=== PATIENT | female | born 1940 | race Caucasian/White ===

== ENCOUNTER 2020-01-23 11:01 | Emergency (ER) | payer MEDICARE, SELFPAY ==
[2020-01-23 11:09] VITALS: BP 146/86; PULSE 76; RESP 16; TEMP 36.2; O2SAT 98
--- NOTE | 2020-01-23 11:11 | ED.EAR ---
HPI - Ear Problem General Chief complaint: Ear Stated complaint: Sore throat/Ear pain Time Seen by Provider: 01/23/20 11:12 Source: patient and RN notes reviewed Mode of arrival: ambulatory Limitations: no limitations History of Present Illness HPI Narrative: 79-year-old female presents with concern for left ear pain for several days. Reports history of sinus congestion, pressure for approximately 2 weeks. Reports she has been using [place] pot, Flonase with no relief. Denies drainage from the ear. Denies fever, malaise. Reports occasional slight dizziness with nausea. MD Complaint: ear pain Related Data Home Medications Medication Instructions Recorded Confirmed Calcium 500 + D (D3) 04/02/19 Daily Multivitamin 04/02/19 digestive enzymes 04/02/19 magnesium 04/02/19 biotin 5,000 mcg sublingual tablet 5,000 mcg SUBLINGUAL DAILY 05/20/19 Allergies Allergy/AdvReac Type Severity Reaction Status Date / Time No Known Allergies Allergy Verified 09/21/19 11:39 Review of Systems Review of Systems: Narrative: CONSTITUTIONAL: Denies malaise, chills, sweats, or fever. EYES: Denies visual changes, redness, or discharge. ENT: Reports rhinorrhea, congestion, sinus pain, otalgia and sore throat. CARDIOVASCULAR: Denies chest pain, palpitations, or edema. RESPIRATORY: Denies cough dyspnea. GASTROINTESTINAL: Denies abdominal pain, nausea, vomiting, diarrhea SKIN: Denies rash or itching. MUSCULOSKELETAL: Denies myalgia. NEUROLOGIC: Denies headache. All systems reviewed & are unremarkable except as noted in HPI and below PMFSH Family History Family History Sibling Hypertension Mother Diabetes mellitus Hypertension Family history of coronary artery disease Father Hypertension Other Family history of heart disease in male family member before age 55 Social History Social History Smoking status: Former smoker Smoking end date: 04/07/96 Alcohol intake: never Comments At time of signature, agree with nursing past medical, surgical, social and family history. There is no relevant family history pertinent to the presenting complaint Exam Narrative: Exam Narrative: GENERAL: Well-appearing, well-nourished, and in no acute distress. HEAD: Normocephalic EYES: PERRLA, conjunctivae clear ENT: Nares clear, turbinates edematous and erythematous, sinus tenderness. Mucous membranes moist. TM pearly miller with dull light reflex bilaterally; no tragal tenderness. Oropharynx not erythematous without lesions. Tonsils not enlarged and without exudate, no drooling, no hoarseness, no trismus, uvula midline. NECK: Supple. No lymphadenopathy CHEST: Clear to auscultation, breath sounds equal. No wheezing, rhonchi, rales, or stridor. No respiratory distress, speaks in full sentences. HEART: Regular rate and rhythm. No murmur heard. SKIN: Warm, dry, no rash. NEURO: Alert and oriented x3. PSYCH: Normal mood and affect Course Course Emergency Course: Patient is aware of diagnosis, understands and agrees to treatment plan. Anticipatory guidance given. Patient agrees to follow-up as directed and is aware of reasons to seek care at the emergency department. Portions of this record may have been created with voice recognition software Vital Signs Vital signs: Vital Signs Temperature 97.2 F L 01/23/20 11:09 Pulse Rate 76 01/23/20 11:09 Respiratory Rate 16 01/23/20 11:09 Blood Pressure 146/86 H 01/23/20 11:09 Pulse Oximetry 98 01/23/20 11:09 Temperature 97.2 F L 01/23/20 11:09 Pulse Rate 76 01/23/20 11:09 Respiratory Rate 16 01/23/20 11:09 Blood Pressure 146/86 H 01/23/20 11:09 Pulse Oximetry 98 01/23/20 11:09 Reviewed. Patient has history of hypertension Medical Decision Making MDM Narrative Medical decision making narrative: Differential diagnosis considered: Lopez virus, strep
== END 2020-01-23 11:29 | disposition home or self-care (01) ==
PROVIDERS: Emergency Provider Nurse Practitioner; PCP Family Medicine
DX: J01.90 Acute sinusitis, unspecified (principal); Z87.891 Personal history of nicotine dependence
CPT/HCPCS: 99213; G0463

== ENCOUNTER 2020-02-20 10:48 | Emergency (ER) | payer MEDICARE, SELFPAY ==
--- NOTE | 2020-02-20 10:54 | ED.GENADULT ---
HPI - General Adult General Chief complaint: Urogenital-Female Stated complaint: POS UTI Time Seen by Provider: 02/20/20 11:04 Source: patient Mode of arrival: ambulatory Limitations: no limitations History of Present Illness HPI narrative: 79-year-old female patient presents to the [facility] with complaints of urinary symptoms that started this morning when she woke up. Patient states that she has had urgency, frequency and burning with urination. Denies any fevers, body aches or chills. Denies any low back pain or abdominal pain. Patient states that she does get urinary tract infections pretty frequently. Related Data Home Medications Medication Instructions Recorded Confirmed Calcium 500 + D (D3) 04/02/19 01/27/20 Daily Multivitamin 04/02/19 01/27/20 digestive enzymes 04/02/19 01/27/20 magnesium 04/02/19 01/27/20 biotin 5,000 mcg sublingual tablet 5,000 mcg SUBLINGUAL DAILY 05/20/19 01/27/20 [id number] INHALATION 02/20/20 [Trelegy Ellipta] mirabegron [Myrbetriq] mg PO 02/20/20 Allergies Allergy/AdvReac Type Severity Reaction Status Date / Time No Known Allergies Allergy Verified 02/01/20 14:29 Review of Systems Review of Systems: Narrative: CONSTITUTIONAL: Denies fever, chills, or sweats. EYES: Denies visual changes, redness, or discharge. ENT: Denies rhinorrhea, congestion, sore throat, or otalgia. CARDIOVASCULAR: Denies chest pain, palpitations, or edema. RESPIRATORY: Denies cough or dyspnea. GASTROINTESTINAL: Denies abdominal pain, nausea, vomiting, or diarrhea. GENITOURINARY: Positive dysuria with urgency, frequency and burning pain with urination since this morning SKIN: Denies rash or itching. MUSCULOSKELETAL: Denies back pain, joint pain, or myalgia. NEUROLOGIC: Denies headache, numbness, or weakness. PSYCHIATRIC: Denies anxiety or depression. [facility] Past Medical History Medical History (Updated 02/20/20 @ 11:13 by LUIS FELIPE Gregory) Arthritis Atherosclerosis of aorta Chronic kidney disease, stage 3 (moderate) Chronic obstructive pulmonary disease, unspecified Essential (primary) hypertension Fractures Fracture right arm x2 at age 7 Gastro-esophageal reflux disease without esophagitis Hypertensive chronic kidney disease with stage 1 through stage 4 chronic kidney disease, or unspecified chronic kidney disease Osteopenia Personal history of rectal cancer Post-menopausal Pure hypercholesterolemia, unspecified Rectal cancer With chemotherapy and radiation therapy Surgical History Surgical History (Updated 02/20/20 @ 11:08 by LUIS FELIPE Gregory) H/O inguinal hernia repair History of section, classical History of implanted electronic device Cataract lens History of intestinal surgery 2014 abdominal perineal resection with colostomy History of orthopedic surgery Left bunionectomy Family History Family History Sibling Hypertension Mother Diabetes mellitus Hypertension Family history of coronary artery disease Father Hypertension Other Family history of heart disease in male family member before age 55 Social History Social History Smoking end date: 04/07/96 Alcohol intake: never Comments At the time of my signature I agree with nursing past medical history, surgical, social, and family history. There is no relevant family history pertinent to the presenting complaint. Exam Narrative: Exam Narrative: GENERAL: Well-appearing, well-nourished, and in no acute distress. HEAD: Normocephalic, atraumatic. EYES: PERRLA and EOMI. ENT: Nares clear, no rhinorrhea or epistaxis. Mucous membranes moist. NECK: Supple. No lymphadenopathy CHEST: Clear to auscultation. No respiratory distress. HEART: Regular rate and rhythm. No murmur heard. Normal peripheral pulses. ABDOMEN: Soft, nontender, nondistended, normal active bowel sounds.
[2020-02-20 10:58] VITALS: BP 155/96; PULSE 84; RESP 16; TEMP 36.1
== END 2020-02-20 11:18 | disposition home or self-care (01) ==
PROVIDERS: Emergency Provider Nurse Practitioner Family; PCP Family Medicine
DX: N30.01 Acute cystitis with hematuria (principal); M19.90 Unspecified osteoarthritis, unspecified site; K21.9 Gastro-esophageal reflux disease without esophagitis; I12.9 Hypertensive chronic kidney disease with stage 1 through stage 4 chronic kidney disease, or unspecified chronic kidney disease; N18.30 Chronic kidney disease, stage 3 unspecified; I70.0 Atherosclerosis of aorta; M85.80 Other specified disorders of bone density and structure, unspecified site; Z85.048 Personal history of other malignant neoplasm of rectum, rectosigmoid junction, and anus; Z92.21 Personal history of antineoplastic chemotherapy; Z92.3 Personal history of irradiation
CPT/HCPCS: 81003; 87086; 87088; 99213; G0463

== ENCOUNTER → 2020-06-27 12:26 | Outpatient (CLI) | payer MEDICARE, SELFPAY ==
--- NOTE | ~2020-06-27 | XR_ITS ---
XR lumbar spine 2-3V DATE: 06/27/2020 12:55 INDICATION: Back pain TECHNIQUE: AP, lateral, coned lateral lumbosacral views COMPARISON: None FINDINGS: There is diffuse osteopenia. There is degenerative spurring of the lower thoracic spine. There is moderate degenerative disc disease at L1-2, L2-3. No fracture or bone destruction is detected. Included lower thoracic and lumbar pedicles appear intac t. There is degenerative change at the apophyseal joints at L4-5 and L5-S1 in particular, with minimal a ssociated grade 1 anterolisthesis at each of these levels. The sacroiliac joints appear normal. There is extensive calcification of the abdominal aorta with 2 focal areas of dilatation consistent w ith mild abdominal aortic aneurysm. IMPRESSION: Prominent osteopenia Degenerative changes of the thoracic and lumbar spine Abdominal aortic aneurysm Reviewed, dictated and finalized at location B.
--- NOTE | ~2020-06-27 | XR_ITS ---
XR finger 1st RT min 2V DATE: 06/27/2020 12:55 INDICATION: Pain at first metacarpophalangeal joint and carpometacarpal joint TECHNIQUE: 3 views COMPARISON: None FINDINGS: There is moderately prominent osteophyte is at the first carpometacarpal joint. There is mi nimal osteoarthritis at the first metacarpophalangeal joint. There is joint space narrowing and promi nent spurring at the interphalangeal joint of the first digit. No fracture or dislocation, periosteal reaction or bone destruction is evident. 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 IMPRESSION: Osteoarthritis primarily at the first carpometacarpal joint and int erphalangeal joint of the first digit
== END ==
PROVIDERS: PCP Family Medicine; Visit Provider Family Medicine
DX: M85.88 Other specified disorders of bone density and structure, other site (principal); I71.4 Abdominal aortic aneurysm, without rupture; M19.041 Primary osteoarthritis, right hand
CPT/HCPCS: 72100; 73140

== ENCOUNTER 2020-07-03 10:14 | Outpatient (CLI) | payer MEDICARE, SELFPAY ==
--- NOTE | ~2020-07-03 | DEXA_ITS ---
Bone Density Report Name: Elvie Thakur Age: 80 Sex: Female Ethnicity: White Date of : 1940 Indication: postmenopausal; height loss; cancer; asthma or emphysema; Referring Provider: Enrique Marroquin Study: Bone densitometry was performed. Exam Date: July 03, 2020 Accession number: [id number] Bone Density: Region BMD T-score Z-score Classification AP Spine (L1-L4) 1.068 0.2 2.9 Normal Femoral Neck (Left) 0.704 -1.3 1.0 Osteopenia Total Hip (Left) 0.912 -0.2 1.9 Normal Total Hip Bilateral Avg 0.917 -0.2 2.0 Normal Femoral Neck (Right) 0.761 -0.8 1.6 Normal Total Hip (Right) 0.920 -0.2 2.0 Normal World Health Organization criteria for BMD impression classify patients as: Normal (T-score at or above -1.0), Osteopenia (T-score between -1.0 and -2.5), or Osteoporosis (T-score at or below -2.5). 10-year Fracture Risk(1): Major Osteoporotic Fracture 12% Hip Fracture 2.7% Reported Risk Factors: [place] (), Neck BMD=0.704, BMI=32.6 (1) FRAX(R) Version 3.08. Fracture probability calculated for an untreated patient. Fracture probability may be lower if the patient has received treatment. Previous Exams: Region Exam Age BMD T-score BMD Change BMD Change Date g/cm2 vs Baseline vs Previous AP Spine(L1-L4) 07/03/2020 80 1.068 0.2 0.245(29.7%)# 0.016(1.5%)# 02/06/2018 77 1.052 0.0 0.229(27.8%)# 0.058(5.9%)# 06/12/2015 75 0.994 -0.5 0.170(20.7%)# 0.073(7.9%)# 09/18/2009 69 0.921 -1.1 0.097(11.8%)* 0.097(11.8%)* 11/18/2003 63 0.823 -2.0 Total Hip(Left) 07/03/2020 80 0.912 -0.2 0.101(12.5%)# 0.007(0.7%)# 02/06/2018 77 0.906 -0.3 0.095(11.7%)# 0.003(0.3%)# 06/12/2015 75 0.903 -0.3 0.092(11.4%)# 0.049(5.8%)# 09/18/2009 69 0.853 -0.7 0.043(5.3%)* 0.043(5.3%)* 11/18/2003 63 0.811 -1.1 Total Hip(Right) 07/03/2020 80 0.920 -0.2 0.104(12.7%)# 0.020(2.3%)# 02/06/2018 77 0.900 -0.3 0.084(10.2%)# -0.030(-3.2%)# 06/12/2015 75 0.930 -0.1 0.113(13.9%)# 0.078(9.2%)# 09/18/2009 69 0.851 -0.7 0.035(4.3%)* 0.035(4.3%)* 11/18/2003 63 0.816 -1.0 *Denotes significance at 95% confidence level, LSC for AP Spine = 0.022 g/cm2, LSC for Total Hip = 0.027 g/cm2 Clinical Information Provided by Patient: Has used the following medications: Vitamin D, Calcium Has the following medical conditions: Asthma or Emphysema, Cancer Patient maximum height was 67 No regular weight bearing exercise Onset o
== END 2020-07-03 10:15 | disposition home or self-care (01) ==
LOC: ANHIMG 10:15
PROVIDERS: PCP Family Medicine; Visit Provider Physician Assistant Medical
DX: Z78.0 Asymptomatic menopausal state (principal); M85.852 Other specified disorders of bone density and structure, left thigh
CPT/HCPCS: 77080

== ENCOUNTER 2020-07-05 07:36 | Outpatient (CLI) | payer MEDICARE, SELFPAY ==
--- NOTE | ~2020-07-05 | US_ITS ---
EXAMINATION: US aorta DATE: 07/05/2020 08:46 INDICATION: Aortic atherosclerosis TECHNIQUE: Grayscale, color Doppler, and pulsed Doppler images of the aorta and common iliac arteries were obtained. COMPARISON: None. FINDINGS: The proximal aorta measures 2.5 cm. The mid aorta measures 2.4 cm. The distal aorta measures 3.1 cm t apering to 1.3 cm at the bifurcation. The right common iliac artery measures 10 mm. The left common i liac artery measures 12 mm. IMPRESSION: 1. Ectatic infrarenal abdominal aorta measuring up to 3.1 cm in maximal diameter. Reviewed, dictated and finalized at location A. IMPRESSION: 1. Ectatic infrarenal abdominal aorta measuring up to 3.1 cm in maximal diamete r.
== END 2020-07-05 07:37 | disposition home or self-care (01) ==
PROVIDERS: PCP Family Medicine; Visit Provider Physician Assistant Medical
DX: I70.0 Atherosclerosis of aorta (principal)
CPT/HCPCS: 76775

== ENCOUNTER 2020-07-17 13:26 | Emergency (ER) | payer MEDICARE, SELFPAY ==
--- NOTE | ~2020-07-17 | XR_ITS ---
XR humerus LT DATE: 07/17/2020 15:05 INDICATION: Proximal left arm pain TECHNIQUE: AP and lateral views COMPARISON: 07/17/2020 left shoulder FINDINGS: There is a comminuted fracture of the proximal left humerus internally displaced mildly imp acted transverse surgical neck fracture and minimally displaced longitudinal fracture through the gre ater tuberosity. Alignment is preserved at the shoulder and apparently elbow joints. IMPRESSION: Fracture of greater tuberosity and surgical neck of left humerus Diffuse osteopenia Reviewed, dictated and finalized at location A.
--- NOTE | ~2020-07-17 | XR_ITS ---
XR shoulder LT min 2V DATE: 07/17/2020 15:05 INDICATION: Pain of the left shoulder and proximal arm TECHNIQUE: 3 views COMPARISON: None FINDINGS: There is a recent comminuted fracture of the proximal humerus, including transverse surgica l neck fracture with mild impaction and minimal displacement or angulation; there is a longitudinal m inimally displaced fracture through the greater tuberosity. Glenohumeral joint and acromioclavicular joint alignment are preserved. Osteopenia. IMPRESSION: Minimally displaced fractures of greater tuberosity and surgical neck of proximal left hu merus Osteopenia Reviewed, dictated and finalized at location A. IMPRESSION: Minimally displaced fractures of greater tuberosity and surgical ne ck of proximal left humerus Osteopenia
[2020-07-17 14:25] VITALS: BP 176/80; PULSE 69; RESP 18; TEMP 36.5; O2SAT 95
--- NOTE | 2020-07-17 15:15 | ED.UPPEXIN ---
HPI - Extremity Injury (Upper) General Chief Complaint: Extremity Injury, Upper Stated Complaint: Fall, Left Arm Pain Time Seen by Provider: 07/17/20 15:12 Source: patient Mode of arrival: EMS Limitations: no limitations History of Present Illness HPI narrative: Patient is an 80-year-old female complaining of left shoulder and left arm pain after she tripped while carrying a 40 pound on a edgardo when she tried to turn around she lost balance and landed on her left shoulder. Patient states her pain is an 8 out of 10, dull aching nonradiating. Patient denies any head, neck, back, chest, abdomen, pelvic, hip or any other extremity pain/injury. Related Data Home Medications Medication Instructions Recorded Confirmed Calcium 500 + D (D3) 04/02/19 01/27/20 Daily Multivitamin 04/02/19 01/27/20 digestive enzymes 04/02/19 01/27/20 magnesium 04/02/19 01/27/20 biotin 5,000 mcg sublingual tablet 5,000 mcg SUBLINGUAL DAILY 05/20/19 01/27/20 simvastatin 10 mg tablet 10 mg PO DAILY 03/24/20 Allergies Allergy/AdvReac Type Severity Reaction Status Date / Time No Known Allergies Allergy Verified 07/17/20 14:28 Review of Systems Review of Systems: All systems reviewed & are unremarkable except as noted in HPI and below Constitutional: Constitutional: Denies body ache(s), Denies chills, Denies excessive sweating, Denies fatigue, Denies fever(s), Denies headache(s), Denies lethargy, Denies malaise, Denies weakness and Denies weight loss Eyes: Eyes: Denies blurry vision, Denies change in vision and Denies loss of vision ENT: Denies dizziness, Denies ear discharge, Denies headache(s), Denies lip swelling, Denies epistaxis, Denies nasal congestion, Denies neck pain, Denies throat swelling and Denies tongue swelling Cardiovascular: Cardiovascular: Denies chest pain, Denies chest pain at rest, Denies chest pain with activity, Denies diaphoresis, Denies rapid heart rate, Denies edema, Denies irregular heart rhythm, Denies lightheadedness, Denies palpitations, Denies dyspnea and Denies dyspnea on exertion Respiratory: Respiratory: Denies chest congestion, Denies cough, Denies hemoptysis, Denies dyspnea and Denies dyspnea on exertion Gastrointestinal: Gastrointestinal: Denies abdominal pain, Denies melena, Denies hematochezia, Denies diarrhea, Denies nausea, Denies vomiting and Denies hematemesis Musculoskeletal: Musculoskeletal: Denies abnormal gait, Denies neck pain and Denies numbness Neurologic: Denies Abnormal speech present, Denies abnormal gait, Denies confusion, Denies dizziness, Denies headache(s), Denies focal weakness, Denies loss of vision, Denies numbness, Denies Other visual disturbances, Denies Sensory deficit (Neuro) and Denies weakness Psychiatric: Psychiatric: Denies confusion, Denies depression, Denies auditory hallucinations, Denies homicidal ideation and Denies suicidal ideation Endocrine: Endocrine: Denies cold intolerance, Denies excessive sweating, Denies fatigue, Denies heat intolerance and Denies palpitations Hematologic/Lymphatic: Hematologic/Lymphatic: Denies easy bleeding and Denies easy bruising Allergic/Immunologic: Allergic/Immunologic: Denies lip swelling, Denies throat swelling and Denies tongue swelling PMFSH Past Medical History Medical History Arthritis Atherosclerosis of aorta Chronic kidney disease, stage 3 (moderate) Chronic obstructive pulmonary disease, unspecified Essential (primary) hypertension Fractures Fracture right arm x2 at age 7 Gastro-esophageal reflux disease without esophagitis History of chicken pox History of measles History of mumps Hypertensive chronic kidney disease with stage 1 through stage 4 chronic kidney disease, or unspecified chronic kidney disease Osteopenia Personal history of rectal cancer Post-menopausal Pure hypercholesterolemia, unspecified Rectal cancer With chemotherapy and radiation therapy Surgical Histor
[2020-07-17] MEDS: ONDANSETRON INJ 4 MG/2 ML VIAL IV PUSH (15:45)
[2020-07-17] MEDS: HYDROmorphone HCL INJ (*CRX) 1 MG/ML SYR 0.5 MG IV PUSH (15:45)
[2020-07-17] MEDS: TETANUS,DIPHTHERIA,AC PERTUSSIS ADULT (0.5 ML) BOOSTRIX IM (16:33)
[2020-07-17 16:38] VITALS: BP 152/85; PULSE 69; RESP 16; O2SAT 95
== END 2020-07-17 16:38 | disposition home or self-care (01) ==
PROVIDERS: Emergency Provider Emergency Medicine; PCP Family Medicine
DX: S42.252A Displaced fracture of greater tuberosity of left humerus, initial encounter for closed fracture (principal); S42.212A Unspecified displaced fracture of surgical neck of left humerus, initial encounter for closed fracture; Z23 Encounter for immunization; I12.9 Hypertensive chronic kidney disease with stage 1 through stage 4 chronic kidney disease, or unspecified chronic kidney disease; N18.30 Chronic kidney disease, stage 3 unspecified; I70.0 Atherosclerosis of aorta; K21.9 Gastro-esophageal reflux disease without esophagitis; M85.80 Other specified disorders of bone density and structure, unspecified site; M19.90 Unspecified osteoarthritis, unspecified site; E78.00 Pure hypercholesterolemia, unspecified; Z92.3 Personal history of irradiation; Z85.048 Personal history of other malignant neoplasm of rectum, rectosigmoid junction, and anus; Z92.21 Personal history of antineoplastic chemotherapy; W01.0XXA Fall on same level from slipping, tripping and stumbling without subsequent striking against object, initial encounter
CPT/HCPCS: 73030; 73060; 90471; 90715; 96374; 96375; 99284; J1170; J2405

== ENCOUNTER 2021-08-13 02:47 | Day surgery (SDC) | payer MEDICARE, SELFPAY ==
[2021-07-26 11:12] VITALS: BMI 31.4
[2021-08-13 07:03] VITALS: BMI 30.7
[2021-08-13 07:04] VITALS: BP 150/81; PULSE 70; RESP 16; TEMP 36.8; O2SAT 97
--- NOTE | 2021-08-13 07:15 | WPDGICN ---
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 She currently has a colostomy in place that is functioning well. Surveillance colonoscopy is recommended now and at 3 year intervals in the future. GI Consult Note Consult date/time: 08/13/21 07:15 HPI: Elvie Thakur is a 81 year old female Presents for screening colonoscopy. Patient's current weight appetite are normal. She states her colostomy bag is functioning well. Patient has a history of adenocarcinoma of the colon resected 2012. Most recent colonoscopy with since 2018. Patient presents today for surveillance colonoscopy. She denies any weight loss or bleeding. Family history is noncontributory. Review of Systems Review of Systems: All systems reviewed & are unremarkable except as noted in HPI and below PMFSH Past Medical History Medical History Arthritis Atherosclerosis of aorta Chronic kidney disease, stage 3 (moderate) Chronic obstructive pulmonary disease, unspecified Constipation Essential (primary) hypertension Fractures Fracture right arm x2 at age 7 Gastro-esophageal reflux disease without esophagitis High cholesterol History of chicken pox History of measles History of mumps Hoarseness Hypertensive chronic kidney disease with stage 1 through stage 4 chronic kidney disease, or unspecified chronic kidney disease Osteopenia Osteoporosis Personal history of rectal cancer Post-menopausal Pure hypercholesterolemia, unspecified Rectal cancer With chemotherapy and radiation therapy Wears glasses Weight gain Surgical History Surgical History H/O inguinal hernia repair History of section, classical (~1968) History of implanted electronic device Cataract lens History of intestinal surgery 2014 abdominal perineal resection with colostomy, fix colon blockage 2014, fix intestine 2016, removal scar tissue/hernia 2018 History of orthopedic surgery Left bunionectomy Family History Family History Sibling Hypertension Aneurysm Gout Heart disease Mother Diabetes mellitus Hypertension Family history of coronary artery disease bypass age 72 Father Hypertension Daughter Hypertension Son Hypertension Daughter Lymphedema Carpal tunnel syndrome Heart problem Other Family history of heart disease in male family member before age 55 Social History Social History (Updated 07/06/21 @ 11:56 by Nabila Katz PA-C) Smoking status: Former smoker Tobacco type: cigarettes Smoking end date: 04/07/96 Alcohol intake: never Living arrangements: with family Gender identity (if verbalized by the patient): Female Spiritual care concerns: No Meds Home Medications and Allergies Home Medications Medication Instructions Recorded Confirmed Type Calcium 500 + D (D3) 1 tablet PO DAILY 04/02/19 08/13/21 History Daily Multivitamin 1 tablet PO DAILY 04/02/19 08/13/21 History digestive enzymes 1 cap PO DAILY 04/02/19 08/13/21 History magnesium 1,000 mg PO DAILY 04/02/19 08/13/21 History biotin 5,000 mcg sublingual tablet 5,000 mcg SUBLINGUAL DAILY 05/20/19 08/13/21 History ascorbic acid (vitamin C) 500 mg 1,000 mg PO DAILY 07/24/20 08/13/21 History capsule cat's claw (uncaria tomentosa) 500 500 mg PO DAILY 07/24/20 08/13/21 History mg capsule mirabegron 25 mg tablet,extended 25 mg PO DAILY #90 tablet 05/17/21 08/13/21 Rx release 24 hr simvastatin 10 mg tablet 10 mg PO DAILY #90 tablet 05/17/21 08/13/21 Rx Pancreat-Bet [id number]
[2021-08-13] MEDS: LACTATED RINGERS 1,000 ML 150 ML IV CONT (07:19)
--- NOTE | 2021-08-13 07:55 | WPDANESEPPF ---
Anes - Initial Pre Proc Eval Procedure: Operation Date: 08/13/21 08:00 Proposed Procedures p Screening Colonoscopy - Saqib Montes MD Date/Time: 08/13/21 07:55 Surgeon: Saqib Montes MD Pre Op Diagnosis: hx of rectal ca Patient Data Age: 81 Gender: F Height: 1.63 m Weight: 81.2 kg Last Vital Signs Temp 98.2 F 08/13/21 07:04 Pulse 70 08/13/21 07:04 Resp 16 08/13/21 07:04 BP 150/81 H 08/13/21 07:04 Pulse Ox 97 08/13/21 07:04 Allergies Allergy/AdvReac Type Severity Reaction Status Date / Time mold Allergy unknown Verified 08/13/21 07:00 Home Medications Medication Instructions Recorded Confirmed Type Calcium 500 + D (D3) 1 tablet PO DAILY 04/02/19 08/13/21 History Daily Multivitamin 1 tablet PO DAILY 04/02/19 08/13/21 History digestive enzymes 1 cap PO DAILY 04/02/19 08/13/21 History magnesium 1,000 mg PO DAILY 04/02/19 08/13/21 History biotin 5,000 mcg sublingual tablet 5,000 mcg SUBLINGUAL DAILY 05/20/19 08/13/21 History ascorbic acid (vitamin C) 500 mg 1,000 mg PO DAILY 07/24/20 08/13/21 History capsule cat's claw (uncaria tomentosa) 500 500 mg PO DAILY 07/24/20 08/13/21 History mg capsule mirabegron 25 mg tablet,extended 25 mg PO DAILY #90 tablet 05/17/21 08/13/21 Rx release 24 hr simvastatin 10 mg tablet 10 mg PO DAILY #90 tablet 05/17/21 08/13/21 Rx Pancreat-Bet XPu-ksp-hbog-pap 2 cap PO DAILY 07/26/21 08/13/21 History [Super Enzyme] albuterol sulfate [ProAir HFA] 1 inh INHALATION Q4H PRN 07/26/21 08/13/21 History amitriptyline 10 mg PO DAILY 07/26/21 08/13/21 History qujkpqvxrhs-uvhlzwian-iwkandcn 1 inh INHALATION DAILY 07/26/21 08/13/21 History [Trelegy Ellipta] glucos sul 6OQv-eae-dtnrl-C-Mn 2 cap PO TID 07/26/21 08/13/21 History [Glucosamine Chondroitin] lactobacillus combination no.8 300,000 cell PO TID 07/26/21 08/13/21 History [Adult Probiotic] lisinopril-hydrochlorothiazide 1 tablet PO DAILY 07/26/21 08/13/21 History loratadine 10 mg PO DAILY 07/26/21 08/13/21 History chlordiazepoxide HCl 5 mg capsule 5 mg PO DAILY #90 cap 08/01/21 08/13/21 Rx Patient hx anesthesia problems: none Family hx anesthesia problems: none Results Review: All pre-operative results and documents have been reviewed as part of the pre-operative evaluation. [facility] Past Medical History Medical History Arthritis Atherosclerosis of aorta Chronic kidney disease, stage 3 (moderate) Chronic obstructive pulmonary disease, unspecified Constipation Essential (primary) hypertension Fractures Fracture right arm x2 at age 7 Gastro-esophageal reflux disease without esophagitis High cholesterol History of chicken pox History of measles History of mumps Hoarseness Hypertensive chronic kidney disease with stage 1 through stage 4 chronic kidney disease, or unspecified chronic kidney disease Osteopenia Osteoporosis Personal history of rectal cancer Post-menopausal Pure hypercholesterolemia, unspecified Rectal cancer With chemotherapy and radiation therapy Wears glasses Weight gain Surgical History Surgical History H/O inguinal hernia repair History of section, classical (~1968) History of implanted electronic device Cataract lens History of intestinal surgery 2013 abdominal perineal resection with colostomy, fix colon blockage 2014, fix intestine 2016, removal scar tissue/hernia 2018 History of orthopedic surgery Left bunionectomy Family History Family History Sibling Hypertension Aneurysm Gout Heart disease Mother Diabetes mellitus Hypertension Family history of coronary artery disease bypass age 72 Father Hypertension Daughter Hypertension Son Hypertension Daughter Lymphedema Carpal tunnel syndrome Heart problem Other Family history of heart dise
--- NOTE | 2021-08-13 08:22 | SUR.OPER ---
SINDI Green and SINDI Rothman verified with Dr. Montes that one ascending colon polyp was collected
[2021-08-13 08:25] VITALS: BP 148/63; PULSE 73; RESP 16; O2SAT 94
[2021-08-13 08:35] VITALS: BP 135/67; PULSE 72; RESP 20; O2SAT 96
[2021-08-13 08:45] VITALS: BP 142/88; PULSE 66; RESP 18; O2SAT 96
== END 2021-08-13 09:10 | disposition home or self-care (01) ==
PROVIDERS: PCP Family Medicine; Visit Provider Internal Medicine Gastroenterology
PROC: 0DJD8ZZ Inspection of Lower Intestinal Tract, Via Natural or Artificial Opening Endoscopic (ICD-10-PCS; CPT 45378; principal; 2021-08-13 08:00)
DX: Z12.11 Encounter for screening for malignant neoplasm of colon (principal); Z85.048 Personal history of other malignant neoplasm of rectum, rectosigmoid junction, and anus; K63.5 Polyp of colon; Z93.3 Colostomy status; I12.9 Hypertensive chronic kidney disease with stage 1 through stage 4 chronic kidney disease, or unspecified chronic kidney disease; N18.30 Chronic kidney disease, stage 3 unspecified; M19.90 Unspecified osteoarthritis, unspecified site; I70.0 Atherosclerosis of aorta; J44.9 Chronic obstructive pulmonary disease, unspecified; K21.9 Gastro-esophageal reflux disease without esophagitis; E78.00 Pure hypercholesterolemia, unspecified; M81.0 Age-related osteoporosis without current pathological fracture; Z87.891 Personal history of nicotine dependence; Z79.51 Long term (current) use of inhaled steroids; E66.9 Obesity, unspecified; Z68.30 Body mass index [BMI] 30.0-30.9, adult
CPT/HCPCS: 45385; 88305; J2704; J7120

== ENCOUNTER 2022-07-11 20:56 | Outpatient (NON) | payer MEDICARE, SELFPAY | END 2022-07-11 20:57 | disposition home or self-care (01) | LOC: ANHLAB 20:57 | PROVIDERS: PCP Family Medicine; Visit Provider Family Medicine | DX: R35.0 Frequency of micturition (principal); R32 Unspecified urinary incontinence; N18.30 Chronic kidney disease, stage 3 unspecified | CPT/HCPCS: 87086 ==

== ENCOUNTER 2022-08-22 18:20 | Emergency (ER) | payer MEDICARE, SELFPAY ==
--- NOTE | 2022-08-22 18:29 | ED.GENADULT ---
HPI - General Adult General Chief complaint: Urogenital-Female Stated complaint: uti complaint History of Present Illness HPI narrative: 82-year-old female presents to the Urgent Care today complaining of pain with urination. Patient stated pain started last night when she developed a burning sensation while urinating last night. Patient recently had a UTI back in July and was treated with Macrobid. Symptoms did improve and then reoccurred again. Patient stated having some suprapubic abdominal pain but states that pain has improved and denies any abdominal pain at this time. Patient denies any flank pain or back pain. Patient does report some incontinence with movement but states taking medications for an overactive bladder. Patient has a history colon surgery with a colostomy bag in place. Patient denies any fevers but does state having chills. Patient denies any nausea, vomiting, diarrhea. Related Data Home Medications Medication Instructions Recorded Confirmed Calcium 500 + D (D3) 1 tablet PO DAILY 04/02/19 08/22/22 Daily Multivitamin 1 tablet PO DAILY 04/02/19 08/22/22 digestive enzymes 1 cap PO DAILY 04/02/19 08/22/22 magnesium 1,000 mg PO DAILY 04/02/19 08/22/22 biotin 5,000 mcg sublingual tablet 5,000 mcg sublingual DAILY 05/20/19 08/22/22 ascorbic acid (vitamin C) 500 mg 1,000 mg PO DAILY 07/24/20 08/22/22 capsule cat's claw (Uncaria tomentosa) 500 500 mg PO DAILY 07/24/20 08/22/22 mg capsule Pancreat-Bet LEh-swl-odaj-pap 250 2 cap PO DAILY 07/26/21 08/22/22 mg-162 mg-65 mg-125 mg capsule (Super Enzyme) lactobacillus combination no.8 3 300,000 cell PO TID 07/26/21 08/22/22 billion cell capsule loratadine 10 mg tablet 10 mg PO DAILY 07/26/21 08/22/22 Allergies Allergy/AdvReac Type Severity Reaction Status Date / Time mold Allergy unknown Verified 08/22/22 18:27 Review of Systems Review of Systems: CONSTITUTIONAL: Denies fever or sweats. Positive for chills EYES: Denies visual changes, redness, or discharge. ENT: Denies otalgia and sore throat CARDIOVASCULAR: Denies chest pain, palpitations, or edema. RESPIRATORY: Denies cough or dyspnea. GASTROINTESTINAL: Denies abdominal pain, nausea, vomiting, or diarrhea. GENITOURINARY: Denies hematuria. Positive for dysuria SKIN: Denies rash or itching. MUSCULOSKELETAL: Denies back pain, joint pain, or myalgia. NEUROLOGIC: Denies headache, numbness, or weakness. Pertinent positives per HPI. [facility] Past Medical History Medical History Arthritis Atherosclerosis of aorta Chronic kidney disease, stage 3 (moderate) Chronic obstructive pulmonary disease, unspecified Constipation Essential (primary) hypertension Fractures Fracture right arm x2 at age 7 Gastro-esophageal reflux disease without esophagitis High cholesterol History of chicken pox History of measles History of mumps Hoarseness Hypertensive chronic kidney disease with stage 1 through stage 4 chronic kidney disease, or unspecified chronic kidney disease Osteopenia Osteoporosis Personal history of rectal cancer Post-menopausal Pure hypercholesterolemia, unspecified Rectal cancer With chemotherapy and radiation therapy Wears glasses Weight gain Surgical History Surgical History H/O inguinal hernia repair History of section, classical (~1968) History of implanted electronic device Cataract lens History of intestinal surgery 2014 abdominal perineal resection with colostomy, fix colon blockage 2014, fix intestine 2016, removal scar tissue/hernia 2018 History of orthopedic surgery Left bunionectomy Family History Family History Sibling Hypertension Aneurysm Gout Heart disease Mother Diabetes mellitus Hypertension Family history of coronary artery disease bypass age 72 Father Hypert
[2022-08-22 18:42] VITALS: BP 149/85; PULSE 110; RESP 16; TEMP 37.6; O2SAT 93
== END 2022-08-22 19:11 | disposition home or self-care (01) ==
PROVIDERS: Emergency Provider Nurse Practitioner Family; PCP Family Medicine
DX: N39.0 Urinary tract infection, site not specified (principal); Z87.891 Personal history of nicotine dependence; I70.0 Atherosclerosis of aorta; M19.90 Unspecified osteoarthritis, unspecified site; I12.9 Hypertensive chronic kidney disease with stage 1 through stage 4 chronic kidney disease, or unspecified chronic kidney disease; N18.30 Chronic kidney disease, stage 3 unspecified; J44.9 Chronic obstructive pulmonary disease, unspecified; K21.9 Gastro-esophageal reflux disease without esophagitis; M81.0 Age-related osteoporosis without current pathological fracture; M85.80 Other specified disorders of bone density and structure, unspecified site; E78.00 Pure hypercholesterolemia, unspecified; Z85.048 Personal history of other malignant neoplasm of rectum, rectosigmoid junction, and anus; Z92.21 Personal history of antineoplastic chemotherapy; Z92.3 Personal history of irradiation
CPT/HCPCS: 81003; 87077; 87086; 87186; 99213; G0463

== ENCOUNTER 2022-09-28 11:12 | Emergency (ER) | payer MEDICARE, SELFPAY ==
[2022-09-28 11:20] VITALS: BP 145/85; PULSE 85; RESP 16; TEMP 36.7; O2SAT 96
--- NOTE | 2022-09-28 11:23 | ED.FEMALEGU ---
HPI - Female Genitourinary General Chief complaint: Urogenital-Female Stated complaint: blood in urine Source: patient and RN notes reviewed Mode of arrival: ambulatory Limitations: no limitations History of Present Illness HPI Narrative: 82 y/o female with hx HTN, CKD3, and OAB presented for c/o blood in urine today. Patient endorses chronic urinary incontinence and bladder spasms; and is following with urology for recurrent UTIs for a few months. Denies abdominal pain, flank pain, n/v/f/c. History of rectal cancer, with colostomy bag. Started following with urology about 2 weeks ago, has not had imaging; and is scheduled again 10/21/22. Patient is not on anticoagulant. Related Data Home Medications Medication Instructions Recorded Confirmed Calcium 500 + D (D3) 1 tablet PO DAILY 04/02/19 09/28/22 Daily Multivitamin 1 tablet PO DAILY 04/02/19 09/28/22 digestive enzymes 1 cap PO DAILY 04/02/19 09/28/22 magnesium 1,000 mg PO DAILY 04/02/19 09/28/22 biotin 5,000 mcg sublingual tablet 5,000 mcg sublingual DAILY 05/20/19 09/28/22 ascorbic acid (vitamin C) 500 mg 1,000 mg PO DAILY 07/24/20 09/28/22 capsule cat's claw (Uncaria tomentosa) 500 500 mg PO DAILY 07/24/20 09/28/22 mg capsule Pancreat-Bet KAx-zfy-fnfq-pap 250 2 cap PO DAILY 07/26/21 09/28/22 mg-162 mg-65 mg-125 mg capsule (Super Enzyme) lactobacillus combination no.8 3 300,000 cell PO TID 07/26/21 09/28/22 billion cell capsule loratadine 10 mg tablet 10 mg PO DAILY 07/26/21 09/28/22 Allergies Allergy/AdvReac Type Severity Reaction Status Date / Time mold Allergy unknown Verified 09/28/22 11:16 Review of Systems Review of Systems: CONSTITUTIONAL: Denies body aches, fever, chills, or sweats. CARDIOVASCULAR: Denies chest pain, palpitations, or edema. RESPIRATORY: Denies cough or dyspnea. GASTROINTESTINAL: Denies abdominal pain, nausea, vomiting, or diarrhea. GENITOURINARY: Reports hematuria, bladder spasms denies dysuria, frequency, urgency, flank pain SKIN: Denies rash, itching, or wounds. MUSCULOSKELETAL: Denies back pain or myalgia. [facility] Past Medical History Medical History Arthritis Atherosclerosis of aorta Chronic kidney disease, stage 3 (moderate) Chronic obstructive pulmonary disease, unspecified Constipation Essential (primary) hypertension Fractures Fracture right arm x2 at age 7 Gastro-esophageal reflux disease without esophagitis High cholesterol History of chicken pox History of measles History of mumps Hoarseness Hypertensive chronic kidney disease with stage 1 through stage 4 chronic kidney disease, or unspecified chronic kidney disease Osteopenia Osteoporosis Personal history of rectal cancer Post-menopausal Pure hypercholesterolemia, unspecified Rectal cancer With chemotherapy and radiation therapy Wears glasses Weight gain Surgical History Surgical History H/O inguinal hernia repair History of section, classical (~1968) History of implanted electronic device Cataract lens History of intestinal surgery 2013 abdominal perineal resection with colostomy, fix colon blockage 2014, fix intestine 2016, removal scar tissue/hernia 2018 History of orthopedic surgery Left bunionectomy Family History Family History Sibling Hypertension Aneurysm Gout Heart disease Mother Diabetes mellitus Hypertension Family history of coronary artery disease bypass age 72 Father Hypertension Daughter Hypertension Son Hypertension Daughter Lymphedema Carpal tunnel syndrome Heart problem Other Family history of heart disease in male family member before age 55 Social History Social History Social History: Caffeine-none Smoking status: Former smoker Tobacco
== END 2022-09-28 11:53 | disposition home or self-care (01) ==
PROVIDERS: Emergency Provider Nurse Practitioner Family; PCP Family Medicine
DX: N39.0 Urinary tract infection, site not specified (principal); Z87.891 Personal history of nicotine dependence; I12.9 Hypertensive chronic kidney disease with stage 1 through stage 4 chronic kidney disease, or unspecified chronic kidney disease; N18.30 Chronic kidney disease, stage 3 unspecified; I70.0 Atherosclerosis of aorta; J44.9 Chronic obstructive pulmonary disease, unspecified; K21.9 Gastro-esophageal reflux disease without esophagitis; E78.00 Pure hypercholesterolemia, unspecified; M85.80 Other specified disorders of bone density and structure, unspecified site; M81.0 Age-related osteoporosis without current pathological fracture; Z85.048 Personal history of other malignant neoplasm of rectum, rectosigmoid junction, and anus
CPT/HCPCS: 81003; 87086; 87088; 99213; G0463

== ENCOUNTER 2022-10-08 11:52 | Emergency (ER) | payer MEDICARE, SELFPAY ==
--- NOTE | 2022-10-08 11:54 | ED.GENADULT ---
HPI - General Adult General Chief complaint: Fever Stated complaint: CHILLS/NAUSEA/WEAK Time Seen by Provider: 10/08/22 11:57 Source: patient, RN notes reviewed and old records reviewed Mode of arrival: ambulatory Limitations: no limitations History of Present Illness HPI narrative: 82-year-old female presents to the [facility] with son. Complains of chills, nausea, generalized weakness, confusion per son. Patient acutely confused, son states it started last night Recently diagnosed with the UTI prescribed Augmentin, 27 September, 11 days ago, son reports that she finished all of her antibiotics, was feeling a little better until last night. Related Data Home Medications Medication Instructions Recorded Confirmed Calcium 500 + D (D3) 1 tablet PO DAILY 04/02/19 10/08/22 Daily Multivitamin 1 tablet PO DAILY 04/02/19 10/08/22 digestive enzymes 1 cap PO DAILY 04/02/19 10/08/22 magnesium 1,000 mg PO DAILY 04/02/19 10/08/22 biotin 5,000 mcg sublingual tablet 5,000 mcg sublingual DAILY 05/20/19 10/08/22 ascorbic acid (vitamin C) 500 mg 1,000 mg PO DAILY 07/24/20 10/08/22 capsule cat's claw (Uncaria tomentosa) 500 500 mg PO DAILY 07/24/20 10/08/22 mg capsule Pancreat-Bet SIi-pcj-vgsw-pap 250 2 cap PO DAILY 07/26/21 10/08/22 mg-162 mg-65 mg-125 mg capsule (Super Enzyme) lactobacillus combination no.8 3 300,000 cell PO TID 07/26/21 10/08/22 billion cell capsule loratadine 10 mg tablet 10 mg PO DAILY 07/26/21 10/08/22 Allergies Allergy/AdvReac Type Severity Reaction Status Date / Time mold Allergy unknown Verified 10/08/22 12:01 Review of Systems Review of Systems: All systems reviewed & are unremarkable except as noted in HPI and below Constitutional: Constitutional: Reports as per HPI, Reports body ache(s), Reports chills, Reports fatigue, Reports fever(s), Reports poor appetite and Reports weakness Eyes: Eyes: Reports no additional eye complaints ENT: Reports system reviewed and no additional complaints, except as documented Cardiovascular: Cardiovascular: Reports no additional cardiovascular complaints, Denies chest pain and Denies dyspnea Respiratory: Respiratory: Reports no additional respiratory complaints, Denies chest congestion, Denies cough and Denies dyspnea Gastrointestinal: Gastrointestinal: Reports no additional gastrointestinal complaints, Denies abdominal pain, Denies nausea and Denies vomiting Musculoskeletal: Musculoskeletal: Reports as per HPI, Reports arthralgias (Generalized) and Reports muscle cramps Integumentary/Breasts: Skin/Breast: Reports system reviewed and no additional complaints, except as docu Neurologic: Reports system reviewed and no additional complaints, except as documented Psychiatric: Psychiatric: Reports no additional psychiatric complaints Allergic/Immunologic: Allergic/Immunologic: Reports no additional allergic/immunologic complaints [facility] Past Medical History Medical History Arthritis Atherosclerosis of aorta Chronic kidney disease, stage 3 (moderate) Chronic obstructive pulmonary disease, unspecified Constipation Essential (primary) hypertension Fractures Fracture right arm x2 at age 7 Gastro-esophageal reflux disease without esophagitis High cholesterol History of chicken pox History of measles History of mumps Hoarseness Hypertensive chronic kidney disease with stage 1 through stage 4 chronic kidney disease, or unspecified chronic kidney disease Osteopenia Osteoporosis Personal history of rectal cancer Post-menopausal Pure hypercholesterolemia, unspecified Rectal cancer With chemotherapy and radiation therapy Wears glasses Weight gain Surgical History Surgical History H/O inguinal hernia repair History of section, classical (~1968) History of implanted electronic device Cataract lens History of intestinal surgery 2014 abdominal perineal
[2022-10-08 12:05] VITALS: BP 144/67; PULSE 84; RESP 16; TEMP 38.3; O2SAT 98
[2022-10-08 12:35] VITALS: BP 141/64
--- NOTE | 2022-10-08 12:39 | ECG_ITS ---
Measurements Intervals [place] Rate: 81 P: 46 [place]: 173 QRS: 5 QRSD: 130 T: 113 QT: 403 QTc: 471 Interpretive Statements SINUS RHYTHM INTRAVENTRICULAR CONDUCTION DELAY BORDERLINE R WAVE PROGRESSION, ANTERIOR LEADS ST-T WAVE ABNORMALITY IN HIGH LATERAL LEADS- CONSIDER ISCHEMIA BASELINE ARTIFACT- I, II, III, AVR, AVL, AVF, V2, V5 ABNORMAL ECG NO PREVIOUS ECG AVAILABLE FOR COMPARISON Electronically Signed On 10-09-2022 6:36:37 CDT by Wero Carbajal D.O.
== END 2022-10-08 12:35 | disposition short-term general hospital (02) ==
PROVIDERS: Emergency Provider Nurse Practitioner; PCP Family Medicine
DX: R50.9 Fever, unspecified (principal); R94.31 Abnormal electrocardiogram [ECG] [EKG]; R41.0 Disorientation, unspecified; Z87.891 Personal history of nicotine dependence; M19.90 Unspecified osteoarthritis, unspecified site; I70.0 Atherosclerosis of aorta; J44.9 Chronic obstructive pulmonary disease, unspecified; K21.9 Gastro-esophageal reflux disease without esophagitis; E78.00 Pure hypercholesterolemia, unspecified; M85.80 Other specified disorders of bone density and structure, unspecified site; M81.0 Age-related osteoporosis without current pathological fracture; I13.10 Hypertensive heart and chronic kidney disease without heart failure, with stage 1 through stage 4 chronic kidney disease, or unspecified chronic kidney disease; N18.30 Chronic kidney disease, stage 3 unspecified
CPT/HCPCS: 93005; 99215; G0463

== ENCOUNTER 2022-10-08 12:58 | Inpatient (IN) | payer MEDICARE, SELFPAY ==
[2022-10-08] VITALS (19 sets, daily range): BP systolic 93–151; BP diastolic 49–102; PULSE 69–84; RESP 14–23; TEMP 36.6–38.2; O2SAT 84–98
--- NOTE | ~2022-10-08 | XR_ITS ---
EXAMINATION: XR chest 1V portable INDICATION: Fever and lethargy TECHNIQUE: Portable AP chest at 1339 hours COMPARISON: None available FINDINGS: There are small pleural effusions. Minimal airspace opacities are present in the lung bases . There is no pneumothorax. The cardiomediastinal silhouette is normal. There is an old healed fractu re of the proximal left humerus. IMPRESSION: 1. Small pleural effusions with minimal bibasilar airspace opacities, atelectasis versus pneumonia. Reviewed, dictated and finalized at location A. IMPRESSION: 1. Small pleural effusions with minimal bibasilar airspace opacities, atelectas is versus pneumonia.
--- NOTE | ~2022-10-08 | US_ITS ---
EXAMINATION: US abdomen limited DATE: 10/13/2022 10:05 INDICATION: Abnormal liver function tests. TECHNIQUE: Multiple grayscale and Doppler ultrasound images of the abdomen were obtained. COMPARISON: CT abdomen and pelvis 10/09/2022 FINDINGS: The visualized portions of the head, body, and tail of the pancreas are normal. The liver i s normal without focal lesion. No liver surface nodularity. There is normal flow in main portal vein. The gallbladder is contracted. No gallstones or sonographic Hutchinson sign. The common duct is normal a nd measures 4 mm. IMPRESSION: 1. Normal right upper quadrant ultrasound. Reviewed, dictated and finalized at location A.
--- NOTE | ~2022-10-08 | CT_ITS ---
Non-contrast CT scan of the Abdomen and Pelvis Clinical indication: Right CVA tenderness, UTI Technique: 2.5 mm axial scans were obtained through the abdomen and pelvis without intravenous or or al contrast. Dose reduction technique was used on this scan by utilizing automated exposure control a nd iterative reconstruction technique. The dose-length product (DLP) was 845.24 mGy-cm. COMPARISON: 12/09/2018 Findings: Images through the lung bases reveal small bilateral pleural effusions. There is no evidence of renal or ureteral calculi. The kidneys and the ureters are nondilated. The liver, spleen, pancreas, gallbladder, and adrenals appear normal. There is extensive atherosclero tic calcification of the aorta. There is mild infrarenal abdominal aneurysm measuring 3.1 cm in maxim um diameter.. There is no evidence of bowel obstruction. Right lower quadrant ostomy present, with probable parasto mal hernia containing multiple distal large bowel loops. Images through the pelvis were performed. There is no evidence of ascites or lymphadenopathy. Urinary bladder collapsed around a Roberts catheter. No adnexal mass evident. Impression: No definite abnormality of the system identified, however urinary bladder is collapsed and lack of IV contrast limits evaluation for pyelonephritis. Consider contrast enhanced exam as indicated for f urther evaluation. 3.1 cm infrarenal abdominal aortic aneurysm with extensive atherosclerotic calcification. Right lower quadrant ostomy with peristomal hernia containing multiple distal large bowel loops. Small bilateral pleural effusions. Reviewed, dictated and finalized at [facility]. Impression: No definite abnormality of the system identified, however urinary bladder is collapsed and lack of IV contrast limits evaluation for pyelonephritis. Consid er contrast enhanced exam as indicated for further evaluation. 3.1 cm infrarenal abdominal aortic aneurysm with extensive atherosclerotic calc ification. Right lower quadrant ostomy with peristomal hernia containing multiple distal l arge bowel loops. Small bilateral pleural effusions.
--- NOTE | 2022-10-08 13:03 | ED.AMS ---
HPI - Altered Mental Status General Chief Complaint: Altered Mental Status Stated Complaint: fever, confused, weak, recent UTI Time Seen by Provider: 10/08/22 13:03 Source: patient, family and EMS Mode of arrival: EMS Limitations: no limitations History of Present Illness HPI narrative: 82 years old white female came from home by ambulance complaining of lethargy, weakness poor appetite that started last night patient denies any headache, chest pain, abdominal pain or back pain. History of recurrent urinary tract infections recently, last antibiotic intake was 2 weeks ago. Related Data Home Medications Medication Instructions Recorded Confirmed Calcium 500 + D (D3) 1 tablet PO DAILY 04/02/19 10/08/22 Daily Multivitamin 1 tablet PO DAILY 04/02/19 10/08/22 digestive enzymes 1 cap PO DAILY 04/02/19 10/08/22 magnesium 1,000 mg PO DAILY 04/02/19 10/08/22 biotin 5,000 mcg sublingual tablet 5,000 mcg sublingual DAILY 05/20/19 10/08/22 ascorbic acid (vitamin C) 500 mg 1,000 mg PO DAILY 07/24/20 10/08/22 capsule cat's claw (Uncaria tomentosa) 500 500 mg PO DAILY 07/24/20 10/08/22 mg capsule Pancreat-Bet XRj-rvg-ehnm-pap 250 2 cap PO DAILY 07/26/21 10/08/22 mg-162 mg-65 mg-125 mg capsule (Super Enzyme) lactobacillus combination no.8 3 300,000 cell PO TID 07/26/21 10/08/22 billion cell capsule loratadine 10 mg tablet 10 mg PO DAILY 07/26/21 10/08/22 Allergies Allergy/AdvReac Type Severity Reaction Status Date / Time mold Allergy unknown Verified 10/08/22 12:01 Review of Systems Review of Systems: All systems reviewed & are unremarkable except as noted in HPI and below PMFSH Past Medical History Medical History Arthritis Atherosclerosis of aorta Chronic kidney disease, stage 3 (moderate) Chronic obstructive pulmonary disease, unspecified Constipation Essential (primary) hypertension Fractures Fracture right arm x2 at age 7 Gastro-esophageal reflux disease without esophagitis High cholesterol History of chicken pox History of measles History of mumps Hoarseness Hypertensive chronic kidney disease with stage 1 through stage 4 chronic kidney disease, or unspecified chronic kidney disease Osteopenia Osteoporosis Personal history of rectal cancer Post-menopausal Pure hypercholesterolemia, unspecified Rectal cancer With chemotherapy and radiation therapy Wears glasses Weight gain Surgical History Surgical History H/O inguinal hernia repair History of section, classical (~1968) History of implanted electronic device Cataract lens History of intestinal surgery 2013 abdominal perineal resection with colostomy, fix colon blockage 2014, fix intestine 2016, removal scar tissue/hernia 2018 History of orthopedic surgery Left bunionectomy Family History Family History Sibling Hypertension Aneurysm Gout Heart disease Mother Diabetes mellitus Hypertension Family history of coronary artery disease bypass age 72 Father Hypertension Daughter Hypertension Son Hypertension Daughter Lymphedema Carpal tunnel syndrome Heart problem Other Family history of heart disease in male family member before age 55 Social History Social History Social History: Caffeine-none Smoking status: Former smoker Tobacco type: cigarettes Smoking end date: 04/07/96 Alcohol intake: never Lack of Transportation: No Lack of Food: Never True Current Housing: I Have Housing Concerned About Future Housing: No Difficulty Paying Gas/Electric Bills: No Difficulty Paying for Meds: No Currently Unemployed: No Education: Associate Degree Difficulty w/ Childcare or Family Care: No Living arrangements: with family Gender identity (if verbalized by the patient):
[2022-10-08 14:34] LABS: Basophils Absolute Auto 0.1 K/mm3 (0.0-0.1); Basophils Percent Auto 0.3 % (0.2-1.2); Hematocrit 30.1 % (37.0-47.0); Hemoglobin 10.1 g/dL (12.0-15.0); Immature Granulocyte Absolute 0.06 K/mm3 (0.00-0.031); Immature Granulocyte Percent A 0.4 % (0-0.5); Lymphocytes Absolute Auto 0.33 K/mm3 (0.9-3.2); Lymphocytes Percent Auto 2.2 % (18.3-44.2); Mean Corpuscular HGB Conc 33.6 g/dl (32-36); Mean Corpuscular Hemoglobin 31.6 pg (26-34); Mean Corpuscular Volume 94.1 fl (80-100); Mean Platelet Volume 9.6 fl (7.4-10.4); Monocytes Absolute Auto 0.8 K/mm3 (0.1-0.6); Monocytes Percent Auto 5.5 % (2.6-8.5); Neutrophils Absolute Auto 13.8 K/mm3 (1.3-6.7); Neutrophils Percent Auto 91.6 % (45.5-73.1); Platelet Count Result 286 k/mm3 (150-375); Red Cell Distribution Width 13.4 % (11.5-14.5); White Blood Count 15.1 K/mm3 (4.5-10.0)
[2022-10-08 14:43] LABS: INR 1.2; Lactic Acid Reflex 1.1 mmol/L (0.7-2.0); Partial Thromboplastin Time 33.2 SECONDS (22.3-36.8); Prothrombin Time 16.1 Seconds (11.1-14.7)
[2022-10-08 14:44] LABS: Alanine Aminotransferase 19 U/L (6-35); Albumin Level 3.9 g/dL (3.5-5.1); Alkaline Phosphatase 73 U/L (38-126); Anion Gap 4 mmol/L (8-16); Aspartate Amino Transferase 29 U/L (14-36); Bilirubin,Total 0.6 mg/dL (0.2-1.3); Blood Urea Nitrogen 27 mg/dL (7-17); CRP 8.5 mg/dL (<1.0); Calcium 8.9 mg/dL (8.4-10.2); Carbon Dioxide 34 mmol/L (22-30); Chloride 95 mmol/L (98-107); Estimated Glomerular Filt Rate 29; Glucose 116 mg/dL (65-110); Potassium 3.1 mmol/L (3.4-5.0); Sodium 133 mmol/L (137-145)
[2022-10-08] MEDS: ACETAMINOPHEN 325 MG TABLET 650 MG PO ×2 (14:45→19:12)
[2022-10-08] MEDS: SODIUM CHLORIDE 0.9% IV 2,300 ML/1,000 ML BAG 999 ML IV CONT ×3 (14:45→16:31)
[2022-10-08 15:08] LABS: Appearance Urine Cloudy (Clear); Bilirubin Urine Negative (Negative); Blood Urine 1+ (Negative); Color Urine Yellow (Yellow); Glucose Urine UA Negative (Negative); Ketones Urine Negative (Negative); Leukocyte Esterase Ur 2+ LEU/UL (Negative); Nitrate Urine Negative (Negative); Protein Urine 1+ mg/dL (Negative); Specific Grav Ur 1.015 (1.001-1.035); Urobilinogen Urine 0.2 mg/dL (<2.0)
[2022-10-08 15:18] LABS: Add Urine Microscopic? YES; WBC Clumps Urine Present /hpf; WBC Urine 21-30 /hpf (0-3)
[2022-10-08 15:19] LABS: Bacteria Urine 1+ /hpf
[2022-10-08] MEDS: POTASSIUM CHLORIDE 20 MEQ ER TABLET 40 MEQ PO (15:43)
--- NOTE | 2022-10-08 17:19 | ADMGEN ---
This patient, Elvie Thakur, was admitted to [facility] Surg Room 324-02. Patient/family oriented to hospital policies and general routines including ID bracelet, bed and alarms, visiting hours, pain management, procedures, bathroom and other care routines, personal items, smoking policy, room service/diet, and visiting hours. Information on how to activate the Rapid Response Team has been discussed. Patient/Family are encouraged to report perceived risks to care and to ask questions if they do not understand what they are told or what they should do.
[2022-10-08] MEDS: SODIUM CHLORIDE 0.9% IV 1,000 ML 125 ML IV CONT (18:10)
--- NOTE | 2022-10-08 18:36 | PM.IMHP ---
H&P: HPI History of Present Illness Date/Time: 10/08/22 17:30 Chief Complaint: Fever. Narrative: This is a pleasant 82-year-old female with history of recurrent urinary tract infections, chronic kidney disease, hypertension, hyperlipidemia, chronic obstructive pulmonary disease, and history of rectal cancer who presented to the emergency department via EMS from home for evaluation of fever. The patient provides the following history. She reports ongoing issues with urinary tract infections and she has an upcoming appointment with Dr. Stafford and some imaging scheduled at [facility] in the next few days. She was most recently treated for UTI and completed antibiotics less than 2 weeks ago. Over the last 24 hours she has started to feel unwell with subjective fever, weakness, mild confusion, urinary incontinence, and right low back and suprapubic discomfort. Appetite has been a bit decreased but she denies nausea and vomiting. She denies sinus congestion, sore throat, cough, vomiting, diarrhea, and hematuria. She had a low-grade temperature on arrival to the ED with stable vital signs. Pertinent labs include a WBC count of 15.1, hemoglobin 10.1, sodium 133, potassium 3.1, chloride 95, BUN 27, creatinine 1.70, lactic acid 1.1, CRP 8.5. Urine was cloudy with 1+ blood, 1+ protein, 2+ leukocyte esterase, 21 to 30 WBC, 3 to 5 RBC, WBC clumps, 1+ bacteria. In the ED she was given an IV fluid bolus and she was started on ceftriaxone. She is being admitted in this setting for further treatment and urology consultation. On the floor she seemed to be having difficulties urinating and bladder scan showed that she was retaining urine. Roberts catheter yielded over 850 mL upon insertion. Review of Systems Review of Systems: Twelve systems were reviewed and are negative except for as per HPI. [facility] Past Medical History Medical History (Updated 10/08/22 @ 21:24 by Karrie Badillo PA-C) Arthritis Atherosclerosis of aorta Chronic kidney disease, stage 3 (moderate) Chronic obstructive pulmonary disease, unspecified Constipation Essential (primary) hypertension Fractures Fracture right arm x2 at age 7 Gastro-esophageal reflux disease without esophagitis High cholesterol History of chicken pox History of measles History of mumps Osteopenia Osteoporosis Post-menopausal Rectal cancer Status post chemo radiation. Recurrent urinary tract infection Wears glasses Surgical History Surgical History (Updated 10/08/22 @ 21:20 by Karrie Badillo PA-C) History of bunionectomy of left great toe History of cataract extraction with lens replacement History of section, classical (1967) History of inguinal hernia repair History of intestinal surgery (2013) Perineal resection with colostomy for rectal cancer. Exploratory laparotomy for bowel obstructions and adhesiolysis on separate occasions. Family History Family History Sibling Hypertension Aneurysm Gout Heart disease Mother Diabetes mellitus Hypertension Family history of coronary artery disease bypass age 72 Father Hypertension Daughter Hypertension Son Hypertension Daughter Lymphedema Carpal tunnel syndrome Heart problem Other Family history of heart disease in male family member before age 55 Social History Social History (Updated 10/08/22 @ 21:21 by Karrie Badillo PA-C) Social History: Surrogate medical decision maker: Scott Thakur, alex. Code status: Full code. Smoking packs per day: 2 Smoking cigarettes per day: 40.0 Years smoked: 35 Smoking pack-years: 70.00 Smoking status: Former smoker Alcohol intake: never Substance use: never Lack of Transportation: No Lack of Food: Never True Current Housing: I Have Housing Concerned About Future Housing: No Difficulty Paying Gas/Electric Bills: No Difficulty Paying for Meds: No Currently U
--- NOTE | 2022-10-08 19:35 | PHAR ---
PT'S HOME MED CHLORDIAZEPOXIDE 5 MG CAPSULES VERIFIED BY PHARMACY
[2022-10-08 21:51] LABS: Anion Gap 5 mmol/L (8-16); Blood Urea Nitrogen 24 mg/dL (7-17); Calcium 7.5 mg/dL (8.4-10.2); Carbon Dioxide 26 mmol/L (22-30); Chloride 102 mmol/L (98-107); Estimated CRCL calculation 26 ml/min; Estimated Glomerular Filt Rate 33; Glucose 146 mg/dL (65-110); Magnesium 1.8 mg/dL (1.6-2.3); Potassium 3.4 mmol/L (3.4-5.0); Sodium 133 mmol/L (137-145)
[2022-10-08 22:32] LABS: Iron 16 ug/dL (37-170)
[2022-10-08 22:42] LABS: Percent Iron Saturation 7 % (20-50)
[2022-10-08 22:44] LABS: Vitamin B12 > 1000.0 pg/mL (239-931)
[2022-10-08 23:04] LABS: Thyroid Stimulating Hormone Reflex 0.223 uIU/mL (0.465-4.68)
[2022-10-08 23:32] LABS: Free T4 Free Thyroxine Reflex 1.18 ng/dL (0.78-2.19)
[2022-10-08 23:39] LABS: Folic Acid > 20.0 ng/mL (2.76->20)
[2022-10-09] VITALS (8 sets, daily range): BP systolic 129–145; BP diastolic 58–68; PULSE 77–90; RESP 16–20; TEMP 36–38.3; O2SAT 85–93
[2022-10-09 00:11] LABS: Total Triiodothyronine (T3) 0.53 NG/ML (0.97-1.69)
[2022-10-09] MEDS: ACETAMINOPHEN 325 MG TABLET 650 MG PO ×2 (00:56→18:19)
[2022-10-09] MEDS: SODIUM CHLORIDE 0.9% IV 1,000 ML 75 ML IV CONT ×2 (02:21→16:38)
[2022-10-09 05:56] LABS: Hematocrit 24.9 % (37.0-47.0); Hemoglobin 8.1 g/dL (12.0-15.0); Mean Corpuscular HGB Conc 32.5 g/dl (32-36); Mean Corpuscular Hemoglobin 31.8 pg (26-34); Mean Corpuscular Volume 97.6 fl (80-100); Mean Platelet Volume 9.4 fl (7.4-10.4); Platelet Count Result 206 k/mm3 (150-375); Red Blood Count 2.55 M/mm3 (4.2-5.4); Red Cell Distribution Width 13.7 % (11.5-14.5); White Blood Count 14.5 K/mm3 (4.5-10.0)
[2022-10-09 06:29] LABS: Anion Gap 5 mmol/L (8-16); Blood Urea Nitrogen 24 mg/dL (7-17); Calcium 7.6 mg/dL (8.4-10.2); Carbon Dioxide 27 mmol/L (22-30); Chloride 105 mmol/L (98-107); Estimated CRCL calculation 30 ml/min; Estimated Glomerular Filt Rate 39; Glucose 115 mg/dL (65-110); Potassium 3.5 mmol/L (3.4-5.0); Sodium 137 mmol/L (137-145)
[2022-10-09] MEDS: ENOXAPARIN 40 MG/0.4 ML SYRINGE SUB-Q (10:11)
--- NOTE | 2022-10-09 13:53 | PM.IMPN ---
Progress Note: A&P Assessment and Plan (1) Recurrent urinary tract infection: Code(s): N39.0 - Urinary tract infection, site not specified Status: Acute Assessment and Plan: The patient presented to the emergency department for evaluation of fever. UA positive for 2+ leukocyte esterase, 3-5 RBCs, 21-30 wbc's and +1 bacteria. She recently had antibiotic therapy less than 2 weeks ago. Started on ceftriaxone, pending urine culture. Adjust antibiotic therapy to culture results Given ongoing issues, urology has been consulted and their input is appreciated. CT of the abdomen and pelvis did not reveal any abnormality of the system and due to lack of IV contrast test was limited for evaluation of pyelonephritis. IV contrast cannot be done at this time due to JONATAN. (2) Acute on chronic kidney failure: Code(s): N17.9 - Acute kidney failure, unspecified; N18.9 - Chronic kidney disease, unspecified Status: Acute Assessment and Plan: Her acute on chronic kidney injury is likely due to a combination of factors including UTI, urinary retention and mild dehydration in the setting of SIVA-inhibitor and thiazide diuretic use. Roberts catheter was inserted and yielded 850 mL of urine Urology consulted (3) Normocytic anemia: Code(s): D64.9 - Anemia, unspecified Status: Acute Assessment and Plan: Check iron studies as well as B12 and folate for evaluation of normocytic anemia. Iron 16, TIBC 229,% saturation 7 ferritin at 2:16 a.m. start iron supplement B12 and folate normal (4) Electrolyte abnormality: Code(s): E87.8 - Other disorders of electrolyte and fluid balance, not elsewhere classified Status: Acute Assessment and Plan: She has several electrolyte abnormalities in part due to dehydration and thiazide diuretic use. hydrochlorothiazide on hold Potassium will be replaced and monitored. IV fluid hydration (5) Urinary retention: Code(s): R33.9 - Retention of urine, unspecified Status: Acute Assessment and Plan: has history of urinary retention Tamsulosin started Neurology consulted Roberts catheter placed (6) Chronic obstructive pulmonary disease: Code(s): J44.9 - Chronic obstructive pulmonary disease, unspecified Status: Chronic Assessment and Plan: not in acute exacerbation. Continue home inhalers Subjective Date/time seen: 10/09/22 13:53 Interval history: patient resting comfortably in bed. She states that she is feeling much better. She is alert orient x4. She states that she did Friday she had a UTI and did not have any symptoms at the time. She does have history of incomplete bladder emptying. She does see Urology for this and was supposed to see Dr. Stafford this week. States she was told she had a spastic bladder. She currently has Roberts catheter in due to urinary retention. Tamsulosin was started. Awaiting for urine culture results to return. Review of Systems Review of Systems: All systems reviewed & are unremarkable except as noted in HPI and below Exam Narrative: GENERAL: Comfortable, no acute distress HENMT: moist mucous membranes EYES: EOM intact b/l NECK: no lymphadenopathy RESPIRATORY: clear to auscultation CARDIO: RRR GI: soft, nontender, bowel sounds present SKIN: no rashes EXTREMITIES: no edema, redness or tenderness Objective Data Vital Signs Vital Signs: Vital Signs - 24 hr 10/08/22 14:59 10/08/22 14:02 10/08/22 14:32 Temperature Pulse Rate 84 81 Respiratory Rate 23 H 19 Blood Pressure 129/68 131/61 Pulse Oximetry 95 91 Oxygen Delivery Oxygen Flow Rate 0.5 10/08/22 14:33 10/08/22 14:48 10/08/22 14:49 Temperature Pulse Rate 84 84 83 Respiratory Rate 19 22 H 21 H Blood Pressure 133/102 H Pulse Oximetry 96 Oxygen Delivery Oxygen Flow Rate 10/08/22 15:00 10/08/22 15:0
[2022-10-09] MEDS: SIMVASTATIN 10 MG TABLET PO (15:06)
[2022-10-09] MEDS: AMITRIPTYLINE HCL 10 MG TABLET PO (15:06)
[2022-10-09] MEDS: SACCHAROMYCES BOULARDII 250 MG CAPSULE PO (16:38)
--- NOTE | 2022-10-09 17:25 | WPDURCON ---
Assessment and Plan Assessment and plan (1) Urinary retention: Code(s): R33.9 - Retention of urine, unspecified Status: Acute (2) Recurrent urinary tract infection: Code(s): N39.0 - Urinary tract infection, site not specified Status: Acute Assessment and Plan: Recurrent UTI that very well may be due to incomplete bladder emptying on this admission. CT-scan: no upper tract pathology to explain infections. Home (following ID and treatment current infection) with indwelling catheter until outpt. cysto complete. I discussed with pt. and she's comfortable with that. I'll try to move-up timing of her cysto. (currently scheduled for 11/04). Urology Consult Note HPI Date Seen: 10/09/22 Requesting Physician: Honorio Granda MD Primary Care Provider: Melina Diaz DO Consult Narrative Reason for consult: Recurrent urinary tract infection and incomplete bladder emptying Narrative: Elvie Thakur is a 82 year old female is known to our practice, having been seen twice in the past couple weeks with recurrent urinary tract infections in transient gross hematuria. She was scheduled for outpatient imaging and cystoscopy later this month per presents now with a symptomatic, febrile urinary tract infection. During the course of evaluation a CT scan without contrast has shown normal upper urinary tracts but she has been found to be in retention with a bladder volume greater than 800 cc. Review of Systems Cardiovascular: Cardiovascular: Denies chest pain, Denies lightheadedness, Denies palpitations and Denies dyspnea Respiratory: Respiratory: Denies dyspnea Gastrointestinal: Gastrointestinal: Denies diarrhea, Denies nausea and Denies vomiting Genitourinary: Genitourinary: Denies hematuria and Denies dysuria Endocrine: Endocrine: Denies palpitations PMFSH Past Medical History Medical History (Updated 10/09/22 @ 14:12 by Claudia Cleaning PA-C) Arthritis Atherosclerosis of aorta Chronic kidney disease, stage 3 (moderate) Chronic obstructive pulmonary disease, unspecified Constipation Essential (primary) hypertension Fractures Fracture right arm x2 at age 7 Gastro-esophageal reflux disease without esophagitis High cholesterol History of chicken pox History of measles History of mumps Osteopenia Osteoporosis Post-menopausal Rectal cancer Status post chemo radiation. Recurrent urinary tract infection Wears glasses Surgical History Surgical History (Updated 10/08/22 @ 21:20 by Karrie G Gerling, PA-C) History of bunionectomy of left great toe History of cataract extraction with lens replacement History of section, classical (1967) History of inguinal hernia repair History of intestinal surgery (2013) Perineal resection with colostomy for rectal cancer. Exploratory laparotomy for bowel obstructions and adhesiolysis on separate occasions. Family History Family History Sibling Hypertension Aneurysm Gout Heart disease Mother Diabetes mellitus Hypertension Family history of coronary artery disease bypass age 72 Father Hypertension Daughter Hypertension Son Hypertension Daughter Lymphedema Carpal tunnel syndrome Heart problem Other Family history of heart disease in male family member before age 55 Social History Social History (Updated 10/08/22 @ 21:21 by Karrie Badillo PA-C) Social History: Surrogate medical decision maker: Scott Thakur, alex. Code status: Full code. Smoking packs per day: 2 Smoking cigarettes per day: 40.0 Years smoked: 35 Smoking pack-years: 70.00 Smoking status: Former smoker Alcohol intake: never Substance use: never Lack of Transportation: No Lack of Food: Never True Current Housing: I Have Housing Concerned About Future Housing: No Difficulty Paying Gas/Electric Bills: No Difficulty Paying for Meds: No Curre
[2022-10-09] MEDS: FLUTICASONE/UMECLIDIN/VILANTER 100-62.5-25 MCG ELLIPTA 1 PUFF INHALATION (17:47)
[2022-10-10] VITALS (9 sets, daily range): BP systolic 130–154; BP diastolic 55–93; PULSE 75–87; RESP 18–20; TEMP 35.8–38.3; O2SAT 91–100
--- NOTE | 2022-10-10 00:33 | PC.NURSE ---
RN assessed pt ostomy. There is no presence of looping bowel in the colonoscopy bag. Pt is A&Ox4 and able to clean and change bag herself.
[2022-10-10] MEDS: ALBUTEROL SULFATE (*SP) AEROSOL 1 PUFF 2 PUFF INHALATION ×2 (01:33→21:18)
[2022-10-10] MEDS: SODIUM CHLORIDE 0.9% IV 1,000 ML 75 ML IV CONT (05:38)
[2022-10-10 06:11] LABS: Hematocrit 23.6 % (37.0-47.0); Hemoglobin 7.9 g/dL (12.0-15.0); Mean Corpuscular HGB Conc 33.5 g/dl (32-36); Mean Corpuscular Hemoglobin 31.9 pg (26-34); Mean Corpuscular Volume 95.2 fl (80-100); Mean Platelet Volume 9.7 fl (7.4-10.4); Platelet Count Result 198 k/mm3 (150-375); Red Blood Count 2.48 M/mm3 (4.2-5.4); Red Cell Distribution Width 13.8 % (11.5-14.5); White Blood Count 10.1 K/mm3 (4.5-10.0)
[2022-10-10] MEDS: FLUTICASONE/UMECLIDIN/VILANTER 100-62.5-25 MCG ELLIPTA 1 PUFF INHALATION (07:41)
[2022-10-10] MEDS: FERROUS SULFATE 324 MG TABLET PO (08:05)
[2022-10-10] MEDS: SACCHAROMYCES BOULARDII 250 MG CAPSULE PO ×3 (08:05→16:52)
[2022-10-10] MEDS: SIMVASTATIN 10 MG TABLET PO (08:05)
[2022-10-10] MEDS: TAMSULOSIN HCL 0.4 MG CAPSULE PO (08:06)
[2022-10-10] MEDS: MIRABEGRON 25 MG ER TABLET 50 MG PO (08:07)
[2022-10-10] MEDS: AMITRIPTYLINE HCL 10 MG TABLET PO (08:07)
[2022-10-10] MEDS: ENOXAPARIN 40 MG/0.4 ML SYRINGE SUB-Q (08:07)
[2022-10-10] MEDS: lisinopriL 20 MG TABLET PO (08:07)
[2022-10-10] MEDS: chlordiazePOXIDE (*CRX) 5 MG CAPSULE PO (08:07)
[2022-10-10] MEDS: MAGNESIUM OXIDE 400 MG TABLET PO (08:07)
[2022-10-10] MEDS: IRON SUCROSE COMPLEX 500 MG in SODIUM CHLORIDE 0.9% IV 250 ML 78.57 MG IVPB (09:02)
[2022-10-10 11:43] LABS: Alanine Aminotransferase 33 U/L (6-35); Albumin Level 2.7 g/dL (3.5-5.1); Alkaline Phosphatase 64 U/L (38-126); Anion Gap 3 mmol/L (8-16); Aspartate Amino Transferase 52 U/L (14-36); Bilirubin,Total 0.2 mg/dL (0.2-1.3); Blood Urea Nitrogen 18 mg/dL (7-17); Calcium 7.2 mg/dL (8.4-10.2); Carbon Dioxide 29 mmol/L (22-30); Chloride 102 mmol/L (98-107); Estimated CRCL calculation 33 ml/min; Estimated Glomerular Filt Rate 43; Glucose 109 mg/dL (65-110); Potassium 2.9 mmol/L (3.4-5.0); Sodium 134 mmol/L (137-145)
[2022-10-10] MEDS: ACETAMINOPHEN 325 MG TABLET 650 MG PO ×2 (13:05→21:42)
[2022-10-10] MEDS: CEFEPIME 2 GM/NS 50 ML 2 GM/50 ML BAG IVPB (14:08)
--- NOTE | 2022-10-10 14:31 | PM.IMPN ---
Progress Note: A&P Assessment and Plan (1) Recurrent urinary tract infection: Code(s): N39.0 - Urinary tract infection, site not specified Status: Acute Assessment and Plan: The patient presented to the emergency department for evaluation of fever. UA positive for 2+ leukocyte esterase, 3-5 RBCs, 21-30 wbc's and +1 bacteria. She recently had antibiotic therapy less than [address] of the abdomen and pelvis did not reveal any abnormality of the system and due to lack of IV contrast test was limited for evaluation of pyelonephritis. IV contrast cannot be done at this time due to JONATAN. Blood culture and urine culture both positive for Pseudomonas sensitive to cefepime. Ceftriaxone discontinued in cefepime initiated. Repeat blood cultures to be drawn on 10/12/2022 Urology recommended patient continue Roberts catheter until she can undergo cystoscopy (2) Acute on chronic kidney failure: Code(s): N17.9 - Acute kidney failure, unspecified; N18.9 - Chronic kidney disease, unspecified Status: Acute Assessment and Plan: Her acute on chronic kidney injury is likely due to a combination of factors including UTI, urinary retention and mild dehydration in the setting of SIVA-inhibitor and thiazide diuretic use. Roberts catheter was inserted and yielded 850 mL of urine Urology consulted (3) Normocytic anemia: Code(s): D64.9 - Anemia, unspecified Status: Acute Assessment and Plan: Check iron studies as well as B12 and folate for evaluation of normocytic anemia. Iron 16, TIBC 229,% saturation 7 ferritin at 2:16 a.m. start iron supplement B12 and folate normal (4) Electrolyte abnormality: Code(s): E87.8 - Other disorders of electrolyte and fluid balance, not elsewhere classified Status: Acute Assessment and Plan: She has several electrolyte abnormalities in part due to dehydration and thiazide diuretic use. hydrochlorothiazide on hold Potassium will be replaced and monitored. IV fluid hydration discontinued (5) Urinary retention: Code(s): R33.9 - Retention of urine, unspecified Status: Acute Assessment and Plan: Has history of urinary retention Tamsulosin started Urology consulted Roberts catheter placed (6) Chronic obstructive pulmonary disease: Code(s): J44.9 - Chronic obstructive pulmonary disease, unspecified Status: Chronic Assessment and Plan: not in acute exacerbation. Continue home inhalers Currently on 1 L nasal cannula. Wean to maintain O2 saturation above 90. Subjective Date/time seen: 10/10/22 14:31 Interval history: Patient doing well resting in bed. She states that she worked well PT and OT. Patient did not require any further OT but PT recommending home health therapy. she did have a fever late last night she stated that when she woke up this morning she you was soaking wet from sweating. She is no longer having any symptoms. She denies any chest pain, shortness a breath, nausea, vomiting and abdominal pain. Review of Systems Review of Systems: All systems reviewed & are unremarkable except as noted in HPI and below Exam Narrative: GENERAL: Comfortable, no acute distress HENMT: moist mucous membranes EYES: EOM intact b/l NECK: no lymphadenopathy RESPIRATORY: clear to auscultation CARDIO: RRR GI: soft, nontender, bowel sounds present SKIN: no rashes EXTREMITIES: no edema, redness or tenderness Objective Data Vital Signs Vital Signs: Vital Signs - 24 hr 10/09/22 15:33 10/09/22 15:00 10/09/22 15:10 Temperature Pulse Rate Respiratory Rate Blood Pressure Pulse Oximetry 85 L 93 Oxygen Delivery Nasal Cannula Room Air Nasal Cannula Oxygen Flow Rate 1 1 10/09/22 18:19 10/09/22 20:00 10/10/22 01:33 Temperature 101 F H 99.8 F H Pulse Rate 81 80 Respiratory Rate 16 Blood Pressure 129/58 L Pulse
[2022-10-10] MEDS: POTASSIUM CHLORIDE INJ 40 MEQ in SODIUM CHLORIDE 0.9% IV 500 ML 70 MEQ IVPB (15:10)
[2022-10-11] VITALS (9 sets, daily range): BP systolic 143–167; BP diastolic 70–93; PULSE 80–98; RESP 18–20; TEMP 35.9–36.9; O2SAT 93–97
[2022-10-11 06:31] LABS: Hematocrit 24.3 % (37.0-47.0); Hemoglobin 7.9 g/dL (12.0-15.0); Mean Corpuscular HGB Conc 32.5 g/dl (32-36); Mean Corpuscular Hemoglobin 31.1 pg (26-34); Mean Corpuscular Volume 95.7 fl (80-100); Mean Platelet Volume 10.1 fl (7.4-10.4); Platelet Count Result 230 k/mm3 (150-375); Red Blood Count 2.54 M/mm3 (4.2-5.4); Red Cell Distribution Width 13.9 % (11.5-14.5); White Blood Count 7.1 K/mm3 (4.5-10.0)
[2022-10-11 06:41] LABS: Alanine Aminotransferase 50 U/L (6-35); Albumin Level 2.8 g/dL (3.5-5.1); Alkaline Phosphatase 80 U/L (38-126); Anion Gap 4 mmol/L (8-16); Aspartate Amino Transferase 74 U/L (14-36); Bilirubin,Total 0.3 mg/dL (0.2-1.3); Blood Urea Nitrogen 14 mg/dL (7-17); Calcium 7.2 mg/dL (8.4-10.2); Carbon Dioxide 30 mmol/L (22-30); Chloride 104 mmol/L (98-107); Estimated CRCL calculation 37 ml/min; Estimated Glomerular Filt Rate 47; Glucose 126 mg/dL (65-110); Potassium 3.1 mmol/L (3.4-5.0); Sodium 138 mmol/L (137-145)
[2022-10-11] MEDS: POTASSIUM CHLORIDE INJ 40 MEQ in SODIUM CHLORIDE 0.9% IV 500 ML 130 MEQ IVPB (08:24)
[2022-10-11] MEDS: FERROUS SULFATE 324 MG TABLET PO (08:25)
[2022-10-11] MEDS: AMITRIPTYLINE HCL 10 MG TABLET PO (08:25)
[2022-10-11] MEDS: ENOXAPARIN 40 MG/0.4 ML SYRINGE SUB-Q (08:25)
[2022-10-11] MEDS: lisinopriL 20 MG TABLET PO (08:26)
[2022-10-11] MEDS: chlordiazePOXIDE (*CRX) 5 MG CAPSULE PO (08:26)
[2022-10-11] MEDS: MAGNESIUM OXIDE 400 MG TABLET PO (08:26)
[2022-10-11] MEDS: MIRABEGRON 25 MG ER TABLET 50 MG PO (08:26)
[2022-10-11] MEDS: SIMVASTATIN 10 MG TABLET PO (08:27)
[2022-10-11] MEDS: TAMSULOSIN HCL 0.4 MG CAPSULE PO (08:27)
[2022-10-11] MEDS: SACCHAROMYCES BOULARDII 250 MG CAPSULE PO ×3 (08:27→16:21)
[2022-10-11] MEDS: FLUTICASONE/UMECLIDIN/VILANTER 100-62.5-25 MCG ELLIPTA 1 PUFF INHALATION (08:44)
[2022-10-11] MEDS: CEFEPIME 2 GM/NS 50 ML 2 GM/50 ML BAG IVPB ×3 (13:49→23:53)
[2022-10-11] MEDS: ACETAMINOPHEN 325 MG TABLET 650 MG PO (13:56)
--- NOTE | 2022-10-11 14:48 | PM.IMPN ---
Progress Note: A&P Assessment and Plan (1) Recurrent urinary tract infection: Code(s): N39.0 - Urinary tract infection, site not specified Status: Acute Assessment and Plan: The patient presented to the emergency department for evaluation of fever. UA positive for 2+ leukocyte esterase, 3-5 RBCs, 21-30 wbc's and +1 bacteria. She recently had antibiotic therapy less than [address] of the abdomen and pelvis did not reveal any abnormality of the system and due to lack of IV contrast test was limited for evaluation of pyelonephritis. IV contrast cannot be done at this time due to JONATAN. Blood culture and urine culture both positive for Pseudomonas sensitive to cefepime. Ceftriaxone discontinued in cefepime initiated. Repeat blood cultures to be drawn on 10/12/2022 Urology recommended patient continue Roberts catheter until she can undergo cystoscopy (2) Acute on chronic kidney failure: Code(s): N17.9 - Acute kidney failure, unspecified; N18.9 - Chronic kidney disease, unspecified Status: Acute Assessment and Plan: Her acute on chronic kidney injury is likely due to a combination of factors including UTI, urinary retention and mild dehydration in the setting of SIVA-inhibitor and thiazide diuretic use. Roberts catheter was inserted and yielded 850 mL of urine Urology consulted (3) Normocytic anemia: Code(s): D64.9 - Anemia, unspecified Status: Acute Assessment and Plan: Check iron studies as well as B12 and folate for evaluation of normocytic anemia. Iron 16, TIBC 229,% saturation 7 ferritin at 2:16 a.m. start iron supplement B12 and folate normal (4) Electrolyte abnormality: Code(s): E87.8 - Other disorders of electrolyte and fluid balance, not elsewhere classified Status: Acute Assessment and Plan: She has several electrolyte abnormalities in part due to dehydration and thiazide diuretic use. hydrochlorothiazide on hold Potassium will be replaced and monitored. IV fluid hydration discontinued (5) Urinary retention: Code(s): R33.9 - Retention of urine, unspecified Status: Acute Assessment and Plan: Has history of urinary retention Tamsulosin started Urology consulted Roberts catheter placed (6) Chronic obstructive pulmonary disease: Code(s): J44.9 - Chronic obstructive pulmonary disease, unspecified Status: Chronic Assessment and Plan: not in acute exacerbation. Continue home inhalers Currently on 1 L nasal cannula. Wean to maintain O2 saturation above 90. Subjective Date/time seen: 10/11/22 14:48 Interval history: Patient doing well resting in bed. She has no new complaints at this time. Explain her that she will likely be here for several more days due to positive blood culture and waiting for repeats to return. She will have to stay on IV antibiotics due to Pseudomonas in the blood. She verbalizes understanding and I answered all of her questions. She denies any active nausea, vomiting, body aches, chills, abdominal pain, chest pain shortness a breath. Review of Systems Review of Systems: All systems reviewed & are unremarkable except as noted in HPI and below Exam Narrative: GENERAL: Comfortable, no acute distress HENMT: moist mucous membranes EYES: EOM intact b/l NECK: no lymphadenopathy RESPIRATORY: clear to auscultation CARDIO: RRR GI: soft, nontender, bowel sounds present SKIN: no rashes EXTREMITIES: no edema, redness or tenderness Objective Data Vital Signs Vital Signs: Vital Signs - 24 hr 10/10/22 16:00 10/10/22 20:00 10/11/22 00:00 Temperature 98.4 F 100.0 F H 98.2 F Pulse Rate 83 87 89 Respiratory Rate 18 18 18 Blood Pressure 149/93 H 153/76 H 143/70 H Pulse Oximetry 94 91 93 Oxygen Delivery Oxygen Flow Rate 10/11/22 04:00 10/11/22 08:36 10/11/22 08:25 Temperature 98.4 F Pulse Rate 80
[2022-10-11] MEDS: ALBUTEROL SULFATE (*SP) AEROSOL 1 PUFF 2 PUFF INHALATION (23:10)
[2022-10-12] VITALS (11 sets, daily range): BP systolic 125–168; BP diastolic 67–94; PULSE 85–88; RESP 18–20; TEMP 36.1–37.7; O2SAT 92–97
[2022-10-12 07:11] LABS: Basophils Percent Auto 0.3 % (0.2-1.2); Eosinophils Absolute Auto 0.1 K/mm3 (0-0.3); Eosinophils Percent Auto 0.9 % (0-4.4); Hematocrit 25.8 % (37.0-47.0); Hemoglobin 8.4 g/dL (12.0-15.0); Immature Granulocyte Absolute 0.09 K/mm3 (0.00-0.031); Immature Granulocyte Percent A 1.2 % (0-0.5); Lymphocytes Absolute Auto 0.74 K/mm3 (0.9-3.2); Mean Corpuscular HGB Conc 32.6 g/dl (32-36); Mean Corpuscular Hemoglobin 30.8 pg (26-34); Mean Corpuscular Volume 94.5 fl (80-100); Mean Platelet Volume 9.7 fl (7.4-10.4); Monocytes Percent Auto 13.1 % (2.6-8.5); Neutrophils Absolute Auto 5.5 K/mm3 (1.3-6.7); Neutrophils Percent Auto 74.5 % (45.5-73.1); Platelet Count Result 251 k/mm3 (150-375); Red Blood Count 2.73 M/mm3 (4.2-5.4); Red Cell Distribution Width 13.9 % (11.5-14.5); White Blood Count 7.4 K/mm3 (4.5-10.0)
[2022-10-12] MEDS: FLUTICASONE/UMECLIDIN/VILANTER 100-62.5-25 MCG ELLIPTA 1 PUFF INHALATION (07:18)
[2022-10-12] MEDS: ALBUTEROL SULFATE (*SP) AEROSOL 1 PUFF 2 PUFF INHALATION ×2 (07:18→22:32)
[2022-10-12 07:43] LABS: Alanine Aminotransferase 76 U/L (6-35); Alkaline Phosphatase 90 U/L (38-126); Anion Gap 1 mmol/L (8-16); Aspartate Amino Transferase 103 U/L (14-36); Bilirubin,Total 0.4 mg/dL (0.2-1.3); Blood Urea Nitrogen 14 mg/dL (7-17); Calcium 7.8 mg/dL (8.4-10.2); Carbon Dioxide 30 mmol/L (22-30); Chloride 104 mmol/L (98-107); Estimated CRCL calculation 44 ml/min; Estimated Glomerular Filt Rate 60; Glucose 97 mg/dL (65-110); Potassium 3.1 mmol/L (3.4-5.0); Sodium 135 mmol/L (137-145)
[2022-10-12] MEDS: POTASSIUM CHLORIDE INJ 40 MEQ in SODIUM CHLORIDE 0.9% IV 500 ML 130 MEQ IVPB (09:01)
[2022-10-12] MEDS: MIRABEGRON 25 MG ER TABLET 50 MG PO (09:02)
[2022-10-12] MEDS: MAGNESIUM OXIDE 400 MG TABLET PO (09:02)
[2022-10-12] MEDS: FERROUS SULFATE 324 MG TABLET PO (09:02)
[2022-10-12] MEDS: lisinopriL 20 MG TABLET PO (09:02)
[2022-10-12] MEDS: SACCHAROMYCES BOULARDII 250 MG CAPSULE PO ×3 (09:02→16:59)
[2022-10-12] MEDS: ENOXAPARIN 40 MG/0.4 ML SYRINGE SUB-Q (09:02)
[2022-10-12] MEDS: TAMSULOSIN HCL 0.4 MG CAPSULE PO (09:02)
[2022-10-12] MEDS: CEFEPIME 2 GM/NS 50 ML 2 GM/50 ML BAG IVPB ×2 (12:25→23:23)
[2022-10-12 13:07] LABS: Potassium 3.3 mmol/L (3.4-5.0)
--- NOTE | 2022-10-12 13:21 | PM.IMPN ---
Progress Note: A&P Assessment and Plan (1) Recurrent urinary tract infection: Code(s): N39.0 - Urinary tract infection, site not specified Status: Acute Assessment and Plan: The patient presented to the emergency department for evaluation of fever. UA positive for 2+ leukocyte esterase, 3-5 RBCs, 21-30 wbc's and +1 bacteria. She recently had antibiotic therapy less than [address] of the abdomen and pelvis did not reveal any abnormality of the system and due to lack of IV contrast test was limited for evaluation of pyelonephritis. IV contrast cannot be done at this time due to JONATAN. Blood culture and urine culture both positive for Pseudomonas sensitive to cefepime. Ceftriaxone discontinued in cefepime initiated. Repeat blood cultures to be drawn on 10/12/2022 Urology recommended patient continue Roberts catheter until she can undergo cystoscopy (2) Acute on chronic kidney failure: Code(s): N17.9 - Acute kidney failure, unspecified; N18.9 - Chronic kidney disease, unspecified Status: Acute Assessment and Plan: Her acute on chronic kidney injury is likely due to a combination of factors including UTI, urinary retention and mild dehydration in the setting of SIVA-inhibitor and thiazide diuretic use. Roberts catheter was inserted and yielded 850 mL of urine Urology consulted (3) Normocytic anemia: Code(s): D64.9 - Anemia, unspecified Status: Acute Assessment and Plan: Check iron studies as well as B12 and folate for evaluation of normocytic anemia. Iron 16, TIBC 229,% saturation 7 ferritin at 2:16 a.m. start iron supplement B12 and folate normal (4) Electrolyte abnormality: Code(s): E87.8 - Other disorders of electrolyte and fluid balance, not elsewhere classified Status: Acute Assessment and Plan: She has several electrolyte abnormalities in part due to dehydration and thiazide diuretic use. hydrochlorothiazide on hold Potassium will be replaced and monitored. IV fluid hydration discontinued (5) Urinary retention: Code(s): R33.9 - Retention of urine, unspecified Status: Acute Assessment and Plan: Has history of urinary retention Tamsulosin started Urology consulted Roberts catheter placed (6) Chronic obstructive pulmonary disease: Code(s): J44.9 - Chronic obstructive pulmonary disease, unspecified Status: Chronic Assessment and Plan: not in acute exacerbation. Continue home inhalers Currently on 1 L nasal cannula. Wean to maintain O2 saturation above 90. Subjective Date/time seen: 10/12/22 13:21 Interval history: Patient doing much better today and denies any body aches, chills and fever in the last 24 hours. She slept very well last night unlike previous night she was here. She denies chest pain, shortness a breath, nausea, vomiting and abdominal pain. She is ambulating well. Discuss hospital course with her today. Unsure she will be able to leave the hospital to receive IV antibiotics at home or not. She has limited help at home at this time and due to Pseudomonas in the blood she will need IV antibiotics for 1 week. She verbalized her understanding. I spoke with care coordination regarding the possibility of her going home and it did seem likely that she would be able to be discharged home with IV antibiotics due to the frequency and lack of support at home. Review of Systems Review of Systems: All systems reviewed & are unremarkable except as noted in HPI and below Exam Narrative: GENERAL: Comfortable, no acute distress HENMT: moist mucous membranes EYES: EOM intact b/l NECK: no lymphadenopathy RESPIRATORY: clear to auscultation CARDIO: RRR GI: soft, nontender, bowel sounds present SKIN: no rashes EXTREMITIES: no edema, redness or tenderness Objective Data Vital Signs Vital Signs: Vital Signs - 24 hr 10/11/22 1
[2022-10-12] MEDS: SALINE LOCK FLUSH 10 ML IV PUSH ×2 (14:00→21:00)
[2022-10-12] MEDS: chlordiazePOXIDE (*CRX) 5 MG CAPSULE PO (20:12)
[2022-10-12] MEDS: AMITRIPTYLINE HCL 10 MG TABLET PO (20:12)
[2022-10-12] MEDS: ACETAMINOPHEN 325 MG TABLET 650 MG PO (23:02)
[2022-10-12] MEDS: SALINE 0.65% NAS SOLN 44 ML BTL 1 SPRAY NASAL (23:02)
[2022-10-13] VITALS (7 sets, daily range): BP systolic 132–172; BP diastolic 68–81; PULSE 69–82; RESP 14–18; TEMP 37–37.3; O2SAT 93–97
[2022-10-13] MEDS: SALINE LOCK FLUSH 10 ML IV PUSH ×3 (06:01→17:15)
[2022-10-13] MEDS: ALBUTEROL SULFATE (*SP) AEROSOL 1 PUFF 2 PUFF INHALATION ×2 (06:06→19:59)
[2022-10-13 06:21] LABS: Hematocrit 26.8 % (37.0-47.0); Hemoglobin 8.5 g/dL (12.0-15.0); Mean Corpuscular HGB Conc 31.7 g/dl (32-36); Mean Corpuscular Hemoglobin 30.5 pg (26-34); Mean Corpuscular Volume 96.1 fl (80-100); Mean Platelet Volume 9.9 fl (7.4-10.4); Platelet Count Result 281 k/mm3 (150-375); Red Blood Count 2.79 M/mm3 (4.2-5.4); Red Cell Distribution Width 14.1 % (11.5-14.5); White Blood Count 9.7 K/mm3 (4.5-10.0)
[2022-10-13 06:53] LABS: Alanine Aminotransferase 80 U/L (6-35); Alkaline Phosphatase 84 U/L (38-126); Anion Gap 0 mmol/L (8-16); Aspartate Amino Transferase 100 U/L (14-36); Bilirubin,Total 0.4 mg/dL (0.2-1.3); Blood Urea Nitrogen 15 mg/dL (7-17); Calcium 8.4 mg/dL (8.4-10.2); Carbon Dioxide 33 mmol/L (22-30); Chloride 103 mmol/L (98-107); Estimated CRCL calculation 40 ml/min; Estimated Glomerular Filt Rate 53; Glucose 98 mg/dL (65-110); Potassium 3.4 mmol/L (3.4-5.0); Sodium 136 mmol/L (137-145)
[2022-10-13] MEDS: ENOXAPARIN 40 MG/0.4 ML SYRINGE SUB-Q (08:46)
[2022-10-13] MEDS: FERROUS SULFATE 324 MG TABLET PO (08:46)
[2022-10-13] MEDS: MIRABEGRON 25 MG ER TABLET 50 MG PO (08:46)
[2022-10-13] MEDS: lisinopriL 20 MG TABLET PO (08:46)
[2022-10-13] MEDS: TAMSULOSIN HCL 0.4 MG CAPSULE PO (08:46)
[2022-10-13] MEDS: MAGNESIUM OXIDE 400 MG TABLET PO (08:46)
[2022-10-13] MEDS: SACCHAROMYCES BOULARDII 250 MG CAPSULE PO ×3 (08:46→17:15)
[2022-10-13] MEDS: FLUTICASONE/UMECLIDIN/VILANTER 100-62.5-25 MCG ELLIPTA 1 PUFF INHALATION (08:57)
--- NOTE | 2022-10-13 12:00 | PM.IMPN ---
Progress Note: A&P Assessment and Plan (1) Recurrent urinary tract infection: Code(s): N39.0 - Urinary tract infection, site not specified Status: Acute Assessment and Plan: The patient presented to the emergency department for evaluation of fever. UA positive for 2+ leukocyte esterase, 3-5 RBCs, 21-30 wbc's and +1 bacteria. She recently had antibiotic therapy less than [address] of the abdomen and pelvis did not reveal any abnormality of the system and due to lack of IV contrast test was limited for evaluation of pyelonephritis. IV contrast cannot be done at this time due to JONATAN. Blood culture and urine culture both positive for Pseudomonas sensitive to cefepime. Ceftriaxone discontinued in cefepime initiated on 10/10/2022 Repeat blood cultures to be drawn on 10/12/2022 with preliminary no growth to date Urology recommended patient continue Roberts catheter until she can undergo cystoscopy (2) Acute on chronic kidney failure: Code(s): N17.9 - Acute kidney failure, unspecified; N18.9 - Chronic kidney disease, unspecified Status: Acute Assessment and Plan: Her acute on chronic kidney injury is likely due to a combination of factors including UTI, urinary retention and mild dehydration in the setting of SIVA-inhibitor and thiazide diuretic use. Roebrts catheter was inserted and yielded 850 mL of urine Urology consulted (3) Normocytic anemia: Code(s): D64.9 - Anemia, unspecified Status: Acute Assessment and Plan: Check iron studies as well as B12 and folate for evaluation of normocytic anemia. Iron 16, TIBC 229,% saturation 7 ferritin at 2:16 a.m. start iron supplement B12 and folate normal (4) Electrolyte abnormality: Code(s): E87.8 - Other disorders of electrolyte and fluid balance, not elsewhere classified Status: Acute Assessment and Plan: She has several electrolyte abnormalities in part due to dehydration and thiazide diuretic use. hydrochlorothiazide on hold Potassium will be replaced and monitored. IV fluid hydration discontinued (5) Urinary retention: Code(s): R33.9 - Retention of urine, unspecified Status: Acute Assessment and Plan: Has history of urinary retention Tamsulosin started Urology consulted Roberts catheter placed (6) Chronic obstructive pulmonary disease: Code(s): J44.9 - Chronic obstructive pulmonary disease, unspecified Status: Chronic Assessment and Plan: not in acute exacerbation. Continue home inhalers Currently on 1 L nasal cannula. Wean to maintain O2 saturation above 90. Subjective Date/time seen: 10/13/22 12:00 Interval history: Patient doing well today with no new complaints. Continue IV antibiotic treatment. Review of Systems Review of Systems: All systems reviewed & are unremarkable except as noted in HPI and below Exam Narrative: GENERAL: Comfortable, no acute distress HENMT: moist mucous membranes EYES: EOM intact b/l NECK: no lymphadenopathy RESPIRATORY: clear to auscultation CARDIO: RRR GI: soft, nontender, bowel sounds present SKIN: no rashes EXTREMITIES: no edema, redness or tenderness Objective Data Vital Signs Vital Signs: Vital Signs - 24 hr 10/12/22 15:51 10/12/22 20:00 10/12/22 21:29 Temperature 99.7 F H 100 F H Pulse Rate 88 88 Respiratory Rate 20 18 Blood Pressure 158/73 H 154/67 H Pulse Oximetry 97 97 93 Oxygen Delivery Nasal Cannula Oxygen Flow Rate 1 10/12/22 22:33 10/12/22 23:02 10/13/22 00:03 Temperature 100 F H 98.7 F Pulse Rate Respiratory Rate Blood Pressure Pulse Oximetry 96 Oxygen Delivery Nasal Cannula Oxygen Flow Rate 1 10/13/22 06:00 10/13/22 07:55 10/13/22 09:00 Temperature 98.6 F Pulse Rate 69 Respiratory Rate 18 Blood Pressure 132/68 Pulse Oximetry 96 97 95 Oxygen Delivery Nasal Cannula Henri
[2022-10-13] MEDS: CEFEPIME 2 GM/NS 50 ML 2 GM/50 ML BAG IVPB (12:55)
[2022-10-13] MEDS: chlordiazePOXIDE (*CRX) 5 MG CAPSULE PO (20:08)
[2022-10-13] MEDS: AMITRIPTYLINE HCL 10 MG TABLET PO (20:08)
[2022-10-14] MEDS: CEFEPIME 2 GM/NS 50 ML 2 GM/50 ML BAG IVPB ×3 (00:59→20:11)
[2022-10-14] MEDS: SALINE LOCK FLUSH 10 ML IV PUSH ×4 (01:00→20:18)
[2022-10-14 05:43] VITALS: BP 152/70; PULSE 77; RESP 13; TEMP 37.2; O2SAT 96
[2022-10-14 06:21] LABS: Hematocrit 24.8 % (37.0-47.0); Hemoglobin 8.2 g/dL (12.0-15.0); Mean Corpuscular HGB Conc 33.1 g/dl (32-36); Mean Corpuscular Hemoglobin 31.4 pg (26-34); Mean Platelet Volume 9.3 fl (7.4-10.4); Platelet Count Result 292 k/mm3 (150-375); Red Blood Count 2.61 M/mm3 (4.2-5.4); Red Cell Distribution Width 14.1 % (11.5-14.5); White Blood Count 9.6 K/mm3 (4.5-10.0)
[2022-10-14 06:34] LABS: Alanine Aminotransferase 77 U/L (6-35); Albumin Level 2.9 g/dL (3.5-5.1); Alkaline Phosphatase 77 U/L (38-126); Anion Gap 0 mmol/L (8-16); Aspartate Amino Transferase 74 U/L (14-36); Bilirubin,Total 0.4 mg/dL (0.2-1.3); Blood Urea Nitrogen 18 mg/dL (7-17); Calcium 8.6 mg/dL (8.4-10.2); Carbon Dioxide 34 mmol/L (22-30); Chloride 102 mmol/L (98-107); Estimated CRCL calculation 34 ml/min; Estimated Glomerular Filt Rate 43; Glucose 99 mg/dL (65-110); Potassium 2.9 mmol/L (3.4-5.0); Sodium 136 mmol/L (137-145)
[2022-10-14] MEDS: LACTATED RINGERS 1,000 ML 70 ML IV CONT (07:47)
[2022-10-14] MEDS: POTASSIUM CHLORIDE INJ 40 MEQ in SODIUM CHLORIDE 0.9% IV 500 ML 130 MEQ IVPB (07:48)
[2022-10-14] MEDS: TAMSULOSIN HCL 0.4 MG CAPSULE PO (08:06)
[2022-10-14] MEDS: MIRABEGRON 25 MG ER TABLET 50 MG PO (08:07)
[2022-10-14] MEDS: SACCHAROMYCES BOULARDII 250 MG CAPSULE PO ×3 (08:08→16:41)
[2022-10-14] MEDS: lisinopriL 20 MG TABLET PO (08:08)
[2022-10-14] MEDS: MAGNESIUM OXIDE 400 MG TABLET PO (08:08)
[2022-10-14] MEDS: FERROUS SULFATE 324 MG TABLET PO (08:09)
[2022-10-14] MEDS: ENOXAPARIN 40 MG/0.4 ML SYRINGE SUB-Q (08:10)
[2022-10-14 08:15] VITALS: O2SAT 91
[2022-10-14] MEDS: FLUTICASONE/UMECLIDIN/VILANTER 100-62.5-25 MCG ELLIPTA 1 PUFF INHALATION (08:27)
[2022-10-14 08:28] VITALS: O2SAT 93
[2022-10-14 14:00] VITALS: BP 143/70; PULSE 84; RESP 18; TEMP 36.7; O2SAT 92
[2022-10-14] MEDS: ALBUTEROL SULFATE (*SP) AEROSOL 1 PUFF 2 PUFF INHALATION (14:03)
--- NOTE | 2022-10-14 15:29 | PM.IMPN ---
Progress Note: A&P Assessment and Plan (1) Recurrent urinary tract infection: Code(s): N39.0 - Urinary tract infection, site not specified Status: Acute Assessment and Plan: The patient presented to the emergency department for evaluation of fever. UA positive for 2+ leukocyte esterase, 3-5 RBCs, 21-30 wbc's and +1 bacteria. She recently had antibiotic therapy less than [address] of the abdomen and pelvis did not reveal any abnormality of the system and due to lack of IV contrast test was limited for evaluation of pyelonephritis. IV contrast cannot be done at this time due to JONATAN. Blood culture and urine culture both positive for Pseudomonas sensitive to cefepime. Ceftriaxone discontinued in cefepime initiated on 10/10/2022 and will be completed on 10/17/2022. Repeat blood cultures to be drawn on 10/12/2022 with preliminary no growth to date Urology recommended patient continue Roberts catheter until she can undergo cystoscopy (2) Acute on chronic kidney failure: Code(s): N17.9 - Acute kidney failure, unspecified; N18.9 - Chronic kidney disease, unspecified Status: Acute Assessment and Plan: Her acute on chronic kidney injury is likely due to a combination of factors including UTI, urinary retention and mild dehydration in the setting of SIVA-inhibitor and thiazide diuretic use. Roberts catheter was inserted and yielded 850 mL of urine Urology consulted (3) Normocytic anemia: Code(s): D64.9 - Anemia, unspecified Status: Acute Assessment and Plan: Check iron studies as well as B12 and folate for evaluation of normocytic anemia. Iron 16, TIBC 229,% saturation 7 ferritin at 2:16 a.m. start iron supplement B12 and folate normal (4) Electrolyte abnormality: Code(s): E87.8 - Other disorders of electrolyte and fluid balance, not elsewhere classified Status: Acute Assessment and Plan: She has several electrolyte abnormalities in part due to dehydration and thiazide diuretic use. hydrochlorothiazide on hold Potassium will be replaced and monitored. IV fluid hydration discontinued (5) Urinary retention: Code(s): R33.9 - Retention of urine, unspecified Status: Acute Assessment and Plan: Has history of urinary retention Tamsulosin started Urology consulted Roberts catheter placed (6) Chronic obstructive pulmonary disease: Code(s): J44.9 - Chronic obstructive pulmonary disease, unspecified Status: Chronic Assessment and Plan: not in acute exacerbation. Continue home inhalers Currently on 1 L nasal cannula. Wean to maintain O2 saturation above 90. Subjective Date/time seen: 10/14/22 15:29 Interval history: Patient doing well and feeling back to herself. No new complaints at this time. Will complete antibiotic therapy while in the hospital and then can be discharged back home. Review of Systems Review of Systems: All systems reviewed & are unremarkable except as noted in HPI and below Exam Narrative: GENERAL: Comfortable, no acute distress HENMT: moist mucous membranes EYES: EOM intact b/l NECK: no lymphadenopathy RESPIRATORY: clear to auscultation CARDIO: RRR GI: soft, nontender, bowel sounds present SKIN: no rashes EXTREMITIES: no edema, redness or tenderness Objective Data Vital Signs Vital Signs: Vital Signs - 24 hr 10/13/22 19:59 10/13/22 21:36 10/14/22 05:43 Temperature 98.8 F 98.9 F Pulse Rate 75 80 77 Respiratory Rate 14 13 Blood Pressure 172/71 H 152/70 H Pulse Oximetry 93 97 96 Oxygen Delivery Nasal Cannula Oxygen Flow Rate 1 10/14/22 08:28 10/14/22 08:15 Temperature Pulse Rate Respiratory Rate Blood Pressure Pulse Oximetry 93 91 Oxygen Delivery Room Air Room Air Oxygen Flow Rate Intake/Output Intake/Output: Intake & Output 10/11/22 10/12/22 10/13/22 10/14/22 23:59 23:
[2022-10-14] MEDS: AMITRIPTYLINE HCL 10 MG TABLET PO (20:10)
[2022-10-14] MEDS: ACETAMINOPHEN 325 MG TABLET 650 MG PO (20:10)
[2022-10-14] MEDS: chlordiazePOXIDE (*CRX) 5 MG CAPSULE PO (20:10)
[2022-10-14 21:31] VITALS: BP 168/70; PULSE 78; RESP 13; TEMP 37.3; O2SAT 92
[2022-10-15] MEDS: ACETAMINOPHEN 325 MG TABLET 650 MG PO ×3 (02:21→13:15)
[2022-10-15] MEDS: LACTATED RINGERS 1,000 ML 70 ML IV CONT (02:21)
[2022-10-15] MEDS: SALINE 0.65% NAS SOLN 44 ML BTL 1 SPRAY NASAL (03:35)
[2022-10-15 05:30] VITALS: BP 154/64; PULSE 74; RESP 12; TEMP 36.7; O2SAT 92
[2022-10-15 06:40] LABS: Hematocrit 24.8 % (37.0-47.0); Mean Corpuscular HGB Conc 32.3 g/dl (32-36); Mean Corpuscular Hemoglobin 30.9 pg (26-34); Mean Corpuscular Volume 95.8 fl (80-100); Mean Platelet Volume 9.5 fl (7.4-10.4); Platelet Count Result 303 k/mm3 (150-375); Red Blood Count 2.59 M/mm3 (4.2-5.4); Red Cell Distribution Width 14.3 % (11.5-14.5); White Blood Count 8.5 K/mm3 (4.5-10.0)
[2022-10-15 07:08] LABS: Alanine Aminotransferase 62 U/L (6-35); Alkaline Phosphatase 76 U/L (38-126); Anion Gap 1 mmol/L (8-16); Aspartate Amino Transferase 58 U/L (14-36); Bilirubin,Total 0.4 mg/dL (0.2-1.3); Blood Urea Nitrogen 17 mg/dL (7-17); Calcium 8.7 mg/dL (8.4-10.2); Carbon Dioxide 35 mmol/L (22-30); Chloride 101 mmol/L (98-107); Estimated CRCL calculation 36 ml/min; Estimated Glomerular Filt Rate 47; Glucose 91 mg/dL (65-110); Sodium 137 mmol/L (137-145)
[2022-10-15 08:00] VITALS: O2SAT 91
[2022-10-15] MEDS: FLUTICASONE/UMECLIDIN/VILANTER 100-62.5-25 MCG ELLIPTA 1 PUFF INHALATION (08:33)
[2022-10-15 08:36] VITALS: PULSE 80; RESP 14; O2SAT 92
[2022-10-15] MEDS: ENOXAPARIN 40 MG/0.4 ML SYRINGE SUB-Q (09:24)
[2022-10-15] MEDS: TAMSULOSIN HCL 0.4 MG CAPSULE PO (09:30)
[2022-10-15] MEDS: FERROUS SULFATE 324 MG TABLET PO (09:30)
[2022-10-15] MEDS: lisinopriL 20 MG TABLET PO (09:31)
[2022-10-15] MEDS: SACCHAROMYCES BOULARDII 250 MG CAPSULE PO ×3 (09:31→16:28)
[2022-10-15] MEDS: MIRABEGRON 25 MG ER TABLET 50 MG PO (09:32)
[2022-10-15] MEDS: MAGNESIUM OXIDE 400 MG TABLET PO (09:32)
[2022-10-15] MEDS: CEFEPIME 2 GM/NS 50 ML 2 GM/50 ML BAG IVPB ×2 (10:12→20:16)
[2022-10-15] MEDS: POTASSIUM CHLORIDE INJ 40 MEQ in SODIUM CHLORIDE 0.9% IV 500 ML 130 MEQ IVPB (10:50)
[2022-10-15] MEDS: SALINE LOCK FLUSH 10 ML IV PUSH ×2 (13:14→20:16)
[2022-10-15 14:00] VITALS: BP 149/87; PULSE 81; RESP 22; TEMP 36.1; O2SAT 92
--- NOTE | 2022-10-15 15:23 | PM.IMPN ---
Progress Note: A&P Assessment and Plan (1) Recurrent urinary tract infection: Code(s): N39.0 - Urinary tract infection, site not specified Status: Acute Assessment and Plan: The patient presented to the emergency department for evaluation of fever. UA positive for 2+ leukocyte esterase, 3-5 RBCs, 21-30 wbc's and +1 bacteria. She recently had antibiotic therapy less than [address] of the abdomen and pelvis did not reveal any abnormality of the system and due to lack of IV contrast test was limited for evaluation of pyelonephritis. IV contrast cannot be done at this time due to JONATAN. Blood culture and urine culture both positive for Pseudomonas sensitive to cefepime. Ceftriaxone discontinued in cefepime initiated on 10/10/2022 and will be completed on 10/17/2022. Repeat blood cultures to be drawn on 10/12/2022 with preliminary no growth to date Urology recommended patient continue Roberts catheter until she can undergo cystoscopy (2) Acute on chronic kidney failure: Code(s): N17.9 - Acute kidney failure, unspecified; N18.9 - Chronic kidney disease, unspecified Status: Acute Assessment and Plan: Her acute on chronic kidney injury is likely due to a combination of factors including UTI, urinary retention and mild dehydration in the setting of SIVA-inhibitor and thiazide diuretic use. Roberts catheter was inserted and yielded 850 mL of urine Urology consulted (3) Normocytic anemia: Code(s): D64.9 - Anemia, unspecified Status: Acute Assessment and Plan: Check iron studies as well as B12 and folate for evaluation of normocytic anemia. Iron 16, TIBC 229,% saturation 7 ferritin at 2:16 a.m. start iron supplement B12 and folate normal (4) Electrolyte abnormality: Code(s): E87.8 - Other disorders of electrolyte and fluid balance, not elsewhere classified Status: Acute Assessment and Plan: She has several electrolyte abnormalities in part due to dehydration and thiazide diuretic use. hydrochlorothiazide on hold Potassium will be replaced and monitored. IV fluid hydration discontinued (5) Urinary retention: Code(s): R33.9 - Retention of urine, unspecified Status: Acute Assessment and Plan: Has history of urinary retention Tamsulosin started Urology consulted Roberts catheter placed (6) Chronic obstructive pulmonary disease: Code(s): J44.9 - Chronic obstructive pulmonary disease, unspecified Status: Chronic Assessment and Plan: not in acute exacerbation. Continue home inhalers Currently on 1 L nasal cannula. Wean to maintain O2 saturation above 90. Subjective Date/time seen: 10/15/22 15:23 Interval history: Patient doing well today with no new complaints. She is coming up on the end of the course of her antibiotic therapy. She should be able to discharge morning. Review of Systems Review of Systems: All systems reviewed & are unremarkable except as noted in HPI and below Exam Narrative: GENERAL: Comfortable, no acute distress HENMT: moist mucous membranes EYES: EOM intact b/l NECK: no lymphadenopathy RESPIRATORY: clear to auscultation CARDIO: RRR GI: soft, nontender, bowel sounds present SKIN: no rashes EXTREMITIES: no edema, redness or tenderness Objective Data Vital Signs Vital Signs: Vital Signs - 24 hr 10/14/22 21:31 10/15/22 05:30 10/15/22 08:36 Temperature 99.2 F 98.1 F Pulse Rate 78 74 80 Respiratory Rate 13 12 14 Blood Pressure 168/70 H 154/64 H Pulse Oximetry 92 92 92 Oxygen Delivery Room Air 10/15/22 08:00 10/15/22 14:00 Temperature 96.9 F L Pulse Rate 81 Respiratory Rate 22 H Blood Pressure 149/87 H Pulse Oximetry 91 92 Oxygen Delivery Room Air Intake/Output Intake/Output: Intake & Output 10/12/22 10/13/22 10/14/22 10/15/22 23:59 23:59 23:59 23:59 Intake Total 3
[2022-10-15] MEDS: ALBUTEROL SULFATE (*SP) AEROSOL 1 PUFF 2 PUFF INHALATION (19:47)
[2022-10-15 19:51] VITALS: PULSE 81; RESP 22; O2SAT 92
[2022-10-15] MEDS: AMITRIPTYLINE HCL 10 MG TABLET PO (20:16)
[2022-10-15] MEDS: chlordiazePOXIDE (*CRX) 5 MG CAPSULE PO (20:16)
[2022-10-15 20:55] VITALS: BP 148/64; PULSE 89; RESP 16; TEMP 36.4; O2SAT 90
[2022-10-16 04:58] VITALS: BP 165/86; PULSE 84; RESP 16; TEMP 36.5; O2SAT 96
[2022-10-16] MEDS: SALINE LOCK FLUSH 10 ML IV PUSH ×3 (06:07→20:36)
[2022-10-16 06:42] LABS: Anion Gap 2 mmol/L (8-16); Blood Urea Nitrogen 15 mg/dL (7-17); Calcium 8.9 mg/dL (8.4-10.2); Carbon Dioxide 36 mmol/L (22-30); Chloride 101 mmol/L (98-107); Estimated CRCL calculation 39 ml/min; Estimated Glomerular Filt Rate 53; Glucose 99 mg/dL (65-110); Mean Corpuscular Hemoglobin 30.5 pg (26-34); Mean Corpuscular Volume 95.4 fl (80-100); Mean Platelet Volume 9.5 fl (7.4-10.4); Platelet Count Result 345 k/mm3 (150-375); Potassium 3.1 mmol/L (3.4-5.0); Red Blood Count 2.62 M/mm3 (4.2-5.4); Red Cell Distribution Width 14.1 % (11.5-14.5); Sodium 139 mmol/L (137-145); White Blood Count 7.5 K/mm3 (4.5-10.0)
[2022-10-16] MEDS: ENOXAPARIN 40 MG/0.4 ML SYRINGE SUB-Q (07:59)
[2022-10-16] MEDS: MAGNESIUM OXIDE 400 MG TABLET PO (07:59)
[2022-10-16] MEDS: MIRABEGRON 25 MG ER TABLET 50 MG PO (07:59)
[2022-10-16 08:00] VITALS: O2SAT 91
[2022-10-16] MEDS: SACCHAROMYCES BOULARDII 250 MG CAPSULE PO ×3 (08:00→16:29)
[2022-10-16] MEDS: FERROUS SULFATE 324 MG TABLET PO (08:00)
[2022-10-16] MEDS: TAMSULOSIN HCL 0.4 MG CAPSULE PO (08:00)
[2022-10-16] MEDS: lisinopriL 20 MG TABLET PO (08:00)
[2022-10-16] MEDS: CEFEPIME 2 GM/NS 50 ML 2 GM/50 ML BAG IVPB ×2 (08:00→20:37)
[2022-10-16] MEDS: POTASSIUM CHLORIDE 20 MEQ PACKET (FOR LIQUID) 40 MEQ PO (08:25)
[2022-10-16] MEDS: ALBUTEROL SULFATE (*SP) AEROSOL 1 PUFF 2 PUFF INHALATION (08:37)
[2022-10-16] MEDS: FLUTICASONE/UMECLIDIN/VILANTER 100-62.5-25 MCG ELLIPTA 1 PUFF INHALATION (08:37)
[2022-10-16 08:40] VITALS: O2SAT 91
--- NOTE | 2022-10-16 11:05 | PM.IMPN ---
Progress Note: A&P Assessment and Plan (1) Recurrent urinary tract infection: Code(s): N39.0 - Urinary tract infection, site not specified Status: Acute Assessment and Plan: The patient presented to the emergency department for evaluation of fever. UA positive for 2+ leukocyte esterase, 3-5 RBCs, 21-30 wbc's and +1 bacteria. She recently had antibiotic therapy less than [address] of the abdomen and pelvis did not reveal any abnormality of the system and due to lack of IV contrast test was limited for evaluation of pyelonephritis. IV contrast cannot be done at this time due to JONATAN. Blood culture and urine culture both positive for Pseudomonas sensitive to cefepime. Ceftriaxone discontinued in cefepime initiated on 10/10/2022 and will be completed on 10/17/2022. Repeat blood cultures to be drawn on 10/12/2022 with preliminary no growth to date Urology recommended patient continue Roberts catheter until she can undergo cystoscopy (2) Acute on chronic kidney failure: Code(s): N17.9 - Acute kidney failure, unspecified; N18.9 - Chronic kidney disease, unspecified Status: Acute Assessment and Plan: Her acute on chronic kidney injury is likely due to a combination of factors including UTI, urinary retention and mild dehydration in the setting of SIVA-inhibitor and thiazide diuretic use. Roberts catheter was inserted and yielded 850 mL of urine Urology consulted (3) Normocytic anemia: Code(s): D64.9 - Anemia, unspecified Status: Acute Assessment and Plan: Check iron studies as well as B12 and folate for evaluation of normocytic anemia. Iron 16, TIBC 229,% saturation 7 ferritin at 2:16 a.m. start iron supplement B12 and folate normal (4) Electrolyte abnormality: Code(s): E87.8 - Other disorders of electrolyte and fluid balance, not elsewhere classified Status: Acute Assessment and Plan: She has several electrolyte abnormalities in part due to dehydration and thiazide diuretic use. hydrochlorothiazide on hold Potassium will be replaced and monitored. IV fluid hydration discontinued (5) Urinary retention: Code(s): R33.9 - Retention of urine, unspecified Status: Acute Assessment and Plan: Has history of urinary retention Tamsulosin started Urology consulted Roberts catheter placed (6) Chronic obstructive pulmonary disease: Code(s): J44.9 - Chronic obstructive pulmonary disease, unspecified Status: Chronic Assessment and Plan: not in acute exacerbation. Continue home inhalers Currently on 1 L nasal cannula. Wean to maintain O2 saturation above 90. Subjective Date/time seen: 10/16/22 11:05 Interval history: No complaints Exam Narrative: GENERAL: Comfortable, no acute distress HENMT: moist mucous membranes EYES: EOM intact b/l NECK: no lymphadenopathy RESPIRATORY: clear to auscultation CARDIO: RRR GI: soft, nontender, bowel sounds present SKIN: no rashes EXTREMITIES: no edema, redness or tenderness Objective Data Vital Signs Vital Signs: Vital Signs - 24 hr 10/15/22 14:00 10/15/22 19:51 10/15/22 20:55 Temperature 96.9 F L 97.5 F L Pulse Rate 81 81 89 Respiratory Rate 22 H 22 H 16 Blood Pressure 149/87 H 148/64 H Pulse Oximetry 92 92 90 Oxygen Delivery Room Air 10/16/22 04:58 10/16/22 08:40 10/16/22 08:00 Temperature 97.7 F Pulse Rate 84 Respiratory Rate 16 Blood Pressure 165/86 H Pulse Oximetry 96 91 91 Oxygen Delivery Room Air Room Air Intake/Output Intake/Output: Intake & Output 10/13/22 10/14/22 10/15/22 10/16/22 23:59 23:59 23:59 23:59 Intake Total 1760 2960 3916 290 Output Total 3400 3400 3800 1700 [facility] -[id number] -[facility] [phone] Meds/Results Medications: Active Medications Generic Name Dose Route Start Last Admin Trade Name Freq PRN Reason Stop Dose Admin Acetamino
--- NOTE | 2022-10-16 12:43 | PCPTNOTE ---
On 10/16/22, the student, CHARLY Beck, provided care and completed [facility] documentation on this patient. I have reviewed the student's documentation and agree with the findings.
[2022-10-16 14:00] VITALS: BP 138/65; PULSE 80; RESP 16; TEMP 36.7; O2SAT 94
[2022-10-16 20:00] VITALS: PULSE 86; RESP 18; O2SAT 93
[2022-10-16] MEDS: chlordiazePOXIDE (*CRX) 5 MG CAPSULE PO (20:36)
[2022-10-16] MEDS: AMITRIPTYLINE HCL 10 MG TABLET PO (20:36)
[2022-10-16 20:53] VITALS: BP 168/85; PULSE 86; RESP 18; TEMP 36.6; O2SAT 93
[2022-10-17 04:31] VITALS: BP 165/80; PULSE 81; RESP 16; TEMP 36.4; O2SAT 93
[2022-10-17 07:48] VITALS: PULSE 85; RESP 18; O2SAT 92
[2022-10-17 08:59] LABS: Anion Gap -1 mmol/L (8-16); Blood Urea Nitrogen 16 mg/dL (7-17); Calcium 9.7 mg/dL (8.4-10.2); Carbon Dioxide 38 mmol/L (22-30); Chloride 99 mmol/L (98-107); Estimated CRCL calculation 39 ml/min; Estimated Glomerular Filt Rate 53; Glucose 129 mg/dL (65-110); Potassium 3.5 mmol/L (3.4-5.0); Sodium 136 mmol/L (137-145)
[2022-10-17] MEDS: FERROUS SULFATE 324 MG TABLET PO (09:46)
[2022-10-17] MEDS: TAMSULOSIN HCL 0.4 MG CAPSULE PO (09:46)
[2022-10-17] MEDS: SACCHAROMYCES BOULARDII 250 MG CAPSULE PO ×2 (09:46→12:02)
[2022-10-17] MEDS: MAGNESIUM OXIDE 400 MG TABLET PO (09:46)
[2022-10-17] MEDS: MIRABEGRON 25 MG ER TABLET 50 MG PO (09:47)
[2022-10-17] MEDS: ENOXAPARIN 40 MG/0.4 ML SYRINGE SUB-Q (09:47)
[2022-10-17] MEDS: lisinopriL 20 MG TABLET PO (09:47)
--- NOTE | 2022-10-17 11:08 | PCNWS ---
Weekly nutritional screen. Patient is tolerating current diet with adequate intake at 50-100%. Ensure compact BID in place. No weight loss reported. No new nutritional needs at this time.
--- NOTE | 2022-10-17 11:45 | PM.DS ---
DS: Admitting Diagnosis Discharge Date October 17, 2022 Admitting Diagnosis UTI, dehydration DS: Discharge Diagnosis Discharge Diagnosis (1) Recurrent urinary tract infection: Code(s): N39.0 - Urinary tract infection, site not specified Status: Acute Assessment and Plan: The patient presented to the emergency department for evaluation of fever. UA positive for 2+ leukocyte esterase, 3-5 RBCs, 21-30 wbc's and +1 bacteria. She recently had antibiotic therapy less than [address] of the abdomen and pelvis did not reveal any abnormality of the system and due to lack of IV contrast test was limited for evaluation of pyelonephritis. IV contrast cannot be done at this time due to OJNATAN. Blood culture and urine culture both positive for Pseudomonas sensitive to cefepime. Ceftriaxone discontinued in cefepime initiated on 10/10/2022 and will be completed on 10/17/2022. Repeat blood cultures to be drawn on 10/12/2022 with preliminary no growth to date Urology recommended patient continue Roberts catheter until she can undergo cystoscopy (2) Acute on chronic kidney failure: Code(s): N17.9 - Acute kidney failure, unspecified; N18.9 - Chronic kidney disease, unspecified Status: Acute Assessment and Plan: Her acute on chronic kidney injury is likely due to a combination of factors including UTI, urinary retention and mild dehydration in the setting of SIVA-inhibitor and thiazide diuretic use. Roberts catheter was inserted and yielded 850 mL of urine Urology consulted (3) Normocytic anemia: Code(s): D64.9 - Anemia, unspecified Status: Acute Assessment and Plan: Check iron studies as well as B12 and folate for evaluation of normocytic anemia. Iron 16, TIBC 229,% saturation 7 ferritin at 2:16 a.m. start iron supplement B12 and folate normal (4) Electrolyte abnormality: Code(s): E87.8 - Other disorders of electrolyte and fluid balance, not elsewhere classified Status: Acute Assessment and Plan: She has several electrolyte abnormalities in part due to dehydration and thiazide diuretic use. hydrochlorothiazide on hold Potassium will be replaced and monitored. IV fluid hydration discontinued (5) Urinary retention: Code(s): R33.9 - Retention of urine, unspecified Status: Acute Assessment and Plan: Has history of urinary retention Tamsulosin started Urology consulted Roberts catheter placed (6) Chronic obstructive pulmonary disease: Code(s): J44.9 - Chronic obstructive pulmonary disease, unspecified Status: Chronic Assessment and Plan: not in acute exacerbation. Continue home inhalers Currently on 1 L nasal cannula. Wean to maintain O2 saturation above 90. DS: Summary Hospital Course Hospital Course: Patient is 82-year-old female came with UTI dehydration and electrolyte abnormalities. These were corrected and she did well. She had to remain on IV antibiotics in the hospital due to her cultures. She has completed IV therapy and her IV antibiotics can be stopped on discharge. She does have some urinary retention and Urology recommended Roberts catheter on discharge she can follow up with Urology as an outpatient. Time Spent with Patient Time attestation: Total time spent providing and/or coordinating discharge services: Exam Narrative: GENERAL: Comfortable, no acute distress HENMT: moist mucous membranes EYES: EOM intact b/l NECK: no lymphadenopathy RESPIRATORY: clear to auscultation CARDIO: RRR GI: soft, nontender, bowel sounds present SKIN: no rashes EXTREMITIES: no edema, redness or tenderness DS: Data Data Completed and Pending Labs on day of discharge: Labs from last 24 hours 10/17/22 08:38 Sodium 136 L Potassium 3.5 Chloride 99 Carbon Dioxide 38 H Anion Gap -1 L BUN 16 Creatinine 1.00 Estim Creat Clear Calc 39
--- NOTE | 2022-10-17 13:40 | PC.NURSE ---
RN went over gross catheter care / leg bag instructions prior to discharge. Pt educated on proper cleaning and when to call urology office. RN sent pt home with educational packets regarding catheter care and the leg bag.
== END 2022-10-17 13:50 | disposition home health service (06) | DRG 690 ==
LOC: ANHED 13:14 → ANH3MEDSUR 16:45
PROVIDERS: Internal Medicine Critical Care Medicine; Physician Assistant; Admitting Provider Chiropractor; Emergency Provider Emergency Medicine; PCP Family Medicine; Visit Provider Chiropractor
DX: N39.0 Urinary tract infection, site not specified (principal); N17.9 Acute kidney failure, unspecified; I12.9 Hypertensive chronic kidney disease with stage 1 through stage 4 chronic kidney disease, or unspecified chronic kidney disease; N18.30 Chronic kidney disease, stage 3 unspecified; I70.0 Atherosclerosis of aorta; J44.9 Chronic obstructive pulmonary disease, unspecified; D64.9 Anemia, unspecified; E86.0 Dehydration; E87.8 Other disorders of electrolyte and fluid balance, not elsewhere classified; E78.00 Pure hypercholesterolemia, unspecified; R33.9 Retention of urine, unspecified; K21.9 Gastro-esophageal reflux disease without esophagitis; M19.90 Unspecified osteoarthritis, unspecified site; M85.80 Other specified disorders of bone density and structure, unspecified site; M81.0 Age-related osteoporosis without current pathological fracture; Z85.048 Personal history of other malignant neoplasm of rectum, rectosigmoid junction, and anus; Z87.891 Personal history of nicotine dependence; Z93.3 Colostomy status
CPT/HCPCS: 36415; 36569; 71045; 74176; 76705; 80048; 80053; 81001; 82607; 82728; 82746; 83540; 83550; 83605; 83735; 84132; 84439; 84443; 84480; 85025; 85027; 85610; 85730; 86140; 87040; 87077; 87086; 87088; 87186; 93005; 94640; 96361; 96365; 97110; 97116; 97161; 97165; 97530; 99215; 99285; A9270; C1751; G0463; J0692; J0696; J1650; J1756; J3480; J7030; J7040; J7050; J7120

== ENCOUNTER 2022-10-30 13:27 | Outpatient (CLI) | payer MEDICARE, SELFPAY ==
[2022-10-30 18:53] LABS: Hematocrit 36.1 % (37.0-47.0); Hemoglobin 11.2 g/dL (12.0-15.0); Mean Corpuscular Hemoglobin 32.1 pg (26-34); Mean Corpuscular Volume 103.4 fl (80-100); Mean Platelet Volume 11.6 fl (7.4-10.4); Platelet Count Result 310 k/mm3 (150-375); Red Blood Count 3.49 M/mm3 (4.2-5.4); White Blood Count 8.9 K/mm3 (4.5-10.0)
[2022-10-30 19:13] LABS: Alanine Aminotransferase 20 U/L (6-35); Alkaline Phosphatase 73 U/L (38-126); Anion Gap 10 mmol/L (8-16); Aspartate Amino Transferase 28 U/L (14-36); Bilirubin,Total 0.5 mg/dL (0.2-1.3); Blood Urea Nitrogen 19 mg/dL (7-17); Calcium 9.4 mg/dL (8.4-10.2); Carbon Dioxide 33 mmol/L (22-30); Chloride 97 mmol/L (98-107); Estimated Glomerular Filt Rate 47; Glucose 133 mg/dL (65-110); Potassium 4.3 mmol/L (3.4-5.0); Sodium 140 mmol/L (137-145)
== END 2022-10-30 13:28 | disposition home or self-care (01) ==
LOC: ANHGOSHLAB 13:30
PROVIDERS: PCP Family Medicine; Visit Provider Nurse Practitioner
DX: D64.9 Anemia, unspecified (principal); N18.30 Chronic kidney disease, stage 3 unspecified
CPT/HCPCS: 36415; 80053; 85027

== ENCOUNTER 2022-12-18 22:49 | Emergency (ER) | payer MEDICARE, SELFPAY ==
--- NOTE | ~2022-12-18 | XR_ITS ---
Portable chest x-ray Comparison: 10/08/2022 Clinical History: Chest pain Findings: There is minimal bibasilar haziness. Cardiomediastinal silhouette is stable. Bones and so ft tissues are unremarkable. Impression: Minimal bibasilar haziness. Correlate for minimal pulmonary edema/atelectasis, or possibly infection. Reviewed, dictated and finalized at [facility]. Impression: Minimal bibasilar haziness. Correlate for minimal pulmonary edema/atelectasis, or possibly infection.
--- NOTE | ~2022-12-18 | CT_ITS ---
CT head without contrast Indication: Status post fall Technique: Serial scans were obtained through the brain without the administration of contrast. Dose reduction technique was used on this scan by utilizing automated exposure control and iterative recon struction technique. The dose-length product (DLP) was 756.67 mGy-cm. Findings: There is no evidence of intracranial hemorrhage, mass lesion, or acute infarct. The ventri cles and subarachnoid spaces are unremarkable. Mild lateral attenuation regions are seen within the p eriventricular white matter bilaterally, likely representing changes from chronic microvascular ische trent disease. There is no evidence of edema, mass effect or midline shift. The visualized paranasal sinuses and mastoid air cells are clear. Impression: No intracranial hemorrhage, mass, or acute infarct. Mild chronic white matter changes, as above. Reviewed, dictated and finalized at location M. Impression: No intracranial hemorrhage, mass, or acute infarct. Mild chronic white matter changes, as above.
--- NOTE | ~2022-12-18 | CT_ITS ---
Clinical Indication: Trauma CT Scan of the Chest, Abdomen, and Pelvis without Contrast: Technique: Contiguous sections were acquired throughout the chest, abdomen, and pelvis without IV con trast administration. Dose reduction technique was used on this scan by utilizing automated exposure control and iterative reconstruction technique. The dose-length product (DLP) was 1144.74 mGy-cm. COMPARISON: 10/09/2022 Findings: There is no evidence of any significant mediastinal, hilar or axillary lymphadenopathy. There are ath erosclerotic calcifications of the aorta and coronary arteries. No aortic aneurysm. There is no evidence of pleural or pericardial effusion. There is moderate emphysema with biapical scarring. Stable 5 mm left lower lobe pulmonary nodule (axi al image 62). The liver, spleen, pancreas, gallbladder, and adrenal glands are within normal limits. There are exte nsive atherosclerotic changes of the aorta. Infrarenal abdominal aorta is mildly ectatic measuring up to 3 cm in maximum diameter. There is mild to moderate bilateral hydroureteronephrosis. No lymphaden opathy. 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 No bowel obstruction evident. Urinary bladder is prominently distended. Questionable mass posterior to the urinary bladder versus b owel loop (axial image 231). There is focal cortical step-off at the posterior aspect of the proximal sternal body, which could re flect nondisplaced fracture (axial image 54).. Impression: Possible subtle, nondisplaced fracture of the proximal sternal body, with focal cortical step-off in this region. Please see details above. Mild to moderate hydroureteronephrosis and distended urinary bladder. Correlate for urinary retention or bladder outlet obstruction. Questionable mass lesion posterior to the urinary bladder versus bowel loop. Consider follow-up exam or MR for further evaluation. Stable 5 mm left lower lobe pulmonary nodule. Moderate emphysema. Reviewed, dictated and finalized at location M. Impression: Possible subtle, nondisplaced fracture of the proximal sternal body, with focal cortical step-off in this region. Please see details above. Mild to moderate hydroureteronephrosis and distended urinary bladder. Correlate for urinary retention or bladder outlet obstruction. Questionable mass lesion posterior to the urinary bladder versus bowel loop. Co nsider follow-up exam or MR for further evaluation. Stable 5 mm left lower lobe pulmonary nodule. Moderate emphysema.
--- NOTE | ~2022-12-18 | CT_ITS ---
Noncontrast CT scan of the cervical spine Technique: Multiple contiguous axial [address] images of the cervical spine were obtained and rec onstructed in 2D sagittal and coronal planes on the acquisition scanner. Dose reduction technique was used on this scan by utilizing automated exposure control, adjustment of the mA and/or kV according to patient size. The dose-length product (DLP) was 277.26 mGy-cm. Clinical History: Pain Findings: No fractures or dislocations. There are moderate degenerative disc changes and uncovertebr al degenerative changes throughout the cervical spine. There is degenerative change at the articulati on of the odontoid process with the anterior arch of C1. There is multilevel mild to moderate facet a rthropathy. There is bilateral neural foraminal narrowing, right worse than left, at C4-C5. There is bilateral neural foraminal narrowing at C5-C6. There is left neural foraminal narrowing at C6-C7. No prevertebral soft tissue swelling. Impression: No fracture or subluxation of the cervical spine. Degenerative spondylosis, as above. Reviewed, dictated and finalized at [facility]. Impression: No fracture or subluxation of the cervical spine. Degenerative spondylosis, as above.
[2022-12-18 22:50] VITALS: BP 170/72; PULSE 72; RESP 20; TEMP 37; O2SAT 98
[2022-12-19] MEDS: MORPHINE SULFATE (*CRX) 2 MG/ML INJ IV PUSH (03:20)
[2022-12-19 03:21] VITALS: BP 148/76; PULSE 75; RESP 20; O2SAT 99
--- NOTE | 2022-12-19 04:22 | ED.GENADULT ---
HPI - General Adult General Chief complaint: Fall Stated complaint: GLF Time Seen by Provider: 12/19/22 02:32 History of Present Illness HPI narrative: Patient is a 32-year-old female who presents the emergency department with chief complaint of chest wall pain patient reports that she was walking to the kitchen and tripped and fell and landed on her chest wall. Patient reports no loss of consciousness does not think that she hit her head but reports that she has anterior chest wall pain worse with inspiration and worse with movement. Related Data Home Medications Medication Instructions Recorded Confirmed Calcium 500 + D (D3) 1 tablet PO DAILY 04/02/19 11/11/22 Daily Multivitamin 1 tablet PO DAILY 04/02/19 11/11/22 digestive enzymes 1 cap PO TID 04/02/19 11/11/22 magnesium 500 mg PO DAILY 04/02/19 11/11/22 biotin 5,000 mcg sublingual tablet 7,500 mcg sublingual DAILY 05/20/19 11/11/22 cat's claw (Uncaria tomentosa) 500 500 mg PO DAILY 07/24/20 11/11/22 mg capsule tamsulosin 0.4 mg capsule 0.4 mg PO DAILY 10/29/22 11/11/22 Allergies Allergy/AdvReac Type Severity Reaction Status Date / Time mold Allergy unknown Verified 11/11/22 10:34 Review of Systems Review of Systems: A 10 system review of systems was completed on the patient and is negative except for what is stated in the HPI. Nursing and ancillary documentation was reviewed. [facility] Past Medical History Medical History Arthritis Atherosclerosis of aorta Chronic kidney disease, stage 3 (moderate) Chronic obstructive pulmonary disease, unspecified Constipation Essential (primary) hypertension Fractures Fracture right arm x2 at age 7 Gastro-esophageal reflux disease without esophagitis High cholesterol History of chicken pox History of measles History of mumps Osteopenia Osteoporosis Post-menopausal Rectal cancer Status post chemo radiation. Recurrent urinary tract infection Wears glasses Surgical History Surgical History History of bunionectomy of left great toe History of cataract extraction with lens replacement History of section, classical (1967) History of inguinal hernia repair History of intestinal surgery (2013) Perineal resection with colostomy for rectal cancer. Exploratory laparotomy for bowel obstructions and adhesiolysis on separate occasions. Family History Family History Sibling Hypertension Aneurysm Gout Heart disease Mother Diabetes mellitus Hypertension Family history of coronary artery disease bypass age 72 Father Hypertension Daughter Hypertension Son Hypertension Daughter Lymphedema Carpal tunnel syndrome Heart problem Other Family history of heart disease in male family member before age 55 Social History Social History Social History: Surrogate medical decision maker: Scott Thakur, alex. Code status: Full code. Caffeine:none Smoking packs per day: 2 Smoking cigarettes per day: 40.0 Years smoked: 35 Smoking pack-years: 70.00 Smoking status: Former smoker Smoking end date: 04/07/99 Alcohol intake: never Substance use: never Substance use type: does not use Lack of Transportation: No Lack of Food: Never True Current Housing: I Have Housing Concerned About Future Housing: No Difficulty Paying Gas/Electric Bills: No Difficulty Paying for Meds: No Currently Unemployed: No Education: Associate Degree Difficulty w/ Childcare or Family Care: No Living arrangements: with family Additional living arrangements comments: The patient lives in [place], son and [id number] live with her. Additional occupation/education comments: Retired. Spiritual care concerns: No
[2022-12-19 07:31] VITALS: BP 137/72; PULSE 69; RESP 26; O2SAT 96
[2022-12-19 07:47] VITALS: BP 148/66; PULSE 75; RESP 21; O2SAT 96
[2022-12-19 08:01] VITALS: BP 133/62; PULSE 69; RESP 24; O2SAT 96
[2022-12-19 08:52] VITALS: BP 122/69; PULSE 76; RESP 21; O2SAT 95
[2022-12-19 09:35] VITALS: BP 141/73; PULSE 80; RESP 16; O2SAT 96
== END 2022-12-19 09:45 | disposition home or self-care (01) ==
PROVIDERS: Emergency Provider Emergency Medicine; PCP Family Medicine
DX: S22.22XA Fracture of body of sternum, initial encounter for closed fracture (principal); I12.9 Hypertensive chronic kidney disease with stage 1 through stage 4 chronic kidney disease, or unspecified chronic kidney disease; N18.30 Chronic kidney disease, stage 3 unspecified; J43.9 Emphysema, unspecified; E78.00 Pure hypercholesterolemia, unspecified; I70.0 Atherosclerosis of aorta; K21.9 Gastro-esophageal reflux disease without esophagitis; M85.80 Other specified disorders of bone density and structure, unspecified site; M81.0 Age-related osteoporosis without current pathological fracture; M19.90 Unspecified osteoarthritis, unspecified site; Z85.528 Personal history of other malignant neoplasm of kidney; Z87.440 Personal history of urinary (tract) infections; Z98.49 Cataract extraction status, unspecified eye; Z96.1 Presence of intraocular lens; Z90.49 Acquired absence of other specified parts of digestive tract; Z87.891 Personal history of nicotine dependence; R91.1 Solitary pulmonary nodule; M47.812 Spondylosis without myelopathy or radiculopathy, cervical region; R93.41 Abnormal radiologic findings on diagnostic imaging of renal pelvis, ureter, or bladder; N13.30 Unspecified hydronephrosis; W01.0XXA Fall on same level from slipping, tripping and stumbling without subsequent striking against object, initial encounter
CPT/HCPCS: 70450; 71045; 71250; 72125; 74176; 96374; 99284; J2270

== ENCOUNTER 2023-01-24 15:49 | Emergency (ER) | payer MEDICARE, SELFPAY ==
--- NOTE | 2023-01-24 15:58 | ED.FEMALEGU ---
HPI - Female Genitourinary General Chief complaint: Urogenital-Female Stated complaint: Uti symptoms Source: patient and RN notes reviewed Mode of arrival: ambulatory Limitations: no limitations History of Present Illness HPI Narrative: 82 y/o female with hx HTN, CKD3, and OAB presented with son for c/o?fatigue over the past few days. Reports some dizziness and feeling like she has to sit and rest when walking from room to room in her home. Son states these are similar symptoms to her previous UTIs. Currently denies abdominal pain, flank pain, hematuria, n/v/f/c. Pt is scheduled to f/u with urology 01/29. Related Data Home Medications Medication Instructions Recorded Confirmed Calcium 500 + D (D3) 1 tablet PO DAILY 04/02/19 01/24/23 Daily Multivitamin 1 tablet PO DAILY 04/02/19 01/24/23 digestive enzymes 1 cap PO TID 04/02/19 01/24/23 magnesium 500 mg PO DAILY 04/02/19 01/24/23 biotin 5,000 mcg sublingual tablet 7,500 mcg sublingual DAILY 05/20/19 01/24/23 cat's claw (Uncaria tomentosa) 500 500 mg PO DAILY 07/24/20 01/24/23 mg capsule tamsulosin 0.4 mg capsule 0.4 mg PO DAILY 10/29/22 01/24/23 Allergies Allergy/AdvReac Type Severity Reaction Status Date / Time mold Allergy unknown Verified 12/23/22 11:09 Review of Systems Review of Systems: CONSTITUTIONAL: Denies body aches, fever, chills, or sweats. CARDIOVASCULAR: Denies chest pain, palpitations, or edema. RESPIRATORY: Denies cough or dyspnea. GASTROINTESTINAL: Denies abdominal pain, nausea, vomiting, or diarrhea. GENITOURINARY: Reports dysuria, denies hematuria, flank pain SKIN: Denies rash, itching, or wounds. MUSCULOSKELETAL: Denies back pain or myalgia. [facility] Past Medical History Medical History Arthritis Atherosclerosis of aorta Chronic kidney disease, stage 3 (moderate) Chronic obstructive pulmonary disease, unspecified Constipation Essential (primary) hypertension Fractures Fracture right arm x2 at age 7 Gastro-esophageal reflux disease without esophagitis High cholesterol History of chicken pox History of measles History of mumps Osteopenia Osteoporosis Post-menopausal Rectal cancer Status post chemo radiation. Recurrent urinary tract infection Wears glasses Surgical History Surgical History History of bunionectomy of left great toe History of cataract extraction with lens replacement History of section, classical (1967) History of inguinal hernia repair History of intestinal surgery (2013) Perineal resection with colostomy for rectal cancer. Exploratory laparotomy for bowel obstructions and adhesiolysis on separate occasions. Family History Family History Sibling Hypertension Aneurysm Gout Heart disease Mother Diabetes mellitus Hypertension Family history of coronary artery disease bypass age 72 Father Hypertension Daughter Hypertension Son Hypertension Daughter Lymphedema Carpal tunnel syndrome Heart problem Other Family history of heart disease in male family member before age 55 Social History Social History Social History: Surrogate medical decision maker: Scott Thakur, son. Code status: Full code. Caffeine:none Smoking packs per day: 2 Smoking cigarettes per day: 40.0 Years smoked: 35 Smoking pack-years: 70.00 Smoking status: Former smoker Smoking end date: 04/07/99 Alcohol intake: never Substance use: never Substance use type: does not use Lack of Transportation: No Lack of Food: Never True Current Housing: I Have Housing Concerned About Future Housing: No Difficulty Paying Gas/Electric Bills: No Difficulty Paying for Meds: No Currently Unemployed: No Education: Associate Degree Difficulty w/ Childcare
[2023-01-24 16:25] VITALS: BP 148/65; PULSE 95; RESP 16; TEMP 37.9; O2SAT 92
== END 2023-01-24 16:50 | disposition short-term general hospital (02) ==
PROVIDERS: Emergency Provider Nurse Practitioner Family; PCP Family Medicine
DX: R53.83 Other fatigue (principal); I12.9 Hypertensive chronic kidney disease with stage 1 through stage 4 chronic kidney disease, or unspecified chronic kidney disease; N18.30 Chronic kidney disease, stage 3 unspecified; J44.9 Chronic obstructive pulmonary disease, unspecified; K21.9 Gastro-esophageal reflux disease without esophagitis; E78.00 Pure hypercholesterolemia, unspecified; Z85.048 Personal history of other malignant neoplasm of rectum, rectosigmoid junction, and anus; Z87.891 Personal history of nicotine dependence
CPT/HCPCS: 81003; 87077; 87086; 87186; 99212; G0463

== ENCOUNTER 2023-01-24 17:07 | Inpatient (IN) | payer MEDICARE, SELFPAY ==
--- NOTE | ~2023-01-24 | NM_ITS ---
EXAMINATION: NM lung vent and perfusion DATE: 01/27/2023 13:33 INDICATION: Shortness of breath TECHNIQUE: 25.7 mCi xenon-133 by inhalation and 5.5 mCi Tc-99m MAA by intravenous route. Scintigraph ic images of the chest were obtained. COMPARISON: Chest radiograph dated 01/27/[address] dated 12/19/2022 FINDINGS: There is homogeneous radiotracer activity throughout the lungs on the single breath ventilation seque nce. Moderate-sized perfusion defect involving the medial segment of the right middle lobe. Moderate- sized perfusion defect involving the posterior segment of the right upper lobe and small perfusion de fects involving the anterior segments of both the right upper and left upper lobes. Small perfusion d efect at the posterior sulcus of the left lower lobe. IMPRESSION: 1. Nondiagnostic (low or intermediate) probability for pulmonary embolism. Reviewed, dictated and finalized at location A.
--- NOTE | ~2023-01-24 | XR_ITS ---
EXAMINATION: XR chest 1V portable DATE: 01/27/2023 11:10 INDICATION: Shortness of breath TECHNIQUE: frontal view of the chest was obtained. COMPARISON: Chest radiograph and CT dated 12/19/[address] abdomen dated 01/25/2023 FINDINGS: No significant interval change in chronic streaky atelectasis/scarring at the bilateral lung bases, l eft greater than right. No new airspace opacities, pulmonary edema, pleural effusion or pneumothorax. The cardiomediastinal silhouette is normal. Moderate thoracic spondylosis. IMPRESSION: 1. Unchanged streaky bibasilar atelectasis/scarring. Reviewed, dictated and finalized at location A.
--- NOTE | ~2023-01-24 | XR_ITS ---
XR chest 1V portable 01/28/2023 09:01 Indication: Elevated white blood cell count. Procedure: AP portable chest Comparison: Comparison to multiple prior studies sequentially, with oldest reviewed study dated 02/06. Findings: Bibasilar infiltrates are unchanged. Small left pleural effusion. The lungs are hyperinflat ed which is consistent with, but not diagnostic of chronic obstructive pulmonary disease. Healed left humeral neck fracture. Impression: 1: Chronic bibasilar infiltrates may represent atelectasis/scarring or atypical pneumonia. 2: Small left pleural effusion. Reviewed, dictated and finalized at location L. Impression: 1: Chronic bibasilar infiltrates may represent atelectasis/scarring or atypical pneumonia. 2: Small left pleural effusion.
--- NOTE | ~2023-01-24 | US_ITS ---
EXAMINATION: US venous doppler [facility] DATE: 01/28/2023 15:27 INDICATION: Lower limb pain. TECHNIQUE: Grayscale ultrasound images without and with compression and Doppler ultrasound images of the bilateral lower extremity veins were obtained. COMPARISON: None. FINDINGS: The visualized portions of right common femoral vein, profunda (deep) femoral vein, femoral vein, pop liteal vein, peroneal veins, posterior tibial veins, and greater saphenous vein outflow are patent. The visualized portions of left common femoral vein, profunda femoral vein, femoral vein, popliteal v ein, peroneal veins, posterior tibial veins, and greater saphenous vein outflow are patent. IMPRESSION: 1. No deep venous thrombosis. Reviewed, dictated and finalized at location E.
--- NOTE | ~2023-01-24 | CT_ITS ---
EXAMINATION: CT abdomen pelvis wo con DATE: 01/25/2023 00:19 INDICATION: UTI. Acute renal injury. TECHNIQUE: Computed tomography (CT) of the abdomen and pelvis was performed without intravenous contr ast. The dose-length product was 636.94 mGy-cm. Automated exposure control and iterative reconstructi on technique were employed. COMPARISON: CT dated 12/19/2022. FINDINGS: There is dependent atelectasis of the lung bases. Heart size is normal. No significant pleu ral or pericardial effusion. The liver, spleen, pancreas, adrenal glands are unremarkable. Normal conrad endix. There is a left lower abdominal stoma containing a parastomal hernia with nonobstructed bowel. Stable 4 mm left lower lobe nodule, likely benign. There is bilateral hydroureteronephrosis. No obstructing stone or mass. There is bladder distention. There is an umbilical hernia containing nonobstructed bowel. There is an infrarenal abdominal aortic aneurysm measuring 3.2 cm. Severe lower thoracic and lumbar spondylosis. IMPRESSION: 1. Moderate bilateral hydroureteronephrosis without evidence for obstructing stone or mass. Moderate bladder distention. Bladder wall is mildly thickened. Cannot exclude cystitis. Clinically correlate. 2: Infrarenal abdominal aortic aneurysm measuring 3.2 cm. 3: Left lower lobe nodule measures 4 mm, decreased in size compared with prior examination, likely be nign. Consider follow-up low dose CT in 12 months. Reviewed, dictated and finalized at location A. IMPRESSION: 1. Moderate bilateral hydroureteronephrosis without evidence for obstructing st one or mass. Moderate bladder distention. Bladder wall is mildly thickened. Can not exclude cystitis. Clinically correlate. 2: Infrarenal abdominal aortic aneurysm measuring 3.2 cm. 3: Left lower lobe nodule measures 4 mm, decreased in size compared with prior examination, likely benign. Consider follow-up low dose CT in 12 months.
[2023-01-24 17:18] VITALS: BP 128/62; PULSE 90; RESP 20; TEMP 37.4; O2SAT 95
[2023-01-24 17:43] LABS: Hematocrit 32.9 % (37.0-47.0); Mean Corpuscular HGB Conc 33.4 g/dl (32-36); Mean Corpuscular Hemoglobin 31.3 pg (26-34); Mean Corpuscular Volume 93.5 fl (80-100); Mean Platelet Volume 9.4 fl (7.4-10.4); Platelet Count Result 282 k/mm3 (150-375); Red Blood Count 3.52 M/mm3 (4.2-5.4); Red Cell Distribution Width 13.6 % (11.5-14.5); White Blood Count 16.3 K/mm3 (4.5-10.0)
[2023-01-24 18:00] LABS: Alanine Aminotransferase 20 U/L (6-35); Albumin Level 3.9 g/dL (3.5-5.1); Alkaline Phosphatase 89 U/L (38-126); Anion Gap 9 mmol/L (8-16); Aspartate Amino Transferase 29 U/L (14-36); Bilirubin,Total 0.7 mg/dL (0.2-1.3); Blood Urea Nitrogen 36 mg/dL (7-17); Calcium 9.1 mg/dL (8.4-10.2); Carbon Dioxide 25 mmol/L (22-30); Chloride 99 mmol/L (98-107); Estimated Glomerular Filt Rate 21; Glucose 130 mg/dL (65-110); Potassium 3.4 mmol/L (3.4-5.0); Sodium 133 mmol/L (137-145)
[2023-01-24 18:11] LABS: Band Neutrophils Percent 2 % (0-6); Lymphocytes Absolute Manual 0.16 K/mm3 (1.1-4.5); Monocytes Absolute Manual 0.48 K/mm3 (0.1-0.90); Monocytes Percent Manual 3 % (3-9); Neutrophils Absolute Manual 15.64 K/mm3 (1.7-7.2); Neutrophils Percent Manual 94 % (46-73); Platelet Estimate Adequate (Adequate); Total Cells Counted 100
[2023-01-24 18:12] LABS: Schistocytes None Seen (NORMAL)
[2023-01-24 19:21] LABS: Appearance Urine Turbid (Clear); Bacteria Urine 4+ /hpf; Bilirubin Urine Negative (Negative); Blood Urine 3+ (Negative); Color Urine Yellow (Yellow); Glucose Urine UA Negative (Negative); Ketones Urine Negative (Negative); Leukocyte Esterase Ur 3+ LEU/UL (Negative); Need Manual Microscopic Reviewed; Nitrate Urine Positive (Negative); Protein Urine 2+ mg/dL (Negative); Specific Grav Ur 1.011 (1.001-1.035); Squamous Epithelial Cell Urine Few /hpf (Few); Urobilinogen Urine 0.2 mg/dL (<2.0); WBC Urine >100 /hpf
[2023-01-24 19:23] LABS: Add Urine Microscopic? YES
[2023-01-24 23:47] VITALS: BP 144/65; PULSE 87; RESP 16; O2SAT 93
[2023-01-25] MEDS: SODIUM CHLORIDE 0.9% IV 1,000 ML 999 ML IV CONT (01:18)
--- NOTE | 2023-01-25 01:22 | ED.GENADULT ---
HPI - General Adult General Chief complaint: Urogenital-Female Stated complaint: fatigue Time Seen by Provider: 01/24/23 23:45 History of Present Illness HPI narrative: Patient is a 82-year-old female presents emerged part with chief complaint of cloudy urine and feeling weak and rundown. Patient states she feels as though she is cloudy reports that she is feels unwell. Patient denies fever. Related Data Home Medications Medication Instructions Recorded Confirmed Calcium 500 + D (D3) 1 tablet PO DAILY 04/02/19 01/24/23 Daily Multivitamin 1 tablet PO DAILY 04/02/19 01/24/23 digestive enzymes 1 cap PO TID 04/02/19 01/24/23 magnesium 500 mg PO DAILY 04/02/19 01/24/23 biotin 5,000 mcg sublingual tablet 7,500 mcg sublingual DAILY 05/20/19 01/24/23 cat's claw (Albertoaria tomentosa) 500 500 mg PO DAILY 07/24/20 01/24/23 mg capsule tamsulosin 0.4 mg capsule 0.4 mg PO DAILY 10/29/22 01/24/23 Allergies Allergy/AdvReac Type Severity Reaction Status Date / Time mold Allergy unknown Verified 01/24/23 23:50 Review of Systems Review of Systems: A 10 system review of systems was completed on the patient and is negative except for what is stated in the HPI. Nursing and ancillary documentation was reviewed. [facility] Past Medical History Medical History Arthritis Atherosclerosis of aorta Chronic kidney disease, stage 3 (moderate) Chronic obstructive pulmonary disease, unspecified Constipation Essential (primary) hypertension Fractures Fracture right arm x2 at age 7 Gastro-esophageal reflux disease without esophagitis High cholesterol History of chicken pox History of measles History of mumps Osteopenia Osteoporosis Post-menopausal Rectal cancer Status post chemo radiation. Recurrent urinary tract infection Wears glasses Surgical History Surgical History History of bunionectomy of left great toe History of cataract extraction with lens replacement History of section, classical (1967) History of inguinal hernia repair History of intestinal surgery (2013) Perineal resection with colostomy for rectal cancer. Exploratory laparotomy for bowel obstructions and adhesiolysis on separate occasions. Family History Family History Sibling Hypertension Aneurysm Gout Heart disease Mother Diabetes mellitus Hypertension Family history of coronary artery disease bypass age 72 Father Hypertension Daughter Hypertension Son Hypertension Daughter Lymphedema Carpal tunnel syndrome Heart problem Other Family history of heart disease in male family member before age 55 Social History Social History Social History: Surrogate medical decision maker: Scott Thakur, alex. Code status: Full code. Caffeine:none Smoking packs per day: 2 Smoking cigarettes per day: 40.0 Years smoked: 35 Smoking pack-years: 70.00 Smoking status: Former smoker Smoking end date: 04/07/99 Alcohol intake: never Substance use: never Substance use type: does not use Lack of Transportation: No Lack of Food: Never True Current Housing: I Have Housing Concerned About Future Housing: No Difficulty Paying Gas/Electric Bills: No Difficulty Paying for Meds: No Currently Unemployed: No Education: Associate Degree Difficulty w/ Childcare or Family Care: No Living arrangements: with family Additional living arrangements comments: The patient lives in [place], son and [id number] live with her. Additional occupation/education comments: Retired. Spiritual care concerns: No Exam Narrative: GENERAL: Well-appearing, well-nourished, and in no acute distress. HEAD: Normocephalic, atraumatic. EYES: PERRLA and EOMI.
[2023-01-25 02:06] VITALS: BP 152/68; PULSE 81; RESP 16; O2SAT 95
--- NOTE | 2023-01-25 02:33 | ADMGEN ---
This patient, Elvie Thakur, was admitted to Medical Room 258-01. Patient/family oriented to hospital policies and general routines including ID bracelet, bed and alarms, visiting hours, pain management, procedures, bathroom and other care routines, personal items, smoking policy, room service/diet, and visiting hours. Information on how to activate the Rapid Response Team has been discussed. Patient/Family are encouraged to report perceived risks to care and to ask questions if they do not understand what they are told or what they should do.
[2023-01-25] MEDS: SODIUM CHLORIDE 0.9% IV 1,000 ML 125 ML IV CONT ×3 (02:37→20:32)
[2023-01-25 03:13] VITALS: BP 131/57; PULSE 79; RESP 16; TEMP 36.6; O2SAT 91; BMI 29.0
--- NOTE | 2023-01-25 08:08 | PM.IMHP ---
H&P: HPI History of Present Illness Date/Time: 01/25/23 08:08 Chief Complaint: Weakness Narrative: This is an 82-year-old female with past medical history of CKD stage 3, COPD, hypertension, high cholesterol, osteoporosis, rectal cancer status post chemo and radiation, multiple abdominal surgeries related to ileus, and recurrent urinary tract infections. She presented to the ED in 1020 with complaints of weakness and cloudy urine. In the ER her labs were significant for leukocytosis of 16.3, hemoglobin 11, hematocrit 32.9, 94% neutrophils sodium 133, creatinine 2.20. Her UA was positive for UTI. Her CT abdomen and pelvis shows moderate bilateral hydroureteronephrosis without evidence of obstructing stone or mass as well as moderate bladder distention. It also shows a new infrarenal abdominal aortic aneurysm measuring 3.2 cm that was not previously mentioned on her CT in December of this year. CT also shows her previously known left lower lobe and lung nodule now measuring 4 mm as opposed to 5 mm on previous exam. She is being admitted for IV antibiotics, IV fluids, and medical management. 01/25-seen this morning at the bedside and she is alert oriented x4. She has some word-finding troubles but otherwise her mentation is baseline. She says that she feels better today than she did when she 1st came in. She denies headache dizziness, shortness of breath, chest pain, nausea, vomiting, abdominal pain. She says that she was having overall weakness in cloudy urine which is why she presented to the hospital. She reports having a UTI about 3 months ago and she actually developed sepsis. She follows with Urology here at [place]. Review of Systems Review of Systems: All systems reviewed & are unremarkable except as noted in HPI and below PMFSH Past Medical History Medical History Arthritis Atherosclerosis of aorta Chronic kidney disease, stage 3 (moderate) Chronic obstructive pulmonary disease, unspecified Constipation Essential (primary) hypertension Fractures Fracture right arm x2 at age 7 Gastro-esophageal reflux disease without esophagitis High cholesterol History of chicken pox History of measles History of mumps Osteopenia Osteoporosis Post-menopausal Rectal cancer Status post chemo radiation. Recurrent urinary tract infection Wears glasses Surgical History Surgical History History of bunionectomy of left great toe History of cataract extraction with lens replacement History of section, classical (1967) History of inguinal hernia repair History of intestinal surgery (2013) Perineal resection with colostomy for rectal cancer. Exploratory laparotomy for bowel obstructions and adhesiolysis on separate occasions. Family History Family History Sibling Hypertension Aneurysm Gout Heart disease Mother Diabetes mellitus Hypertension Family history of coronary artery disease bypass age 72 Father Hypertension Daughter Hypertension Son Hypertension Daughter Lymphedema Carpal tunnel syndrome Heart problem Other Family history of heart disease in male family member before age 55 Social History Social History Social History: Surrogate medical decision maker: Scott Thakur, alex. Code status: Full code. Caffeine:none Smoking packs per day: 1 Smoking cigarettes per day: 20.0 Years smoked: 35 Smoking pack-years: 35.00 Smoking status: Former smoker Smoking end date: 04/07/99 Alcohol intake: never Substance use: never Substance use type: does not use Lack of Transportation: No Lack of Food: Never True Current Housing: I Have Housing Concerned About Future Housing: No Difficulty Paying Gas/Electric Bills: No Difficulty Payin
[2023-01-25 08:36] LABS: Basophils Percent Auto 0.3 % (0.2-1.2); Eosinophils Percent Auto 0.1 % (0-4.4); Hemoglobin 9.7 g/dL (12.0-15.0); Immature Granulocyte Absolute 0.06 K/mm3 (0.00-0.031); Immature Granulocyte Percent A 0.5 % (0-0.5); Lymphocytes Percent Auto 4.7 % (18.3-44.2); Mean Corpuscular HGB Conc 31.3 g/dl (32-36); Mean Corpuscular Hemoglobin 30.8 pg (26-34); Mean Corpuscular Volume 98.4 fl (80-100); Mean Platelet Volume 9.9 fl (7.4-10.4); Monocytes Absolute Auto 1.1 K/mm3 (0.1-0.6); Monocytes Percent Auto 8.3 % (2.6-8.5); Neutrophils Absolute Auto 11.1 K/mm3 (1.3-6.7); Neutrophils Percent Auto 86.1 % (45.5-73.1); Platelet Count Result 259 k/mm3 (150-375); Red Blood Count 3.15 M/mm3 (4.2-5.4); Red Cell Distribution Width 13.7 % (11.5-14.5); White Blood Count 12.9 K/mm3 (4.5-10.0)
[2023-01-25 08:47] LABS: Alanine Aminotransferase 18 U/L (6-35); Albumin Level 3.3 g/dL (3.5-5.1); Alkaline Phosphatase 74 U/L (38-126); Anion Gap 9 mmol/L (8-16); Aspartate Amino Transferase 26 U/L (14-36); Bilirubin,Total 0.6 mg/dL (0.2-1.3); Blood Urea Nitrogen 33 mg/dL (7-17); Calcium 8.2 mg/dL (8.4-10.2); Carbon Dioxide 24 mmol/L (22-30); Chloride 102 mmol/L (98-107); Estimated CRCL calculation 22 ml/min; Estimated Glomerular Filt Rate 27; Glucose 98 mg/dL (65-110); Potassium 3.3 mmol/L (3.4-5.0); Sodium 135 mmol/L (137-145)
[2023-01-25] MEDS: MIRABEGRON 25 MG ER TABLET 50 MG PO (10:00)
[2023-01-25] MEDS: MAGNESIUM 27 MG TABLET (500 MG MAG GLUCONATE) PO (10:00)
[2023-01-25] MEDS: MULTIVITAMINS THERAPEUTIC TAB (*BKC) 1 TABLET PO (10:01)
[2023-01-25] MEDS: TAMSULOSIN HCL 0.4 MG CAPSULE PO (10:01)
[2023-01-25] MEDS: SIMVASTATIN 10 MG TABLET PO (10:01)
[2023-01-25] MEDS: FLUTICASONE/UMECLIDIN/VILANTER 100-62.5-25 MCG ELLIPTA 1 PUFF INHALATION (11:39)
[2023-01-25 11:40] VITALS: PULSE 82; RESP 18; O2SAT 93
[2023-01-25 14:00] VITALS: BP 140/74; PULSE 68; RESP 18; TEMP 37.2; O2SAT 95
[2023-01-25 20:00] VITALS: PULSE 76; RESP 16; O2SAT 96
[2023-01-25 20:29] VITALS: BP 142/84; PULSE 81; RESP 18; TEMP 37.6; O2SAT 94
[2023-01-25] MEDS: chlordiazePOXIDE (*CRX) 5 MG CAPSULE PO (20:34)
[2023-01-26 05:31] LABS: Basophils Percent Auto 0.4 % (0.2-1.2); Eosinophils Percent Auto 0.5 % (0-4.4); Hematocrit 28.5 % (37.0-47.0); Hemoglobin 9.2 g/dL (12.0-15.0); Immature Granulocyte Absolute 0.02 K/mm3 (0.00-0.031); Immature Granulocyte Percent A 0.3 % (0-0.5); Lymphocytes Absolute Auto 0.83 K/mm3 (0.9-3.2); Lymphocytes Percent Auto 10.6 % (18.3-44.2); Mean Corpuscular HGB Conc 32.3 g/dl (32-36); Mean Corpuscular Hemoglobin 30.7 pg (26-34); Mean Platelet Volume 10.2 fl (7.4-10.4); Monocytes Percent Auto 12.7 % (2.6-8.5); Neutrophils Absolute Auto 5.9 K/mm3 (1.3-6.7); Neutrophils Percent Auto 75.5 % (45.5-73.1); Platelet Count Result 263 k/mm3 (150-375); Red Cell Distribution Width 13.6 % (11.5-14.5); White Blood Count 7.9 K/mm3 (4.5-10.0)
[2023-01-26 05:36] VITALS: BP 148/85; PULSE 73; RESP 20; TEMP 36.9; O2SAT 96
[2023-01-26] MEDS: SODIUM CHLORIDE 0.9% IV 1,000 ML 125 ML IV CONT (05:40)
[2023-01-26 05:55] LABS: Alanine Aminotransferase 27 U/L (6-35); Albumin Level 2.9 g/dL (3.5-5.1); Alkaline Phosphatase 72 U/L (38-126); Anion Gap 5 mmol/L (8-16); Aspartate Amino Transferase 44 U/L (14-36); Bilirubin,Total 0.4 mg/dL (0.2-1.3); Blood Urea Nitrogen 23 mg/dL (7-17); Calcium 8.1 mg/dL (8.4-10.2); Carbon Dioxide 26 mmol/L (22-30); Chloride 105 mmol/L (98-107); Estimated CRCL calculation 29 ml/min; Estimated Glomerular Filt Rate 39; Glucose 95 mg/dL (65-110); Magnesium 1.9 mg/dL (1.6-2.3); Potassium 3.2 mmol/L (3.4-5.0); Sodium 136 mmol/L (137-145)
--- NOTE | 2023-01-26 06:58 | PM.IMPN ---
Progress Note: A&P Assessment and Plan (1) Acute UTI: Code(s): N39.0 - Urinary tract infection, site not specified Status: Acute Assessment and Plan: Complains of cloudy urine and feeling of weakness UA positive for UTI Urine culture growing e-coli. awaiting sensitivities. Started on Rocephin stopping IV fluids as Cr is back to baseline and BP elevated. CT showed bilateral hydronephrosis therefore Gross catheter is placed Remove gross catheter today and begin void trial with post-void bladder scans (2) Acute on chronic kidney failure: Code(s): N17.9 - Acute kidney failure, unspecified; N18.9 - Chronic kidney disease, unspecified Status: Acute Assessment and Plan: CKD stage 3. Creatinine seems to range anywhere from 0.9-1.3 Creatinine on admission is 2.20 IV fluids for hydration---stopping as Cr normalized to baseline, HTN. Monitor daily labs Avoid nephrotoxic agents (3) Abnormal CT of the abdomen: Code(s): R93.5 - Abnormal findings on diagnostic imaging of other abdominal regions, including retroperitoneum Status: Acute Assessment and Plan: CT of the abdomen is followed 01/24 IMPRESSION: 1. Moderate bilateral hydroureteronephrosis without evidence for obstructing stone or mass. Moderate bladder distention. Bladder wall is mildly thickened. Cannot exclude cystitis. Clinically correlate. 2:? Infrarenal abdominal aortic aneurysm measuring 3.2 cm. 3: Left lower lobe nodule measures 4 mm, decreased in size compared with prior examination, likely benign. Consider follow-up low dose CT in [address] abdomen on 12/19 Impression: Possible subtle, nondisplaced fracture of the proximal sternal body, with focal cortical step-off in this region. Please see details above. Mild to moderate hydroureteronephrosis and distended urinary bladder. Correlate for urinary retention or bladder outlet obstruction. Questionable mass lesion posterior to the urinary bladder versus bowel loop. Consider follow-up exam or MR for further evaluation. 5 mm left lower lobe pulmonary nodule. Moderate emphysema. (4) Chronic obstructive pulmonary disease: Code(s): J44.9 - Chronic obstructive pulmonary disease, unspecified Status: Chronic Assessment and Plan: Stable on Trelegy and p.r.n. albuterol (5) Essential (primary) hypertension: Code(s): I10 - Essential (primary) hypertension Status: Chronic Assessment and Plan: Blood pressures are stable despite infection SBP 130-140's 01/26 Resuming BP medications on 01/26 Plan Feeding: Regular diet Analgesia: Tylenol and ibuprofen Thromboembolic prophylaxis: SCD's Ulcer prophylaxis: NA Glycemic control: NA Bowel regimen: P.r.n. MiraLAX Lines: PIV Antibiotics: Rocephin Disposition: Home Subjective Date/time seen: 01/26/23 06:58 Interval history: This is an 82-year-old female with past medical history of CKD stage 3, COPD, hypertension, high cholesterol, osteoporosis, rectal cancer status post chemo and radiation, multiple abdominal surgeries related to ileus, and recurrent urinary tract infections.? She presented to the ED in 1020 with complaints of weakness and cloudy urine.? In the ER her labs were significant for leukocytosis of 16.3, hemoglobin 11, hematocrit 32.9, 94% neutrophils sodium 133, creatinine 2.20.? Her UA was positive for UTI.? Her CT abdomen and pelvis shows moderate bilateral hydroureteronephrosis without evidence of obstructing stone or mass as well as moderate bladder distention.? It also shows a new infrarenal abdominal aortic aneurysm measuring 3.2 cm that was not previously mentioned on her CT in December of this year.? CT also shows her previously known left lower lobe and lung nodule now measuring 4 mm as opposed to 5 mm on previous exam.? She is being admitted for IV antibiotics, IV fluids, and medical management. Interval history: 01/25-seen this morning at the [facility]
[2023-01-26 07:31] VITALS: PULSE 68; RESP 18; O2SAT 96
[2023-01-26] MEDS: FLUTICASONE/UMECLIDIN/VILANTER 100-62.5-25 MCG ELLIPTA 1 PUFF INHALATION (07:31)
[2023-01-26] MEDS: POTASSIUM CHLORIDE 20 MEQ ER TABLET 40 MEQ PO (08:19)
[2023-01-26] MEDS: lisinopriL 20 MG TABLET PO (08:22)
[2023-01-26] MEDS: hydroCHLOROthiazide 12.5 MG CAPSULE PO (08:22)
[2023-01-26] MEDS: MAGNESIUM 27 MG TABLET (500 MG MAG GLUCONATE) PO (08:22)
[2023-01-26] MEDS: TAMSULOSIN HCL 0.4 MG CAPSULE PO (08:23)
[2023-01-26] MEDS: MIRABEGRON 25 MG ER TABLET 50 MG PO (08:23)
[2023-01-26] MEDS: SIMVASTATIN 10 MG TABLET PO (08:24)
[2023-01-26] MEDS: MULTIVITAMINS THERAPEUTIC TAB (*BKC) 1 TABLET PO (08:24)
[2023-01-26 14:20] VITALS: BP 145/63; PULSE 73; RESP 12; TEMP 37.3; O2SAT 93
[2023-01-26 19:41] VITALS: PULSE 69; RESP 16; O2SAT 95
[2023-01-26 20:23] VITALS: BP 157/66; PULSE 86; RESP 17; TEMP 36.6; O2SAT 97
[2023-01-26] MEDS: chlordiazePOXIDE (*CRX) 5 MG CAPSULE PO (20:52)
[2023-01-27] VITALS (9 sets, daily range): BP systolic 119–145; BP diastolic 55–74; PULSE 76–86; RESP 16–18; TEMP 36.4–36.6; O2SAT 91–100; BMI 29.0
[2023-01-27 05:27] LABS: Basophils Percent Auto 0.5 % (0.2-1.2); Eosinophils Absolute Auto 0.2 K/mm3 (0-0.3); Eosinophils Percent Auto 2.8 % (0-4.4); Hematocrit 28.7 % (37.0-47.0); Hemoglobin 9.5 g/dL (12.0-15.0); Immature Granulocyte Absolute 0.03 K/mm3 (0.00-0.031); Immature Granulocyte Percent A 0.5 % (0-0.5); Lymphocytes Absolute Auto 1.02 K/mm3 (0.9-3.2); Lymphocytes Percent Auto 16.6 % (18.3-44.2); Mean Corpuscular HGB Conc 33.1 g/dl (32-36); Mean Corpuscular Hemoglobin 31.1 pg (26-34); Mean Corpuscular Volume 94.1 fl (80-100); Mean Platelet Volume 10.1 fl (7.4-10.4); Monocytes Absolute Auto 0.9 K/mm3 (0.1-0.6); Neutrophils Percent Auto 65.6 % (45.5-73.1); Platelet Count Result 292 k/mm3 (150-375); Red Blood Count 3.05 M/mm3 (4.2-5.4); Red Cell Distribution Width 13.5 % (11.5-14.5); White Blood Count 6.1 K/mm3 (4.5-10.0)
[2023-01-27 05:38] LABS: Alanine Aminotransferase 55 U/L (6-35); Albumin Level 2.9 g/dL (3.5-5.1); Alkaline Phosphatase 74 U/L (38-126); Anion Gap 6 mmol/L (8-16); Aspartate Amino Transferase 73 U/L (14-36); Bilirubin,Total 0.4 mg/dL (0.2-1.3); Blood Urea Nitrogen 17 mg/dL (7-17); Calcium 8.4 mg/dL (8.4-10.2); Carbon Dioxide 26 mmol/L (22-30); Chloride 105 mmol/L (98-107); Estimated CRCL calculation 29 ml/min; Estimated Glomerular Filt Rate 39; Glucose 90 mg/dL (65-110); Magnesium 1.9 mg/dL (1.6-2.3); Potassium 3.1 mmol/L (3.4-5.0); Sodium 137 mmol/L (137-145)
--- NOTE | 2023-01-27 07:31 | PM.DS ---
DS: Admitting Diagnosis Discharge Date 01/27 Admitting Diagnosis weakness DS: Discharge Diagnosis Discharge Diagnosis (1) Acute UTI: Code(s): N39.0 - Urinary tract infection, site not specified Status: Acute Assessment and Plan: Complains of cloudy urine and feeling of weakness UA positive for UTI Urine culture growing e-coli. awaiting sensitivities. Started on Rocephin stopping IV fluids as Cr is back to baseline and BP elevated. CT showed bilateral hydronephrosis therefore Gross catheter is placed Remove gross catheter today and begin void trial with post-void bladder scans (2) Acute on chronic kidney failure: Code(s): N17.9 - Acute kidney failure, unspecified; N18.9 - Chronic kidney disease, unspecified Status: Acute Assessment and Plan: CKD stage 3. Creatinine seems to range anywhere from 0.9-1.3 Creatinine on admission is 2.20 IV fluids for hydration---stopping as Cr normalized to baseline, HTN. Monitor daily labs Avoid nephrotoxic agents (3) Abnormal CT of the abdomen: Code(s): R93.5 - Abnormal findings on diagnostic imaging of other abdominal regions, including retroperitoneum Status: Acute Assessment and Plan: CT of the abdomen is followed 01/24 IMPRESSION: 1. Moderate bilateral hydroureteronephrosis without evidence for obstructing stone or mass. Moderate bladder distention. Bladder wall is mildly thickened. Cannot exclude cystitis. Clinically correlate. 2:? Infrarenal abdominal aortic aneurysm measuring 3.2 cm. 3: Left lower lobe nodule measures 4 mm, decreased in size compared with prior examination, likely benign. Consider follow-up low dose CT in [address] abdomen on 12/19 Impression: Possible subtle, nondisplaced fracture of the proximal sternal body, with focal cortical step-off in this region. Please see details above. Mild to moderate hydroureteronephrosis and distended urinary bladder. Correlate for urinary retention or bladder outlet obstruction. Questionable mass lesion posterior to the urinary bladder versus bowel loop. Consider follow-up exam or MR for further evaluation. 5 mm left lower lobe pulmonary nodule. Moderate emphysema. (4) Chronic obstructive pulmonary disease: Code(s): J44.9 - Chronic obstructive pulmonary disease, unspecified Status: Chronic Assessment and Plan: Stable on Trelegy and p.r.n. albuterol (5) Essential (primary) hypertension: Code(s): I10 - Essential (primary) hypertension Status: Chronic Assessment and Plan: Blood pressures are stable despite infection SBP 130-140's 01/26 Resuming BP medications on 01/26 Plan Feeding: Regular diet Analgesia: Tylenol and ibuprofen Thromboembolic prophylaxis: SCD's Ulcer prophylaxis: NA Glycemic control: NA Bowel regimen: P.r.n. MiraLAX Lines: PIV Antibiotics: Rocephin Disposition: Home DS: Summary Hospital Course Hospital Course: Interval history: This is an 82-year-old female with past medical history of CKD stage 3, COPD, hypertension, high cholesterol, osteoporosis, rectal cancer status post chemo and radiation, multiple abdominal surgeries related to ileus, and recurrent urinary tract infections.? She presented to the ED in 1020 with complaints of weakness and cloudy urine.? In the ER her labs were significant for leukocytosis of 16.3, hemoglobin 11, hematocrit 32.9, 94% neutrophils sodium 133, creatinine 2.20.? Her UA was positive for UTI.? Her CT abdomen and pelvis shows moderate bilateral hydroureteronephrosis without evidence of obstructing stone or mass as well as moderate bladder distention.? It also shows a new infrarenal abdominal aortic aneurysm measuring 3.2 cm that was not previously mentioned on her CT in December of this year.? CT also shows her previously known left lower lobe and lung nodule now measuring 4 mm as opposed to 5 mm on previous exam.? She is being admitted for IV antibiotics, IV fluids
[2023-01-27] MEDS: FLUTICASONE/UMECLIDIN/VILANTER 100-62.5-25 MCG ELLIPTA 1 PUFF INHALATION (07:58)
[2023-01-27] MEDS: MIRABEGRON 25 MG ER TABLET 50 MG PO (08:40)
[2023-01-27] MEDS: POTASSIUM CHLORIDE 20 MEQ ER TABLET 60 MEQ PO (08:40)
[2023-01-27] MEDS: AMOXICILLIN/CLAVULANATE K 875-125 MG TAB 1 TABLET PO ×2 (08:40→20:40)
[2023-01-27] MEDS: MAGNESIUM 27 MG TABLET (500 MG MAG GLUCONATE) PO (08:40)
[2023-01-27] MEDS: MULTIVITAMINS THERAPEUTIC TAB (*BKC) 1 TABLET PO (08:40)
[2023-01-27] MEDS: SIMVASTATIN 10 MG TABLET PO (08:40)
[2023-01-27] MEDS: TAMSULOSIN HCL 0.4 MG CAPSULE PO (08:40)
[2023-01-27] MEDS: lisinopriL 20 MG TABLET PO (08:40)
[2023-01-27] MEDS: hydroCHLOROthiazide 12.5 MG CAPSULE PO (08:40)
[2023-01-27 10:33] LABS: Glucose Point of Care 145 mg/dl (65-105)
--- NOTE | 2023-01-27 10:33 | ECG_ITS ---
Measurements Intervals Cobb Rate: 83 P: 87 ND: 158 QRS: -60 QRSD: 152 T: 105 QT: 441 QTc: 519 Interpretive Statements SINUS RHYTHM MARKED LEFT AXIS DEVIATION [QRS AXIS < -30] INCOMPLETE LEFT BUNDLE BRANCH BLOCK ABNORMAL ECG COMPARED TO ECG 10/08/2022 12:23:42 NO DIFFERENCE Electronically Signed On 01-27-2023 14:54:46 CDT by Honorio Burns M.D.
--- NOTE | 2023-01-27 10:44 | PM.IMPN ---
Progress Note: A&P Assessment and Plan (1) Acute UTI: Code(s): N39.0 - Urinary tract infection, site not specified Status: Acute Assessment and Plan: Complains of cloudy urine and feeling of weakness UA positive for UTI Urine culture growing e-coli. awaiting sensitivities. Started on Rocephin stopping IV fluids as Cr is back to baseline and BP elevated. CT showed bilateral hydronephrosis therefore Gross catheter is placed Remove gross catheter today and begin void trial with post-void bladder scans (2) Acute on chronic kidney failure: Code(s): N17.9 - Acute kidney failure, unspecified; N18.9 - Chronic kidney disease, unspecified Status: Acute Assessment and Plan: CKD stage 3. Creatinine seems to range anywhere from 0.9-1.3 Creatinine on admission is 2.20 IV fluids for hydration---stopping as Cr normalized to baseline, HTN. Monitor daily labs Avoid nephrotoxic agents (3) Abnormal CT of the abdomen: Code(s): R93.5 - Abnormal findings on diagnostic imaging of other abdominal regions, including retroperitoneum Status: Acute Assessment and Plan: CT of the abdomen is followed 01/24 IMPRESSION: 1. Moderate bilateral hydroureteronephrosis without evidence for obstructing stone or mass. Moderate bladder distention. Bladder wall is mildly thickened. Cannot exclude cystitis. Clinically correlate. 2:? Infrarenal abdominal aortic aneurysm measuring 3.2 cm. 3: Left lower lobe nodule measures 4 mm, decreased in size compared with prior examination, likely benign. Consider follow-up low dose CT in [address] abdomen on 12/19 Impression: Possible subtle, nondisplaced fracture of the proximal sternal body, with focal cortical step-off in this region. Please see details above. Mild to moderate hydroureteronephrosis and distended urinary bladder. Correlate for urinary retention or bladder outlet obstruction. Questionable mass lesion posterior to the urinary bladder versus bowel loop. Consider follow-up exam or MR for further evaluation. 5 mm left lower lobe pulmonary nodule. Moderate emphysema. (4) Chronic obstructive pulmonary disease: Code(s): J44.9 - Chronic obstructive pulmonary disease, unspecified Status: Chronic Assessment and Plan: Stable on Trelegy and p.r.n. albuterol (5) Essential (primary) hypertension: Code(s): I10 - Essential (primary) hypertension Status: Chronic Assessment and Plan: Blood pressures are stable despite infection SBP 130-140's 01/26 Resuming BP medications on 01/26 Plan Feeding: Regular diet Analgesia: Tylenol and ibuprofen Thromboembolic prophylaxis: SCD's Ulcer prophylaxis: NA Glycemic control: NA Bowel regimen: P.r.n. MiraLAX Lines: PIV Antibiotics: Augmentin Disposition: Home Acute desaturation with anxiety and tachypnea with an episode of N/V. Requiring oxygen 3 L NC Stat EKG, CXR, and labs Subjective Date/time seen: 01/27/23 10:44 Interval history: This is an 82-year-old female with past medical history of CKD stage 3, COPD, hypertension, high cholesterol, osteoporosis, rectal cancer status post chemo and radiation, multiple abdominal surgeries related to ileus, and recurrent urinary tract infections.? She presented to the ED in 1020 with complaints of weakness and cloudy urine.? In the ER her labs were significant for leukocytosis of 16.3, hemoglobin 11, hematocrit 32.9, 94% neutrophils sodium 133, creatinine 2.20.? Her UA was positive for UTI.? Her CT abdomen and pelvis shows moderate bilateral hydroureteronephrosis without evidence of obstructing stone or mass as well as moderate bladder distention.? It also shows a new infrarenal abdominal aortic aneurysm measuring 3.2 cm that was not previously mentioned on her CT in December of this year.? CT also shows her previously known left lower lobe and lung nodule now measuring 4 mm as opposed to 5 mm on previous exam.? She is be
[2023-01-27 11:51] LABS: Alveolar/Arterial O2 Gradient 119.2 mmHg; Base Excess ABG -0.2 mEq/l (+/-2.0); Device NASAL CANNULA; Fractional Inspired Oxygen 32 %; HCO3 ABG 23.4 mEq/l (22.0-26.0); Oxygen Saturation ABG 94.7 % (95.0-100.0); Oxyhemoglobin 91.9 % THb (90.0-100.0); PCO2 ABG 34.3 mmHg (35.0-45.0); PO2 ABG 68.8 mmHg (80.0-100.0); PO2 FiO2 Ratio Arterial Blood 2.15 %; Site Drawn RIGHT BRACHIAL; Total Hemoglobin 11.6 g/dL (12.0-18.0); pH ABG 7.451 (7.350-7.450)
[2023-01-27] MEDS: ENOXAPARIN 80 MG/0.8 ML SYRINGE 75 MG SUB-Q (12:34)
[2023-01-27 12:53] LABS: Troponin I < 0.012 ng/mL (0.000-0.034)
[2023-01-27] MEDS: ONDANSETRON INJ 4 MG/2 ML VIAL IV PUSH (13:02)
[2023-01-27] MEDS: chlordiazePOXIDE (*CRX) 5 MG CAPSULE PO (20:40)
[2023-01-28] MEDS: diphenhydrAMINE HCl INJ 50 MG/ML VIAL IV PUSH (03:05)
[2023-01-28 05:25] VITALS: BP 119/46; PULSE 76; RESP 17; TEMP 36.9; O2SAT 100
[2023-01-28 05:40] LABS: Basophils Percent Auto 0.1 % (0.2-1.2); Eosinophils Absolute Auto 0.2 K/mm3 (0-0.3); Hematocrit 32.3 % (37.0-47.0); Hemoglobin 10.4 g/dL (12.0-15.0); Immature Granulocyte Absolute 0.05 K/mm3 (0.00-0.031); Immature Granulocyte Percent A 0.5 % (0-0.5); Lymphocytes Absolute Auto 0.92 K/mm3 (0.9-3.2); Lymphocytes Percent Auto 8.4 % (18.3-44.2); Mean Corpuscular HGB Conc 32.2 g/dl (32-36); Mean Corpuscular Hemoglobin 30.6 pg (26-34); Mean Platelet Volume 9.6 fl (7.4-10.4); Monocytes Absolute Auto 0.6 K/mm3 (0.1-0.6); Monocytes Percent Auto 5.4 % (2.6-8.5); Neutrophils Absolute Auto 9.2 K/mm3 (1.3-6.7); Neutrophils Percent Auto 83.6 % (45.5-73.1); Platelet Count Result 334 k/mm3 (150-375); Red Cell Distribution Width 13.4 % (11.5-14.5)
[2023-01-28 06:21] LABS: Alanine Aminotransferase 55 U/L (6-35); Albumin Level 3.1 g/dL (3.5-5.1); Alkaline Phosphatase 72 U/L (38-126); Anion Gap 6 mmol/L (8-16); Aspartate Amino Transferase 65 U/L (14-36); Bilirubin,Total 0.5 mg/dL (0.2-1.3); Blood Urea Nitrogen 21 mg/dL (7-17); Carbon Dioxide 26 mmol/L (22-30); Chloride 101 mmol/L (98-107); Estimated CRCL calculation 24 ml/min; Estimated Glomerular Filt Rate 31; Glucose 91 mg/dL (65-110); Magnesium 1.8 mg/dL (1.6-2.3); Potassium 3.6 mmol/L (3.4-5.0); Sodium 133 mmol/L (137-145)
[2023-01-28] MEDS: FLUTICASONE/UMECLIDIN/VILANTER 100-62.5-25 MCG ELLIPTA 1 PUFF INHALATION (08:13)
[2023-01-28 08:16] VITALS: O2SAT 94
[2023-01-28] MEDS: hydroCHLOROthiazide 12.5 MG CAPSULE PO (08:22)
[2023-01-28] MEDS: AMOXICILLIN/CLAVULANATE K 875-125 MG TAB 1 TABLET PO (08:22)
[2023-01-28] MEDS: MULTIVITAMINS THERAPEUTIC TAB (*BKC) 1 TABLET PO (08:22)
[2023-01-28] MEDS: MIRABEGRON 25 MG ER TABLET 50 MG PO (08:22)
[2023-01-28] MEDS: MAGNESIUM 27 MG TABLET (500 MG MAG GLUCONATE) PO (08:23)
[2023-01-28] MEDS: TAMSULOSIN HCL 0.4 MG CAPSULE PO (08:23)
[2023-01-28] MEDS: SIMVASTATIN 10 MG TABLET PO (08:23)
[2023-01-28] MEDS: lisinopriL 20 MG TABLET PO (08:23)
--- NOTE | 2023-01-28 08:44 | PM.IMPN ---
Progress Note: A&P Assessment and Plan (1) Acute UTI: Code(s): N39.0 - Urinary tract infection, site not specified Status: Acute Assessment and Plan: Complains of cloudy urine and feeling of weakness UA positive for UTI Urine culture growing e-coli. awaiting sensitivities. Started on Rocephin stopping IV fluids as Cr is back to baseline and BP elevated. CT showed bilateral hydronephrosis therefore Gross catheter is placed Remove gross catheter today and begin void trial with post-void bladder scans Seems to be having a reaction to her Augmentin, rash. Her white cell count bumped, blood pressure went soft, and creatinine elevated today. Leukocytosis could be inflammatory secondary to her rash and suspected reaction to her oral antibiotic. Given all these reasons as well as the rash I decided to switch her back to IV Rocephin today and tomorrow. Last day of antibiotics will be the dose of IV Rocephin tomorrow. (2) Acute on chronic kidney failure: Code(s): N17.9 - Acute kidney failure, unspecified; N18.9 - Chronic kidney disease, unspecified Status: Acute Assessment and Plan: CKD stage 3. Creatinine seems to range anywhere from 0.9-1.3 Creatinine on admission is 2.20---was back to baseline and then acutely increased to 1.6 today. IV fluids for hydration restarted. Monitor daily labs Avoid nephrotoxic agents (3) Abnormal CT of the abdomen: Code(s): R93.5 - Abnormal findings on diagnostic imaging of other abdominal regions, including retroperitoneum Status: Acute Assessment and Plan: CT of the abdomen is followed 01/24 IMPRESSION: 1. Moderate bilateral hydroureteronephrosis without evidence for obstructing stone or mass. Moderate bladder distention. Bladder wall is mildly thickened. Cannot exclude cystitis. Clinically correlate. 2:? Infrarenal abdominal aortic aneurysm measuring 3.2 cm. 3: Left lower lobe nodule measures 4 mm, decreased in size compared with prior examination, likely benign. Consider follow-up low dose CT in [address] abdomen on 12/19 Impression: Possible subtle, nondisplaced fracture of the proximal sternal body, with focal cortical step-off in this region. Please see details above. Mild to moderate hydroureteronephrosis and distended urinary bladder. Correlate for urinary retention or bladder outlet obstruction. Questionable mass lesion posterior to the urinary bladder versus bowel loop. Consider follow-up exam or MR for further evaluation. 5 mm left lower lobe pulmonary nodule. Moderate emphysema. (4) Chronic obstructive pulmonary disease: Code(s): J44.9 - Chronic obstructive pulmonary disease, unspecified Status: Chronic Assessment and Plan: Stable on Trelegy and p.r.n. albuterol (5) Essential (primary) hypertension: Code(s): I10 - Essential (primary) hypertension Status: Chronic Assessment and Plan: Blood pressures are stable despite infection SBP 130-140's 01/26 Resuming BP medications on 01/26 01/28 holding antihypertensive agents given lower BP. Plan Feeding: Regular diet Analgesia: Tylenol and ibuprofen Thromboembolic prophylaxis: SCD's Ulcer prophylaxis: NA Glycemic control: NA Bowel regimen: P.r.n. MiraLAX Lines: PIV Antibiotics: Augmentin Disposition: Home IV fluids today Back on IV Rocephin for today and last dose tomorrow Hopefully to discharge tomorrow Subjective Date/time seen: 01/28/23 08:44 Interval history: This is an 82-year-old female with past medical history of CKD stage 3, COPD, hypertension, high cholesterol, osteoporosis, rectal cancer status post chemo and radiation, multiple abdominal surgeries related to ileus, and recurrent urinary tract infections.? She presented to the ED in 1020 with complaints of weakness and cloudy urine.? In the ER her labs were significant for leukocytosis of 16.3, hemoglobin 11, hematocrit 32.9, 94% neutrophils sodium 13
[2023-01-28] MEDS: SODIUM CHLORIDE 0.9% IV 250 ML 100 ML IV CONT (09:44)
[2023-01-28] MEDS: hydrOXYzine HCL 10 MG TABLET PO ×2 (11:15→20:45)
--- NOTE | 2023-01-28 11:46 | PC.NURSE ---
On 01/28/23, the student, [Yasmin Ellington], provided care and completed [facility] documentation on this patient. I have reviewed the student's documentation and agree with the findings.
[2023-01-28] MEDS: FAMOTIDINE 20 MG/2 ML VIAL IV PUSH (13:36)
[2023-01-28] MEDS: diphenhydrAMINE HCl CAP 25 MG CAPSULE 50 MG PO (13:36)
[2023-01-28 14:00] VITALS: BP 126/59; PULSE 80; RESP 18; TEMP 36.7; O2SAT 96
--- NOTE | 2023-01-28 14:06 | PHAR ---
PT'S HOME MED ULTRA-ZYME MAXIMUM STRENGTH HAS NO IDENTIFIABLE MARKINGS ON THE TABLET. UNABLE TO IDENTIFY.
--- NOTE | 2023-01-28 16:01 | PHAR ---
HOME MED PATADAY 0.2% OPTH SOLN VERIFIED BY PHARMACY
[2023-01-28] MEDS: polyethylene glycoL 3350 17 GM POWD.PACK PO (16:16)
[2023-01-28] MEDS: chlordiazePOXIDE (*CRX) 5 MG CAPSULE PO (20:45)
[2023-01-28 22:00] VITALS: BP 140/63; PULSE 81; RESP 14; TEMP 36.7; O2SAT 92
[2023-01-29 05:13] LABS: Basophils Percent Auto 0.3 % (0.2-1.2); Eosinophils Absolute Auto 0.2 K/mm3 (0-0.3); Eosinophils Percent Auto 2.9 % (0-4.4); Hematocrit 27.9 % (37.0-47.0); Hemoglobin 8.9 g/dL (12.0-15.0); Immature Granulocyte Absolute 0.06 K/mm3 (0.00-0.031); Immature Granulocyte Percent A 0.8 % (0-0.5); Lymphocytes Absolute Auto 1.11 K/mm3 (0.9-3.2); Lymphocytes Percent Auto 15.2 % (18.3-44.2); Mean Corpuscular HGB Conc 31.9 g/dl (32-36); Mean Corpuscular Hemoglobin 30.6 pg (26-34); Mean Corpuscular Volume 95.9 fl (80-100); Monocytes Absolute Auto 0.4 K/mm3 (0.1-0.6); Monocytes Percent Auto 4.8 % (2.6-8.5); Neutrophils Absolute Auto 5.6 K/mm3 (1.3-6.7); Platelet Count Result 304 k/mm3 (150-375); Red Blood Count 2.91 M/mm3 (4.2-5.4); Red Cell Distribution Width 13.7 % (11.5-14.5); White Blood Count 7.3 K/mm3 (4.5-10.0)
[2023-01-29 05:17] LABS: Potassium 3.7 mmol/L (3.4-5.0)
[2023-01-29 05:23] LABS: Alanine Aminotransferase 42 U/L (6-35); Albumin Level 2.9 g/dL (3.5-5.1); Alkaline Phosphatase 65 U/L (38-126); Anion Gap 4 mmol/L (8-16); Aspartate Amino Transferase 37 U/L (14-36); Bilirubin,Total 0.4 mg/dL (0.2-1.3); Blood Urea Nitrogen 21 mg/dL (7-17); Calcium 8.9 mg/dL (8.4-10.2); Carbon Dioxide 29 mmol/L (22-30); Chloride 104 mmol/L (98-107); Estimated CRCL calculation 23 ml/min; Estimated Glomerular Filt Rate 29; Glucose 88 mg/dL (65-110); Magnesium 1.9 mg/dL (1.6-2.3); Sodium 137 mmol/L (137-145)
[2023-01-29 05:51] VITALS: BP 146/62; PULSE 75; RESP 16; TEMP 36.6; O2SAT 95
[2023-01-29] MEDS: MULTIVITAMINS THERAPEUTIC TAB (*BKC) 1 TABLET PO (08:24)
[2023-01-29] MEDS: MAGNESIUM 27 MG TABLET (500 MG MAG GLUCONATE) PO (08:24)
[2023-01-29] MEDS: MIRABEGRON 25 MG ER TABLET 50 MG PO (08:24)
[2023-01-29] MEDS: TAMSULOSIN HCL 0.4 MG CAPSULE PO (08:25)
[2023-01-29] MEDS: SIMVASTATIN 10 MG TABLET PO (08:25)
[2023-01-29] MEDS: FLUTICASONE/UMECLIDIN/VILANTER 100-62.5-25 MCG ELLIPTA 1 PUFF INHALATION (09:01)
--- NOTE | 2023-01-29 12:03 | PM.DS ---
DS: Admitting Diagnosis Discharge Date 01/29/23 Admitting Diagnosis UTI DS: Discharge Diagnosis Discharge Diagnosis (1) Acute UTI: Code(s): N39.0 - Urinary tract infection, site not specified Status: Acute (2) Acute on chronic kidney failure: Code(s): N17.9 - Acute kidney failure, unspecified; N18.9 - Chronic kidney disease, unspecified Status: Acute (3) Abnormal CT of the abdomen: Code(s): R93.5 - Abnormal findings on diagnostic imaging of other abdominal regions, including retroperitoneum Status: Acute (4) Chronic obstructive pulmonary disease: Code(s): J44.9 - Chronic obstructive pulmonary disease, unspecified Status: Chronic Assessment and Plan: Stable on Trelegy and p.r.n. albuterol (5) Essential (primary) hypertension: Code(s): I10 - Essential (primary) hypertension Status: Chronic DS: Summary Hospital Course Hospital Course: This is an 82-year-old female with past medical history of stage 3 kidney disease, COPD, hypertension, high cholesterol, osteoporosis, rectal cancer status post chemo radiation, multiple abdominal surgeries and recurrent UTI infectious of present to the ED on 01/25/2023 due to weakness and cloudy urine. Found to have elevated white blood cell count of 16.3 and UA positive for UTI. CT abdomen pelvis showing bilateral hydroureteronephrosis without evidence of obstructing stone or mass. Patient was started on IV antibiotics and IV fluids. Urine culture came back positive for E coli sensitive to her that he. Patient was in transition to Augmentin patient had a reaction to the medication. Augmentin was discontinued and patient was given Benadryl. Patient's rash and itchiness improved with discontinuation of Augmentin and Benadryl given. she was put back on IV Rocephin and therapy was completed while in the hospital. Time Spent with Patient Time attestation: Total time spent providing and/or coordinating discharge services: Exam Narrative: GENERAL: Comfortable, no acute distress HENMT: moist mucous membranes EYES: EOM intact b/l NECK: no lymphadenopathy RESPIRATORY: clear to auscultation CARDIO: RRR GI: soft, nontender, bowel sounds present SKIN: no rashes EXTREMITIES: no edema, redness or tenderness DS: Data Data Completed and Pending Labs on day of discharge: Labs from last 24 hours 01/29/23 04:24 WBC 7.3 RBC 2.91 L Hgb 8.9 L Hct 27.9 L MCV 95.9 MCH 30.6 MCHC 31.9 L RDW 13.7 Plt Count 304 MPV 10.0 Immature Gran % (Auto) 0.8 H Neut % (Auto) 76.0 H Lymph % (Auto) 15.2 L [place] % (Auto) 4.8 Eos % (Auto) 2.9 Baso % (Auto) 0.3 Lymph # (Auto) 1.11 [place] # (Auto) 0.4 Eos # (Auto) 0.2 Baso # (Auto) 0.0 Abs Immat Gran (auto) 0.06 H Absolute Neuts (auto) 5.6 Absolute Nucleated RBC 0.0 Nucleated RBC % 0.0 Sodium 137 Potassium 3.7 Chloride 104 Carbon Dioxide 29 Anion Gap 4 L BUN 21 H Creatinine 1.70 H Estim Creat Clear Calc 23 Estimated GFR 29 L Glucose 88 Calcium 8.9 Magnesium 1.9 Total Bilirubin 0.4 AST 37 H ALT 42 H Alkaline Phosphatase 65 Total Protein 6.0 L Albumin 2.9 L Preliminary micro results at discharge 01/25/23 01:17 Blood Culture - Preliminary Blood 01/25/23 01:17 Blood Culture - Preliminary Blood Discharge Plan Discharge Attending physician on discharge: Blane Quiroz Discharging Clinician: Claudia Cleaning Anticipated Discharge Date/Time: 01/27/23 13:00 Patient Disposition: Home, Self-Care Activity: august shower Diet: regular Discharge Instructions: You were admitted with weakness and cloudy urine. You were found to have a urinary tract infection. Your urine was growing e-coli. We gave you IV fluids and IV antibiotics for this and your symptoms have improved. You also had a catheter placed for retention but you are now voiding without difficulty. You can be safely d/c'd home. UTI treated with IV antibi
== END 2023-01-29 12:50 | disposition home or self-care (01) | DRG 690 ==
LOC: ANHED 01-25 01:25 → ANH2MED 01-25 01:51
PROVIDERS: Emergency Medicine; Nurse Practitioner Acute Care; Student in an Organized Health Care Education/Training Program; Admitting Provider Internal Medicine; Emergency Provider Emergency Medicine; PCP Family Medicine; Visit Provider Internal Medicine Critical Care Medicine
DX: N39.0 Urinary tract infection, site not specified (principal); N17.9 Acute kidney failure, unspecified; N13.6 Pyonephrosis; B96.20 Unspecified Escherichia coli [E. coli] as the cause of diseases classified elsewhere; R11.2 Nausea with vomiting, unspecified; R06.02 Shortness of breath; L27.0 Generalized skin eruption due to drugs and medicaments taken internally; T36.0X5A Adverse effect of penicillins, initial encounter; T36.1X5A Adverse effect of cephalosporins and other beta-lactam antibiotics, initial encounter; E78.00 Pure hypercholesterolemia, unspecified; I71.40 Abdominal aortic aneurysm, without rupture, unspecified; I12.9 Hypertensive chronic kidney disease with stage 1 through stage 4 chronic kidney disease, or unspecified chronic kidney disease; J43.9 Emphysema, unspecified; K21.9 Gastro-esophageal reflux disease without esophagitis; M19.90 Unspecified osteoarthritis, unspecified site; M81.0 Age-related osteoporosis without current pathological fracture; M79.662 Pain in left lower leg; N18.30 Chronic kidney disease, stage 3 unspecified; R91.1 Solitary pulmonary nodule; Z85.048 Personal history of other malignant neoplasm of rectum, rectosigmoid junction, and anus; Z98.49 Cataract extraction status, unspecified eye; Z96.1 Presence of intraocular lens; Z87.891 Personal history of nicotine dependence; Z92.3 Personal history of irradiation; Z92.21 Personal history of antineoplastic chemotherapy; Z87.440 Personal history of urinary (tract) infections
CPT/HCPCS: 36415; 36600; 71045; 74176; 78582; 80053; 81001; 81003; 82805; 82948; 83605; 83735; 84484; 85025; 85380; 87040; 87077; 87086; 87186; 93005; 93970; 94640; 96361; 96365; 99212; 99285; A9270; A9540; A9558; G0378; G0463; J0696; J1200; J1650; J2405; J7030; J7050

== ENCOUNTER 2023-02-11 10:31 | Outpatient (CLI) | payer MEDICARE, SELFPAY ==
[2023-02-11 19:47] LABS: Appearance Urine Turbid (Clear); Bacteria Urine None Seen /hpf; Bilirubin Urine Negative (Negative); Blood Urine 1+ (Negative); Color Urine Yellow (Yellow); Glucose Urine UA Negative (Negative); Ketones Urine Negative (Negative); Leukocyte Esterase Ur 3+ LEU/UL (Negative); Need Manual Microscopic Reviewed; Nitrate Urine Negative (Negative); Non Pathogenic Casts 0-2; Protein Urine Negative (Negative); RBC Urine 0-2 /hpf (0-2); Specific Grav Ur 1.006 (1.001-1.035); Squamous Epithelial Cell Urine None seen /hpf (Few); Urobilinogen Urine 0.2 mg/dL (<2.0); WBC Urine >100 /hpf; pH Urine 6.5 (5.0-9.0)
[2023-02-11 19:48] LABS: Add Urine Microscopic? YES
== END 2023-02-11 10:32 | disposition home or self-care (01) ==
LOC: ANHGOSHLAB 10:32
PROVIDERS: PCP Family Medicine; Visit Provider Nurse Practitioner
DX: N39.0 Urinary tract infection, site not specified (principal)
CPT/HCPCS: 81001; 87086; 87147; 87181; 87186

== ENCOUNTER → 2023-03-13 11:10 | Outpatient (CLI) | payer MEDICARE, SELFPAY ==
--- NOTE | ~2023-03-13 | XR_ITS ---
XR chest 2V 03/13/2023 12:09 Indication: Shortness of breath. History of rectal cancer. Hypertension. Procedure: 2 view chest Comparison: Comparison to multiple prior studies sequentially, with oldest reviewed study dated 07/2022. Findings: Heart size normal. There is atherosclerosis and ectasia of the aorta. No focal air space di sease, pulmonary edema, pleural effusion or suspected pneumothorax. Impression: 1: No acute cardiopulmonary disease. Reviewed, dictated and finalized at location L. [employer] Impression: 1: No acute cardiopulmonary disease.
== END ==
PROVIDERS: PCP Family Medicine; Visit Provider Nurse Practitioner
DX: R06.02 Shortness of breath (principal); I10 Essential (primary) hypertension; J44.9 Chronic obstructive pulmonary disease, unspecified
CPT/HCPCS: 71046

== ENCOUNTER 2023-03-25 10:48 | Outpatient (CLI) | payer MEDICARE, SELFPAY ==
--- NOTE | ~2023-03-25 | NM_ITS ---
EXAMINATION: JASE lennon renal scan DATE: 03/25/2023 12:53 INDICATION: Bilateral hydronephrosis TECHNIQUE: 8.2 mCi Tc-99m MAG3 was administered IV. 40 mg furosemide was administered IV immediately afterward. The patient was scanned in the supine position. A posterior abdominal radionuclide angiog milagros was obtained. A subsequent time course of static images of the kidneys, ureters, and bladder was obtained. COMPARISON: None FINDINGS: The posterior abdominal radionuclide angiogram and sequential static images show normal size, positio n, and morphology of the kidneys. Peak renal parenchymal uptake was 13 min in left kidney and 13 min in right kidney (normal peak 3-5 minutes). The relative early renal uptake was 38% on the left and 6 2% on the right (<40% is abnormal). No abnormalities of the ureters or bladder are seen. T1/2 for clearance of activity from the left kidney and proximal collecting system was indeterminate with essentially plateaued renal activity curve. T1/2 for clearance of activity from the right kidney and proximal collecting system was estimated at >70 minutes. Notes on interpretation: T1/2 <10 minutes is normal, 10-15 minutes is low grade obstruction of questi onable clinical significance, 15-20 minutes is partial obstruction that is likely clinically signific ant, >20 minutes is high grade obstruction. Note that false positives may be seen with supine positio darcy, dehydration, severely dilated nonobstructed kidney, atonic collecting system, poor renal functi on, and chronic furosemide use. IMPRESSION: 1. Asymmetrically decreased left renal function with left kidney contributing 38% of total renal fun ction. 2. Marked delayed activity clearance from both kidneys which could be consistent with a high-grade o bstruction however there is no evident hydronephrosis on the scintigraphic images and differential wo uld also include atonic collecting system, poor renal function, dehydration or supine positioning or some combination of the above. Reviewed, dictated and finalized at location A. [employer] IMPRESSION: 1. Asymmetrically decreased left renal function with left kidney contributing 38% of total renal function. 2. Marked delayed activity clearance from both kidneys which could be consiste nt with a high-grade obstruction however there is no evident hydronephrosis on the scintigraphic images and differential would also include atonic collecting system, poor renal function, dehydration or supine positioning or some combinat ion of the above.
== END 2023-03-25 10:49 | disposition home or self-care (01) ==
PROVIDERS: PCP Family Medicine
DX: N13.30 Unspecified hydronephrosis (principal)
CPT/HCPCS: 78708; A9562; J1940

== ENCOUNTER 2023-04-12 12:32 | Outpatient (CLI) | payer MEDICARE, SELFPAY ==
--- NOTE | ~2023-04-12 | MR_ITS ---
EXAMINATION: MR pelvis wo/w con DATE: 04/12/2023 14:20 INDICATION: Mass posterior to the bladder. TECHNIQUE: Magnetic resonance imaging (MRI) of the pelvis was performed without and with 13 mL MultiH ance intravenous contrast. COMPARISON: CT abdomen and pelvis 12/19/2022, 01/25/2023 FINDINGS: There is a left-sided colostomy with parastomal hernia containing nonobstructed colon. The bladder is markedly distended. The mass posterior to the bladder described on the CT from 12/19/2022 is the uter us in abnormally low position due to pelvic floor dysfunction. There is trace pelvic ascites. There a re no pathologically enlarged lymph nodes. There is no abnormal mass. IMPRESSION: 1. Pelvic floor dysfunction with uterus in abnormally low position correlating with the CT finding de scribed on 12/19/2022. 2. Markedly distended bladder again seen. 3. Left-sided colostomy with parastomal hernia containing nonobstructed colon. Reviewed, dictated and finalized at location A. COORDINATOR IMPRESSION: 1. Pelvic floor dysfunction with uterus in abnormally low position correlating with the CT finding described on 12/19/2022. 2. Markedly distended bladder again seen. 3. Left-sided colostomy with parastomal hernia containing nonobstructed colon.
== END 2023-04-12 12:33 | disposition home or self-care (01) ==
PROVIDERS: PCP Family Medicine; Visit Provider Nurse Practitioner
DX: N32.89 Other specified disorders of bladder (principal)
CPT/HCPCS: 72197; A9577

== ENCOUNTER 2023-07-01 12:28 | Outpatient (CLI) | payer MEDICARE, SELFPAY ==
[2023-07-01 14:03] LABS: Hematocrit 35.1 % (37.0-47.0); Hemoglobin 10.7 g/dL (12.0-15.0); Mean Corpuscular HGB Conc 30.5 g/dl (32-36); Mean Corpuscular Hemoglobin 28.8 pg (26-34); Mean Corpuscular Volume 94.6 fl (80-100); Mean Platelet Volume 9.8 fl (7.4-10.4); Platelet Count Result 361 k/mm3 (150-375); Red Blood Count 3.71 M/mm3 (4.2-5.4); Red Cell Distribution Width 13.9 % (11.5-14.5); White Blood Count 11.3 K/mm3 (4.5-10.0)
[2023-07-01 14:24] LABS: Cholesterol 130 mg/dL (0-200); HDL Direct 36 mg/dL; Triglycerides 112 mg/dL (<150)
[2023-07-01 14:43] LABS: LDL Cholesterol Direct 61 mg/dL
[2023-07-01 14:53] LABS: Vitamin D 25 Hydroxy 71.9 ng/mL
[2023-07-01 16:40] LABS: Alanine Aminotransferase 22 U/L (6-35); Albumin Level 3.8 g/dL (3.5-5.1); Alkaline Phosphatase 89 U/L (38-126); Anion Gap 4 mmol/L (4-12); Aspartate Amino Transferase 39 U/L (14-36); Bilirubin,Total 0.4 mg/dL (0.2-1.3); Blood Urea Nitrogen 38 mg/dL (7-17); Calcium 9.9 mg/dL (8.4-10.2); Carbon Dioxide 33 mmol/L (22-30); Chloride 100 mmol/L (98-107); Estimated Glomerular Filt Rate 22; Glucose 86 mg/dL (65-110); Potassium 4.8 mmol/L (3.4-5.0); Sodium 137 mmol/L (137-145)
[2023-07-01 17:22] LABS: Thyroid Stimulating Hormone < 0.015 uIU/mL (0.465-4.680)
[2023-07-01 17:43] LABS: Vitamin B12 > 1000.0 pg/mL (239-931)
[2023-07-01 18:27] LABS: Hemoglobin A1C 5.9 % (<5.7)
[2023-07-06 12:02] LABS: Vitamin B6 14.2 ng/mL (2.1-21.7)
== END 2023-07-01 12:29 | disposition home or self-care (01) ==
PROVIDERS: PCP Family Medicine; Visit Provider Nurse Practitioner
DX: R53.83 Other fatigue (principal); E55.9 Vitamin D deficiency, unspecified; E78.00 Pure hypercholesterolemia, unspecified; R73.09 Other abnormal glucose
CPT/HCPCS: 36415; 80053; 80061; 82306; 82607; 83036; 84207; 84443; 85027

== ENCOUNTER 2023-07-02 08:57 | Emergency (ER) | payer MEDICARE, SELFPAY ==
[2023-07-02 09:07] VITALS: BP 139/77; PULSE 93; RESP 19; O2SAT 99
--- NOTE | 2023-07-02 09:32 | ED.RECABL ---
HPI - Recheck/Abnormal Lab/Rx General Chief Complaint: Recheck/Abnormal Lab/Rx Stated Complaint: Abnormal Labs Time Seen by Provider: 07/02/23 09:07 Source: patient Mode of arrival: ambulatory Limitations: no limitations History of Present Illness HPI narrative: This is an 83-year-old female that presents to the emergency department for abnormal outpatient blood work. Reports she was called by her PCPs office today and told that she should go to the ER for IV fluids due to her kidney function. She had outpatient blood work yesterday because she has been feeling fatigued for a while. Denies current chest pain, shortness of breath, abdominal pain, vomiting, or lower extremity edema. Related Data Home Medications Medication Instructions Recorded Confirmed Calcium 500 + D (D3) 1 tablet PO DAILY 04/02/19 07/01/23 Daily Multivitamin 1 tablet PO DAILY 04/02/19 07/01/23 digestive enzymes 1 cap PO TID 04/02/19 07/01/23 magnesium 500 mg PO DAILY 04/02/19 07/01/23 biotin 5,000 mcg sublingual tablet 7,500 mcg sublingual DAILY 05/20/19 07/01/23 cat's claw (Uncaria tomentosa) 500 500 mg PO DAILY 07/24/20 07/01/23 mg capsule tamsulosin 0.4 mg capsule 0.4 mg PO DAILY 10/29/22 07/01/23 amitriptyline 10 mg tablet 10 mg PO QHS 05/20/23 07/01/23 Allergies Allergy/AdvReac Type Severity Reaction Status Date / Time amoxicillin [From Augmentin] Allergy Mild Itching, Verified 07/02/23 12:05 rash mold Allergy Mild Itching Verified 07/01/23 11:39 Review of Systems Review of Systems: CONSTITUTIONAL: Denies fever CARDIOVASCULAR: Denies chest pain, or edema. RESPIRATORY: Denies dyspnea. GASTROINTESTINAL: Denies abdominal pain, nausea, vomiting GENITOURINARY: Denies dysuria All systems reviewed & are unremarkable except as noted in HPI and below PMFSH Past Medical History Medical History Arthritis Atherosclerosis of aorta Chronic kidney disease, stage 3 (moderate) Chronic obstructive pulmonary disease, unspecified Constipation Essential (primary) hypertension Fractures Fracture right arm x2 at age 7 Gastro-esophageal reflux disease without esophagitis High cholesterol History of chicken pox History of measles History of mumps Osteopenia Osteoporosis Post-menopausal Rectal cancer Status post chemo radiation. Recurrent urinary tract infection Wears glasses Surgical History Surgical History History of bunionectomy of left great toe History of cataract extraction with lens replacement History of section, classical (1967) History of inguinal hernia repair History of intestinal surgery (2013) Perineal resection with colostomy for rectal cancer. Exploratory laparotomy for bowel obstructions and adhesiolysis on separate occasions. Family History Family History Sibling Hypertension Aneurysm Gout Heart disease Mother Diabetes mellitus Hypertension Family history of coronary artery disease bypass age 72 Father Hypertension Daughter Hypertension Son Hypertension Daughter Lymphedema Carpal tunnel syndrome Heart problem Other Family history of heart disease in male family member before age 55 Social History Social History Social History: Surrogate medical decision maker: Scott Thakur, alex. Code status: Full code. Caffeine:none Smoking packs per day: 1 Smoking cigarettes per day: 20.0 Years smoked: 35 Smoking pack-years: 35.00 Smoking status: Former smoker Smoking end date: 04/07/99 Alcohol intake: never Substance use: never Substance use type: does not use Lack of Transportation: No Lack of Food: Never True Current Housing: I Have Housing Concerned About Future Housing: No Difficulty Paying Gas/Electric Bills: No Diffi
[2023-07-02 10:27] LABS: Basophils Percent Auto 0.3 % (0.2-1.2); Eosinophils Absolute Auto 0.1 K/mm3 (0-0.3); Eosinophils Percent Auto 0.8 % (0-4.4); Hematocrit 29.3 % (37.0-47.0); Hemoglobin 9.4 g/dL (12.0-15.0); Immature Granulocyte Absolute 0.04 K/mm3 (0.00-0.031); Immature Granulocyte Percent A 0.4 % (0-0.5); Mean Corpuscular HGB Conc 32.1 g/dl (32-36); Mean Corpuscular Hemoglobin 29.7 pg (26-34); Mean Corpuscular Volume 92.7 fl (80-100); Mean Platelet Volume 9.5 fl (7.4-10.4); Monocytes Percent Auto 9.5 % (2.6-8.5); Platelet Count Result 323 k/mm3 (150-375); Red Blood Count 3.16 M/mm3 (4.2-5.4); Red Cell Distribution Width 13.8 % (11.5-14.5)
[2023-07-02 10:39] LABS: Alanine Aminotransferase 17 U/L (6-35); Albumin Level 3.4 g/dL (3.5-5.1); Alkaline Phosphatase 81 U/L (38-126); Anion Gap 4 mmol/L (4-12); Aspartate Amino Transferase 22 U/L (14-36); Bilirubin,Total 0.3 mg/dL (0.2-1.3); Blood Urea Nitrogen 39 mg/dL (7-17); Calcium 9.6 mg/dL (8.4-10.2); Carbon Dioxide 32 mmol/L (22-30); Chloride 99 mmol/L (98-107); Estimated CRCL calculation 18 ml/min; Estimated Glomerular Filt Rate 22; Glucose 96 mg/dL (65-110); Sodium 135 mmol/L (137-145)
[2023-07-02 10:42] LABS: Appearance Urine Cloudy (Clear); Color Urine Light Yellow (Yellow)
[2023-07-02 10:43] LABS: Bilirubin Urine Negative (Negative); Blood Urine Negative (Negative); Glucose Urine UA Negative (Negative); Nitrate Urine Negative (Negative); Protein Urine 1+ (Negative); Specific Grav Ur 1.015 (1.010-1.020); Urobilinogen Urine 0.2 mg/dL (0.2-1.0)
[2023-07-02 10:44] LABS: Ketones Urine Negative (Negative); Leukocyte Esterase Ur 3+ LEU/UL (Negative)
[2023-07-02 10:45] LABS: Bacteria Urine 4+ /hpf; Non Pathogenic Casts 0-2; Squamous Epithelial Cell Urine None Seen /hpf (Few); WBC Urine >100 /hpf (0-3)
[2023-07-02 10:52] LABS: Add Urine Microscopic? YES
[2023-07-02 10:57] VITALS: BP 119/76; PULSE 80; RESP 20; O2SAT 97
[2023-07-02] MEDS: SODIUM CHLORIDE 0.9% IV 500 ML 999 ML IV CONT (11:00)
[2023-07-02 11:01] VITALS: BP 119/76; PULSE 81; RESP 20; TEMP 36.8; O2SAT 100
[2023-07-02 11:12] LABS: Free T4 Free Thyroxine 1.08 ng/mL (0.78-2.19)
[2023-07-02 12:18] VITALS: BP 112/66; PULSE 74; RESP 16; O2SAT 96
[2023-07-02 13:00] VITALS: BP 131/82; PULSE 77; RESP 19; O2SAT 96
== END 2023-07-02 13:34 | disposition home or self-care (01) ==
PROVIDERS: Emergency Provider Physician Assistant; PCP Family Medicine
DX: N39.0 Urinary tract infection, site not specified (principal); I12.9 Hypertensive chronic kidney disease with stage 1 through stage 4 chronic kidney disease, or unspecified chronic kidney disease; N18.30 Chronic kidney disease, stage 3 unspecified; J44.9 Chronic obstructive pulmonary disease, unspecified; I70.0 Atherosclerosis of aorta; E78.00 Pure hypercholesterolemia, unspecified; K21.9 Gastro-esophageal reflux disease without esophagitis; M85.80 Other specified disorders of bone density and structure, unspecified site; M81.0 Age-related osteoporosis without current pathological fracture; M19.90 Unspecified osteoarthritis, unspecified site; Z85.528 Personal history of other malignant neoplasm of kidney; Z92.21 Personal history of antineoplastic chemotherapy; Z92.3 Personal history of irradiation; Z87.891 Personal history of nicotine dependence; Z96.1 Presence of intraocular lens; Z98.49 Cataract extraction status, unspecified eye; Z90.49 Acquired absence of other specified parts of digestive tract
CPT/HCPCS: 36415; 80053; 81001; 84439; 85025; 87077; 87086; 87088; 87186; 96361; 96365; 99284; J0696; J7040

== ENCOUNTER 2023-07-15 11:22 | Outpatient (CLI) | payer MEDICARE, SELFPAY ==
[2023-07-15 18:47] LABS: Hematocrit 34.1 % (37.0-47.0); Hemoglobin 10.4 g/dL (12.0-15.0); Mean Corpuscular HGB Conc 30.5 g/dl (32-36); Mean Corpuscular Hemoglobin 29.2 pg (26-34); Mean Corpuscular Volume 95.8 fl (80-100); Mean Platelet Volume 10.7 fl (7.4-10.4); Platelet Count Result 316 k/mm3 (150-375); Red Blood Count 3.56 M/mm3 (4.2-5.4); Red Cell Distribution Width 14.6 % (11.5-14.5); White Blood Count 8.2 K/mm3 (4.5-10.0)
[2023-07-15 20:34] LABS: Free T4 Free Thyroxine 1.13 ng/mL (0.78-2.19)
[2023-07-15 21:22] LABS: Alanine Aminotransferase 17 U/L (6-35); Albumin Level 4.1 g/dL (3.5-5.1); Alkaline Phosphatase 81 U/L (38-126); Anion Gap 8 mmol/L (4-12); Aspartate Amino Transferase 37 U/L (14-36); Bilirubin,Total 0.4 mg/dL (0.2-1.3); Blood Urea Nitrogen 34 mg/dL (7-17); Calcium 10.5 mg/dL (8.4-10.2); Carbon Dioxide 29 mmol/L (22-30); Chloride 103 mmol/L (98-107); Estimated Glomerular Filt Rate 22; Glucose 95 mg/dL (65-110); Potassium 4.9 mmol/L (3.4-5.0); Sodium 140 mmol/L (137-145)
[2023-07-15 23:37] LABS: Thyroid Stimulating Hormone < 0.015 uIU/mL (0.465-4.680)
== END 2023-07-15 11:23 | disposition home or self-care (01) ==
LOC: ANHGOSHLAB 11:24
PROVIDERS: PCP Family Medicine; Visit Provider Nurse Practitioner
DX: F41.9 Anxiety disorder, unspecified (principal); R79.89 Other specified abnormal findings of blood chemistry; D64.9 Anemia, unspecified; N18.30 Chronic kidney disease, stage 3 unspecified
CPT/HCPCS: 36415; 80053; 84439; 84443; 85027

== ENCOUNTER 2023-07-18 12:31 | Outpatient (CLI) | payer MEDICARE, SELFPAY ==
[2023-07-18 17:47] LABS: Appearance Urine Turbid (Clear); Bacteria Urine 4+ /hpf; Bilirubin Urine Negative (Negative); Blood Urine 2+ (Negative); Color Urine Yellow (Yellow); Glucose Urine UA Negative (Negative); Ketones Urine Negative (Negative); Leukocyte Esterase Ur 3+ LEU/UL (Negative); Need Manual Microscopic Reviewed; Nitrate Urine Negative (Negative); Protein Urine 1+ mg/dL (Negative); Specific Grav Ur 1.008 (1.001-1.035); Squamous Epithelial Cell Urine Moderate /hpf (Few); Urobilinogen Urine 0.2 mg/dL (<2.0); WBC Urine >100 /hpf (0-3); pH Urine 6.5 (5.0-9.0)
[2023-07-18 17:48] LABS: Add Urine Microscopic? YES
[2023-07-18 17:49] LABS: Anion Gap 7 mmol/L (4-12); Blood Urea Nitrogen 37 mg/dL (7-17); Calcium 9.5 mg/dL (8.4-10.2); Carbon Dioxide 30 mmol/L (22-30); Chloride 99 mmol/L (98-107); Estimated Glomerular Filt Rate 21; Glucose 107 mg/dL (65-110); Potassium 3.8 mmol/L (3.4-5.0); Sodium 136 mmol/L (137-145)
== END 2023-07-18 12:32 | disposition home or self-care (01) ==
PROVIDERS: Nurse Practitioner; PCP Family Medicine; Visit Provider Family Medicine
DX: N18.30 Chronic kidney disease, stage 3 unspecified (principal); R35.0 Frequency of micturition
CPT/HCPCS: 36415; 80048; 81001; 87077; 87086; 87088; 87186

== ENCOUNTER 2023-08-08 13:02 | Outpatient (CLI) | payer MEDICARE, SELFPAY ==
--- NOTE | ~2023-08-08 | US_ITS ---
Renal-Bladder ultrasound Clinical History: Chronic kidney disease Technique: Real-time sonographic imaging of the kidneys and urinary bladder was performed. Findings: The right kidney measures 10.5 cm in length and the left kidney measures 10.4 cm. There is moderate bilateral hydronephrosis, left worse than right. Renal cortical echogenicity is increased. N o renal mass lesion is identified. The urinary bladder is moderately distended at the time of this exam. No intraluminal echoes are iden tified. No abnormal wall thickening is seen. Impression: Moderate bilateral hydronephrosis, left worse than right. Moderately distended urinary bladder. Correlate for bladder outlet obstruction. Reviewed, dictated and finalized at location . Impression: Moderate bilateral hydronephrosis, left worse than right. Moderately distended urinary bladder. Correlate for bladder outlet obstruction.
== END 2023-08-08 13:03 ==
LOC: GOSHIMG 13:03
PROVIDERS: PCP Family Medicine; Visit Provider Internal Medicine Nephrology
DX: N18.4 Chronic kidney disease, stage 4 (severe) (principal)
CPT/HCPCS: 76775

== ENCOUNTER 2023-08-08 13:21 | Outpatient (CLI) | payer MEDICARE, SELFPAY ==
[2023-08-08 20:28] LABS: Albumin Level 4.2 g/dL (3.5-5.1); Anion Gap 9 mmol/L (4-12); Blood Urea Nitrogen 31 mg/dL (7-17); Calcium 9.2 mg/dL (8.4-10.2); Carbon Dioxide 26 mmol/L (22-30); Chloride 98 mmol/L (98-107); Estimated Glomerular Filt Rate 19; Glucose 90 mg/dL (65-110); Phosphorus 3.3 mg/dL (2.5-4.5); Sodium 133 mmol/L (137-145)
[2023-08-08 20:29] LABS: Complement C3 129 mg/dL (88-165)
[2023-08-08 20:56] LABS: Creatinine Urine 43.4 mg/dL; Total Protein Urine Random 83 mg/dL; Ur Ttl Prot Creatinine Ratio 1.91 mg/mg (0-0.20)
[2023-08-10 06:25] LABS: Protein, Total 7.7 g/dL (6.1-8.1)
[2023-08-10 14:19] LABS: Creatinine, Random Urine 46 mg/dL (20-275); Total Protein/Creatinine Ratio 2739 mg/g creat (24-184)
[2023-08-11 16:08] LABS: Albumin 3.3 g/dL (3.8-4.8); Alpha 1 Globulin 0.5 g/dL (0.2-0.3); Beta 1 Globulin 0.5 g/dL (0.4-0.6); Gamma Globulin 1.8 g/dL (0.8-1.7)
[2023-08-12 12:19] LABS: ANCA Screen NEGATIVE (NEGATIVE)
[2023-08-14 14:48] LABS: Anti Glomerular Basement Memb <1.0 AI
== END 2023-08-08 13:22 | disposition home or self-care (01) ==
LOC: ANHGOSHLAB 13:22
PROVIDERS: PCP Family Medicine; Visit Provider Internal Medicine Nephrology
DX: N18.4 Chronic kidney disease, stage 4 (severe) (principal)
CPT/HCPCS: 36415; 80069; 82570; 83520; 84155; 84156; 84165; 84166; 86036; 86038; 86160; 86225

== ENCOUNTER 2023-08-08 15:49 | Emergency (ER) | payer MEDICARE, SELFPAY ==
[2023-08-08 16:01] VITALS: BP 146/82; PULSE 95; RESP 18; TEMP 36.7; O2SAT 96
--- NOTE | 2023-08-08 17:23 | ED.FEMALEGU ---
HPI - Female Genitourinary General Chief complaint: Urogenital-Female <Mendoza Deleon APRN - Last Filed: 08/09/23 09:06> Stated complaint: need gross placed per Omar <Mendoza Deleon APRN - Last Filed: 08/09/23 09:06> Time Seen by Provider: 08/08/23 17:14 <Mendoza Deleon APRN - Last Filed: 08/09/23 09:06> Source: patient <Mendoza Deleon APRN - Last Filed: 08/09/23 09:06> Mode of arrival: ambulatory <Mendoza Deleon APRN - Last Filed: 08/09/23 09:06> Limitations: no limitations <Mendoza Deleon APRN - Last Filed: 08/09/23 09:06> History of Present Illness HPI Narrative: Elvie is an 83-year-old female patient presenting to the ER today with complaints of bladder pain. She reports that this has been going on for a couple weeks. Had a renal ultrasound done today and showed that she had moderate bilateral hydronephrosis, left worse than right and moderately distended urinary bladder. Correlate for bladder outlet obstruction. send patient to the ED for urinary catheter. Told the nurse that he reviewed her labs and they are at her baseline. She denies any fever or chills. She denies any back pain or abdominal pain. Does have discomfort over her bladder. History of chronic kidney disease and recurrent UTIs. <Mendoza Deleon APRN - Last Filed: 08/09/23 09:06> Related Data Home medications: Home Medications Medication Instructions Recorded Confirmed Calcium 500 + D (D3) 1 tablet PO DAILY 04/02/19 07/31/23 Daily Multivitamin 1 tablet PO DAILY 04/02/19 07/31/23 digestive enzymes 1 cap PO TID 04/02/19 07/31/23 biotin 5,000 mcg sublingual tablet 7,500 mcg sublingual DAILY 05/20/19 07/31/23 cat's claw (Uncaria tomentosa) 500 500 mg PO DAILY 07/24/20 07/31/23 mg capsule tamsulosin 0.4 mg capsule 0.4 mg PO DAILY 10/29/22 07/31/23 esomeprazole magnesium 40 mg 40 mg PO DAILY 07/15/23 07/31/23 capsule,delayed release (Nexium) <Mendoza Deleon APRN - Last Filed: 08/09/23 09:06> Allergies/Adverse reactions: Allergies Allergy/AdvReac Type Severity Reaction Status Date / Time amoxicillin [From Augmentin] Allergy Mild Itching, Verified 07/31/23 11:41 rash mold Allergy Mild Itching Verified 07/31/23 11:41 <Mendoza Deleon APRN - Last Filed: 08/09/23 09:06> Review of Systems Review of Systems: Pertinent positives per HPI. Patient denies any fever, chills, rash, headache, visual changes, dizziness, cough, runny nose, sore throat, shortness of breath, chest pain, palpitations, nausea, vomiting, diarrhea, constipation, abdominal pain. <Mendoza Deleon APRN - Last Filed: 08/09/23 09:06> [facility] Past Medical History Medical History: Medical History Arthritis Atherosclerosis of aorta Chronic kidney disease, stage 3 (moderate) Chronic obstructive pulmonary disease, unspecified Constipation Essential (primary) hypertension Fractures Fracture right arm x2 at age 7 Gastro-esophageal reflux disease without esophagitis High cholesterol History of chicken pox History of measles History of mumps Osteopenia Osteoporosis Post-menopausal Rectal cancer Status post chemo radiation. Recurrent urinary tract infection Wears glasses <Mendoza Deleon APRN - Last Filed: 08/09/23 09:06> Surgical History Surgical History: Surgical History History of bunionectomy of left great toe History of cataract extraction with lens replacement History of section, classical (1967) History of inguinal hernia repair History of intestinal surgery (2013) Perineal resection with colostomy for rectal cancer. Exploratory laparotomy for bowel obstructions and adhesiolysis on separate occasions. <Mendoza Deleon APRN - Last Filed: 08/09/23 09:06> Family History Family History: Family History (Revi
[2023-08-08 18:27] LABS: Appearance Urine Turbid (Clear); Bacteria Urine 2+ /hpf; Bilirubin Urine Negative (Negative); Blood Urine 2+ (Negative); Color Urine Yellow (Yellow); Glucose Urine UA Negative (Negative); Ketones Urine Negative (Negative); Leukocyte Esterase Ur 3+ LEU/UL (Negative); Nitrate Urine Negative (Negative); Non Pathogenic Casts 0-2; Protein Urine 1+ mg/dL (Negative); Specific Grav Ur 1.008 (1.001-1.035); Squamous Epithelial Cell Urine None Seen /hpf (Few); Urobilinogen Urine 0.2 mg/dL (<2.0); WBC Urine >100 /hpf (0-3); pH Urine 6.5 (5.0-9.0)
[2023-08-08 18:31] LABS: Add Urine Microscopic? NO
--- NOTE | 2023-08-08 19:15 | PC.NURSE ---
Assumed care of pt after receiving nurse report from SINDI Rodríguez.
[2023-08-08 19:17] LABS: Basophils Absolute Auto 0.1 K/mm3 (0.0-0.1); Basophils Percent Auto 0.4 % (0.2-1.2); Eosinophils Percent Auto 0.1 % (0-4.4); Hematocrit 32.7 % (37.0-47.0); Hemoglobin 10.7 g/dL (12.0-15.0); Immature Granulocyte Absolute 0.04 K/mm3 (0.00-0.031); Immature Granulocyte Percent A 0.3 % (0-0.5); Lymphocytes Absolute Auto 1.05 K/mm3 (0.9-3.2); Lymphocytes Percent Auto 7.7 % (18.3-44.2); Mean Corpuscular HGB Conc 32.7 g/dl (32-36); Mean Corpuscular Hemoglobin 29.3 pg (26-34); Mean Corpuscular Volume 89.6 fl (80-100); Mean Platelet Volume 10.2 fl (7.4-10.4); Monocytes Absolute Auto 0.9 K/mm3 (0.1-0.6); Monocytes Percent Auto 6.6 % (2.6-8.5); Neutrophils Absolute Auto 11.5 K/mm3 (1.3-6.7); Neutrophils Percent Auto 84.9 % (45.5-73.1); Platelet Count Result 323 k/mm3 (150-375); Red Blood Count 3.65 M/mm3 (4.2-5.4); Red Cell Distribution Width 15.9 % (11.5-14.5); White Blood Count 13.6 K/mm3 (4.5-10.0)
[2023-08-08 19:28] LABS: Lactic Acid Reflex 1.2 mmol/L (0.7-2.0)
[2023-08-08 19:29] LABS: Alanine Aminotransferase 19 U/L (6-35); Albumin Level 4.6 g/dL (3.5-5.1); Alkaline Phosphatase 81 U/L (38-126); Anion Gap 10 mmol/L (4-12); Aspartate Amino Transferase 30 U/L (14-36); Blood Urea Nitrogen 31 mg/dL (7-17); Calcium 9.8 mg/dL (8.4-10.2); Carbon Dioxide 28 mmol/L (22-30); Chloride 97 mmol/L (98-107); Estimated CRCL calculation 14 ml/min; Estimated Glomerular Filt Rate 19; Glucose 94 mg/dL (65-110); Potassium 3.6 mmol/L (3.4-5.0); Sodium 135 mmol/L (137-145)
[2023-08-08 19:40] VITALS: BP 130/63; PULSE 89; RESP 17; O2SAT 94
[2023-08-08 20:00] VITALS: BP 120/60; PULSE 86; RESP 16; O2SAT 94
== END 2023-08-08 20:00 | disposition home or self-care (01) ==
PROVIDERS: Emergency Provider Nurse Practitioner Family; PCP Family Medicine
DX: N39.0 Urinary tract infection, site not specified (principal); N13.30 Unspecified hydronephrosis; I12.9 Hypertensive chronic kidney disease with stage 1 through stage 4 chronic kidney disease, or unspecified chronic kidney disease; N18.30 Chronic kidney disease, stage 3 unspecified; J44.9 Chronic obstructive pulmonary disease, unspecified; I70.0 Atherosclerosis of aorta; E78.00 Pure hypercholesterolemia, unspecified; K21.9 Gastro-esophageal reflux disease without esophagitis; M85.80 Other specified disorders of bone density and structure, unspecified site; M19.90 Unspecified osteoarthritis, unspecified site; M81.0 Age-related osteoporosis without current pathological fracture; Z85.528 Personal history of other malignant neoplasm of kidney; Z92.21 Personal history of antineoplastic chemotherapy; Z92.3 Personal history of irradiation; Z87.440 Personal history of urinary (tract) infections; Z87.891 Personal history of nicotine dependence; Z96.1 Presence of intraocular lens; Z98.49 Cataract extraction status, unspecified eye; Z90.49 Acquired absence of other specified parts of digestive tract
CPT/HCPCS: 36415; 51702; 80053; 80069; 81003; 82570; 83520; 83605; 84155; 84156; 84165; 84166; 85025; 86036; 86038; 86160; 86225; 87077; 87086; 87088; 87186; 96365; 99284; J0696

== ENCOUNTER 2023-10-17 10:53 | Outpatient (CLI) | payer MEDICARE, SELFPAY ==
[2023-10-17 11:36] LABS: Hemoglobin 12.7 g/dL (12.0-15.0); Mean Corpuscular HGB Conc 31.8 g/dl (32-36); Mean Corpuscular Volume 94.6 fl (80-100); Mean Platelet Volume 9.7 fl (7.4-10.4); Platelet Count Result 201 k/mm3 (150-375); Red Blood Count 4.23 M/mm3 (4.2-5.4); Red Cell Distribution Width 16.3 % (11.5-14.5); White Blood Count 6.5 K/mm3 (4.5-10.0)
[2023-10-17 11:50] LABS: Hemoglobin A1C 5.8 % (<5.7)
[2023-10-17 11:55] LABS: Alanine Aminotransferase 26 U/L (6-35); Albumin Level 4.4 g/dL (3.5-5.1); Alkaline Phosphatase 68 U/L (38-126); Anion Gap 13 mmol/L (4-12); Aspartate Amino Transferase 40 U/L (14-36); Bilirubin,Total 0.6 mg/dL (0.2-1.3); Blood Urea Nitrogen 30 mg/dL (7-17); Calcium 9.4 mg/dL (8.4-10.2); Carbon Dioxide 28 mmol/L (22-30); Chloride 99 mmol/L (98-107); Cholesterol 152 mg/dL (0-200); Estimated Glomerular Filt Rate 29; Glucose 86 mg/dL (65-110); HDL Direct 57 mg/dL; Phosphorus 3.4 mg/dL (2.5-4.5); Potassium 4.1 mmol/L (3.4-5.0); Sodium 140 mmol/L (137-145); Triglycerides 110 mg/dL (<150)
[2023-10-17 12:03] LABS: LDL Cholesterol Direct 78 mg/dL
[2023-10-17 12:09] LABS: Vitamin D 25 Hydroxy 62.6 ng/mL
[2023-10-17 12:22] LABS: Thyroid Stimulating Hormone < 0.015 uIU/mL (0.465-4.680)
== END 2023-10-17 10:54 | disposition home or self-care (01) ==
PROVIDERS: PCP Family Medicine; Referring Provider Internal Medicine Nephrology; Visit Provider Nurse Practitioner
DX: E55.9 Vitamin D deficiency, unspecified (principal); Z00.00 Encounter for general adult medical examination without abnormal findings; I70.0 Atherosclerosis of aorta; F41.9 Anxiety disorder, unspecified; R73.03 Prediabetes; N18.4 Chronic kidney disease, stage 4 (severe)
CPT/HCPCS: 36415; 80053; 80061; 82306; 83036; 84100; 84443; 85027

== ENCOUNTER 2023-12-18 09:40 | Outpatient (CLI) | payer MEDICARE, SELFPAY ==
--- NOTE | ~2023-12-18 | XR_ITS ---
EXAMINATION: XR ribs BI 3V w CXR 2V DATE: 12/18/2023 09:54 INDICATION: Left chest pain. Fall. TECHNIQUE: Frontal and lateral views of the chest and 2 views on 3 radiographs of the right ribs, and 2 views on 3 radiographs of the left ribs were obtained. COMPARISON: Chest 2 views 03/13/23, chest CT 12/19/2022 FINDINGS: CHEST TWO VIEWS: There is mild atelectasis at left lung base. No pleural effusion or pneumothorax. Th e heart size is normal. BILATERAL RIBS: There are fracture deformities of left third, fourth, seventh, and eighth ribs. IMPRESSION: 1. Age-indeterminate fractures of left third, fourth, seventh, and eighth ribs. Reviewed, dictated and finalized at location A.
== END 2023-12-18 09:41 | disposition home or self-care (01) ==
PROVIDERS: PCP Family Medicine; Visit Provider Nurse Practitioner
DX: R07.81 Pleurodynia (principal); S22.42XD Multiple fractures of ribs, left side, subsequent encounter for fracture with routine healing; X58.XXXD Exposure to other specified factors, subsequent encounter
CPT/HCPCS: 71046; 71110

== ENCOUNTER 2024-01-03 11:50 | Emergency (ER) | payer MEDICARE, SELFPAY ==
--- NOTE | 2024-01-03 12:30 | ED.SKABFB ---
HPI - Skin/Abscess/Foreign Bdy General Chief complaint: Skin/Abscess/Foreign Body Stated complaint: Rash Time Seen by Provider: 01/03/24 12:30 Source: patient Mode of arrival: ambulatory Limitations: no limitations History of Present Illness HPI narrative: 83 yo F presents with c/o red bumps and itching to L forearm. Fell and hit L arm 3 wks ago and had skin tear. has been applying neosporin for 3 wks. Red bumps and itching around wound for 1 wk. All systems reviewed and negative except as noted above. Related Data Home Medications Medication Instructions Recorded Confirmed Calcium 500 + D (D3) 1 tablet PO DAILY 04/02/19 12/18/23 Daily Multivitamin 1 tablet PO DAILY 04/02/19 12/18/23 digestive enzymes 1 cap PO TID 04/02/19 12/18/23 biotin 5,000 mcg sublingual tablet 7,500 mcg sublingual DAILY 05/20/19 12/18/23 cat's claw (Uncaria tomentosa) 500 500 mg PO DAILY 07/24/20 12/18/23 mg capsule tamsulosin 0.4 mg capsule 0.4 mg PO DAILY 10/29/22 12/18/23 polyethylene glycol 3350 17 17 g PO DAILY 12/18/23 12/18/23 gram/dose oral powder (Miralax) Allergies Allergy/AdvReac Type Severity Reaction Status Date / Time amlodipine Allergy Mild Other Verified 12/18/23 09:03 amoxicillin [From Augmentin] Allergy Mild Itching, Verified 12/18/23 09:03 rash mold Allergy Mild Itching Verified 12/18/23 09:03 Review of Systems Review of Systems: CONSTITUTIONAL: Denies fever, chills, or sweats. EYES: Denies visual changes, redness, or discharge. ENT: Denies rhinorrhea, congestion, sore throat, or otalgia. CARDIOVASCULAR: Denies chest pain, palpitations, or edema. RESPIRATORY: Denies cough or dyspnea. GASTROINTESTINAL: Denies abdominal pain, nausea, vomiting, or diarrhea. GENITOURINARY: Denies dysuria or hematuria. SKIN: reports red bumps and itching MUSCULOSKELETAL: Denies back pain, joint pain, or myalgia. NEUROLOGIC: Denies headache, numbness, or weakness. PSYCHIATRIC: Denies anxiety or depression. All other systems reviewed are negative, except as documented in HPI. [facility] Past Medical History Medical History Arthritis Atherosclerosis of aorta Chronic kidney disease, stage 3 (moderate) Chronic obstructive pulmonary disease, unspecified Constipation Essential (primary) hypertension Fractures Fracture right arm x2 at age 7 Gastro-esophageal reflux disease without esophagitis High cholesterol History of chicken pox History of measles History of mumps Osteopenia Osteoporosis Post-menopausal Rectal cancer Status post chemo radiation. Recurrent urinary tract infection Wears glasses Surgical History Surgical History History of bunionectomy of left great toe History of cataract extraction with lens replacement History of section, classical (1967) History of inguinal hernia repair History of intestinal surgery (2013) Perineal resection with colostomy for rectal cancer. Exploratory laparotomy for bowel obstructions and adhesiolysis on separate occasions. Family History Family History Sibling Hypertension Aneurysm Gout Heart disease Mother Diabetes mellitus Hypertension Family history of coronary artery disease bypass age 72 Father Hypertension Daughter Hypertension Son Hypertension Daughter Lymphedema Carpal tunnel syndrome Heart problem Other Family history of heart disease in male family member before age 55 Social History Social History Social History: Surrogate medical decision maker: Scott Thakur, alex. Code status: Full code. Caffeine:none Smoking packs per day: 1 Smoking cigarettes per day: 20.0 Years smoked: 35 Smoking pack-years: 35.00 Smoking status: Former smoker Smoking end date: 04/07/99 Alcohol intake: eros
[2024-01-03 12:33] VITALS: BP 164/85; PULSE 77; RESP 16; TEMP 36.7; O2SAT 97
== END 2024-01-03 12:56 | disposition home or self-care (01) ==
PROVIDERS: Emergency Provider Nurse Practitioner Family; PCP Family Medicine
DX: L23.89 Allergic contact dermatitis due to other agents (principal); Z87.891 Personal history of nicotine dependence; M19.90 Unspecified osteoarthritis, unspecified site; I70.0 Atherosclerosis of aorta; J44.9 Chronic obstructive pulmonary disease, unspecified; I12.9 Hypertensive chronic kidney disease with stage 1 through stage 4 chronic kidney disease, or unspecified chronic kidney disease; N18.30 Chronic kidney disease, stage 3 unspecified; K21.9 Gastro-esophageal reflux disease without esophagitis; E78.00 Pure hypercholesterolemia, unspecified; M85.80 Other specified disorders of bone density and structure, unspecified site; M81.0 Age-related osteoporosis without current pathological fracture; Z85.048 Personal history of other malignant neoplasm of rectum, rectosigmoid junction, and anus; Z92.21 Personal history of antineoplastic chemotherapy; Z92.3 Personal history of irradiation; Z96.1 Presence of intraocular lens; Z98.42 Cataract extraction status, left eye; Z98.41 Cataract extraction status, right eye
CPT/HCPCS: 99213; G0463

== ENCOUNTER 2024-01-05 13:28 | Outpatient (CLI) | payer MEDICARE, SELFPAY ==
--- NOTE | ~2024-01-05 | XR_ITS ---
AP and oblique views of the bilateral ribs Clinical History: Pain Findings: No rib fracture is seen. Osseous alignment is anatomic. Lungs are clear, without focal cons olidation or pleural effusion. Cardiomediastinal contour is within normal limits. Soft tissues are un remarkable. Impression: No rib fracture is seen. Reviewed, dictated and finalized at [facility]. Impression: No rib fracture is seen.
== END 2024-01-05 13:29 | disposition home or self-care (01) ==
PROVIDERS: PCP Family Medicine; Visit Provider Family Medicine
DX: R07.81 Pleurodynia (principal)
CPT/HCPCS: 71111

== ENCOUNTER 2024-01-26 08:35 | Outpatient (CLI) | payer MEDICARE, SELFPAY ==
--- NOTE | ~2024-01-26 | CT_ITS ---
Clinical Indication: Lung nodule CT Scan of the Chest and Abdomen without Contrast: Technique: Contiguous sections were acquired throughout the chest and abdomen, without IV contrast ad ministration. Dose reduction technique was used on this scan by utilizing automated exposure control and iterative reconstruction technique. The dose-length product (DLP) was 298.06 mGy-cm. Comparison: 01/25/2023 Findings: There is no evidence of any significant mediastinal, hilar or axillary lymphadenopathy. There are ext ensive atherosclerotic calcifications of the thoracic aorta and coronary arteries. No thoracic aortic aneurysm. There is no evidence of pleural or pericardial effusion. There is moderate emphysema with mild biapical scarring. Stable 4 mm left lower lobe pulmonary nodule (axial image 58).. The liver, spleen, pancreas, adrenals and kidneys are within normal limits. Gallbladder not clearly v isualized. There is extensive atherosclerotic calcification of the abdominal aorta and iliac vessels. Infrarenal abdominal aorta measures up to 3.3 cm in maximum diameter.. No lymphadenopathy. Visualized bowel loops are unremarkable.. No ascites. Impression: Stable 4 mm left lower lobe pulmonary nodule. Moderate emphysema. Extensive atherosclerotic calcifications with 3.3 cm infrarenal abdominal aortic aneurysm. Reviewed, dictated and finalized at [facility]. Impression: Stable 4 mm left lower lobe pulmonary nodule. Moderate emphysema. Extensive atherosclerotic calcifications with 3.3 cm infrarenal abdominal aorti c aneurysm.
[2024-01-26 09:53] LABS: Parathyroid Intact 64.7 pg/mL (14.5-75.2)
[2024-01-26 10:18] LABS: Albumin Level 4.2 g/dL (3.5-5.1); Anion Gap 7 mmol/L (4-12); Blood Urea Nitrogen 23 mg/dL (7-17); Calcium 9.6 mg/dL (8.4-10.2); Carbon Dioxide 35 mmol/L (22-30); Chloride 98 mmol/L (98-107); Estimated Glomerular Filt Rate 31; Glucose 71 mg/dL (65-110); Phosphorus 3.6 mg/dL (2.5-4.5); Potassium 3.7 mmol/L (3.4-5.0); Sodium 140 mmol/L (137-145)
[2024-01-26 10:24] LABS: Vitamin D 25 Hydroxy 53.4 ng/mL
[2024-01-26 12:00] LABS: Creatinine Urine 33.9 mg/dL; Total Protein Urine Random 24 mg/dL; Ur Ttl Prot Creatinine Ratio 0.71 mg/mg (0-0.20)
== END 2024-01-26 08:36 | disposition home or self-care (01) ==
LOC: ANHIMG 08:39
PROVIDERS: PCP Family Medicine; Referring Provider Internal Medicine Nephrology; Visit Provider Nurse Practitioner
DX: N18.4 Chronic kidney disease, stage 4 (severe) (principal); I71.40 Abdominal aortic aneurysm, without rupture, unspecified; R91.1 Solitary pulmonary nodule; J43.9 Emphysema, unspecified
CPT/HCPCS: 36415; 71250; 74150; 80069; 82306; 82570; 83970; 84156

== ENCOUNTER 2024-05-14 10:28 | Outpatient (CLI) | payer MEDICARE, SELFPAY ==
--- OUTSIDE RECORDS SUMMARY | 2024-05-14 11:15 | XMS_ITS | Encounter Summary ---
Author Organization [facility] Address [address] [place] [address] Care Team Providers Care Senior Medical Transcriptionist Name Role Phone Tal Arechiga MD Primary Care Provider [phone] Encounter Details Date Type Department Care Team (Late st Contact Info) Description 12/02/2018 Lab Requisition [facility] [address] [place] [address] Rose Mary Araujo MD [address] [place], [place] [id number] Illness Social History Tobacco Use Types Packs/Day Years Used Date Smoking Tobacco: Never Assessed Sex and Gender Information Value Date Recorded Sex Assigned at Not on file Gender Identity Not on file Sexual Orientation Not on file documented as of this encounter Plan of Treatment Not on file documented as of this encounter Procedures Procedure Name Priority Date/Time Associated Diagnosis Comments PATHOLOGY TISSUE Routine 12/01/2018 3:45 PM CDT Illness documented in this encounter Results * PATHOLOGY TISSUE (12/01/2018 3:45 PM CDT) Case Report Surgical Pathology Report Case: [id number] Authorizing Provider: Rose Mary Araujo MD Collected: 12/01/2018 03:45 PM [facility]ing Location: [facility] Received: 12/02/2018 03:45 PM Pathologist: Rashad Billingsley MD Specimen: Slide Consultation, [id number] 12/03/2018 10:27 AM CDT [facility] Final Diagnosis Urine, voided, thin prep, cytology: -Negative for high-grade urothelial neoplasia -Acute and chronic inflammation 12/03/2018 10:27 AM CDT [facility] Microscopic Description and Comment Performed. 12/03/2018 10:27 AM [facility] Clinical History Hematuria, cystoscopy negative. 12/03/2018 10:27 AM [facility] Gross Description Prepared slides received from [facility] labeled [id number]. All material will be returned. 12/03/2018 10:27 AM [facility] Disclaimer The performance characteristics of all immunohistochemical and indirect immunofluorescence stains (if any) cited in this report were determined by the Histopathology Laboratory of [facility]. Some of these tests were developed by our own laboratory and have not been cleared or approved by the US Food and Drug Administration. The FDA does not require this test to go through premarket FDA review. These tests are used for clinical purposes. They should not be regarded as investigational or for research. This laboratory is certified under the Clinical Laboratory Improvement Amendments (CLIA) as qualified to perform high complexity clinical laboratory testing. This case has been personally reviewed and interpreted by the attending (teaching) pathologist. 12/03/2018 10:27 AM [facility] Embedded Images 12/03/2018 10:27 AM [facility] Pathology/Cytolo gy SURGICAL PATHOLOGY CONSULTATION AND REPORT ON REFERRED SLIDES PREPARED ELSEWHERE / Unknown 12/01/2018 3:45 PM CDT 12/02/2018 3:45 PM CDT Rose Mary Araujo MD LAB - PATHOLOGY/CYTO LOGY ORDERABLES Performing Organization Address City/State/[facility] Co dc Phone Number [facility] [address] [phone] documented in this encounter Visit Diagnoses Diagnosis Illness Other unknown and unspecified cause of morbidity or mortality documented in this encounter Care Teams Senior Medical Transcriptionist Relationship Specialty Start Date End Date Tal Arechiga MD [address] [place] [id number] PCP - General 12/02/18 documented as of this encounter
--- OUTSIDE RECORDS SUMMARY | 2024-05-14 11:15 | XMS_ITS | Patient Health Summary ---
Author Organization [facility] Address [address] [place] [address] Care Team Providers Care Pre Assembly Wirer Name Role Phone Tal Arechiga MD Primary Care Provider [phone] Note from [facility],non-owned Affiliates and Associated Physician Practices is amultiple site organization consisting of ambulatory clinics and hospital sitesin [place], [place], [place] and [place]. This disclosure is being madepursuant to the Care Everywhere program and may not contain all information available regarding this patient. Last updated 17.[facility] Social History Tobacco Use Types Packs/Day Years Used Date Smoking Tobacco: Never Assessed Sex and Gender Information Value Date Recorded Sex Assigned at Not on file Gender Identity Not on file Sexual Orientation Not on file Procedures * PATHOLOGY TISSUE(Performed 12/01/2018) Performed for Illness Results * PATHOLOGY TISSUE (12/01/2018 3:45 PM CDT) Case Report Surgical Pathology Report Case: [id number] Authorizing Provider: Rose Mary Araujo MD Collected: 12/01/2018 03:45 PM Ordering Location: [facility] Received: 12/02/2018 03:45 PM Pathologist: Rashad Billingsley MD Specimen: Slide Consultation, [id number] 12/03/2018 10:27 AM CDT [facility] Final Diagnosis Urine, voided, thin prep, cytology: -Negative for high-grade urothelial neoplasia -Acute and chronic inflammation 12/03/2018 10:27 AM CDT [facility] Microscopic Description and Comment Performed. 12/03/2018 10:27 AM CDT [facility] Clinical History Hematuria, cystoscopy negative. 12/03/2018 10:27 AM CDT [facility] Gross Description Prepared slides received from [place] [facility] labeled [id number]. All material will be returned. 12/03/2018 10:27 AM [facility] Disclaimer The performance characteristics of all immunohistochemical and indirect immunofluorescence stains (if any) cited in this report were determined by the Histopathology Laboratory of [facility]. Some of these tests were developed by [...] the attending (teaching) pathologist. 12/03/2018 10:27 AM [facility] Embedded Images 12/03/2018 10:27 AM [facility] Pathology/Cytolo gy SURGICAL PATHOLOGY CONSULTATION AND REPORT ON REFERRED SLIDES PREPARED ELSEWHERE / Unknown 12/01/2018 3:45 PM CDT 12/02/2018 3:45 PM CDT Rose Mary Araujo MD LAB - PATHOLOGY/CYTO LOGY ORDERABLES Performing Organization Address City/State/[facility] Co de Phone Number [facility] [address] [phone] Care Teams Pre Assembly Wirer Relationship Specialty Start Date End Date Tal Arechiga MD [address] [place] [phone] PCP - General 12/02/18
--- OUTSIDE RECORDS SUMMARY | 2024-05-14 11:15 | XMS_ITS | Clinical Summary ---
Author Organization [facility] al Address [address] [place] [address] Care Team Providers Care Entry Level Staff Accountant Name Role Phone Reece Weeks MD Unavailable [phone] Melina Diaz DO Primary Care Provider [phone] Daniel Rosa MD Unavailable [phone] Allergies Active Allergy Reactions Criticality Noted Date Comments Amoxicillin Hives Medium 12/11/2023 Ciprofloxacin Other (See comments) Low 12/11/2023 Pt states I get heartburn when I take this Medications lisinopril-hydr oCHLOROthiazide (PRINZIDE,ZESTO RETIC) 20-12.5 mg per tablet Take 1 tablet by mouth every morning Active multivitamin tablet tablet Take 1 tablet by mouth every morning Active magnesium oxide (MAG-OX) 500 mg (301.6 mg elemental) tablet 1 tablet (500 mg total) every morning Active ascorbic acid (ascorbic acid) 500 mg tablet,chewable Take 1 tablet/chew tab (500 mg total) by mouth 2 (two) times a day Active calcium carbonate-vitam in D3 500 mg(1,250mg) -400 unit tablet Take 1 tablet by mouth 2 (two) times a day. Active STIOLTO RESPIMAT 2.5-2.5 mcg/actuation mist Inhale 2 puffs every morning. 5 08/15/2017 Active mirabegron (MYRBETRIQ ORAL) Take 25 mg by mouth daily with dinner. Active loratadine (CLARITIN) 10 mg tablet Take 1 tablet (10 mg total) by mouth every morning Active biotin 1 mg capsule Take by mouth every morning. Active TRELEGY ELLIPTA 100-62.5-25 mcg blister with device INL 1 PUFF PO AT THE SAME TIME QD 3 04/10/2018 Active amitriptyline-c hlordiazePOXIDE (LIMBITROL) 12.5-5 mg per tablet Take 1 tablet by mouth nightly Active simvastatin (ZOCOR) 10 mg tablet Take 10 mg by mouth daily 11/13/2020 Active albuterol HFA (PROVENTIL HFA,VENTOLIN HFA,PROAIR HFA) 90 mcg/actuation inhaler Inhale 2 puffs every 6 (six) hours as needed for wheezing Active Active Problems Problem Noted Date Diagnosed Date Abdominal aortic aneurysm (AAA) without rupture 02/23/2024 Assessment & Plan (02/23/2024 3:08 PM ELEMENTARY SCHOOL PROFESSIONAL): 3.3 cm infrarenal abdominal aortic aneurysms. Discussed management of AAA with the patient with recommendation for ongoing surveillance and repair if evidence of rapid growth or approaching 5 cm. We will repeat the aortoiliac duplex in 1 year. Mixed hyperlipidemia 02/23/2024 Assessment & Plan (02/23/2024 3:08 PM ELEMENTARY SCHOOL PROFESSIONAL): Stable continue simvastatin Abdominal pain 06/20/2022 SBO (small bowel obstruction) (CMS/[facility]ER[facility]) 08/21/19 22 Colostomy care 02/12/2018 Vaginal bleeding 01/21/2018 Overview (01/21/2018): Added automatically from request for surgery [id number] Partial small bowel obstruction (CMS/HCC) 2017 Overview (10/15/2017): Added automatically from request for surgery [id number] Parastomal hernia with obstruction and without g angrene 10/15/2017 Overview (10/15/2017): Added automatically from request for surgery [id number] Intestinal obstruction ([facility]) 09/05/2017 Essential hypertension 09/04/2017 Assessment & Plan (02/23/2024 3:08 PM ELEMENTARY SCHOOL PROFESSIONAL): Stable continue lisinopril hydrochlorothiazide Coronary artery disease invo lving [place] coronary artery of [place] heart 10/29/2016 Malignant neoplasm of rectum (CMS/HCC) 3 Acute postoperative pain Generalized abdominal pain S/P exploratory laparotomy Resolved Problems Problem Noted Date Diagnosed Date Resolved Date Pruritus ani 12/09/2017 12/09/2017 Abdominal pain 09/05/2017 09/08/2017 Partial small bowel obstruction (CMS/HCC) 09/04/2017 09/08/2017 Encounters Date Type Department Care Team Description 02/18/2024 10:30 AM ELEMENTARY SCHOOL PROFESSIONAL Office Visit [facility] at [address] [place] [address] Dov Gabriel MD Abdominal aortic aneurysm (AAA) without rupture, unspecified part (HCC) (Primary Dx); Essential hypertension; Mixed hyperlipidemia 02/18/2024 Orders Only [facility] at [address] [place] [address] Dov Gabriel MD Infrarenal abdominal aortic aneurysm (AAA) without rupture (HCC) (Primary Dx) from Last 3 Months Immunizations Name Administration Dates Next Due Influenza, Unspecified 01/05/2020,12/06/2016,04/2015 Surgical History Surgery Date Site/Laterality Comments SECTION Caesarean Section IR G TUBE PLACEMENT PERCUTANEOUS 06/21/2013 N/A EXPLORATORY LAPAROTOMY 06/08/2014 Adhesiolysis OTHER SURGICAL HISTORY 09/20/2015 Mesh closure of perineal hernia OTHER SURGICAL HISTORY 05/20/2013 APR with partial posterior vaginectomy with Omental pedicle flap creation COLON SURGERY RESECTION NASAL SINUS SURGERY 04/07/1985 - 04/06/1986 ABDOMINAL ADHESION SURGERY 11/19/2017 Open lysis of adhesions and Sugarbaker parastomal hernia repair with mesh. Excisional biopsy of small pericolic mass. BUNIONECTOMY CATARACT EXTRACTION RHINOPLASTY COLONOSCOPY 05/20/2013 Medical History Medical History Date Comments Hypertension Hypertension Hx Other Medical ovariectomy Arthritis Rectal cancer (CMS/HCC) (HCC) Anemia Emphysema lung (HCC) PONV (postoperative nausea a nd vomiting) Hyperlipidemia Cancer (CMS/HCC) (HCC) Last Chem otherapy and radiation 2012 OAB (overactive bladder) Small bowel obstruction (CMS/HCC) (HCC) recurrent; last episode 10/2017 Intestinal obstruction (CMS/HCC) (HCC) 09/05/2017 Family History Medical History Relation Name Comments Heart attack Brother 1 1 Myocardial Infa rction; /Myocardial Infarction; Cause of : Myocardial Infarction Hypertension Brother 3 2 Hypertension; Hypertension Brother 4 Family history of hypertension - 05/17/13 (Added by TW Conv) Heart attack Father Myocardial Infa rction; Cause of : Myocardial Infarction Hypertension Father Family history of hypertension - 05/17/13 (Added by TW Conv) Coronary artery disease Mother Tonya nary Artery Bypass Graft; Diabetes Mother Family history of diabetes mellitus - (Added by TW Conv) Hypertension Mother Family history of hypertension - 05/17/13 (Added by TW Conv) Cancer Other AUNT Relation Name Status Comments Brother 1 1 Alive Brother 2 1 Brother 3 2 Alive Brother 4 Father Mother Alive Other AUNT Alive Social History Tobacco Use Types Packs/Day Years Used Date Smoking Tobacco: Former Cigarettes 1 42.5 1 956 - 10/21/1997 Smokeless Tobacco: Never Alcohol Use Standard Drinks/Week Comments No 0 (1 standard drink = 0.6 oz pur e alcohol) Social Connection and Isolat ion Panel [NHANES] Answer Date Recorded In a typical week, how many times do you talk on the phone with family, friends, or neighbors? More than three times a week 01/11/2020 How often do you get togethe r with friends or relatives? More than three times a week 01/11/2020 Attends Sikh Services Not on file 01/10 Active Member of Clubs or Organizations Not on f ile 01/11/2020 Attends Club or Organization Meetings Not on candi e 01/11/2020 Marital Status Not on file 01/11/2020 Overall Financial Resource Strain (CARDIA) Answe r Date Recorded How hard is it for you to pa y for the very basics like food, housing, medical care, and heating? Not hard at all 01/11/2020 PRAPARE - Transportation Answer Date Re corded In the past 12 months, has l ack of transportation kept you from medical appointments or from getting medications? No 09/2019 In the past 12 months, has l ack of transportation kept you from meetings, work, or from getting things needed for daily living? No 01/11/2020 Personal Safety Answer Date Recorded Have you ever been in or are you currently in a harmful physical or emotional relationship or is someone making you feel afraid or unsafe? Denies 12/11/2023 Comments No Sex and Gender Information Value Date Recorded Sex Assigned at Not on file Legal Sex Female 3:02 AM ELEMENTARY SCHOOL PROFESSIONAL Gender Identity Not on file Sexual Orientation Not on file Obstetrics History Last Filed Vital Signs Vital Sign Reading Time Taken Comments Blood Pressure 158/92 02/18/2024 10:42 AM ELEMENTARY SCHOOL PROFESSIONAL Pulse 78 02/18/2024 10:42 AM ELEMENTARY SCHOOL PROFESSIONAL Temperature 36.7 C (98 F) 12/11/2023 8:03 AM CDT Respiratory Rate 18 12/11/2023 8:03 AM CDT Oxygen Saturation 93% 02/18/2024 10:42 AM ELEMENTARY SCHOOL PROFESSIONAL Inhaled Oxygen Concentration - - Weight 67.6 kg (149 lb) 02/18/2024 10:42 AM ELEMENTARY SCHOOL PROFESSIONAL Height 162.6 cm (5' 4 ) 02/18/2024 10:42 AM ELEMENTARY SCHOOL PROFESSIONAL Body Mass Index 25.58 02/18/2024 10:42 AM ELEMENTARY SCHOOL PROFESSIONAL Plan of Treatment Health Maintenance Due Date Last Done Comments Depression Screening 1940 Osteoporosis Screening-Bone Density Scan 1939 DTaP/Tdap/Td Vaccine (1 - Tdap) 1950 Hepatitis B Screening 1957 Pneumococcal vaccine 65+ (1 of 1 - PCV) 2004 Well Visit 65+ 2004 Zoster Vaccine (2 of 3) 09/14/2018 07/20/2018, 05/11 Fall Risk Assessment 06/25/2023 06/24/2022 Influenza Vaccine (#1) 2023 0, 12/28/2018, 12/18/2017, Additional history exists Medical Devices Implanted Type Area Pet Nutrition Specialist Device Identifier Shelf Expiration Date Model / Serial / Lot [employer]/C R Bard [id number] Ventralight St Sepra 9x7in Uncoated Monofilament Lightweight - Sn/A - [id number] Implanted:Qty: 1 on 11/19/2017 by Daniel Rosa MD at [facility] Mesh N/A: Abdomen [employer] [id number] 03/04/2018 [id number] / N/A / [id number] Insurance MEDICARE SOLUTIONS [facility] MEDICARE AETNA MEDICARE Advance Directives For more information, please contact: [phone] * Full Code (Latest Code Status on File) Date Activated Date Inactivated Comments 06/20/2022 6:11 PM 06/24/2022 6:48 PM * Full Code Date Activated Date Inactivated Comments 08/20/2021 12:01 PM 08/22/2021 7:19 PM * Full Code Date Activated Date Inactivated Comments 01/11/2020 5:18 PM 01/13/2020 4:58 PM * Full Code Date Activated Date Inactivated Comments 11/19/2017 2:46 PM 11/22/2017 8:31 PM * Full Code Date Activated Date Inactivated Comments 10/22/2017 1:26 AM 10/24/2017 2:14 PM Care Teams Entry Level Staff Accountant Relationship Specialty Start Date End Date Melina Diaz DO PCP - General Family Medicine 05/13/19 Reece Weeks MD Medical Oncologist/Hi Ranger Operator Hematology and Oncology 05/01/18 Daniel Rosa MD [phone] [place] [address] Surgeon Colon and Rectal Surgery 01/25/21
--- OUTSIDE RECORDS SUMMARY | 2024-05-14 11:15 | XMS_ITS | Referral Summary ---
Author Organization [facility] Address [address] [place] [address] Care Team Providers Care Napper Grinder Name Role Phone Tal Arechiga MD Primary Care Provider [phone] Source Comments [facility],non-owned Affiliates and Associated Physician Practices is amultiple site organization consisting of ambulatory clinics and hospital sitesin [place], [place], [place] and [place]. This disclosure is being madepursuant to the Care Everywhere program and may not contain all information available regarding this patient. Last updated 17.[facility] [employer] Social History Tobacco Use Types Packs/Day Years Used Date Smoking Tobacco: Never Assessed Sex and Gender Information Value Date Recorded Sex Assigned at Not on file Gender Identity Not on file Sexual Orientation Not on file Plan of Treatment Not on file Care Teams Napper Grinder Relationship Specialty Start Date End Date Tal Arechiga MD [address] [place] [address] PCP - General 12/02/18
--- OUTSIDE RECORDS SUMMARY | 2024-05-14 11:15 | XMS_ITS | Clinical Summary ---
Author Organization [facility] Address [address] [place] [address] Care Team Providers Care Pneudraulic Systems Mechanic Name Role Phone Tal Arechiga MD Primary Care Provider [phone] Source Comments [facility],non-owned Affiliates and Associated Physician Practices is amultiple site organization consisting of ambulatory clinics and hospital sitesin [place], [place], [place] and [place]. This disclosure is being madepursuant to the Care Everywhere program and may not contain all information available regarding this patient. Last updated 17.[facility] Social History Tobacco Use Types Packs/Day Years Used Date Smoking Tobacco: Never Assessed Sex and Gender Information Value Date Recorded Sex Assigned at Not on file Gender Identity Not on file Sexual Orientation Not on file Plan of Treatment Health Maintenance Due Date Last Done Comments BONE DENSITY TESTING 1939 DTAP/TDAP/TD VACCINES (1 - Tdap) 1958 PNEUMOCOCCAL VACCINE 50+ (1 of 1 - PCV) 1989 ZOSTER VACCINE (1 of 2) 1989 Respiratory Syncytial Virus (RSV) Vaccine Pt: or over 60 yrs (1 - 1-dose 75+ series) 2014 COVID-19 VACCINE ( - 2023-2 5 season) 2023 INFLUENZA VACCINE (#1) 2023 DEPRESSION SCREENING 04/07/2024 MEDICARE AWV CALENDAR YEAR 2024 HEPATITIS B VACCINE Aged Out No longe r eligible based on patient's age to complete this topic HIB VACCINE Aged Out No longer eligi ble based on patient's age to complete this topic HPV VACCINE Aged Out No longer eligi ble based on patient's age to complete this topic MENINGOCOCCAL (Group B) VACCINE Aged Out No longer eligible based on patient's age to complete this topic MENINGOCOCCAL VACCINE Aged Out No archana janett eligible based on patient's age to complete this topic Care Teams Pneudraulic Systems Mechanic Relationship Specialty Start Date End Date Tal Arechiga MD [address] [place] [id number] PCP - General 12/02/18
--- OUTSIDE RECORDS SUMMARY | 2024-05-14 11:15 | XMS_ITS | Referral Summary ---
Author Organization [facility] Address [address] [place] [address] Care Team Providers Care Mechanical Cad Designer Name Role Phone Reece Weeks MD Unavailable [phone] Melina Diaz DO Primary Care Provider [phone] Daniel Rosa MD Unavailable [phone] Encounters Date Type Department Care Team Description 02/18/2024 Orders Only [facility] V[facility] at [address] [place] [phone] Dov Gabriel MD Infrarenal abdominal aortic aneurysm (AAA) without rupture (HCC) (Primary Dx) 02/18/2024 10:30 AM APPRENTICE MACHINIST OUTSIDE Office Visit [facility] at [address] [place] [address] Dov Gabriel MD Abdominal aortic aneurysm (AAA) without rupture, unspecified part (HCC) (Primary Dx); Essential hypertension; Mixed hyperlipidemia from Last 3 Months Allergies Active Allergy Reactions Criticality Noted Date [...] 02/23/2024 Assessment & Plan (02/23/2024 3:08 PM APPRENTICE MACHINIST OUTSIDE): 3.3 cm infrarenal abdominal aortic aneurysms. Discussed management of AAA with the patient with recommendation for ongoing surveillance and repair if evidence of rapid growth or approaching 5 cm. We will repeat the aortoiliac duplex in 1 year. Mixed hyperlipidemia 02/23/2024 Assessment & Plan (02/23/2024 3:08 PM APPRENTICE MACHINIST OUTSIDE): Stable continue simvastatin Abdominal pain 06/20/2022 SBO (small bowel obstruction) (CMS/HCC) 08/21/19 22 Colostomy care 02/12/2018 Vaginal bleeding 01/21/2018 Overview (01/21/2018): Added automatically from request for surgery [id number] Partial small bowel obstruction (CMS/HCC) 2017 Overview (10/15/2017): Added automatically from request for surgery [id number] Parastomal hernia with obstruction and without g angrene 10/15/2017 Overview (10/15/2017): Added automatically from request for surgery [id number] Intestinal obstruction (CMS/HCC) 09/05/2017 Essential hypertension 09/04/2017 Assessment & Plan (02/23/2024 3:08 PM APPRENTICE MACHINIST OUTSIDE): Stable continue lisinopril hydrochlorothiazide Coronary artery disease invo lving [place] coronary artery of [place] heart 10/29/2016 Malignant neoplasm of rectum (CMS/HCC) 3 Acute postoperative pain Generalized abdominal pain S/P exploratory laparotomy Resolved Problems Problem Noted Date Diagnosed Date Resolved Date Pruritus ani 12/09/2017 12/09/2017 Abdominal pain 09/05/2017 09/08/2017 Partial small bowel obstruction (CMS/HCC) 09/04/2017 09/08/2017 Immunizations Name Administration Dates Next Due Influenza, Unspecified 01/05/2020,12/06/2016,04/2015 Social History Tobacco Use Types Packs/Day Years [...] than three times a week 01/11/2020 Attends Rastafarian Services Not on file 01/10 Active Member [...] on file Legal Sex Female 3:02 AM APPRENTICE MACHINIST OUTSIDE Gender Identity Not on file Sexual Orientation Not on file Last Filed Vital Signs Vital Sign Reading Time Taken Comments Blood Pressure 158/92 02/18/2024 10:42 AM APPRENTICE MACHINIST OUTSIDE Pulse 78 02/18/2024 10:42 AM APPRENTICE MACHINIST OUTSIDE Temperature 36.7 C (98 F) 12/11/2023 8:03 AM CDT Respiratory Rate 18 12/11/2023 8:03 AM CDT Oxygen Saturation 93% 02/18/2024 10:42 AM APPRENTICE MACHINIST OUTSIDE Inhaled Oxygen Concentration - - Weight 67.6 kg (149 lb) 02/18/2024 10:42 AM APPRENTICE MACHINIST OUTSIDE Height 162.6 cm (5' 4 ) 02/18/2024 10:42 AM APPRENTICE MACHINIST OUTSIDE Body Mass Index 25.58 02/18/2024 10:42 AM APPRENTICE MACHINIST OUTSIDE Plan of Treatment Not on file Medical Devices Implanted Type Area Asset Manager Device Identifier Shelf Expiration Date Model / Serial / Lot [employer]/C R Bard [id number] Ventralight St Sepra 9x7in Uncoated Monofilament Lightweight - Sn/A - [id number] Implanted:Qty: 1 on 11/19/2017 by Daniel Rosa MD at [facility] Mesh N/A: Abdomen [employer] [id number] 03/04/2018 [id number] / N/A / [id number] Insurance MEDICARE SOLUTIONS Member Subscriber Plan / Payer (Ef fective 2016-Present) Name:Elvie Thakur Relation to Subscriber:Self Name:Blaze Elvie Madrigal Payer ID:[id number] (NAIC) Type:UHC MEDICARE Address: [place] [id number] [address] HMO REF [place] [address] AETNA MEDICARE [facility] MEDICARE Advance Directives For more information, please contact: [phone] * Full Code (Latest Code Status on [...] 1:26 AM 10/24/2017 2:14 PM Care Teams Mechanical Cad Designer Relationship Specialty Start Date End Date Melina Diaz DO PCP - General Family Medicine 05/13/19 Reece Weeks MD Medical Oncologist/Industrial Relations Representative Hematology and Oncology 05/01/18 Daniel Rosa MD [phone] [place] [address] Surgeon Colon and Rectal Surgery 01/25/21
--- OUTSIDE RECORDS SUMMARY | 2024-05-14 11:15 | XMS_ITS ---
Author Organization [facility] Address [address] [place] [address] Care Team Providers Care Fret Saw Operator Name Role Phone Reece Weeks MD Unavailable [phone] Melina Diaz DO Primary Care Provider [phone] Daniel Rosa MD Unavailable [phone] Active Problems Problem Noted Date Diagnosed Date Abdominal aortic aneurysm (AAA) without rupture 02/23/2024 Assessment & Plan (02/23/2024 3:08 PM POLYMER ENGINEER): 3.3 cm infrarenal abdominal aortic aneurysms. Discussed management of AAA with the patient with recommendation for ongoing surveillance and repair if evidence of rapid growth or approaching 5 cm. We will repeat the aortoiliac duplex in 1 year. Mixed hyperlipidemia 02/23/2024 Assessment & Plan (02/23/2024 3:08 PM POLYMER ENGINEER): Stable continue simvastatin Abdominal pain 06/20/2022 SBO (small bowel obstruction) (CMS/HCC) 08/21/19 22 Colostomy care 02/12/2018 Vaginal bleeding 01/21/2018 Overview (01/21/2018): Added automatically from request for surgery [id number] Partial small bowel obstruction (CMS/HCC) 2017 Overview (10/15/2017): Added automatically from request for surgery [id number] Parastomal hernia with obstruction and without g angrene 10/15/2017 Overview (10/15/2017): Added automatically from request for surgery [id number] Intestinal obstruction (CMS/HCC) 09/05/2017 Essential hypertension 09/04/2017 Assessment & Plan (02/23/2024 3:08 PM POLYMER ENGINEER): Stable continue lisinopril hydrochlorothiazide Coronary artery disease invo lving [place] coronary artery of [place] heart 10/29/2016 Malignant neoplasm of rectum (CMS/HCC) 3 Acute postoperative pain Generalized abdominal pain S/P exploratory laparotomy Current Oncology Plans No current plan information found. Past Plans No past plan information found. Radiation Treatments * No radiation treatments are documented for this patient in [facility]. Treatments may have been administered in another system. Lifetime Dose Tracking * Chemical Lifetime Dose Automatic Entry Manual Entr y DLP 4,631 mGycm 4,631 mGycm 0 mGycm Resolved Problems Problem Noted Date Diagnosed Date Resolved Date Pruritus ani 12/09/2017 12/09/2017 Abdominal pain 09/05/2017 09/08/2017 Partial small bowel obstruction (CMS/HCC) 09/04/2017 09/08/2017
[2024-05-14 14:30] LABS: Alanine Aminotransferase 32 U/L (6-35); Albumin Level 4.2 g/dL (3.5-5.1); Alkaline Phosphatase 123 U/L (38-126); Anion Gap 10 mmol/L (4-12); Aspartate Amino Transferase 39 U/L (14-36); Bilirubin,Total 0.6 mg/dL (0.2-1.3); Blood Urea Nitrogen 27 mg/dL (7-17); Calcium 9.3 mg/dL (8.4-10.2); Carbon Dioxide 29 mmol/L (22-30); Chloride 96 mmol/L (98-107); Cholesterol 149 mg/dL (0-200); Estimated Glomerular Filt Rate 42; Glucose 88 mg/dL (65-110); HDL Direct 67 mg/dL; Potassium 4.7 mmol/L (3.4-5.0); Sodium 135 mmol/L (137-145); Triglycerides 83 mg/dL (<150)
[2024-05-14 14:38] LABS: Creatinine Urine 13.2 mg/dL
[2024-05-14 14:41] LABS: Hemoglobin A1C 5.9 % (<5.7); LDL Cholesterol Direct 60 mg/dL
[2024-05-14 14:44] LABS: MALB Creatinine Ratio 577.3 mg/g (0-30); Microalbumin Urine Random 76.2 mg/L (0-16.7)
[2024-05-14 15:31] LABS: Creatinine Urine 13.5 mg/dL; Total Protein Urine Random 25 mg/dL; Ur Ttl Prot Creatinine Ratio 1.85 mg/mg (0-0.20)
[2024-05-14 17:31] LABS: Vitamin D 25 Hydroxy 52.4 ng/mL
== END 2024-05-14 10:29 | disposition home or self-care (01) ==
LOC: ANHGOSHLAB 10:31
PROVIDERS: Internal Medicine Nephrology; PCP Family Medicine; Visit Provider Nurse Practitioner
DX: I12.9 Hypertensive chronic kidney disease with stage 1 through stage 4 chronic kidney disease, or unspecified chronic kidney disease (principal); N18.4 Chronic kidney disease, stage 4 (severe); E78.00 Pure hypercholesterolemia, unspecified; R73.09 Other abnormal glucose; E55.9 Vitamin D deficiency, unspecified
CPT/HCPCS: 36415; 80053; 80061; 82043; 82306; 82570; 83036; 84156

== ENCOUNTER 2024-06-14 10:57 | Outpatient (CLI) | payer MEDICARE, SELFPAY ==
--- NOTE | ~2024-06-14 | CT_ITS ---
CT Scan of the Chest without Contrast: Clinical Indication: Pulmonary nodule Technique: Contiguous sections were acquired throughout the chest without intravenous contrast. Dose reduction technique was used on this scan by utilizing automated exposure control and iterative recon struction technique. The dose-length product (DLP) was 63.30 mGy-cm. COMPARISON: 01/26/2024 Findings: There is no evidence of any significant mediastinal, hilar or axillary lymphadenopathy. There are ext ensive atherosclerotic calcifications aorta and coronary arteries. There is no evidence of pleural or pericardial effusion. There is mild to moderate emphysema. There is mild biapical scarring. Stable 3 mm right upper lobe pu lmonary nodule (axial image 59). Stable 4 mm left lower lobe pulmonary nodule (axial image 70). Images through the upper abdomen reveal no abnormalities. Impression: Stable subcentimeter pulmonary nodules, as above. Mild to moderate emphysema. Reviewed, dictated and finalized at [facility]. Impression: Stable subcentimeter pulmonary nodules, as above. Mild to moderate emphysema.
--- OUTSIDE RECORDS SUMMARY | 2024-06-14 13:07 | XMS_ITS | Referral Summary ---
Author Organization [facility] Address [address] [place] [address] Care Team Providers Care Vocational Psychologist Name Role Phone Reece Weeks MD Unavailable [phone] Melina Diaz DO Primary Care Provider [phone] Daniel Rosa MD Unavailable [phone] Encounters Date Type Department Care Team Description 05/28/2024 8:02 AM [facility] - 05/31/2024 2:59 PM [facility] Hospital Encounter [address] [address] Rody Hooks MD Hunt, Steven R., MD Musleh, Amjad, MD SBO (small bowel obstruction) ([facility]) (Primary Dx) Discharge Disposition: Discharge to home or self care 05/28/2024 Telephone [facility] Surgeon [address] [place] [address] Prerna Ackerman MD from Last 3 Months Allergies Active Allergy [...] (six) hours as needed for wheezing Active polyethylene glycol (MIRALAX) 17 gram/dose bulk powderIndicatio ns:constipation Take 17 g by mouth daily 05/31/2024 Active Active Problems Problem Noted Date Diagnosed Date Abdominal aortic aneurysm (AAA) without rupture 02/23/2024 Assessment & Plan (02/23/2024 3:08 PM [facility]): 3.3 cm infrarenal abdominal aortic aneurysms. Discussed management of AAA with the patient with recommendation for ongoing surveillance and repair if evidence of rapid growth or approaching 5 cm. We will repeat the aortoiliac duplex in 1 year. 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/2018 Vaginal bleeding 01/21/2018 Overview (01/21/2018): Added automatically from request for surgery [id number] Partial small bowel obstruction 10/15/2017 Overview (10/15/2017): Added automatically from request for surgery [id number] Parastomal hernia with obstruction and without g angrene 10/15/2017 Overview (10/15/2017): Added automatically from request for surgery [id number] Intestinal obstruction 09/05/2017 Essential hypertension 09/04/2017 Assessment & Plan (02/23/2024 3:08 PM [facility]): Stable continue lisinopril hydrochlorothiazide Coronary artery disease invo lving [place] coronary artery of [place] heart 10/29/2016 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 Denies 05/28/2024 Comments No Sex and Gender Information Value Date Recorded Sex Assigned at Not on file Legal Sex Female 3:02 AM [facility] Gender Identity Not on file Sexual Orientation Not on file Last Filed Vital Signs Vital Sign Reading Time Taken Comments Blood Pressure 146/71 05/31/2024 8:40 AM [facility] Pulse 71 05/31/2024 8:40 AM [facility] Temperature 36.6 C (97.9 F) 05/31/2024 8:40 AM [facility] Respiratory Rate 18 05/31/2024 8:40 AM [facility] Oxygen Saturation 97% 05/31/2024 8:40 AM [facility] Inhaled Oxygen Concentration - - Weight 69.9 kg (154 lb) 05/28/2024 5:45 PM [facility] Height 160 cm (5' 3 ) 05/28/2024 5:45 PM [facility] Body Mass Index 27.28 05/28/2024 5:45 PM [facility] Plan of Treatment Not on file Medical Devices Implanted Type Area Drywall Taper Helper Device Identifier Shelf Expiration Date Model / Serial / Lot [employer]/C R Bard [id number] Ventralight St Sepra 9x7in Uncoated Monofilament Lightweight - Sn/A - [id number] Implanted:Qty: 1 on 11/19/2017 by Daniel Rosa MD at [facility] Mesh N/A: Abdomen [employer] [id number] 03/04/2018 [id number] / N/A / [id number] Procedures Procedure Name Priority Date/Time Associated Diagnosis Comments EGFR Routine 05/30/2024 9:30 PM [facility] BASIC METABOLIC PANEL Routine 05/30/2024 9:30 PM [facility] CBC WITHOUT DIFFERENTIAL Routine 05/30/2024 9:30 PM [facility] MAGNESIUM Routine 05/30/2024 9:30 PM [facility] PHOSPHORUS Routine 05/30/2024 9:30 PM [facility] EGFR Routine 05/29/2024 9:33 PM [facility] BASIC METABOLIC PANEL Routine 05/29/2024 9:33 PM [facility] CBC WITHOUT DIFFERENTIAL Routine 05/29/2024 9:33 PM [facility] MAGNESIUM Routine 05/29/2024 9:33 PM [facility] PHOSPHORUS Routine 05/29/2024 9:33 PM [facility] EGFR Routine 05/28/2024 10:48 PM [facility] BASIC METABOLIC PANEL Routine 05/28/2024 10:48 PM [facility] CBC WITHOUT DIFFERENTIAL Routine 05/28/2024 10:48 PM [facility] MAGNESIUM Routine 05/28/2024 10:48 PM [facility] PHOSPHORUS Routine 05/28/2024 10:48 PM [facility] DIFFERENTIAL AUTO STAT 05/28/2024 1:5 9 PM [facility] CBC WITH AUTO DIFFERENTIAL STAT 05/28/2024 1:59 PM [facility] XR ABDOMEN AP 1 VIEW ED Urgent/IP Urgent 05/28/2024 12:55 PM [facility] XR CHEST 1 VIEW ED 05/28/2024 12:51 PM [facility] URINALYSIS, MICROSCOPIC ONLY STAT 05/28/2024 11:53 AM [facility] URINALYSIS AND REFLEX TO MICROSCOPIC STAT 05/28/2024 11:53 AM [facility] CT ABDOMEN PELVIS W CONTRAST ED 05/28/2024 10:01 AM [facility] ECG 12-LEAD Routine 05/28/2024 9:35 AM [facility] CBC WITH AUTO DIFFERENTIAL STAT 05/28/2024 9:02 AM [facility] SEPSIS LACTATE WITH REFLEX STAT 05/28/2024 8:30 AM [facility] TYPE AND SCREEN STAT 05/28/2024 8:30 AM [facility] EGFR STAT 05/28/2024 7:51 AM [facility] COMPREHENSIVE METABOLIC PANEL STAT 05/28/2024 7:51 AM [facility] from Last 3 Months Results * (ABNORMAL) eGFR (05/30/2024 9:30 PM [facility]) eGFR 41(L) >=60 mL/min/1. 73 m2 Comment: Interpretive Data Reference Interval Normal >/= 90 mL/min/1.73m2 Mildly decreased* 60 - 89 mL/min/1.73m2 Mildly to moderately decreased 45 - 59 mL/min/1.73m2 Moderately to severely decreased 30 - 44 mL/min/1.73m2 Severely decreased 15 - 29 mL/min/1.73m2 Kidney Failure < 15 mL/min/1.73m2 *Relative to young adult level Estimated glomerular filtration rate is determined by the 2020 CKD-EPI equation recommended by the National Kidney Foundation (A Unifying Approach to GFR Estimation: Recommendations of the NKF-ASK Task Force on Reassessing the Inclusion of Race in Diagnosing Kidney Disease, JASN 2020). The CKD-EPI equation should not be used for patients with unstable renal function and has not been validated in children and those over 70. Current interpretive data was last reviewed 2021. Blood 05/30/2024 9:30 PM [facility] 05/30/2024 10:09 PM [facility] Daniel Rosa MD LAB BLOOD ORDERABLES Final Res ult [facility] [place] [address] * (ABNORMAL) CBC without differential (05/30/2024 9:30 PM [facility]) Pathologist [facility] [place] WBC 7.0 3.8 - 9.9 K/cumm Hgb 11.9 11.9 - 15.5 g/dL [facility] Hct 35.2(L) 35.6 - 45.5 % [facility] Plt 187 150 - 400 K/cumm [facility] MPV 10.5 9.1 - 12.3 fL [facility] RBC 3.74(L) 3.90 - 5.20 M/cumm [facility] MCV 94.1 81.3 - 96.4 fL [facility] MCH 31.8 27.1 - 33.3 pg [facility] MCHC 33.8 32.3 - 35.7 g/dL [facility] RDW CV 13.0 11.1 - 14.9 % [facility] RDW SD 44.6 35.7 - 48.1 fL [facility] NRBC abs 0.00 0.00 - 0.01 K/cumm [facility] Blood 05/30/2024 9:30 PM [facility] 05/30/2024 10:10 PM [facility] us Daniel Rosa MD LAB BLOOD ORDERABLES Final Res ult [facility] [place] [address] * (ABNORMAL) Phosphorus (05/30/2024 9:30 PM [facility]) Phosphorus, pl 1.8(L) 2.3 - 4.5 mg/dL Blood 05/30/2024 9:30 PM [facility] 05/30/2024 10:09 PM [facility] Daniel Rosa MD LAB BLOOD ORDERABLES Final Res ult Performing Organization Address City/[facility] Co de Phone Number [facility] [place] [address] * Magnesium (05/30/2024 9:30 PM [facility]) Pathologist [facility] [place] Magnesium 1.8 1.4 - 2.5 mg/dL Blood 05/30/2024 9:30 PM [facility] 05/30/2024 10:09 PM [facility] Daniel Rosa MD LAB BLOOD ORDERABLES Final Res ult Performing Organization Address [facility] de Phone Number [facility] [place] [address] * (ABNORMAL) Basic metabolic panel (05/30/2024 9:30 PM [facility]) [facility] Sodium 142 135 - 145 mmol/L Potassium, pl 3.7 3.3 - 4.9 mmol/L [facility] Chloride 105 97 - 110 mmol/L [facility] CO2 30 22 - 32 mmol/L [facility] Anion gap 7 2 - 15 mmol/L [facility] BUN 19 6 - 25 mg/dL [facility] Creatinine 1.28(H) 0.60 - 1.10 mg/dL [facility] Glucose 101 70 - 199 mg/dL [facility] Comment: Interpretive Data Fasting glucose >/= 126 mg/dl is diagnostic for diabetes. Fasting is defined as no caloric intake for at least 8 hours. Fasting glucose between 100 mg/dl to 125 mg/dl is diagnostic of prediabetes. In a patient with classic symptoms of hyperglycemia or hyperglycemic crisis, a random glucose >/= 200 mg/dl is diagnostic for diabetes. In the absence of unequivocal hyperglycemia, results should be confirmed by repeat testing. The classification and Diagnosis of Diabetes Diabetes Care 2021; 46: S19-S40. Current interpretive data was last revised 2022. Calcium 8.8 8.5 - 10.3 mg/dL [facility] Blood 05/30/2024 9:30 PM [facility] 05/30/2024 10:09 PM [facility] Daniel Rosa MD LAB BLOOD ORDERABLES Final Res ult Performing Organization Address City/[facility]/ZIP Co de Phone Number [facility] [place] [address] * (ABNORMAL) eGFR (05/29/2024 9:33 PM [facility]) Pathologist [facility] [place] eGFR 39(L) >=60 mL/min/1. 73 m2 Comment: Interpretive Data Reference Interval Normal >/= 90 mL/min/1.73m2 Mildly decreased* 60 - 89 mL/min/1.73m2 Mildly to moderately decreased 45 - 59 mL/min/1.73m2 Moderately to severely decreased 30 - 44 mL/min/1.73m2 Severely decreased 15 - 29 mL/min/1.73m2 Kidney Failure < 15 mL/min/1.73m2 *Relative to young adult level Estimated glomerular filtration rate is determined by the 2020 CKD-EPI equation recommended by the National Kidney Foundation (A Unifying Approach to GFR Estimation: Recommendations of the NKF-ASK Task Force on Reassessing the Inclusion of Race in Diagnosing Kidney Disease, JASN 2020). The CKD-EPI equation should not be used for patients with unstable renal function and has not been validated in children and those over 70. Current interpretive data was last reviewed 2021. Blood 05/29/2024 9:33 PM [facility] 05/29/2024 10:21 PM [facility] us Daniel Rosa MD LAB BLOOD ORDERABLES Final Res ult Performing Organization Address City/[facility]/ZIP Co de Phone Number [facility] [place] [address] * (ABNORMAL) CBC without differential (05/29/2024 9:33 PM [facility]) Pathologist [facility] [place] WBC 7.3 3.8 - 9.9 K/cumm Hgb 12.3 11.9 - 15.5 g/dL [facility] Hct 37.2 35.6 - 45.5 % [facility] Plt 185 150 - 400 K/cumm [facility] MPV 10.1 9.1 - 12.3 fL [facility] RBC 3.89(L) 3.90 - 5.20 M/cumm [facility] MCV 95.6 81.3 - 96.4 fL [facility] MCH 31.6 27.1 - 33.3 pg [facility] MCHC 33.1 32.3 - 35.7 g/dL [facility] RDW CV 13.2 11.1 - 14.9 % [facility] RDW SD 46.6 35.7 - 48.1 fL [facility] NRBC abs 0.00 0.00 - 0.01 K/cumm [facility] Blood 05/29/2024 9:33 PM [facility] 05/29/2024 10:20 PM [facility] Daniel Rosa MD LAB BLOOD ORDERABLES Final Res ult Performing Organization Address City/[facility]/ZIP Co de Phone Number [facility] [place] [address] * (ABNORMAL) Phosphorus (05/29/2024 9:33 PM [facility]) [facility] Phosphorus, pl 2.0(L) 2.3 - 4.5 mg/dL Blood 05/29/2024 9:33 PM [facility] 05/29/2024 10:21 PM [facility] Daniel Rosa MD LAB BLOOD ORDERABLES Final Res ult [facility] [place] [address] * Magnesium (05/29/2024 9:33 PM [facility]) Magnesium 1.9 1.4 - 2.5 mg/dL Blood 05/29/2024 9:33 PM [facility] 05/29/2024 10:21 PM [facility] Daniel Rosa MD LAB BLOOD ORDERABLES Final Res ult Performing Organization Address [facility] Co de Phone Number [facility] [place] [address] * (ABNORMAL) Basic metabolic panel (05/29/2024 9:33 PM [facility]) Pathologist [facility] [place] Sodium 141 135 - 145 mmol/L Potassium, pl 3.7 3.3 - 4.9 mmol/L [facility] Chloride 105 97 - 110 mmol/L [facility] CO2 31 22 - 32 mmol/L [facility] Anion gap 5 2 - 15 mmol/L [facility] BUN 15 6 - 25 mg/dL [facility] Creatinine 1.35(H) 0.60 - 1.10 mg/dL [facility] Glucose 91 70 - 199 mg/dL [facility] Comment: Interpretive Data Fasting glucose >/= 126 mg/dl is diagnostic for diabetes. Fasting is defined as no caloric intake for at least 8 hours. Fasting glucose between 100 mg/dl to 125 mg/dl is diagnostic of prediabetes. In a patient with classic symptoms of hyperglycemia or hyperglycemic crisis, a random glucose >/= 200 mg/dl is diagnostic for diabetes. In the absence of unequivocal hyperglycemia, results should be confirmed by repeat testing. The classification and Diagnosis of Diabetes Diabetes Care 202; 46: S19-S40. Current interpretive data was last revised 2022. Calcium 9.1 8.5 - 10.3 mg/dL [facility] Blood 05/29/2024 9:33 PM [facility] 05/29/2024 10:21 PM [facility] Daniel Rosa MD LAB BLOOD ORDERABLES Final Res ult Performing Organization Address [facility] Co de Phone Number [facility] [place] [address] * (ABNORMAL) eGFR (05/28/2024 10:48 PM [facility]) [facility] eGFR 39(L) >=60 mL/min/1. 73 m2 Comment: Interpretive Data Reference Interval Normal >/= 90 mL/min/1.73m2 Mildly decreased* 60 - 89 mL/min/1.73m2 Mildly to moderately decreased 45 - 59 mL/min/1.73m2 Moderately to severely decreased 30 - 44 mL/min/1.73m2 Severely decreased 15 - 29 mL/min/1.73m2 Kidney Failure < 15 mL/min/1.73m2 *Relative to young adult level Estimated glomerular filtration rate is determined by the 2020 CKD-EPI equation recommended by the National Kidney Foundation (A Unifying Approach to GFR Estimation: Recommendations of the NKF-ASK Task Force on Reassessing the Inclusion of Race in Diagnosing Kidney Disease, JASN 2020). The CKD-EPI equation should not be used for patients with unstable renal function and has not been validated in children and those over 70. Current interpretive data was last reviewed 2021. Blood 05/28/2024 10:4 8 PM [facility] 05/28/2024 11:07 PM [facility] us Daniel Rosa MD LAB BLOOD ORDERABLES Final Res ult [facility] [place] [address] * (ABNORMAL) CBC without differential (05/28/2024 10:48 PM [facility]) [facility] WBC 10.8(H) 3.8 - 9.9 K/cumm Hgb 12.2 11.9 - 15.5 g/dL [facility] Hct 35.8 35.6 - 45.5 % [facility] Plt 195 150 - 400 K/cumm [facility] MPV 10.2 9.1 - 12.3 fL [facility] RBC 3.77(L) 3.90 - 5.20 M/cumm [facility] MCV 95.0 81.3 - 96.4 fL [facility] MCH 32.4 27.1 - 33.3 pg [facility] MCHC 34.1 32.3 - 35.7 g/dL [facility] RDW CV 13.5 11.1 - 14.9 % [facility] RDW SD 46.9 35.7 - 48.1 fL [facility] NRBC abs 0.00 0.00 - 0.01 K/cumm [facility] Blood 05/28/2024 10:4 8 PM [facility] 05/28/2024 11:07 PM [facility] Daniel Rosa MD LAB BLOOD ORDERABLES Final Res ult Performing Organization Address City/[facility] Co de Phone Number [facility] [place] [address] * Phosphorus (05/28/2024 10:48 PM [facility]) Phosphorus, pl 3.3 2.3 - 4.5 mg/dL Blood 05/28/2024 10:4 8 PM [facility] 05/28/2024 11:07 PM [facility] Daniel Rosa MD LAB BLOOD ORDERABLES Final Res ult Performing Organization Address [facility] Co de Phone Number [facility] [place] [address] * Magnesium (05/28/2024 10:48 PM [facility] C[facility]) Magnesium 1.8 1.4 - 2.5 mg/dL Blood 05/28/2024 10:4 8 PM [facility] 05/28/2024 11:07 PM [facility] Daniel Rosa MD LAB BLOOD ORDERABLES Final Res ult Performing Organization Address City/[facility] Co de Phone Number [facility] [place] [address] * (ABNORMAL) Basic metabolic panel (05/28/2024 10:48 PM BR[facility] CUTTER) Pathologist [facility] [place] Sodium 141 135 - 145 mmol/L Potassium, pl 4.0 3.3 - 4.9 mmol/L [facility] Comment:Repeated and Verifie d Chloride 104 97 - 110 mmol/L [facility] CO2 31 22 - 32 mmol/L [facility] Anion gap 6 2 - 15 mmol/L [facility] BUN 19 6 - 25 mg/dL [facility] Creatinine 1.33(H) 0.60 - 1.10 mg/dL [facility] Glucose 105 70 - 199 mg/dL [facility] Comment: Interpretive Data Fasting glucose >/= 126 mg/dl is diagnostic for diabetes. Fasting is defined as no caloric intake for at least 8 hours. Fasting glucose between 100 mg/dl to 125 mg/dl is diagnostic of prediabetes. In a patient with classic symptoms of hyperglycemia or hyperglycemic crisis, a random glucose >/= 200 mg/dl is diagnostic for diabetes. In the absence of unequivocal hyperglycemia, results should be confirmed by repeat testing. The classification and Diagnosis of Diabetes Diabetes Care 202; 46: S19-S40. Current interpretive data was last revised 2022. Calcium 9.4 8.5 - 10.3 mg/dL [facility] Blood 05/28/2024 10:4 8 PM [facility] 05/28/2024 11:07 PM [facility] us Daniel Rosa MD LAB BLOOD ORDERABLES Final Res ult [facility] Department [place] [address] * (ABNORMAL) Differential, auto (05/28/2024 1:59 PM [facility]) [facility] Neutrophil abs 10.7(H) 1.5 - 6.5 K/cumm Imm gran abs 0.0 0.0 - 0.1 K/cumm [facility] Lymphocyte abs 0.8 0.8 - 3.3 K/cumm [facility] Monocyte abs 1.0(H) 0.2 - 0.8 K/cumm [facility] Eosinophil abs 0.0 0.0 - 0.5 K/cumm [facility] Basophil abs 0.0 0.0 - 0.1 K/cumm [facility] Neutrophil pct 85.0 % [facility] Comment: Interpretive Data Percent cell count reference ranges are not reported, since discordance with absolute values may lead to misinterpretation of CBC data. Current Interpretive Data was last revised on 2017. Imm gran pct 0.3 % [facility] Comment: Interpretive Data Percent cell count reference ranges are not reported, since discordance with absolute values may lead to misinterpretation of CBC data. Current Interpretive Data was last revised on 2017. Lymphocyte pct 6.2 % [facility] Comment: Interpretive Data Percent cell count reference ranges are not reported, since discordance with absolute values may lead to misinterpretation of CBC data. Current Interpretive Data was last revised on 2017. Monocyte pct 8.0 % [facility] Comment: Interpretive Data Percent cell count reference ranges are not reported, since discordance with absolute values may lead to misinterpretation of CBC data. Current Interpretive Data was last revised on 2017. Eosinophil pct 0.2 % [facility] Comment: Interpretive Data Percent cell count reference ranges are not reported, since discordance with absolute values may lead to misinterpretation of CBC data. Current Interpretive Data was last revised on 2017. Basophil pct 0.3 % [facility] Comment: Interpretive Data Percent cell count reference ranges are not reported, since discordance with absolute values may lead to misinterpretation of CBC data. Current Interpretive Data was last revised on 2017. Blood 05/28/2024 1:59 PM [facility] 05/28/2024 2:12 PM [facility] us Daniel Rosa MD LAB BLOOD ORDERABLES Final Res ult [facility] [place] [address] * (ABNORMAL) CBC with auto differential (05/28/2024 1:59 PM [facility] CUTTER) WBC 12.6(H) 3.8 - 9.9 K/cumm Hgb 13.0 11.9 - 15.5 g/dL [facility] Hct 38.5 35.6 - 45.5 % [facility] Plt 212 150 - 400 K/cumm [facility] MPV 10.6 9.1 - 12.3 fL [facility] RBC 4.07 3.90 - 5.20 M/cumm [facility] MCV 94.6 81.3 - 96.4 fL [facility] MCH 31.9 27.1 - 33.3 pg [facility] MCHC 33.8 32.3 - 35.7 g/dL [facility] RDW CV 13.4 11.1 - 14.9 % [facility] RDW SD 46.6 35.7 - 48.1 fL [facility] NRBC abs 0.00 0.00 - 0.01 K/cumm [facility] Blood 05/28/2024 1:59 PM [facility] 05/28/2024 2:12 PM [facility] us Daniel Rosa MD LAB BLOOD ORDERABLES Final Res ult [facility] [place] [address] * XR Abdomen Ap 1 Vw (05/28/2024 12:55 PM BR[facility] CUTTER) Anatomical Region Laterality Modality Body, Abdomen N/A Computed Radiogr aphy 05/28/2024 1:03 PM [facility] Impressions 05/28/2024 1:03 PM [facility] Side port of the gastric tube projects over the stomach. Electronically signed by: Nigel Nichols M.D. Narrative 05/28/2024 1:03 PM [facility] EXAMINATION: Abdomen, one view. HISTORY: Gastric tube COMPARISON: Same-day CT Procedure Note Nigel Nichols MD - 05/28/2024 EXAMINATION: Abdomen, one view. HISTORY: Gastric tube COMPARISON: Same-day CT IMPRESSION: Side port of the gastric tube projects over the stomach. Electronically signed by: Nigel Nichols M.D. Daphney Lao MD [facility] XR PROCEDURES Final Result * XR Chest 1 Vw Portable (05/28/2024 12:51 PM BR[facility] OR BR[facility]OM CUTTER) Anatomical Region Laterality Modality Body, Chest N/A Computed Radiogr aphy 05/28/2024 12:5 5 PM [facility] Impressions 05/28/2024 12:55 PM [facility] Comparison to 10/21/2017. Tortuous descending thoracic aorta is again seen. Heart size is within normal limits. There are some mild linear opacities in the left lung base, likely partial atelectasis. No pneumothorax or pleural effusion. Electronically signed by: Nigel Nichols M.D. Narrative 05/28/2024 12:55 PM [facility] EXAMINATION: 1 view chest radiograph Procedure Note Nigel Nichols MD - 05/28/2024 EXAMINATION: 1 view chest radiograph IMPRESSION: Comparison to 10/21/2017. Tortuous descending thoracic aorta is again seen. Heart size is within normal limits. There are some mild linear opacities in the left lung base, likely partial atelectasis. No pneumothorax or pleural effusion. Electronically signed by: Nigel Nichols M.D. Daphney Lao MD [facility] XR PROCEDURES Final Result * (ABNORMAL) Urinalysis reflex to microscopic (05/28/2024 11:53 AM BRUSH OR BROOM CUTTER) Color, ur Straw Yellow Clarity, ur Clear Clear [facility] Specific gravity, ur 1.029 1.003 - 1.030 [facility] pH, urine 7.5 [facility] Comment: Interpretive Data U rine pH is affected by diet, medications, systemic acid-base disturbances, and renal tubular function. pH may affect urinary stone formation. For example, urine pH below 6.0 may help reduce the tendency for calcium phosphate stones and pH greater than 6.0 may reduce the tendency for uric acid stone formation. Source: MyStream Current Interpretive Data was last revised on 2017 Protein, ur ql Trace Negative [facility] Glucose, ur ql Negative Negative [facility] Ketones, ur Negative Negative [facility] Bilirubin, ur Negative Negative [facility] Blood, ur Negative Negative [facility] Urobilinogen, ur <2.0 <2.0 mg/dL [facility] Nitrite, ur Negative Negative [facility] Leukocyte esterase, ur 3+(A) Negative [facility] UA reflex comment Reflex to microscopic UA will be performed. [facility] Urine 05/28/2024 11:5 3 AM BRUSH OR BROOM CUTTER 05/28/2024 1:39 PM BRUSH OR BROOM CUTTER Rody Hooks MD LAB URINE ORDERABLES Final Result Performing Organization Address [facility] Co de Phone Number [facility] Department [place] [address] * (ABNORMAL) Urinalysis, microscopic only (05/28/2024 11:53 AM BRUSH OR BROOM CUTTER) WBC, ur 21-50(A) 0 - 5 /HPF RBC, ur 6-10(A) 0 - 2 /HPF [facility] Epithelial cells, squamous, ur 1-5 0 - 5 /HPF [facility] Bacteria, ur Trace(A) [facility] Mucous, ur Present(A) [facility] Urine 05/28/2024 11:5 3 AM BRUSH OR BROOM CUTTER 05/28/2024 1:39 PM BRUSH OR BROOM CUTTER us Rody Hooks MD LAB URINE ORDERABLES Final Result Performing Organization Address [facility] Co de Phone Number [facility] [place] [address] * CT Abdomen Pelvis W Contrast (05/28/2024 10:01 AM BRUSH OR BROOM CUTTER) Anatomical Region Laterality Modality Body N/A Computed Tomogra phy 05/28/2024 11:0 0 AM BRUSH OR BROOM CUTTER Impressions 05/28/2024 11:07 AM BRUSH OR BROOM CUTTER Multiple mildly dilated fluid-filled small bowel with gradual transition to nondilated small bowel in the right hemipelvis with enhancement and thickening of the ileum in this region compatible with enteritis and partial small bowel obstruction. Dictated by: Jerrell Gracia M.D. The radiology attending physician has personally reviewed this study, and had reviewed and/or edited this written report and agrees with it. Electronically signed by: Nigel Nichols M.D. Narrative 05/28/2024 11:07 AM BRUSH OR BROOM CUTTER EXAMINATION: Computed tomography of the abdomen and pelvis with intravenous contrast HISTORY: 84-year-old with history of rectal cancer status post resection with complication with small bowel obstructions presenting with abdominal pain, nausea, and vomiting. TECHNIQUE: Transaxial computed tomographic images of the abdomen and pelvis were obtained with intravenous contrast according to the standard protocol after the uneventful administration of 69 mL Opti-Ray 350 intravenous contrast. COMPARISON: CT abdomen pelvis dated 12/11/2023 FINDINGS: Imaged lung bases are clear. Mucous impacted bronchus of the left lower lobe. Heart size is normal. No pericardial effusion. No pleural effusion. No liver lesion. No intrahepatic or extra hepatic biliary duct dilatation. Gallbladder is normal. Adrenal glands are normal. Spleen is normal. Pancreas is normal. Kidneys are mildly atrophic. Kidneys enhance symmetrically. There is mild right hydronephrosis. No obstructing kidney stone. Bladder is decompressed with Roberts. Uterus is present. No suspicious adnexal mass. Post surgical changes from a sigmoidectomy and colostomy formation. There are dilated and nondilated loops of small bowel in the pelvis. Multiple mildly dilated fluid-filled small bowel with gradual transition to nondilated small bowel in the right hemipelvis consistent with partial small bowel obstruction. There is inflammation, bowel wall thickening, enhancement of the terminal ileum compatible with enteritis. No pneumoperitoneum. Small amount of ascites. Abdominal aorta is normal in course and caliber with severe atherosclerosis. No abdominal or pelvic lymphadenopathy. Old rib fractures. No suspicious osseous lesion. Procedure Note Nigel Nichols MD - 05/28/2024 EXAMINATION: Computed tomography of the abdomen and pelvis with intravenous contrast HISTORY: 84-year-old with history of rectal cancer status post resection with complication with small bowel obstructions presenting with abdominal pain, nausea, and vomiting. TECHNIQUE: Transaxial computed tomographic images of the abdomen and pelvis were obtained with intravenous contrast according to the standard protocol after the uneventful administration of 69 mL Opti-Ray 350 intravenous contrast. COMPARISON: CT abdomen pelvis dated 12/11/2023 FINDINGS: Imaged lung bases are clear. Mucous impacted bronchus of the left lower lobe. Heart size is normal. No pericardial effusion. No pleural effusion. No liver lesion. No intrahepatic or extra hepatic biliary duct dilatation. Gallbladder is normal. Adrenal glands are normal. Spleen is normal. Pancreas is normal. Kidneys are mildly atrophic. Kidneys enhance symmetrically. There is mild right hydronephrosis. No obstructing kidney stone. Bladder is decompressed with Roberts. Uterus is present. No suspicious adnexal mass. Post surgical changes from a sigmoidectomy and colostomy formation. There are dilated and nondilated loops of small bowel in the pelvis. Multiple mildly dilated fluid-filled small bowel with gradual transition to nondilated small bowel in the right hemipelvis consistent with partial small bowel obstruction. There is inflammation, bowel wall thickening, enhancement of the terminal ileum compatible with enteritis. No pneumoperitoneum. Small amount of ascites. Abdominal aorta is normal in course and caliber with severe atherosclerosis. No abdominal or pelvic lymphadenopathy. Old rib fractures. No suspicious osseous lesion. IMPRESSION: Multiple mildly dilated fluid-filled small bowel with gradual transition to nondilated small bowel in the right hemipelvis with enhancement and thickening of the ileum in this region compatible with enteritis and partial small bowel obstruction. Dictated by: Jerrell Gracia M.D. The radiology attending physician has personally reviewed this study, and had reviewed and/or edited this written report and agrees with it. Electronically signed by: Nigel Nichols M.D. Daphney Lao MD [facility] CT PROCEDURES Final Result * ECG 12-LEAD (05/28/2024 9:35 AM BRUSH OR BROOM CUTTER) Narrative [facility] - 05/28/2024 9:35 AM BRUSH OR BROOM CUTTER Rody Hooks MD 05/28/2024 9:37 AM ECG 12 lead Date/Time: 05/28/2024 9:35 AM Performed by: Rody Hooks MD Authorized by: Daphney Lao MD Rate: ECG rate: 68 ECG rate assessment: normal Rhythm: Rhythm: sinus rhythm Ectopy: Ectopy: none QRS: QRS axis: Normal QRS intervals: Normal Conduction: Conduction: normal ST segments: ST segments: Normal T waves: T waves: normal Other findings: Other findings: LVH Previous ECG: Previous ECG: Compared to current Date of previous EC08/20/2021 Similarity: No change Interpretation: Interpretation: No significant change Recommended Follow-up: Recommended follow up: further workup in the ED Procedure Note Rody Hooks MD - 05/28/2024 9:35 AM CST Procedure ECG 12 lead Date/Time: 05/28/2024 9:35 AM Performed by: Rody Hooks MD Authorized by: Daphney Lao MD Rate: ECG rate: 68 ECG rate assessment: normal Rhythm: Rhythm: sinus rhythm Ectopy: Ectopy: none QRS: QRS axis: Normal QRS intervals: Normal Conduction: Conduction: normal ST segments: ST segments: Normal T waves: T waves: normal Other findings: Other findings: LVH Previous ECG: Previous ECG: Compared to current Date of previous EC08/20/2021 Similarity: No change Interpretation: Interpretation: No significant change Recommended Follow-up: Recommended follow up: further workup in the ED Rdoy Hooks MD 05/28/24 0937 Daphney Lao MD ECG ORDERABLES Final Result [facility] * CBC with auto differential (05/28/2024 9:02 AM BRUSH OR BROOM CUTTER) WBC See Comment 3.8 - 9.9 Comment: Credited, specimen clotted. Telephone report made to: Nabila Stokes RN on 05/28/2024 10:10:30 BRUSH OR BROOM CUTTER by MT. UMAIR Hgb See Comment 11.9 - 15.5 [facility] Comment: Credited, specimen clotted. Telephone report made to: Nabila Stokes RN on 05/28/2024 10:10:30 BRUSH OR BROOM CUTTER by MT. UMAIR Hct See Comment 35.6 - 45.5 [facility] Comment: Credited, specimen clotted. Telephone report made to: Nabila Stokes RN on 05/28/2024 10:10:30 BRUSH OR BROOM CUTTER by MT. UMAIR Plt See Comment 150 - 400 [facility] Comment: Credited, specimen clotted. Telephone report made to: Nabila Stokes RN on 05/28/2024 10:10:30 BRUSH OR BROOM CUTTER by MT. UMAIR RBC See Comment 3.90 - 5.20 [facility] Comment: Credited, specimen clotted. Telephone report made to: Nabila Stokes RN on 05/28/2024 10:10:30 BRUSH OR BROOM CUTTER by MT. UMAIR MCV See Comment 81.3 - 96.4 [facility] Comment: Credited, specimen clotted. Telephone report made to: Nabila Stokes RN on 05/28/2024 10:10:30 BRUSH OR BROOM CUTTER by MT. UMAIR MCH See Comment 27.1 - 33.3 [facility] Comment: Credited, specimen clotted. Telephone report made to: Nabila Stokes RN on 05/28/2024 10:10:30 BRUSH OR BROOM CUTTER by MT. UMAIR MCHC See Comment 32.3 - 35.7 [facility] Comment: Credited, specimen clotted. Telephone report made to: Nabila Stokes RN on 05/28/2024 10:10:30 BRUSH OR BROOM CUTTER by MT. MARA BLOCK CV See Comment 11.1 - 14.9 [facility] Comment: Credited, specimen clotted. Telephone report made to: Nabila Stokes RN on 05/28/2024 10:10:30 BRUSH OR BROOM CUTTER by MT. MARA BLOCK SD See Comment 35.7 - 48.1 [facility] Comment: Credited, specimen clotted. Telephone report made to: Nabila Stokes RN on 05/28/2024 10:10:30 BRUSH OR BROOM CUTTER by MT. UMAIR Blood 05/28/2024 9:02 AM BRUSH OR BROOM CUTTER 05/28/2024 9:10 AM BRUSH OR BROOM CUTTER us Rody Hooks MD LAB BLOOD ORDERABLES Edite d Result - Final [facility] Department [place] [address] * Sepsis Lactate w/ Reflex (05/28/2024 8:30 AM BRUSH OR BROOM CUTTER) [facility] Sepsis Lactate 1.6 0.7 - 2.0 mmol/L Blood 05/28/2024 8:30 AM BRUSH OR BROOM CUTTER 05/28/2024 9:07 AM BRUSH OR BROOM CUTTER Daphney Lao MD LAB BLOOD ORDERABLES Final Res ult [facility] [place] [address] * Type and screen (05/28/2024 8:30 AM BRUSH OR BROOM CUTTER) Pathologist [facility] Lucía, indirect Negative ABO Rh O Positive [facility] Blood 05/28/2024 8:30 AM BRUSH OR BROOM CUTTER 05/28/2024 9:10 AM BRUSH OR BROOM CUTTER Narrative [facility] - 05/28/2024 9:58 AM BRUSH OR BROOM CUTTER Has the patient had Daratumumab or Isatuximab in the past 6 months?->Unknown Daphney Lao MD LAB BLOOD BANK TEST ORDERABLES Final Result [facility] [place] [address] * (ABNORMAL) eGFR (05/28/2024 7:51 AM BRUSH OR BROOM CUTTER) [facility] eGFR 34(L) >=60 mL/min/1. 73 m2 Comment: Interpretive Data Reference Interval Normal >/= 90 mL/min/1.73m2 Mildly decreased* 60 - 89 mL/min/1.73m2 Mildly to moderately decreased 45 - 59 mL/min/1.73m2 Moderately to severely decreased 30 - 44 mL/min/1.73m2 Severely decreased 15 - 29 mL/min/1.73m2 Kidney Failure < 15 mL/min/1.73m2 *Relative to young adult level Estimated glomerular filtration rate is determined by the 2020 CKD-EPI equation recommended by the National Kidney Foundation (A Unifying Approach to GFR Estimation: Recommendations of the NKF-ASK Task Force on Reassessing the Inclusion of Race in Diagnosing Kidney Disease, JASN 2020). The CKD-EPI equation should not be used for patients with unstable renal function and has not been validated in children and those over 70. Current interpretive data was last reviewed 2021. Blood 05/28/2024 7:51 AM BRUSH OR BROOM CUTTER 05/28/2024 7:59 AM BRUSH OR BROOM CUTTER us Tomasz Harrison MD PhD LAB BLOOD ORDERABLE S Final Result [facility] Department [place] [address] * (ABNORMAL) Comprehensive metabolic panel (05/28/2024 7:51 AM BRUSH OR BROOM CUTTER) Sodium 136 135 - 145 mmol/L Potassium, pl See Comment 3.3 - 4.9 mmol/L [facility] Comment:Credited; Hemolyzed Specimen Chloride 98 97 - 110 mmol/L [facility] CO2 28 22 - 32 mmol/L [facility] Comment:Hemolyzed; result ma y be falsely decreased Anion gap 10 2 - 15 mmol/L [facility] BUN 22 6 - 25 mg/dL [facility] Creatinine 1.49(H) 0.60 - 1.10 mg/dL [facility] Glucose 116 70 - 199 mg/dL [facility] Comment: Interpretive Data Fasting glucose >/= 126 mg/dl is diagnostic for diabetes. Fasting is defined as no caloric intake for at least 8 hours. Fasting glucose between 100 mg/dl to 125 mg/dl is diagnostic of prediabetes. In a patient with classic symptoms of hyperglycemia or hyperglycemic crisis, a random glucose >/= 200 mg/dl is diagnostic for diabetes. In the absence of unequivocal hyperglycemia, results should be confirmed by repeat testing. The classification and Diagnosis of Diabetes Diabetes Care 2022; 46: S19-S40. Current interpretive data was last revised 2022. Calcium 9.9 8.5 - 10.3 mg/dL [facility] Bilirubin, total 0.5 0.1 - 1.2 mg/dL [facility] Protein, pl 8.3 6.5 - 8.5 g/dL [facility] Comment:Hemolyzed; result ma y be falsely elevated Albumin 4.0 3.5 - 5.0 g/dL [facility] Alk phos See Comment 40 - 130 Units/L [facility] Comment:Credited; Hemolyzed Specimen ALT See Comment 7 - 45 Units/L [facility] Comment:Credited; Hemolyzed Specimen AST See Comment 10 - 45 Units/L [facility] Comment:Credited; Hemolyzed Specimen Blood Venous blood specimen / Unknown 05/28/2024 7:51 AM BRUSH OR BROOM CUTTER 05/28/2024 7:59 AM BRUSH OR BROOM CUTTER us Rody Hooks MD LAB BLOOD ORDERABLES Final Result [facility] Department [place] [address] from Last 3 Months Insurance MEDICARE [employer] [facility] MEDICARE Address: [id number] [place] [address] [facility] MDCR HMO REF [facility] MEDIC[facility] Address: [address] [address] [place] [address] [facility] MEDICARE [facility] MEDICARE Advance Directives For more information, please contact: [phone] * Full Code (Latest Code Status on File) Date Activated Date Inactivated Comments 05/28/2024 5:52 PM 05/31/2024 6:59 PM * Full Code Date Activated Date Inactivated Comments 06/20/2022 6:11 PM 06/24/2022 6:48 PM * Full Code Date Activated Date Inactivated Comments 08/20/2021 12:01 PM 08/22/2021 7:19 PM * Full Code Date Activated Date Inactivated Comments 01/11/2020 5:18 PM 01/13/2020 4:58 PM * Full Code Date Activated Date Inactivated Comments 11/19/2017 2:46 PM 11/22/2017 8:31 PM Care Teams Vocational Psychologist Relationship Specialty Start Date End Date Melina Diaz DO PCP - General Family Medicine 05/13/19 Reece Weeks MD Medical Oncologist/Turret Punch Press Operator Hematology and Oncology 05/01/18 Daniel Rosa MD [id number] [place] [address] Surgeon Colon and Rectal Surgery 01/25/21
--- OUTSIDE RECORDS SUMMARY | 2024-06-14 13:07 | XMS_ITS ---
Author Organization [facility] al Address [address] [place] [address] Care Team Providers Care Olive Knocker Name Role Phone Reece Weeks MD Unavailable [phone] Melina Diaz DO Primary Care Provider [phone] Daniel Rosa MD Unavailable [phone] Active Problems Problem Noted Date Diagnosed Date Abdominal aortic aneurysm (AAA) without rupture 02/23/2024 Assessment & Plan (02/23/2024 3:08 PM POLITICAL THEORY PROFESSOR): 3.3 cm infrarenal abdominal aortic aneurysms. Discussed management of AAA with the patient with recommendation for ongoing surveillance and repair if evidence of rapid growth or approaching 5 cm. We will repeat the aortoiliac duplex in 1 year. 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 Past Treatment and Therapy Plans No past plan information found. Lifetime Dose Tracking * Chemical Lifetime Dose Automatic Entry Manual Entr y DLP 5,098 mGycm 5,098 mGycm 0 mGycm Resolved Problems Problem Noted Date Diagnosed Date Resolved Date Pruritus ani 12/09/2017 12/09/2017 Abdominal pain 09/05/2017 09/08/2017 Partial small bowel obstruction 09/04/2017 09/08/2017
--- OUTSIDE RECORDS SUMMARY | 2024-06-14 13:07 | XMS_ITS | Clinical Summary ---
Author Organization [facility] Address [address] [place] [address] Care Team Providers Care Crt Name Role Phone Tal Arechiga MD Primary Care Provider [phone] Source Comments [facility],non-owned Affiliates and Associated Physician Practices is amultiple site organization consisting of ambulatory clinics and hospital sitesin [place], [place], [place] and [place]. This disclosure is being madepursuant to the Care Everywhere program and may not contain all information available regarding this patient. Last updated 17.[facility] Social History Tobacco Use Types Packs/Day Years [...] age to complete this topic Care Teams Crt Relationship Specialty Start Date End Date Tal Arechiga MD [address] [place] [id number] PCP - General 12/02/18
--- OUTSIDE RECORDS SUMMARY | 2024-06-14 13:07 | XMS_ITS | Clinical Summary ---
Author Organization [facility] Address [address] [place] [address] Care Team Providers Care Cooking Chef Name Role Phone Reece Weeks MD Unavailable [phone] Melina Diaz DO Primary Care Provider [phone] Daniel Rosa MD Unavailable [phone] Allergies Active Allergy Reactions Criticality Noted [...] 02/23/2024 Assessment & Plan (02/23/2024 3:08 PM ELECTRICAL PROJECT MANAGER): 3.3 cm infrarenal abdominal aortic aneurysms. Discussed management of AAA with the patient with recommendation for ongoing surveillance and repair if evidence of rapid growth or approaching 5 cm. We will repeat the aortoiliac duplex in 1 year. 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 10/15/2017 Overview (10/15/2017): Added automatically from request for surgery [id number] Intestinal obstruction 09/05/2017 Essential hypertension 09/04/2017 Assessment & Plan (02/23/2024 3:08 PM ELECTRICAL PROJECT MANAGER): Stable continue lisinopril hydrochlorothiazide Coronary artery disease invo lving [place] coronary artery of [place] heart 10/29/2016 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 Acute postoperative pain Generalized abdominal pain S/P exploratory laparotomy Resolved Problems Problem Noted Date Diagnosed Date Resolved Date Pruritus ani 12/09/2017 12/09/2017 Abdominal pain 09/05/2017 09/08/2017 Partial small bowel obstruction 09/04/2017 09/08/2017 Encounters Date Type Department Care Team Description 05/28/2024 8:02 AM ELECTRICAL PROJECT MANAGER - 05/31/2024 2:59 PM ELECTRICAL PROJECT MANAGER Hospital Encounter [address] [id number] Rody Hooks MD Hunt, Steven R., MD Musleh, Amjad, MD SBO (small bowel obstruction) (HCC) (Primary Dx) Discharge Disposition: Discharge to home or self care 05/28/2024 Telephone [facility] Surgeon [address] [place] [address] Prerna Ackerman MD from Last 3 Months Immunizations Immunization Administration Dates Next Due Influenza, [...] Hx Other Medical ovariectomy Arthritis Rectal cancer (HCC) Anemia Emphysema lung (HCC) PONV (postoperative nausea a nd vomiting) Hyperlipidemia Cancer (HCC) Last Chemotherap y and radiation 2012 OAB (overactive bladder) Small bowel obstruction (HCC) re current; last episode 10/2017 Intestinal obstruction (HCC) 09/05/2017 Family History Medical History Relation [...] than three times a week 01/11/2020 Attends [employer] Not on file 01/10 Active Member [...] on file Legal Sex Female 3:02 AM ELECTRICAL PROJECT MANAGER Gender Identity Not on file Sexual Orientation Not on file Obstetrics History Last Filed Vital Signs Vital Sign Reading Time Taken Comments Blood Pressure 146/71 05/31/2024 8:40 AM ELECTRICAL PROJECT MANAGER Pulse 71 05/31/2024 8:40 AM ELECTRICAL PROJECT MANAGER Temperature 36.6 C (97.9 F) 05/31/2024 8:40 AM ELECTRICAL PROJECT MANAGER Respiratory Rate 18 05/31/2024 8:40 AM ELECTRICAL PROJECT MANAGER Oxygen Saturation 97% 05/31/2024 8:40 AM ELECTRICAL PROJECT MANAGER Inhaled Oxygen Concentration - - Weight 69.9 kg (154 lb) 05/28/2024 5:45 PM ELECTRICAL PROJECT MANAGER Height 160 cm (5' 3 ) 05/28/2024 5:45 PM ELECTRICAL PROJECT MANAGER Body Mass Index 27.28 05/28/2024 5:45 PM ELECTRICAL PROJECT MANAGER Plan of Treatment Health Maintenance Due Date Last Done Comments Depression Screening 1940 Osteoporosis Screening-Bone Density Scan 1940 DTaP/Tdap/Td Vaccine (1 - Tdap) 1950 Hepatitis B Screening 1957 Pneumococcal vaccine 65+ (1 of 1 - PCV) 1989 Well Visit 65+ 2004 Zoster Vaccine (2 of 3) 09/14/2018 07/20/2018, 05/11 Influenza Vaccine (#1) 2023 0, 12/28/2018, 12/18/2017, Additional history exists Fall Risk Assessment 05/31/2025 05/31/2024 Medical Devices Implanted Type Area Retort Engineer Device Identifier Shelf Expiration Date Model / Serial / Lot [employer] [id number] Ventralight St Sepra 9x7in Uncoated Monofilament Lightweight - Sn/A - [id number] Implanted:Qty: 1 on 11/19/2017 by Daniel Rosa MD at [facility] Mesh N/A: Abdomen [employer] [id number] 03/04/2018 [id number] / N/A / [id number] Procedures Procedure Name Priority Date/Time Associated Diagnosis Comments EGFR Routine 05/30/2024 9:30 PM ELECTRICAL PROJECT MANAGER BASIC METABOLIC PANEL Routine 05/30/2024 9:30 PM ELECTRICAL PROJECT MANAGER CBC WITHOUT DIFFERENTIAL Routine 05/30/2024 9:30 PM ELECTRICAL PROJECT MANAGER MAGNESIUM Routine 05/30/2024 9:30 PM ELECTRICAL PROJECT MANAGER PHOSPHORUS Routine 05/30/2024 9:30 PM ELECTRICAL PROJECT MANAGER EGFR Routine 05/29/2024 9:33 PM ELECTRICAL PROJECT MANAGER BASIC METABOLIC PANEL Routine 05/29/2024 9:33 PM ELECTRICAL PROJECT MANAGER CBC WITHOUT DIFFERENTIAL Routine 05/29/2024 9:33 PM ELECTRICAL PROJECT MANAGER MAGNESIUM Routine 05/29/2024 9:33 PM ELECTRICAL PROJECT MANAGER PHOSPHORUS Routine 05/29/2024 9:33 PM ELECTRICAL PROJECT MANAGER EGFR Routine 05/28/2024 10:48 PM ELECTRICAL PROJECT MANAGER BASIC METABOLIC PANEL Routine 05/28/2024 10:48 PM ELECTRICAL PROJECT MANAGER CBC WITHOUT DIFFERENTIAL Routine 05/28/2024 10:48 PM ELECTRICAL PROJECT MANAGER MAGNESIUM Routine 05/28/2024 10:48 PM ELECTRICAL PROJECT MANAGER PHOSPHORUS Routine 05/28/2024 10:48 PM ELECTRICAL PROJECT MANAGER DIFFERENTIAL AUTO STAT 05/28/2024 1:5 9 PM ELECTRICAL PROJECT MANAGER CBC WITH AUTO DIFFERENTIAL STAT 05/28/2024 1:59 PM ELECTRICAL PROJECT MANAGER XR ABDOMEN AP 1 VIEW ED Urgent/IP Urgent 05/28/2024 12:55 PM ELECTRICAL PROJECT MANAGER XR CHEST 1 VIEW ED 05/28/2024 12:51 PM ELECTRICAL PROJECT MANAGER URINALYSIS, MICROSCOPIC ONLY STAT 05/28/2024 11:53 AM ELECTRICAL PROJECT MANAGER URINALYSIS AND REFLEX TO MICROSCOPIC STAT 05/28/2024 11:[address] ABDOMEN PELVIS W CONTRAST ED 05/28/2024 10:01 AM ELECTRICAL PROJECT MANAGER ECG 12-LEAD Routine 05/28/2024 9:35 AM ELECTRICAL PROJECT MANAGER CBC WITH AUTO DIFFERENTIAL STAT 05/28/2024 9:02 AM ELECTRICAL PROJECT MANAGER SEPSIS LACTATE WITH REFLEX STAT 05/28/2024 8:30 AM ELECTRICAL PROJECT MANAGER TYPE AND SCREEN STAT 05/28/2024 8:30 AM ELECTRICAL PROJECT MANAGER EGFR STAT 05/28/2024 7:51 AM ELECTRICAL PROJECT MANAGER COMPREHENSIVE METABOLIC PANEL STAT 05/28/2024 7:51 AM ELECTRICAL PROJECT MANAGER from Last 3 Months Results * (ABNORMAL) eGFR (05/30/2024 9:30 PM ELECTRICAL PROJECT MANAGER) eGFR 41(L) >=60 mL/min/1. 73 m2 Comment: [...] last reviewed 2021. Blood 05/30/2024 9:30 PM ELECTRICAL PROJECT MANAGER 05/30/2024 10:09 PM ELECTRICAL PROJECT MANAGER Daniel Rosa MD LAB BLOOD ORDERABLES Final Res ult [facility] [place] [employer] [place] [address] * (ABNORMAL) CBC without differential (05/30/2024 9:30 PM ELECTRICAL PROJECT MANAGER) [facility] WBC 7.0 3.8 - 9.9 K/cumm Hgb 11.9 11.9 - 15.5 g/dL [facility] Hct 35.2(L) 35.6 - 45.5 % [facility] Plt 187 150 - 400 K/cumm [facility] MPV 10.5 9.1 - 12.3 fL [facility] RBC 3.74(L) 3.90 - 5.20 M/cumm [facility] MCV 94.1 81.3 - 96.4 fL [facility] MCH 31.8 27.1 - 33.3 pg [facility] MCHC 33.8 32.3 - 35.7 g/dL [facility] RDW CV 13.0 11.1 - 14.9 % [facility] RDW SD 44.6 35.7 - 48.1 fL [facility] NRBC abs 0.00 0.00 - 0.01 K/cumm [facility] Blood 05/30/2024 9:30 PM ELECTRICAL PROJECT MANAGER 05/30/2024 10:10 PM ELECTRICAL PROJECT MANAGER us Daniel Rosa MD LAB BLOOD ORDERABLES Final Res ult Performing Organization Address City/[facility]/ZIP Co de Phone Number [facility] [place] [address] * (ABNORMAL) Phosphorus (05/30/2024 9:30 PM ELECTRICAL PROJECT MANAGER) Pathologist [facility] Phosphorus, pl 1.8(L) 2.3 - 4.5 mg/dL Blood 05/30/2024 9:30 PM ELECTRICAL PROJECT MANAGER 05/30/2024 10:09 PM ELECTRICAL PROJECT MANAGER Daniel Rosa MD LAB BLOOD ORDERABLES Final Res ult Performing Organization Address City/[facility]/ZIP Co de Phone Number [facility] [place] [address] * Magnesium (05/30/2024 9:30 PM ELECTRICAL PROJECT MANAGER) [facility] Magnesium 1.8 1.4 - 2.5 mg/dL Blood 05/30/2024 9:30 PM ELECTRICAL PROJECT MANAGER 05/30/2024 10:09 PM ELECTRICAL PROJECT MANAGER Daniel Rosa MD LAB BLOOD ORDERABLES Final Res ult Performing Organization Address [facility] de Phone Number [facility] [place] [address] * (ABNORMAL) Basic metabolic panel (05/30/2024 9:30 PM ELECTRICAL PROJECT MANAGER) [facility] Sodium 142 135 - 145 mmol/L Potassium, pl 3.7 3.3 - 4.9 mmol/L [facility] Chloride 105 97 - 110 mmol/L [facility] CO2 30 22 - 32 mmol/L [facility] Anion gap 7 2 - 15 mmol/L [facility] BUN 19 6 - 25 mg/dL [facility] Creatinine 1.28(H) 0.60 - 1.10 mg/dL [facility] Glucose 101 70 - 199 mg/dL [facility] Comment: Interpretive Data Fasting glucose >/= 126 [...] 2022. Calcium 8.8 8.5 - 10.3 mg/dL [facility] Blood 05/30/2024 9:30 PM ELECTRICAL PROJECT MANAGER 05/30/2024 10:09 PM ELECTRICAL PROJECT MANAGER Daniel Rosa MD LAB BLOOD ORDERABLES Final Res ult Performing Organization Address [facility] Co de Phone Number [facility] [place] [address] * (ABNORMAL) eGFR (05/29/2024 9:33 PM ELECTRICAL PROJECT MANAGER) eGFR 39(L) >=60 mL/min/1. 73 m2 Comment: [...] last reviewed 2021. Blood 05/29/2024 9:33 PM ELECTRICAL PROJECT MANAGER 05/29/2024 10:21 PM ELECTRICAL PROJECT MANAGER Daniel Rosa MD LAB BLOOD ORDERABLES Final Res ult Performing Organization Address City/[facility]/ZIP Co de Phone Number [facility] Department [employer] [place] [place] [address] * (ABNORMAL) CBC without differential (05/29/2024 9:33 PM ELECTRICAL PROJECT MANAGER) [facility] WBC 7.3 3.8 - 9.9 K/cumm Hgb 12.3 11.9 - 15.5 g/dL [facility] Hct 37.2 35.6 - 45.5 % [facility] Plt 185 150 - 400 K/cumm [facility] MPV 10.1 9.1 - 12.3 fL [facility] RBC 3.89(L) 3.90 - 5.20 M/cumm [facility] MCV 95.6 81.3 - 96.4 fL [facility] MCH 31.6 27.1 - 33.3 pg [facility] MCHC 33.1 32.3 - 35.7 g/dL [facility] RDW CV 13.2 11.1 - 14.9 % [facility] RDW SD 46.6 35.7 - 48.1 fL [facility] NRBC abs 0.00 0.00 - 0.01 K/cumm [facility] Blood 05/29/2024 9:33 PM ELECTRICAL PROJECT MANAGER 05/29/2024 10:20 PM ELECTRICAL PROJECT MANAGER Daniel Rosa MD LAB BLOOD ORDERABLES Final Res ult Performing Organization Address City/[facility]/ZIP Co de Phone Number [facility] [place] [employer] [place] [address] * (ABNORMAL) Phosphorus (05/29/2024 9:33 PM ELECTRICAL PROJECT MANAGER) [facility] Phosphorus, pl 2.0(L) 2.3 - 4.5 mg/dL Blood 05/29/2024 9:33 PM ELECTRICAL PROJECT MANAGER 05/29/2024 10:21 PM ELECTRICAL PROJECT MANAGER Daniel Rosa MD LAB BLOOD ORDERABLES [place] [address] * Magnesium (05/29/2024 9:33 PM ELECTRICAL PROJECT MANAGER) Magnesium 1.9 1.4 - 2.5 mg/dL Blood 05/29/2024 9:33 PM ELECTRICAL PROJECT MANAGER 05/29/2024 10:21 PM ELECTRICAL PROJECT MANAGER Daniel Rosa MD LAB BLOOD ORDERABLES Final Res ult Performing Organization Address City/[facility] Co de Phone Number [facility] Department [place] [address] * (ABNORMAL) Basic metabolic panel (05/29/2024 9:33 PM ELECTRICAL PROJECT MANAGER) Pathologist [facility] Sodium 141 135 - 145 mmol/L Potassium, pl 3.7 3.3 - 4.9 mmol/L [facility] Chloride 105 97 - 110 mmol/L [facility] CO2 31 22 - 32 mmol/L [facility] Anion gap 5 2 - 15 mmol/L [facility] BUN 15 6 - 25 mg/dL [facility] Creatinine 1.35(H) 0.60 - 1.10 mg/dL [facility] Glucose 91 70 - 199 mg/dL [facility] Comment: Interpretive Data Fasting glucose >/= 126 [...] 2022. Calcium 9.1 8.5 - 10.3 mg/dL [facility] Blood 05/29/2024 9:33 PM ELECTRICAL PROJECT MANAGER 05/29/2024 10:21 PM ELECTRICAL PROJECT MANAGER Daniel Rosa MD LAB BLOOD ORDERABLES Final Res ult Performing Organization Address City/[facility] de Phone Number [facility] Department [place] [address] * (ABNORMAL) eGFR (05/28/2024 10:48 PM ELECTRICAL PROJECT MANAGER) Pathologist [facility] eGFR 39(L) >=60 mL/min/1. 73 m2 Comment: [...] reviewed 2021. Blood 05/28/2024 10:4 8 PM ELECTRICAL PROJECT MANAGER 05/28/2024 11:07 PM ELECTRICAL PROJECT MANAGER us Daniel Rosa MD LAB BLOOD ORDERABLES Final Res ult Performing Organization Address [facility] Co de Phone Number [facility] Department [place] [address] * (ABNORMAL) CBC without differential (05/28/2024 10:48 PM ELECTRICAL PROJECT MANAGER) [facility] WBC 10.8(H) 3.8 - 9.9 K/cumm Hgb 12.2 11.9 - 15.5 g/dL [facility] Hct 35.8 35.6 - 45.5 % [facility] Plt 195 150 - 400 K/cumm [facility] MPV 10.2 9.1 - 12.3 fL [facility] RBC 3.77(L) 3.90 - 5.20 M/cumm [facility] MCV 95.0 81.3 - 96.4 fL [facility] MCH 32.4 27.1 - 33.3 pg [facility] MCHC 34.1 32.3 - 35.7 g/dL [facility] RDW CV 13.5 11.1 - 14.9 % [facility] RDW SD 46.9 35.7 - 48.1 fL [facility] NRBC abs 0.00 0.00 - 0.01 K/cumm [facility] Blood 05/28/2024 10:4 8 PM ELECTRICAL PROJECT MANAGER 05/28/2024 11:07 PM ELECTRICAL PROJECT MANAGER Daniel Rosa MD LAB BLOOD ORDERABLES Final Res ult Performing Organization Address [facility] de Phone Number [facility] [place] [address] * Phosphorus (05/28/2024 10:48 PM ELECTRICAL PROJECT MANAGER) Phosphorus, pl 3.3 2.3 - 4.5 mg/dL Blood 05/28/2024 10:4 8 PM ELECTRICAL PROJECT MANAGER 05/28/2024 11:07 PM ELECTRICAL PROJECT MANAGER Daniel Rosa MD LAB BLOOD ORDERABLES Final Res ult Performing Organization Address [facility] de Phone Number [facility] Department [place] [employer] [place] [address] * Magnesium (05/28/2024 10:48 PM ELECTRICAL PROJECT MANAGER) Magnesium 1.8 1.4 - 2.5 mg/dL Blood 05/28/2024 10:4 8 PM ELECTRICAL PROJECT MANAGER 05/28/2024 11:07 PM ELECTRICAL PROJECT MANAGER Daniel Rosa MD LAB BLOOD ORDERABLES Final Res ult Performing Organization Address City/[facility]/ZIP Co de Phone Number [facility] Department [place] [address] * (ABNORMAL) Basic metabolic panel (05/28/2024 10:48 PM ELECTRICAL PROJECT MANAGER) [facility] Sodium 141 135 - 145 mmol/L Potassium, pl 4.0 3.3 - 4.9 mmol/L [facility] Comment:Repeated and Verifie d Chloride 104 97 - 110 mmol/L [facility] CO2 31 22 - 32 mmol/L [facility] Anion gap 6 2 - 15 mmol/L [facility] BUN 19 6 - 25 mg/dL [facility] Creatinine 1.33(H) 0.60 - 1.10 mg/dL [facility] Glucose 105 70 - 199 mg/dL [facility] Comment: Interpretive Data Fasting glucose >/= 126 [...] 2022. Calcium 9.4 8.5 - 10.3 mg/dL [facility] Blood 05/28/2024 10:4 8 PM ELECTRICAL PROJECT MANAGER 05/28/2024 11:07 PM ELECTRICAL PROJECT MANAGER us Daniel Rosa MD LAB BLOOD ORDERABLES Final Res ult [facility] Department [place] [address] * (ABNORMAL) Differential, auto (05/28/2024 1:59 PM ELECTRICAL PROJECT MANAGER) [facility] Neutrophil abs 10.7(H) 1.5 - 6.5 K/cumm Imm gran abs 0.0 0.0 - 0.1 K/cumm [facility] Lymphocyte abs 0.8 0.8 - 3.3 K/cumm [facility] Monocyte abs 1.0(H) 0.2 - 0.8 K/cumm [facility] Eosinophil abs 0.0 0.0 - 0.5 K/cumm [facility] Basophil abs 0.0 0.0 - 0.1 K/cumm [facility] Neutrophil pct 85.0 % [facility] Comment: Interpretive Data Percent cell count reference ranges are not reported, since discordance with absolute values may lead to misinterpretation of CBC data. Current Interpretive Data was last revised on 2017. Imm gran pct 0.3 % [facility] Comment: Interpretive Data Percent cell count reference ranges are not reported, since discordance with absolute values may lead to misinterpretation of CBC data. Current Interpretive Data was last revised on 2017. Lymphocyte pct 6.2 % [facility] Comment: Interpretive Data Percent cell count reference ranges are not reported, since discordance with absolute values may lead to misinterpretation of CBC data. Current Interpretive Data was last revised on 2017. Monocyte pct 8.0 % [facility] Comment: Interpretive Data Percent cell count reference ranges are not reported, since discordance with absolute values may lead to misinterpretation of CBC data. Current Interpretive Data was last revised on 2017. Eosinophil pct 0.2 % [facility] Comment: Interpretive Data Percent cell count reference ranges are not reported, since discordance with absolute values may lead to misinterpretation of CBC data. Current Interpretive Data was last revised on 2017. Basophil pct 0.3 % [facility] Comment: Interpretive Data Percent cell count reference ranges are not reported, since discordance with absolute values may lead to misinterpretation of CBC data. Current Interpretive Data was last revised on 2017. Blood 05/28/2024 1:59 PM ELECTRICAL PROJECT MANAGER 05/28/2024 2:12 PM ELECTRICAL PROJECT MANAGER us Daniel Rosa MD LAB BLOOD ORDERABLES Final Res ult [facility] Department [place] [address] * (ABNORMAL) CBC with auto differential (05/28/2024 1:59 PM ELECTRICAL PROJECT MANAGER) WBC 12.6(H) 3.8 - 9.9 K/cumm Hgb 13.0 11.9 - 15.5 g/dL [facility] Hct 38.5 35.6 - 45.5 % [facility] Plt 212 150 - 400 K/cumm [facility] MPV 10.6 9.1 - 12.3 fL [facility] RBC 4.07 3.90 - 5.20 M/cumm [facility] MCV 94.6 81.3 - 96.4 fL [facility] MCH 31.9 27.1 - 33.3 pg [facility] MCHC 33.8 32.3 - 35.7 g/dL [facility] RDW CV 13.4 11.1 - 14.9 % [facility] RDW SD 46.6 35.7 - 48.1 fL [facility] NRBC abs 0.00 0.00 - 0.01 K/cumm [facility] Blood 05/28/2024 1:59 PM ELECTRICAL PROJECT MANAGER 05/28/2024 2:12 PM ELECTRICAL PROJECT MANAGER us Daniel Rosa MD LAB BLOOD ORDERABLES Final Res ult [facility] Department [place] [address] * XR Abdomen Ap 1 Vw (05/28/2024 12:55 PM ELECTRICAL PROJECT MANAGER) Anatomical Region Laterality Modality Body, Abdomen N/A Computed Radiogr aphy 05/28/2024 1:03 PM ELECTRICAL PROJECT MANAGER Impressions 05/28/2024 1:03 PM ELECTRICAL PROJECT MANAGER Side port of the gastric tube projects over the stomach. Electronically signed by: Nigel Nichols M.D. Narrative 05/28/2024 1:03 PM ELECTRICAL PROJECT MANAGER EXAMINATION: Abdomen, one view. HISTORY: Gastric tube COMPARISON: Same-day CT Procedure Note Nigel Nichols MD - 05/28/2024 EXAMINATION: Abdomen, one view. HISTORY: Gastric tube COMPARISON: Same-day CT IMPRESSION: Side port of the gastric tube projects over the stomach. Electronically signed by: Nigel Nichols M.D. Daphney Lao MD [facility] XR PROCEDURES Final Result * XR Chest 1 Vw Portable (05/28/2024 12:51 PM ELECTRICAL PROJECT MANAGER) Anatomical Region Laterality Modality Body, Chest N/A Computed Radiogr aphy 05/28/2024 12:5 5 PM ELECTRICAL PROJECT MANAGER Impressions 05/28/2024 12:55 PM ELECTRICAL PROJECT MANAGER Comparison to 10/21/2017. Tortuous descending thoracic aorta is again seen. Heart size is within normal limits. There are some mild linear opacities in the left lung base, likely partial atelectasis. No pneumothorax or pleural effusion. Electronically signed by: Nigel Nichols M.D. Narrative 05/28/2024 12:55 PM ELECTRICAL PROJECT MANAGER EXAMINATION: 1 view chest radiograph Procedure Note Nigel Nichols MD - 05/28/2024 EXAMINATION: 1 view chest radiograph IMPRESSION: Comparison to 10/21/2017. Tortuous descending thoracic aorta is again seen. Heart size is within normal limits. There are some mild linear opacities in the left lung base, likely partial atelectasis. No pneumothorax or pleural effusion. Electronically signed by: Nigel Nichols M.D. Daphney Lao MD [facility] XR PROCEDURES Final Result * (ABNORMAL) Urinalysis reflex to microscopic (05/28/2024 11:53 AM ELECTRICAL PROJECT MANAGER) Color, ur Straw Yellow Clarity, ur Clear Clear [facility] Specific gravity, ur 1.029 1.003 - 1.030 [facility] pH, urine 7.5 [facility] Comment: Interpretive Data U rine pH is affected by diet, medications, systemic acid-base disturbances, and renal tubular function. pH may affect urinary stone formation. For example, urine pH below 6.0 may help reduce the tendency for calcium phosphate stones and pH greater than 6.0 may reduce the tendency for uric acid stone formation. Source: [facility] Current Interpretive Data was last revised on 2017 Protein, ur ql Trace Negative [facility] Glucose, ur ql Negative Negative [facility] Ketones, ur Negative Negative [facility] Bilirubin, ur Negative Negative [facility] Blood, ur Negative Negative [facility] Urobilinogen, ur <2.0 <2.0 mg/dL [facility] Nitrite, ur Negative Negative [facility] Leukocyte esterase, ur 3+(A) Negative [facility] UA reflex comment Reflex to microscopic UA will be performed. [facility] Urine 05/28/2024 11:5 3 AM ELECTRICAL PROJECT MANAGER 05/28/2024 1:39 PM ELECTRICAL PROJECT MANAGER Rody Hooks MD LAB URINE ORDERABLES Final Result Performing Organization Address [facility] Co de Phone Number [facility] [place] [employer] [place] [address] * (ABNORMAL) Urinalysis, microscopic only (05/28/2024 11:53 AM ELECTRICAL PROJECT MANAGER) WBC, ur 21-50(A) 0 - 5 /HPF RBC, ur 6-10(A) 0 - 2 /HPF [facility] Epithelial cells, squamous, ur 1-5 0 - 5 /HPF [facility] Bacteria, ur Trace(A) [facility] Mucous, ur Present(A) [facility] Urine 05/28/2024 11:5 3 AM ELECTRICAL PROJECT MANAGER 05/28/2024 1:39 PM ELECTRICAL PROJECT MANAGER Rody Hooks MD LAB URINE ORDERABLES Final Result Performing Organization Address [facility] Co de Phone Number [facility] [employer] [place] [address] * CT Abdomen Pelvis W Contrast (05/28/2024 10:01 AM ELECTRICAL PROJECT MANAGER) Anatomical Region Laterality Modality Body N/A Computed Tomogra phy 05/28/2024 11:0 0 AM ELECTRICAL PROJECT MANAGER Impressions 05/28/2024 11:07 AM ELECTRICAL PROJECT MANAGER Multiple mildly dilated fluid-filled small bowel with [...] agrees with it. Electronically signed by: Nigel Nichosl M.D. Narrative 05/28/2024 11:07 AM ELECTRICAL PROJECT MANAGER EXAMINATION: Computed tomography of the abdomen and [...] by: Nigel Nichols M.D. Daphney Lao MD IM CT PROCEDURES Final Result * ECG 12-LEAD (05/28/2024 9:35 AM ELECTRICAL PROJECT MANAGER) Narrative [facility] - 05/28/2024 9:35 AM ELECTRICAL PROJECT MANAGER Rody Hooks MD 05/28/2024 9:37 AM ECG [...] follow up: further workup in the ED Rody Hooks MD 05/28/24 0937 Daphney Lao MD ECG ORDERABLES Final Result [facility] * CBC with auto differential (05/28/2024 9:02 AM ELECTRICAL PROJECT MANAGER) WBC See Comment 3.8 - 9.9 Comment: Credited, specimen clotted. Telephone report made to: Nabila Stokes RN on 05/28/2024 10:10:30 ELECTRICAL PROJECT MANAGER by MT. UMAIR Hgb See Comment 11.9 - 15.5 [facility] Comment: Credited, specimen clotted. Telephone report made to: Nabila Stokes RN on 05/28/2024 10:10:30 ELECTRICAL PROJECT MANAGER by MT. UMAIR Hct See Comment 35.6 - 45.5 [facility] Comment: Credited, specimen clotted. Telephone report made to: Nabila Stokes RN on 05/28/2024 10:10:30 ELECTRICAL PROJECT MANAGER by MT. UMAIR Plt See Comment 150 - 400 [facility] Comment: Credited, specimen clotted. Telephone report made to: Nabila Stokes RN on 05/28/2024 10:10:30 ELECTRICAL PROJECT MANAGER by MT. UMAIR RBC See Comment 3.90 - 5.20 [facility] Comment: Credited, specimen clotted. Telephone report made to: Nabila Stokes RN on 05/28/2024 10:10:30 ELECTRICAL PROJECT MANAGER by MT. UMAIR MCV See Comment 81.3 - 96.4 [facility] Comment: Credited, specimen clotted. Telephone report made to: Nabila Stokes RN on 05/28/2024 10:10:30 ELECTRICAL PROJECT MANAGER by MT. UMAIR MCH See Comment 27.1 - 33.3 [facility] Comment: Credited, specimen clotted. Telephone report made to: Nabila Stokes RN on 05/28/2024 10:10:30 ELECTRICAL PROJECT MANAGER by MT. ARMANDO BLOCKC See Comment 32.3 - 35.7 [facility] Comment: Credited, specimen clotted. Telephone report made to: Nabila Stokes RN on 05/28/2024 10:10:30 ELECTRICAL PROJECT MANAGER by MT. MARA BLOCK CV See Comment 11.1 - 14.9 [facility] Comment: Credited, specimen clotted. Telephone report made to: Nabila Stokes RN on 05/28/2024 10:10:30 ELECTRICAL PROJECT MANAGER by MT. MARA BLOCK SD See Comment 35.7 - 48.1 [facility] Comment: Credited, specimen clotted. Telephone report made to: Nabila Stokes RN on 05/28/2024 10:10:30 ELECTRICAL PROJECT MANAGER by MT. UMAIR Blood 05/28/2024 9:02 AM ELECTRICAL PROJECT MANAGER 05/28/2024 9:10 AM ELECTRICAL PROJECT MANAGER us Rody Hooks MD LAB BLOOD ORDERABLES Edite d Result - Final [facility] Department [place] [address] * Sepsis Lactate w/ Reflex (05/28/2024 8:30 AM ELECTRICAL PROJECT MANAGER) [facility] Sepsis Lactate 1.6 0.7 - 2.0 mmol/L Blood 05/28/2024 8:30 AM ELECTRICAL PROJECT MANAGER 05/28/2024 9:07 AM ELECTRICAL PROJECT MANAGER Daphney Lao MD LAB BLOOD ORDERABLES Final Res ult [facility] Department [place] [address] * Type and screen (05/28/2024 8:30 AM ELECTRICAL PROJECT MANAGER) [facility] Lucía, indirect Negative ABO Rh O Positive [facility] Blood 05/28/2024 8:30 AM ELECTRICAL PROJECT MANAGER 05/28/2024 9:10 AM ELECTRICAL PROJECT MANAGER Narrative [facility] - 05/28/2024 9:58 AM ELECTRICAL PROJECT MANAGER Has the patient had Daratumumab or Isatuximab in the past 6 months?->Unknown Daphney Lao MD LAB BLOOD BANK TEST ORDERABLES Final Result Performing Organization Address [facility] de Phone Number [facility] Department [place] [address] * (ABNORMAL) eGFR (05/28/2024 7:51 AM ELECTRICAL PROJECT MANAGER) [facility] eGFR 34(L) >=60 mL/min/1. 73 m2 Comment: [...] last reviewed 2021. Blood 05/28/2024 7:51 AM ELECTRICAL PROJECT MANAGER 05/28/2024 7:59 AM ELECTRICAL PROJECT MANAGER us Tomasz Harrison MD PhD LAB BLOOD ORDERABLE S Final Result [facility] Department [place] [address] * (ABNORMAL) Comprehensive metabolic panel (05/28/2024 7:51 AM ELECTRICAL PROJECT MANAGER) Sodium 136 135 - 145 mmol/L Potassium, pl See Comment 3.3 - 4.9 mmol/L [facility] Comment:Credited; Hemolyzed Specimen Chloride 98 97 - 110 mmol/L [facility] CO2 28 22 - 32 mmol/L [facility] Comment:Hemolyzed; result ma y be falsely decreased Anion gap 10 2 - 15 mmol/L [facility] BUN 22 6 - 25 mg/dL [facility] Creatinine 1.49(H) 0.60 - 1.10 mg/dL [facility] Glucose 116 70 - 199 mg/dL [facility] Comment: Interpretive Data Fasting glucose >/= 126 [...] 2022. Calcium 9.9 8.5 - 10.3 mg/dL [facility] Bilirubin, total 0.5 0.1 - 1.2 mg/dL [facility] Protein, pl 8.3 6.5 - 8.5 g/dL [facility] Comment:Hemolyzed; result ma y be falsely elevated Albumin 4.0 3.5 - 5.0 g/dL [facility] Alk phos See Comment 40 - 130 Units/L [facility] Comment:Credited; Hemolyzed Specimen ALT See Comment 7 - 45 Units/L [facility] Comment:Credited; Hemolyzed Specimen AST See Comment 10 - 45 Units/L [facility] Comment:Credited; Hemolyzed Specimen Blood Venous blood specimen / Unknown 05/28/2024 7:51 AM ELECTRICAL PROJECT MANAGER 05/28/2024 7:59 AM ELECTRICAL PROJECT MANAGER us Rody Hooks MD LAB BLOOD ORDERABLES Final Result [facility] Department [place] [address] from Last 3 Months Insurance MEDICARE SOLUTIONS [facility] HMO REF COUNT INCLUDES THE [facility] MEDICARE COUNT INCLUDES THE [facility] MEDICARE Advance Directives For more information, please contact: [phone] * Full Code (Latest Code Status on [...] 2:46 PM 11/22/2017 8:31 PM Care Teams Cooking Chef Relationship Specialty Start Date End Date Melina Diaz DO PCP - General Family Medicine 05/13/19 Reece Weeks MD Medical Oncologist/Technician Hematology and Oncology 05/01/18 Daniel Rosa MD [id number] [place] [address] Surgeon Colon and Rectal Surgery 01/25/21
--- OUTSIDE RECORDS SUMMARY | 2024-06-14 13:07 | XMS_ITS | Referral Summary ---
Author Organization [facility] Address [address] [place] [address] Care Team Providers Care Frame Stripper And Crusher Name Role Phone Tal Arechiga MD Primary Care Provider [phone] Source Comments [facility],non-owned Affiliates and Associated Physician Practices is amultiple site organization consisting of ambulatory clinics and hospital sitesin [place], [place], [place] and [place]. This disclosure is being madepursuant to the Care Everywhere program and may not contain all information available regarding this patient. Last updated 17.[facility] Social History Tobacco Use Types Packs/Day Years Used Date Smoking Tobacco: Never Assessed Sex and Gender Information Value Date Recorded Sex Assigned at Not on file Gender Identity Not on file Sexual Orientation Not on file Plan of Treatment Not on file Care Teams Frame Stripper And Crusher Relationship Specialty Start Date End Date Tal Arechiga MD [address] [place] [id number] PCP - General 12/02/18
--- OUTSIDE RECORDS SUMMARY | 2024-06-14 13:07 | XMS_ITS | Patient Health Summary ---
Author Organization [facility] Address [address] [place] [address] Care Team Providers Care Junior Net Developer Name Role Phone Tal Arechiga MD Primary Care Provider [phone] Note from [facility],non-owned Affiliates and Associated Physician Practices is amultiple site organization consisting of ambulatory clinics and hospital sitesin [place], [place], [place] and [place]. This disclosure is being madepursuant to the Care Everywhere program and may not contain all information available regarding this patient. Last updated 17.[facility] Social History Tobacco Use Types Packs/Day Years Used Date Smoking Tobacco: Never Assessed Sex and Gender Information Value Date Recorded Sex Assigned at Not on file Gender Identity Not on file Sexual Orientation Not on file Procedures * PATHOLOGY TISSUE(Performed 12/01/2018) Performed for Illness Results * PATHOLOGY TISSUE (12/01/2018 3:45 PM CDT) Case Report Surgical Pathology Report Case: [id number] Authorizing Provider: Rose Mary Araujo MD Collected: 12/01/2018 03:45 PM Ordering Location: [facility] Received: 12/02/2018 03:45 PM Pathologist: Rashad Billingsley MD Specimen: Slide Consultation, [id number] 12/03/2018 10:27 AM CDT [facility] Final Diagnosis Urine, voided, thin prep, cytology: -Negative for high-grade urothelial neoplasia -Acute and chronic inflammation 12/03/2018 10:27 AM CDT [facility] Microscopic Description and Comment Performed. 12/03/2018 10:27 AM CDT [facility] Clinical History Hematuria, cystoscopy negative. 12/03/2018 10:27 AM CDT [facility] Gross Description Prepared slides received from [facility] labeled [id number]. All material will be returned. 12/03/2018 10:27 AM [facility] Disclaimer The performance characteristics of all immunohistochemical and indirect immunofluorescence stains (if any) cited in this report were determined by the Histopathology Laboratory of [facility]. Some of these tests were developed by [...] attending (teaching) pathologist. 12/03/2018 10:27 AM T [facility] Embedded Images 12/03/2018 10:27 AM [facility] Pathology/Cytolo gy SURGICAL PATHOLOGY CONSULTATION AND REPORT ON REFERRED SLIDES PREPARED ELSEWHERE / Unknown 12/01/2018 3:45 PM CDT 12/02/2018 3:45 PM CDT Rose Mary Araujo MD LAB - PATHOLOGY/CYTO LOGY ORDERABLES Performing Organization Address City/State/[facility] Co de Phone Number [facility] [address] [phone] Care Teams Junior Net Developer Relationship Specialty Start Date End Date Tal Arechiga MD [address] [place] [phone] PCP - General 12/02/18
--- OUTSIDE RECORDS SUMMARY | 2024-06-14 13:07 | XMS_ITS | Encounter Summary ---
Author Organization [facility] Healthcare Address [address] [place] [address] Care Team Providers Care Microfilm Technician Name Role Phone Reece Weeks MD Unavailable [phone] Melina Diaz DO Primary Care Provider [phone] Daniel Rosa MD Unavailable Encounter Details Date Type Department Care Team (Late st Contact Info) Description 05/28/2024 Telephone [facility] Surgeon [address] [place], [place] [id number] Prerna Ackerman MD [address] [place], [place] [id number] Social History Tobacco Use Types Packs/Day Years [...] than three times a week 01/11/2020 Attends [employer] Not on file 01/10 Active Member [...] on file Legal Sex Female 3:02 AM OPTICAL FABRICATOR Gender Identity Not on file Sexual Orientation Not on file documented as of this encounter Miscellaneous Notes * Telephone Encounter - Prerna Ackerman MD - 05/28/2024 7:18 AM OPTICAL FABRICATOR Patient called this morning. 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 Concerned she has a recurrent obstruction, no ostomy output, pain, distention, nausea. Advised patient to present to ED. Patient amenable with plan. Prerna Ackerman MD, MPH CAL FABRICATOR documented in this encounter Plan of Treatment Not on file documented as of this encounter Visit Diagnoses Not on filedocumented in this encounter Care Teams Microfilm Technician Relationship Specialty Start Date End Date Melina Diaz DO PCP - General Family Medicine 05/13/19 Reece Weeks MD Medical Oncologist/Meat Team Lead Hematology and Oncology 05/01/18 Daniel Rosa MD [phone] [place] [address] Surgeon Colon and Rectal Surgery 01/25/21 documented as of this encounter
--- OUTSIDE RECORDS SUMMARY | 2024-06-14 13:07 | XMS_ITS | Encounter Summary ---
Author Organization [facility] Address [address] [place] [address] Care Team Providers Care Hedis Analyst Name Role Phone Tal Arechiga MD Primary Care Provider [phone] Encounter Details Date Type Department Care Team (Late st Contact Info) Description 12/02/2018 Lab Requisition [facility] [address] [place] [address] Rose Mary Araujo MD [address] [place], [place] [id number] Illness Social History Tobacco Use Types Packs/Day [...] CDT) Case Report Surgical Pathology Report Case: [id number] Authorizing Provider: Rose Mary Araujo MD Collected: 12/01/2018 03:45 PM [facility] Received: 12/02/2018 03:45 PM Pathologist: Rashad Billingsley MD Specimen: Slide Consultation, [id number] 12/03/2018 10:27 AM CDT [facility] Final Diagnosis Urine, voided, thin prep, cytology: -Negative for high-grade urothelial neoplasia -Acute and chronic inflammation 12/03/2018 10:27 AM CDT [facility] Microscopic Description and Comment Performed. 12/03/2018 10:27 AM [facility] Clinical History Hematuria, cystoscopy negative. 12/03/2018 10:27 AM [facility] Gross Description Prepared slides received from [facility] labeled [id number]. All material will be returned. 12/03/2018 10:27 AM [facility] Disclaimer The performance characteristics of all immunohistochemical and indirect immunofluorescence stains (if any) cited in this report were determined by the Histopathology Laboratory of [facility]. Some of these tests were developed by [...] the attending (teaching) pathologist. 12/03/2018 10:27 AM [facility] Embedded Images 12/03/2018 10:27 AM [facility] Pathology/Cytolo gy SURGICAL PATHOLOGY CONSULTATION AND REPORT ON REFERRED SLIDES PREPARED ELSEWHERE / Unknown 12/01/2018 3:45 PM CDT 12/02/2018 3:45 PM CDT Rose Mary Araujo MD LAB - PATHOLOGY/CYTO LOGY ORDERABLES Performing Organization Address City/State/[facility] Co hi Phone Number [facility] [address] [phone] documented in this encounter Visit Diagnoses Diagnosis Illness Other unknown and unspecified cause of morbidity or mortality documented in this encounter Care Teams Hedis Analyst Relationship Specialty Start Date End Date Tal Arechiga MD [address] [place] [phone] PCP - General 12/02/18 documented as of this encounter
== END 2024-06-14 10:58 | disposition home or self-care (01) ==
LOC: ANHIMG 10:59
PROVIDERS: PCP Family Medicine; Visit Provider Family Medicine
DX: R91.1 Solitary pulmonary nodule (principal); J43.9 Emphysema, unspecified
CPT/HCPCS: 71250

== ENCOUNTER 2024-07-15 01:55 | Day surgery (SDC) | payer MEDICARE, SELFPAY ==
[2024-07-06 11:44] VITALS: BMI 25.7
--- OUTSIDE RECORDS SUMMARY | 2024-07-15 01:57 | XMS_ITS | Clinical Summary ---
Author Organization [facility] al Address [address] [place] [address] Care Team Providers Care Enrollment Clerk Name Role Phone Reece Weeks MD Unavailable [phone] Melina Diaz DO Primary Care Provider [phone] Daniel Rosa MD Unavailable [phone] Allergies Active Allergy Reactions Criticality Noted [...] 02/23/2024 Assessment & Plan (02/23/2024 3:08 PM SHIP FITTER): 3.3 cm infrarenal abdominal aortic aneurysms. Discussed management of AAA with the patient with recommendation for ongoing surveillance and repair if evidence of rapid growth or approaching 5 cm. We will repeat the aortoiliac duplex in 1 year. 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 10/15/2017 Overview (10/15/2017): Added automatically from request for surgery [id number] Intestinal obstruction 09/05/2017 Essential hypertension 09/04/2017 Assessment & Plan (02/23/2024 3:08 PM SHIP FITTER): Stable continue lisinopril hydrochlorothiazide Coronary artery disease invo lving [place] coronary artery of [place] heart 10/29/2016 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 Acute postoperative pain Generalized abdominal pain S/P exploratory laparotomy Resolved Problems Problem Noted Date Diagnosed Date Resolved Date Pruritus ani 12/09/2017 12/09/2017 Abdominal pain 09/05/2017 09/08/2017 Partial small bowel obstruction 09/04/2017 09/08/2017 Encounters Date Type Department Care Team Description 05/28/2024 8:02 AM SHIP FITTER - 05/31/2024 2:59 PM SHIP FITTER Hospital Encounter [address] [address] Rody Hooks MD Hunt, Steven R., MD Musleh, Amjad, MD SBO (small bowel obstruction) (HCC) (Primary Dx) Discharge Disposition: Discharge to home or self care 05/28/2024 Telephone [facility] Surgeon [address] [place] [address] Prerna Ackerman MD from Last 3 Months [...] than three times a week 01/11/2020 Attends [employer] Services Not on file 01/10 Active Member [...] on file Legal Sex Female 3:02 AM SHIP FITTER Gender Identity Not on file Sexual Orientation Not on file Obstetrics History Last Filed Vital Signs Vital Sign Reading Time Taken Comments Blood Pressure 146/71 05/31/2024 8:40 AM SHIP FITTER Pulse 71 05/31/2024 8:40 AM SHIP FITTER Temperature 36.6 C (97.9 F) 05/31/2024 8:40 AM SHIP FITTER Respiratory Rate 18 05/31/2024 8:40 AM SHIP FITTER Oxygen Saturation 97% 05/31/2024 8:40 AM SHIP FITTER Inhaled Oxygen Concentration - - Weight 69.9 kg (154 lb) 05/28/2024 5:45 PM SHIP FITTER Height 160 cm (5' 3 ) 05/28/2024 5:45 PM SHIP FITTER Body Mass Index 27.28 05/28/2024 5:45 PM SHIP FITTER Plan of Treatment Health Maintenance Due Date [...] 05/31/2025 05/31/2024 Medical Devices Implanted Type Area Logging Contractor Device Identifier Shelf Expiration Date Model / Serial / Lot [employer]/C R Bard [id number] Ventralight St Sepra 9x7in Uncoated Monofilament Lightweight - Sn/A - [id number] Implanted:Qty: 1 on 11/19/2017 by Daniel Rosa MD at [facility] Mesh N/A: Abdomen [employer] [id number] 03/04/2018 [id number] / N/A / [id number] Procedures Procedure Name Priority Date/Time Associated Diagnosis Comments EGFR Routine 05/30/2024 9:30 PM SHIP FITTER BASIC METABOLIC PANEL Routine 05/30/2024 9:30 PM SHIP FITTER CBC WITHOUT DIFFERENTIAL Routine 05/30/2024 9:30 PM SHIP FITTER MAGNESIUM Routine 05/30/2024 9:30 PM SHIP FITTER PHOSPHORUS Routine 05/30/2024 9:30 PM SHIP FITTER EGFR Routine 05/29/2024 9:33 PM SHIP FITTER BASIC METABOLIC PANEL Routine 05/29/2024 9:33 PM SHIP FITTER CBC WITHOUT DIFFERENTIAL Routine 05/29/2024 9:33 PM SHIP FITTER MAGNESIUM Routine 05/29/2024 9:33 PM SHIP FITTER PHOSPHORUS Routine 05/29/2024 9:33 PM SHIP FITTER EGFR Routine 05/28/2024 10:48 PM SHIP FITTER BASIC METABOLIC PANEL Routine 05/28/2024 10:48 PM SHIP FITTER CBC WITHOUT DIFFERENTIAL Routine 05/28/2024 10:48 PM SHIP FITTER MAGNESIUM Routine 05/28/2024 10:48 PM SHIP FITTER PHOSPHORUS Routine 05/28/2024 10:48 PM SHIP FITTER DIFFERENTIAL AUTO STAT 05/28/2024 1:5 9 PM SHIP FITTER CBC WITH AUTO DIFFERENTIAL STAT 05/28/2024 1:59 PM SHIP FITTER XR ABDOMEN AP 1 VIEW ED Urgent/IP Urgent 05/28/2024 12:55 PM SHIP FITTER XR CHEST 1 VIEW ED 05/28/2024 12:51 PM SHIP FITTER URINALYSIS, MICROSCOPIC ONLY STAT 05/28/2024 11:53 AM SHIP FITTER URINALYSIS AND REFLEX TO MICROSCOPIC STAT 05/28/2024 11:[address] ABDOMEN PELVIS W CONTRAST ED 05/28/2024 10:01 AM SHIP FITTER ECG 12-LEAD Routine 05/28/2024 9:35 AM SHIP FITTER CBC WITH AUTO DIFFERENTIAL STAT 05/28/2024 9:02 AM SHIP FITTER SEPSIS LACTATE WITH REFLEX STAT 05/28/2024 8:30 AM SHIP FITTER TYPE AND SCREEN STAT 05/28/2024 8:30 AM SHIP FITTER EGFR STAT 05/28/2024 7:51 AM SHIP FITTER COMPREHENSIVE METABOLIC PANEL STAT 05/28/2024 7:51 AM SHIP FITTER from Last 3 Months Results * (ABNORMAL) eGFR (05/30/2024 9:30 PM SHIP FITTER) eGFR 41(L) >=60 mL/min/1. 73 m2 Comment: [...] last reviewed 2021. Blood 05/30/2024 9:30 PM SHIP FITTER 05/30/2024 10:09 PM SHIP FITTER Daniel Rosa MD LAB BLOOD ORDERABLES Final Res ult [facility] [place] [place] [address] * (ABNORMAL) CBC without differential (05/30/2024 9:30 PM SHIP FITTER) [facility] WBC 7.0 3.8 - 9.9 K/cumm Hgb 11.9 11.9 - 15.5 g/dL [facility] Hct 35.2(L) 35.6 - 45.5 % [facility] Plt 187 150 - 400 K/cumm [facility] MPV 10.5 9.1 - 12.3 fL [facility] RBC 3.74(L) 3.90 - 5.20 M/cumm [facility] MCV 94.1 81.3 - 96.4 fL [facility] MCH 31.8 27.1 - 33.3 pg [facility] MCHC 33.8 32.3 - 35.7 g/dL [facility] RDW CV 13.0 11.1 - 14.9 % [facility] RDW SD 44.6 35.7 - 48.1 fL [facility] NRBC abs 0.00 0.00 - 0.01 K/cumm [facility] Blood 05/30/2024 9:30 PM SHIP FITTER 05/30/2024 10:10 PM SHIP FITTER us Daniel Rosa MD LAB BLOOD ORDERABLES Final Res ult Performing Organization Address City/[facility]/ZIP Co de Phone Number [facility] [place] [address] * (ABNORMAL) Phosphorus (05/30/2024 9:30 PM SHIP FITTER) Pathologist [facility] Phosphorus, pl 1.8(L) 2.3 - 4.5 mg/dL Blood 05/30/2024 9:30 PM SHIP FITTER 05/30/2024 10:09 PM SHIP FITTER Daniel Rosa MD LAB BLOOD ORDERABLES Final Res ult Performing Organization Address City/[facility]/ZIP Co de Phone Number [facility] [place] [address] * Magnesium (05/30/2024 9:30 PM SHIP FITTER) [facility] Magnesium 1.8 1.4 - 2.5 mg/dL Blood 05/30/2024 9:30 PM SHIP FITTER 05/30/2024 10:09 PM SHIP FITTER Daniel Rosa MD LAB BLOOD ORDERABLES Final Res ult Performing Organization Address [facility] de Phone Number [facility] [place] [address] * (ABNORMAL) Basic metabolic panel (05/30/2024 9:30 PM SHIP FITTER) [facility] Sodium 142 135 - 145 mmol/L Potassium, pl 3.7 3.3 - 4.9 mmol/L [facility] Chloride 105 97 - 110 mmol/L [facility] CO2 30 22 - 32 mmol/L [facility] Anion gap 7 2 - 15 mmol/L [facility] BUN 19 6 - 25 mg/dL [facility] Creatinine 1.28(H) 0.60 - 1.10 mg/dL [facility] Glucose 101 70 - 199 mg/dL [facility] Comment: Interpretive Data Fasting glucose >/= 126 [...] Calcium 8.8 8.5 - 10.3 mg/dL [facility] Blood 05/30/2024 9:30 PM SHIP FITTER 05/30/2024 10:09 PM SHIP FITTER Daniel Rosa MD LAB BLOOD ORDERABLES Final Res ult Performing Organization Address [facility] Co de Phone Number [facility] [place] [address] * (ABNORMAL) eGFR (05/29/2024 9:33 PM SHIP FITTER) eGFR 39(L) >=60 mL/min/1. 73 m2 Comment: [...] last reviewed 2021. Blood 05/29/2024 9:33 PM SHIP FITTER 05/29/2024 10:21 PM SHIP FITTER Daniel Rosa MD LAB BLOOD ORDERABLES Final Res ult Performing Organization Address City/[facility]/ZIP Co de Phone Number [facility] [place] [employer] [address] * (ABNORMAL) CBC without differential (05/29/2024 9:33 PM SHIP FITTER) [facility] WBC 7.3 3.8 - 9.9 K/cumm Hgb 12.3 11.9 - 15.5 g/dL [facility] Hct 37.2 35.6 - 45.5 % [facility] Plt 185 150 - 400 K/cumm [facility] MPV 10.1 9.1 - 12.3 fL [facility] RBC 3.89(L) 3.90 - 5.20 M/cumm [facility] MCV 95.6 81.3 - 96.4 fL [facility] MCH 31.6 27.1 - 33.3 pg [facility] MCHC 33.1 32.3 - 35.7 g/dL [facility] RDW CV 13.2 11.1 - 14.9 % [facility] RDW SD 46.6 35.7 - 48.1 fL [facility] NRBC abs 0.00 0.00 - 0.01 K/cumm [facility] Blood 05/29/2024 9:33 PM SHIP FITTER 05/29/2024 10:20 PM SHIP FITTER Daniel Rosa MD LAB BLOOD ORDERABLES Final Res ult Performing Organization Address City/[facility]/ZIP Co de Phone Number [facility] [place] [address] * (ABNORMAL) Phosphorus (05/29/2024 9:33 PM SHIP FITTER) [facility] Phosphorus, pl 2.0(L) 2.3 - 4.5 mg/dL Blood 05/29/2024 9:33 PM SHIP FITTER 05/29/2024 10:21 PM SHIP FITTER Daniel Rosa MD LAB BLOOD [place] [address] * Magnesium (05/29/2024 9:33 PM SHIP FITTER) Magnesium 1.9 1.4 - 2.5 mg/dL Blood 05/29/2024 9:33 PM SHIP FITTER 05/29/2024 10:21 PM SHIP FITTER Daniel Rosa MD LAB BLOOD ORDERABLES Final Res ult Performing Organization Address City/[facility] Co de Phone Number [facility] [place] [address] * (ABNORMAL) Basic metabolic panel (05/29/2024 9:33 PM SHIP FITTER) Pathologist [facility] Sodium 141 135 - 145 mmol/L Potassium, pl 3.7 3.3 - 4.9 mmol/L [facility] Chloride 105 97 - 110 mmol/L [facility] CO2 31 22 - 32 mmol/L [facility] Anion gap 5 2 - 15 mmol/L [facility] BUN 15 6 - 25 mg/dL [facility] Creatinine 1.35(H) 0.60 - 1.10 mg/dL [facility] Glucose 91 70 - 199 mg/dL [facility] Comment: Interpretive Data Fasting glucose >/= 126 [...] 2022. Calcium 9.1 8.5 - 10.3 mg/dL [facility] Blood 05/29/2024 9:33 PM SHIP FITTER 05/29/2024 10:21 PM SHIP FITTER Daniel Rosa MD LAB BLOOD ORDERABLES Final Res ult Performing Organization Address City/[facility] de Phone Number [facility] [place] [address] * (ABNORMAL) eGFR (05/28/2024 10:48 PM SHIP FITTER) Pathologist [facility] eGFR 39(L) >=60 mL/min/1. 73 m2 [...] reviewed 2021. Blood 05/28/2024 10:4 8 PM SHIP FITTER 05/28/2024 11:07 PM SHIP FITTER us Daniel Rosa MD LAB BLOOD ORDERABLES Final Res ult Performing Organization Address [facility] Co de Phone Number [facility] [place] [address] * (ABNORMAL) CBC without differential (05/28/2024 10:48 PM SHIP FITTER) [facility] WBC 10.8(H) 3.8 - 9.9 K/cumm Hgb 12.2 11.9 - 15.5 g/dL [facility] Hct 35.8 35.6 - 45.5 % [facility] Plt 195 150 - 400 K/cumm [facility] MPV 10.2 9.1 - 12.3 fL [facility] RBC 3.77(L) 3.90 - 5.20 M/cumm [facility] MCV 95.0 81.3 - 96.4 fL [facility] MCH 32.4 27.1 - 33.3 pg [facility] MCHC 34.1 32.3 - 35.7 g/dL [facility] RDW CV 13.5 11.1 - 14.9 % [facility] RDW SD 46.9 35.7 - 48.1 fL [facility] NRBC abs 0.00 0.00 - 0.01 K/cumm [facility] Blood 05/28/2024 10:4 8 PM SHIP FITTER 05/28/2024 11:07 PM SHIP FITTER Daniel Rosa MD LAB BLOOD ORDERABLES Final Res ult Performing Organization Address [facility] de Phone Number [facility] [place] [address] * Phosphorus (05/28/2024 10:48 PM SHIP FITTER) Phosphorus, pl 3.3 2.3 - 4.5 mg/dL Blood 05/28/2024 10:4 8 PM SHIP FITTER 05/28/2024 11:07 PM SHIP FITTER Daniel Rosa MD LAB BLOOD ORDERABLES Final Res ult Performing Organization Address [facility] de Phone Number [facility] [place] [place] [address] * Magnesium (05/28/2024 10:48 PM SHIP FITTER) Magnesium 1.8 1.4 - 2.5 mg/dL Blood 05/28/2024 10:4 8 PM SHIP FITTER 05/28/2024 11:07 PM SHIP FITTER Daniel Rosa MD LAB BLOOD ORDERABLES Final Res ult Performing Organization Address City/[facility]/ZIP Co de Phone Number [facility] [place] [address] * (ABNORMAL) Basic metabolic panel (05/28/2024 10:48 PM SHIP FITTER) [facility] Sodium 141 135 - 145 mmol/L Potassium, pl 4.0 3.3 - 4.9 mmol/L [facility] Comment:Repeated and Verifie d Chloride 104 97 - 110 mmol/L [facility] CO2 31 22 - 32 mmol/L [facility] Anion gap 6 2 - 15 mmol/L [facility] BUN 19 6 - 25 mg/dL [facility] Creatinine 1.33(H) 0.60 - 1.10 mg/dL [facility] Glucose 105 70 - 199 mg/dL [facility] Comment: Interpretive Data Fasting glucose >/= 126 [...] 2022. Calcium 9.4 8.5 - 10.3 mg/dL [facility] Blood 05/28/2024 10:4 8 PM SHIP FITTER 05/28/2024 11:07 PM SHIP FITTER us Daniel Rosa MD LAB BLOOD ORDERABLES Final Res ult [facility] [place] [address] * (ABNORMAL) Differential, auto (05/28/2024 1:59 PM SHIP FITTER) [facility] Neutrophil abs 10.7(H) 1.5 - 6.5 K/cumm Imm gran abs 0.0 0.0 - 0.1 K/cumm [facility] Lymphocyte abs 0.8 0.8 - 3.3 K/cumm [facility] Monocyte abs 1.0(H) 0.2 - 0.8 K/cumm [facility] Eosinophil abs 0.0 0.0 - 0.5 K/cumm [facility] Basophil abs 0.0 0.0 - 0.1 K/cumm [facility] Neutrophil pct 85.0 % [facility] Comment: Interpretive Data Percent cell count reference ranges are not reported, since discordance with absolute values may lead to misinterpretation of CBC data. Current Interpretive Data was last revised on 2017. Imm gran pct 0.3 % [facility] Comment: Interpretive Data Percent cell count reference ranges are not reported, since discordance with absolute values may lead to misinterpretation of CBC data. Current Interpretive Data was last revised on 2017. Lymphocyte pct 6.2 % [facility] Comment: Interpretive Data Percent cell count reference ranges are not reported, since discordance with absolute values may lead to misinterpretation of CBC data. Current Interpretive Data was last revised on 2017. Monocyte pct 8.0 % [facility] Comment: Interpretive Data Percent cell count reference ranges are not reported, since discordance with absolute values may lead to misinterpretation of CBC data. Current Interpretive Data was last revised on 2017. Eosinophil pct 0.2 % [facility] Comment: Interpretive Data Percent cell count reference ranges are not reported, since discordance with absolute values may lead to misinterpretation of CBC data. Current Interpretive Data was last revised on 2017. Basophil pct 0.3 % [facility] Comment: Interpretive Data Percent cell count reference ranges are not reported, since discordance with absolute values may lead to misinterpretation of CBC data. Current Interpretive Data was last revised on 2017. Blood 05/28/2024 1:59 PM SHIP FITTER 05/28/2024 2:12 PM SHIP FITTER us Daniel Rosa MD LAB BLOOD ORDERABLES Final Res ult [facility] [place] [address] * (ABNORMAL) CBC with auto differential (05/28/2024 1:59 PM SHIP FITTER) WBC 12.6(H) 3.8 - 9.9 K/cumm Hgb 13.0 11.9 - 15.5 g/dL [facility] Hct 38.5 35.6 - 45.5 % [facility] Plt 212 150 - 400 K/cumm [facility] MPV 10.6 9.1 - 12.3 fL [facility] RBC 4.07 3.90 - 5.20 M/cumm [facility] MCV 94.6 81.3 - 96.4 fL [facility] MCH 31.9 27.1 - 33.3 pg [facility] MCHC 33.8 32.3 - 35.7 g/dL [facility] RDW CV 13.4 11.1 - 14.9 % [facility] RDW SD 46.6 35.7 - 48.1 fL [facility] NRBC abs 0.00 0.00 - 0.01 K/cumm [facility] Blood 05/28/2024 1:59 PM SHIP FITTER 05/28/2024 2:12 PM SHIP FITTER us Daniel Rosa MD LAB BLOOD ORDERABLES Final Res ult [facility] [place] [address] * XR Abdomen Ap 1 Vw (05/28/2024 12:55 PM SHIP FITTER) Anatomical Region Laterality Modality Body, Abdomen N/A Computed Radiogr aphy 05/28/2024 1:03 PM SHIP FITTER Impressions 05/28/2024 1:03 PM SHIP FITTER Side port of the gastric tube projects over the stomach. Electronically signed by: Nigel Nichols M.D. Narrative 05/28/2024 1:03 PM SHIP FITTER EXAMINATION: Abdomen, one view. HISTORY: Gastric tube COMPARISON: Same-day CT Procedure Note Nigel Nichols MD - 05/28/2024 EXAMINATION: Abdomen, one view. HISTORY: Gastric tube COMPARISON: Same-day CT IMPRESSION: Side port of the gastric tube projects over the stomach. Electronically signed by: Nigel Nichols M.D. Daphney Lao MD [facility] [place] PROCED[place] Final Result * XR Chest 1 Vw Portable (05/28/2024 12:51 PM SHIP FITTER) Anatomical Region Laterality Modality Body, Chest N/A Computed Radiogr aphy 05/28/2024 12:5 5 PM SHIP FITTER Impressions 05/28/2024 12:55 PM SHIP FITTER Comparison to 10/21/2017. Tortuous descending thoracic aorta is again seen. Heart size is within normal limits. There are some mild linear opacities in the left lung base, likely partial atelectasis. No pneumothorax or pleural effusion. Electronically signed by: Nigel Nichols M.D. Narrative 05/28/2024 12:55 PM SHIP FITTER EXAMINATION: 1 view chest radiograph Procedure Note Nigel Nichols MD - 05/28/2024 EXAMINATION: 1 view chest radiograph IMPRESSION: Comparison to 10/21/2017. Tortuous descending thoracic aorta is again seen. Heart size is within normal limits. There are some mild linear opacities in the left lung base, likely partial atelectasis. No pneumothorax or pleural effusion. Electronically signed by: Nigel Nichols M.D. Daphney Lao MD [facility] [place]ED[place] Final Result * (ABNORMAL) Urinalysis reflex to microscopic (05/28/2024 11:53 AM SHIP FITTER) Color, ur Straw Yellow Clarity, ur Clear Clear [facility] Specific gravity, ur 1.029 1.003 - 1.030 [facility] pH, urine 7.5 [facility] Comment: Interpretive Data U rine pH is affected by diet, medications, systemic acid-base disturbances, and renal tubular function. pH may affect urinary stone formation. For example, urine pH below 6.0 may help reduce the tendency for calcium phosphate stones and pH greater than 6.0 may reduce the tendency for uric acid stone formation. Source: [facility] Current Interpretive Data was last revised on 2017 Protein, ur ql Trace Negative [facility] Glucose, ur ql Negative Negative [facility] Ketones, ur Negative Negative [facility] Bilirubin, ur Negative Negative [facility] Blood, ur Negative Negative [facility] Urobilinogen, ur <2.0 <2.0 mg/dL [facility] Nitrite, ur Negative Negative [facility] Leukocyte esterase, ur 3+(A) Negative [facility] UA reflex comment Reflex to microscopic UA will be performed. [facility] Urine 05/28/2024 11:5 3 AM SHIP FITTER 05/28/2024 1:39 PM SHIP FITTER Rody Hooks MD LAB URINE ORDERABLES Final Result Performing Organization Address [facility] Co de Phone Number [facility] [place] [address] * (ABNORMAL) Urinalysis, microscopic only (05/28/2024 11:53 AM SHIP FITTER) WBC, ur 21-50(A) 0 - 5 /HPF RBC, ur 6-10(A) 0 - 2 /HPF [facility] Epithelial cells, squamous, ur 1-5 0 - 5 /HPF [facility] Bacteria, ur Trace(A) [facility] Mucous, ur Present(A) [facility] Urine 05/28/2024 11:5 3 AM SHIP FITTER 05/28/2024 1:39 PM SHIP FITTER Rody Hooks MD LAB URINE ORDERABLES Final Result Performing Organization Address [facility] Co de Phone Number [facility] [place] [employer] [place] [address] * CT Abdomen Pelvis W Contrast (05/28/2024 10:01 AM SHIP FITTER) Anatomical Region Laterality Modality Body N/A Computed Tomogra phy 05/28/2024 11:0 0 AM SHIP FITTER Impressions 05/28/2024 11:07 AM SHIP FITTER Multiple mildly dilated fluid-filled small bowel with [...] Nigel Nichols M.D. Narrative 05/28/2024 11:07 AM SHIP FITTER EXAMINATION: Computed tomography of the abdomen and [...] Result * ECG 12-LEAD (05/28/2024 9:35 AM SHIP FITTER) Narrative [facility] - 05/28/2024 9:35 AM SHIP FITTER Rody Hooks MD 05/28/2024 9:37 AM ECG [...] Lao MD ECG ORDERABLES Final Result [facility] * CBC with auto differential (05/28/2024 9:02 AM SHIP FITTER) WBC See Comment 3.8 - 9.9 Comment: Credited, specimen clotted. Telephone report made to: Nabila Stokes RN on 05/28/2024 10:10:30 SHIP FITTER by MT. UMAIR Hgb See Comment 11.9 - 15.5 [facility] Comment: Credited, specimen clotted. Telephone report made to: Nabila Stokes RN on 05/28/2024 10:10:30 SHIP FITTER by MT. [facility]MA[facility] Hct See Comment 35.6 - 45.5 [facility] Comment: Credited, specimen clotted. Telephone report made to: Nabila Stokes RN on 05/28/2024 10:10:30 SHIP FITTER by MT. UMAIR Plt See Comment 150 - 400 [facility] Comment: Credited, specimen clotted. Telephone report made to: Nabila Stokes RN on 05/28/2024 10:10:30 SHIP FITTER by MT. [facility]MA[facility] RBC See Comment 3.90 - 5.20 [facility] Comment: Credited, specimen clotted. Telephone report made to: Nabila Stokes RN on 05/28/2024 10:10:30 SHIP FITTER by MT. [facility] MCV See Comment 81.3 - 96.4 [facility] Comment: Credited, specimen clotted. Telephone report made to: Nabila Stokes RN on 05/28/2024 10:10:30 SHIP FITTER by MT. UMAIR M[facility] See Comment 27.1 - 33.3 CERERICK BJ Comment: Credited, specimen clotted. Telephone report made to: Nabila Stokes RN on 05/28/2024 10:10:30 SHIP FITTER by MT. ARMANDO BLOCKC See Comment 32.3 - 35.7 [facility] Comment: Credited, specimen clotted. Telephone report made to: Nabila Stokes RN on 05/28/2024 10:10:30 SHIP FITTER by MT. MARA BLOCK CV See Comment 11.1 - 14.9 [facility] Comment: Credited, specimen clotted. Telephone report made to: Nabila Stokes RN on 05/28/2024 10:10:30 SHIP FITTER by MT. MARA BLOCK SD See Comment 35.7 - 48.1 [facility] Comment: Credited, specimen clotted. Telephone report made to: Nabila Stokes RN on 05/28/2024 10:10:30 SHIP FITTER by MT. UMAIR Blood 05/28/2024 9:02 AM SHIP FITTER 05/28/2024 9:10 AM SHIP FITTER us Rody Hooks MD LAB BLOOD ORDERABLES Edite d Result - Final [facility] [place] [address] * Sepsis Lactate w/ Reflex (05/28/2024 8:30 AM SHIP FITTER) [facility] Sepsis Lactate 1.6 0.7 - 2.0 mmol/L Blood 05/28/2024 8:30 AM SHIP FITTER 05/28/2024 9:07 AM SHIP FITTER Daphney Lao MD LAB BLOOD ORDERABLES Final Res ult [facility] [place] [address] * Type and screen (05/28/2024 8:30 AM SHIP FITTER) [facility] Lucía, indirect Negative ABO Rh O Positive [facility] Blood 05/28/2024 8:30 AM SHIP FITTER 05/28/2024 9:10 AM SHIP FITTER Narrative [facility] - 05/28/2024 9:58 AM SHIP FITTER Has the patient had Daratumumab or Isatuximab in the past 6 months?->Unknown Daphney Lao MD LAB BLOOD BANK TEST ORDERABLES Final Result Performing Organization Address [facility] de Phone Number [facility] [place] [address] * (ABNORMAL) eGFR (05/28/2024 7:51 AM SHIP FITTER) [facility] eGFR 34(L) >=60 mL/min/1. 73 m2 Comment: [...] last reviewed 2021. Blood 05/28/2024 7:51 AM SHIP FITTER 05/28/2024 7:59 AM SHIP FITTER us Tomasz Harrison MD PhD LAB BLOOD ORDERABLE S Final Result [facility] [place] [address] * (ABNORMAL) Comprehensive metabolic panel (05/28/2024 7:51 AM SHIP FITTER) Sodium 136 135 - 145 mmol/L Potassium, pl See Comment 3.3 - 4.9 mmol/L [facility] Comment:Credited; Hemolyzed Specimen Chloride 98 97 - 110 mmol/L [facility] CO2 28 22 - 32 mmol/L [facility] Comment:Hemolyzed; result ma y be falsely decreased Anion gap 10 2 - 15 mmol/L [facility] BUN 22 6 - 25 mg/dL [facility] Creatinine 1.49(H) 0.60 - 1.10 mg/dL [facility] Glucose 116 70 - 199 mg/dL [facility] Comment: Interpretive Data Fasting glucose >/= 126 [...] 2022. Calcium 9.9 8.5 - 10.3 mg/dL [facility] Bilirubin, total 0.5 0.1 - 1.2 mg/dL [facility] Protein, pl 8.3 6.5 - 8.5 g/dL [facility] Comment:Hemolyzed; result ma y be falsely elevated Albumin 4.0 3.5 - 5.0 g/dL [facility] Alk phos See Comment 40 - 130 Units/L [facility] Comment:Credited; Hemolyzed Specimen ALT See Comment 7 - 45 Units/L [facility] Comment:Credited; Hemolyzed Specimen AST See Comment 10 - 45 Units/L [facility] Comment:Credited; Hemolyzed Specimen Blood Venous blood specimen / Unknown 05/28/2024 7:51 AM SHIP FITTER 05/28/2024 7:59 AM SHIP FITTER us Rody Hooks MD LAB BLOOD ORDERABLES Final Result [facility] [place] [address] from Last 3 Months Insurance [facility] MEDICARE ADVANTAGE [facility] HMO REF T MEDICARE [facility] MEDICARE Advance Directives For more information, please contact: [phone] * Full Code (Latest Code Status on [...] 2:46 PM 11/22/2017 8:31 PM Care Teams Enrollment Clerk Relationship Specialty Start Date End Date Melina Diaz DO PCP - General Family Medicine 05/13/19 Reece Weeks MD Medical Oncologist/Field Operations Manager Hematology and Oncology 05/01/18 Daniel Rosa MD [phone] [place] [address] Surgeon Colon and Rectal Surgery 01/25/21
--- OUTSIDE RECORDS SUMMARY | 2024-07-15 01:58 | XMS_ITS | Encounter Summary ---
Author Organization [facility] Address [address] [place] [address] Care Team Providers Care Customer Experience Professional Name Role Phone Tal Arechiga MD Primary Care Provider [phone] Encounter Details Date Type Department Care Team (Late st Contact Info) Description 12/02/2018 Lab Requisition [facility] [address] [place] [address] Rose Mary Araujo MD [address] [place], [place] [id number] Illness Social History Tobacco Use Types Packs/Day [...] CDT) Case Report Surgical Pathology Report Case: [id number] Authorizing Provider: Rose Mary Araujo MD Collected: 12/01/2018 03:45 PM Ordering Location: [facility] Received: 12/02/2018 03:45 PM Pathologist: Rashad Billingsley MD Specimen: Slide Consultation, [id number] 12/03/2018 10:27 AM CDT [facility] Final Diagnosis Urine, voided, thin prep, cytology: -Negative for high-grade urothelial neoplasia -Acute and chronic inflammation 12/03/2018 10:27 AM CDT [facility] Microscopic Description and Comment Performed. 12/03/2018 10:27 AM [facility] Clinical History Hematuria, cystoscopy negative. 12/03/2018 10:27 AM [facility] Gross Description Prepared slides received from [facility] labeled [id number]. All material will be returned. 12/03/2018 10:27 AM [facility] Disclaimer The performance characteristics of all immunohistochemical and indirect immunofluorescence stains (if any) cited in this report were determined by the Histopathology Laboratory of [facility]. Some of these tests were [...] the attending (teaching) pathologist. 12/03/2018 10:27 AM [facility] Embedded Images 12/03/2018 10:27 AM [facility] Pathology/Cytolo gy SURGICAL PATHOLOGY CONSULTATION AND REPORT ON REFERRED SLIDES PREPARED ELSEWHERE / Unknown 12/01/2018 3:45 PM CDT 12/02/2018 3:45 PM CDT Rose Mary Araujo MD LAB - PATHOLOGY/CYTO LOGY ORDERABLES Performing Organization Address City/State/[facility] Co tx Phone Number [facility] [address] [phone] documented in this encounter Visit Diagnoses Diagnosis Illness Other unknown and unspecified cause of morbidity or mortality documented in this encounter Care Teams Customer Experience Professional Relationship Specialty Start Date End Date Tal Arechiga MD [address] [place] [phone] PCP - General 12/02/18 documented as of this encounter
--- OUTSIDE RECORDS SUMMARY | 2024-07-15 01:58 | XMS_ITS | Referral Summary ---
Author Organization [facility] Address [address] [place] [address] Care Team Providers Care Winch Runner Name Role Phone Reece Weeks MD Unavailable [phone] Melina Diaz DO Primary Care Provider [phone] Daniel Rosa MD Unavailable [phone] Encounters Date Type Department Care Team Description 05/28/2024 8:02 AM LICENSED PESTICIDE APPLICATOR - 05/31/2024 2:59 PM [facility] Hospital Encounter [address] [address] Rody Hooks MD Hunt, Steven R., MD Musleh, Amjad, MD SBO (small bowel obstruction) ([facility]) (Primary Dx) Discharge Disposition: Discharge to home or self care 05/28/2024 Telephone [facility] Surgeon [address] [place] [address] Prerna Ackerman MD from Last 3 Months [...] 02/23/2024 Assessment & Plan (02/23/2024 3:08 PM LICENSED PESTICIDE APPLICATOR): 3.3 cm infrarenal abdominal aortic aneurysms. Discussed management of AAA with the patient with recommendation for ongoing surveillance and repair if evidence of rapid growth or approaching 5 cm. We will repeat the aortoiliac duplex in 1 year. 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 Vaginal bleeding 01/21/2018 Overview (01/21/2018): Added automatically from request for surgery [id number] Partial small bowel obstruction 10/15/2017 Overview (10/15/2017): Added automatically from request for surgery [id number] Parastomal hernia with obstruction and without g angrene 10/15/2017 Overview (10/15/2017): Added automatically from request for surgery [id number] Intestinal obstruction 09/05/2017 Essential hypertension 09/04/2017 Assessment & Plan (02/23/2024 3:08 PM LICENSED PESTICIDE APPLICATOR): Stable continue lisinopril hydrochlorothiazide Coronary artery disease invo lving [place] coronary artery of [place] heart 10/29/2016 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 [...] than three times a week 01/11/2020 Attends [employer] Services Not on file 01/10 Active Member [...] on file Legal Sex Female 3:02 AM LICENSED PESTICIDE APPLICATOR Gender Identity Not on file Sexual Orientation Not on file Last Filed Vital Signs Vital Sign Reading Time Taken Comments Blood Pressure 146/71 05/31/2024 8:40 AM LICENSED PESTICIDE APPLICATOR Pulse 71 05/31/2024 8:40 AM LICENSED PESTICIDE APPLICATOR Temperature 36.6 C (97.9 F) 05/31/2024 8:40 AM LICENSED PESTICIDE APPLICATOR Respiratory Rate 18 05/31/2024 8:40 AM LICENSED PESTICIDE APPLICATOR Oxygen Saturation 97% 05/31/2024 8:40 AM LICENSED PESTICIDE APPLICATOR Inhaled Oxygen Concentration - - Weight 69.9 kg (154 lb) 05/28/2024 5:45 PM LICENSED PESTICIDE APPLICATOR Height 160 cm (5' 3 ) 05/28/2024 5:45 PM LICENSED PESTICIDE APPLICATOR Body Mass Index 27.28 05/28/2024 5:45 PM LICENSED PESTICIDE APPLICATOR Plan of Treatment Not on file Medical Devices Implanted Type Area Ceramic Sprayer Device Identifier Shelf Expiration Date Model / Serial / Lot [employer] [id number] Ventralight St Sepra 9x7in Uncoated Monofilament Lightweight - Sn/A - [id number] Implanted:Qty: 1 on 11/19/2017 by Daniel Rosa MD at [facility] Mesh N/A: Abdomen [employer] [id number] 03/04/2018 [id number] / N/A / [id number] Procedures Procedure Name Priority Date/Time Associated Diagnosis Comments EGFR Routine 05/30/2024 9:30 PM LICENSED PESTICIDE APPLICATOR BASIC METABOLIC PANEL Routine 05/30/2024 9:30 PM LICENSED PESTICIDE APPLICATOR CBC WITHOUT DIFFERENTIAL Routine 05/30/2024 9:30 PM LICENSED PESTICIDE APPLICATOR MAGNESIUM Routine 05/30/2024 9:30 PM LICENSED PESTICIDE APPLICATOR PHOSPHORUS Routine 05/30/2024 9:30 PM LICENSED PESTICIDE APPLICATOR EGFR Routine 05/29/2024 9:33 PM LICENSED PESTICIDE APPLICATOR BASIC METABOLIC PANEL Routine 05/29/2024 9:33 PM LICENSED PESTICIDE APPLICATOR CBC WITHOUT DIFFERENTIAL Routine 05/29/2024 9:33 PM LICENSED PESTICIDE APPLICATOR MAGNESIUM Routine 05/29/2024 9:33 PM LICENSED PESTICIDE APPLICATOR PHOSPHORUS Routine 05/29/2024 9:33 PM LICENSED PESTICIDE APPLICATOR EGFR Routine 05/28/2024 10:48 PM LICENSED PESTICIDE APPLICATOR BASIC METABOLIC PANEL Routine 05/28/2024 10:48 PM LICENSED PESTICIDE APPLICATOR CBC WITHOUT DIFFERENTIAL Routine 05/28/2024 10:48 PM LICENSED PESTICIDE APPLICATOR MAGNESIUM Routine 05/28/2024 10:48 PM LICENSED PESTICIDE APPLICATOR PHOSPHORUS Routine 05/28/2024 10:48 PM LICENSED PESTICIDE APPLICATOR DIFFERENTIAL AUTO STAT 05/28/2024 1:5 9 PM LICENSED PESTICIDE APPLICATOR CBC WITH AUTO DIFFERENTIAL STAT 05/28/2024 1:59 PM LICENSED PESTICIDE APPLICATOR XR ABDOMEN AP 1 VIEW ED Urgent/IP Urgent 05/28/2024 12:55 PM LICENSED PESTICIDE APPLICATOR XR CHEST 1 VIEW ED 05/28/2024 12:51 PM LICENSED PESTICIDE APPLICATOR URINALYSIS, MICROSCOPIC ONLY STAT 05/28/2024 11:53 AM LICENSED PESTICIDE APPLICATOR URINALYSIS AND REFLEX TO MICROSCOPIC STAT 05/28/2024 11:53 AM LICENSED PESTICIDE APPLICATOR CT ABDOMEN PELVIS W CONTRAST ED 05/28/2024 10:01 AM LICENSED PESTICIDE APPLICATOR ECG 12-LEAD Routine 05/28/2024 9:35 AM LICENSED PESTICIDE APPLICATOR CBC WITH AUTO DIFFERENTIAL STAT 05/28/2024 9:02 AM LICENSED PESTICIDE APPLICATOR SEPSIS LACTATE WITH REFLEX STAT 05/28/2024 8:30 AM LICENSED PESTICIDE APPLICATOR TYPE AND SCREEN STAT 05/28/2024 8:30 AM LICENSED PESTICIDE APPLICATOR EGFR STAT 05/28/2024 7:51 AM LICENSED PESTICIDE APPLICATOR COMPREHENSIVE METABOLIC PANEL STAT 05/28/2024 7:51 AM LICENSED PESTICIDE APPLICATOR from Last 3 Months Results * (ABNORMAL) eGFR (05/30/2024 9:30 PM LICENSED PESTICIDE APPLICATOR) eGFR 41(L) >=60 mL/min/1. 73 m2 Comment: [...] last reviewed 2021. Blood 05/30/2024 9:30 PM LICENSED PESTICIDE APPLICATOR 05/30/2024 10:09 PM LICENSED PESTICIDE APPLICATOR Daniel Rosa MD LAB BLOOD ORDERABLES Final Res ult [facility] Department [place] [address] * (ABNORMAL) CBC without differential (05/30/2024 9:30 PM LICENSED PESTICIDE APPLICATOR) Pathologist [facility] WBC 7.0 3.8 - 9.9 K/cumm Hgb 11.9 11.9 - 15.5 g/dL [facility] Hct 35.2(L) 35.6 - 45.5 % [facility] Plt 187 150 - 400 K/cumm [facility] MPV 10.5 9.1 - 12.3 fL [facility] RBC 3.74(L) 3.90 - 5.20 M/cumm [facility] MCV 94.1 81.3 - 96.4 fL [facility] MCH 31.8 27.1 - 33.3 pg [facility] MCHC 33.8 32.3 - 35.7 g/dL [facility] RDW CV 13.0 11.1 - 14.9 % [facility] RDW SD 44.6 35.7 - 48.1 fL [facility] NRBC abs 0.00 0.00 - 0.01 K/cumm [facility] Blood 05/30/2024 9:30 PM LICENSED PESTICIDE APPLICATOR 05/30/2024 10:10 PM LICENSED PESTICIDE APPLICATOR us Daniel Rosa MD LAB BLOOD ORDERABLES Final Res ult [facility] Department [place] [address] * (ABNORMAL) Phosphorus (05/30/2024 9:30 PM LICENSED PESTICIDE APPLICATOR) Phosphorus, pl 1.8(L) 2.3 - 4.5 mg/dL Blood 05/30/2024 9:30 PM LICENSED PESTICIDE APPLICATOR 05/30/2024 10:09 PM LICENSED PESTICIDE APPLICATOR Daniel Rosa MD LAB BLOOD ORDERABLES Final Res ult Performing Organization Address City/[facility] Co de Phone Number [facility] [place] [address] * Magnesium (05/30/2024 9:30 PM LICENSED PESTICIDE APPLICATOR) Pathologist [facility] Magnesium 1.8 1.4 - 2.5 mg/dL Blood 05/30/2024 9:30 PM LICENSED PESTICIDE APPLICATOR 05/30/2024 10:09 PM LICENSED PESTICIDE APPLICATOR Daniel Rosa MD LAB BLOOD ORDERABLES Final Res ult Performing Organization Address [facility] de Phone Number [facility] [place] [address] * (ABNORMAL) Basic metabolic panel (05/30/2024 9:30 PM LICENSED PESTICIDE APPLICATOR) [facility] Sodium 142 135 - 145 mmol/L Potassium, pl 3.7 3.3 - 4.9 mmol/L [facility] Chloride 105 97 - 110 mmol/L [facility] CO2 30 22 - 32 mmol/L [facility] Anion gap 7 2 - 15 mmol/L [facility] BUN 19 6 - 25 mg/dL [facility] Creatinine 1.28(H) 0.60 - 1.10 mg/dL [facility] Glucose 101 70 - 199 mg/dL [facility] Comment: Interpretive Data Fasting glucose >/= 126 [...] 2022. Calcium 8.8 8.5 - 10.3 mg/dL [facility] Blood 05/30/2024 9:30 PM LICENSED PESTICIDE APPLICATOR 05/30/2024 10:09 PM LICENSED PESTICIDE APPLICATOR Daniel Rosa MD LAB BLOOD ORDERABLES Final Res ult Performing Organization Address City/[facility]/ZIP Co de Phone Number [facility] Department [place] [address] * (ABNORMAL) eGFR (05/29/2024 9:33 PM LICENSED PESTICIDE APPLICATOR) Pathologist [facility] eGFR 39(L) >=60 mL/min/1. 73 m2 Comment: [...] last reviewed 2021. Blood 05/29/2024 9:33 PM LICENSED PESTICIDE APPLICATOR 05/29/2024 10:21 PM LICENSED PESTICIDE APPLICATOR us Daniel Rosa MD LAB BLOOD ORDERABLES Final Res ult Performing Organization Address City/[facility]/ZIP Co de Phone Number [facility] Department [place] [address] * (ABNORMAL) CBC without differential (05/29/2024 9:33 PM LICENSED PESTICIDE APPLICATOR) Pathologist [facility] WBC 7.3 3.8 - 9.9 K/cumm Hgb 12.3 11.9 - 15.5 g/dL [facility] Hct 37.2 35.6 - 45.5 % [facility] Plt 185 150 - 400 K/cumm [facility] MPV 10.1 9.1 - 12.3 fL [facility] RBC 3.89(L) 3.90 - 5.20 M/cumm [facility] MCV 95.6 81.3 - 96.4 fL [facility] MCH 31.6 27.1 - 33.3 pg [facility] MCHC 33.1 32.3 - 35.7 g/dL [facility] RDW CV 13.2 11.1 - 14.9 % [facility] RDW SD 46.6 35.7 - 48.1 fL [facility] NRBC abs 0.00 0.00 - 0.01 K/cumm [facility] Blood 05/29/2024 9:33 PM LICENSED PESTICIDE APPLICATOR 05/29/2024 10:20 PM LICENSED PESTICIDE APPLICATOR Daniel Rosa MD LAB BLOOD ORDERABLES Final Res ult Performing Organization Address City/[facility]/ZIP Co de Phone Number [facility] Department [place] [place] [address] * (ABNORMAL) Phosphorus (05/29/2024 9:33 PM LICENSED PESTICIDE APPLICATOR) [facility] Phosphorus, pl 2.0(L) 2.3 - 4.5 mg/dL Blood 05/29/2024 9:33 PM LICENSED PESTICIDE APPLICATOR 05/29/2024 10:21 PM LICENSED PESTICIDE APPLICATOR Daniel Rosa MD LAB BLOOD ORDERABLES Final Res ult [facility] [place] [address] * Magnesium (05/29/2024 9:33 PM LICENSED PESTICIDE APPLICATOR) Magnesium 1.9 1.4 - 2.5 mg/dL Blood 05/29/2024 9:33 PM LICENSED PESTICIDE APPLICATOR 05/29/2024 10:21 PM LICENSED PESTICIDE APPLICATOR Dnaiel Rosa MD LAB BLOOD ORDERABLES Final Res ult Performing Organization Address [facility] Co de Phone Number [facility] Department [place] [address] * (ABNORMAL) Basic metabolic panel (05/29/2024 9:33 PM LICENSED PESTICIDE APPLICATOR) Pathologist [facility] Sodium 141 135 - 145 mmol/L Potassium, pl 3.7 3.3 - 4.9 mmol/L [facility] Chloride 105 97 - 110 mmol/L [facility] CO2 31 22 - 32 mmol/L [facility] Anion gap 5 2 - 15 mmol/L [facility] BUN 15 6 - 25 mg/dL [facility] Creatinine 1.35(H) 0.60 - 1.10 mg/dL [facility] Glucose 91 70 - 199 mg/dL [facility] Comment: Interpretive Data Fasting glucose >/= 126 [...] 2022. Calcium 9.1 8.5 - 10.3 mg/dL [facility] Blood 05/29/2024 9:33 PM LICENSED PESTICIDE APPLICATOR 05/29/2024 10:21 PM LICENSED PESTICIDE APPLICATOR Daniel Rosa MD LAB BLOOD ORDERABLES Final Res ult Performing Organization Address [facility] Co de Phone Number [facility] Department [place] [address] * (ABNORMAL) eGFR (05/28/2024 10:48 PM LICENSED PESTICIDE APPLICATOR) [facility] eGFR 39(L) >=60 mL/min/1. 73 m2 Comment: [...] reviewed 2021. Blood 05/28/2024 10:4 8 PM LICENSED PESTICIDE APPLICATOR 05/28/2024 11:07 PM LICENSED PESTICIDE APPLICATOR us Daniel Rosa MD LAB BLOOD ORDERABLES Final Res ult [facility] Department [place] [address] * (ABNORMAL) CBC without differential (05/28/2024 10:48 PM LICENSED PESTICIDE APPLICATOR) [facility] WBC 10.8(H) 3.8 - 9.9 K/cumm Hgb 12.2 11.9 - 15.5 g/dL [facility] Hct 35.8 35.6 - 45.5 % [facility] Plt 195 150 - 400 K/cumm [facility] MPV 10.2 9.1 - 12.3 fL [facility] RBC 3.77(L) 3.90 - 5.20 M/cumm [facility] MCV 95.0 81.3 - 96.4 fL [facility] MCH 32.4 27.1 - 33.3 pg [facility] MCHC 34.1 32.3 - 35.7 g/dL [facility] RDW CV 13.5 11.1 - 14.9 % [facility] RDW SD 46.9 35.7 - 48.1 fL [facility] NRBC abs 0.00 0.00 - 0.01 K/cumm [facility] Blood 05/28/2024 10:4 8 PM LICENSED PESTICIDE APPLICATOR 05/28/2024 11:07 PM LICENSED PESTICIDE APPLICATOR Daniel Rosa MD LAB BLOOD ORDERABLES Final Res ult Performing Organization Address City/[facility] Co de Phone Number [facility] [place] [address] * Phosphorus (05/28/2024 10:48 PM LICENSED PESTICIDE APPLICATOR) Phosphorus, pl 3.3 2.3 - 4.5 mg/dL Blood 05/28/2024 10:4 8 PM LICENSED PESTICIDE APPLICATOR 05/28/2024 11:07 PM LICENSED PESTICIDE APPLICATOR Daniel Rosa MD LAB BLOOD ORDERABLES Final Res ult Performing Organization Address [facility] Co de Phone Number [facility] [place] [address] * Magnesium (05/28/2024 10:48 PM LICENSED PESTICIDE APPLICATOR) Magnesium 1.8 1.4 - 2.5 mg/dL Blood 05/28/2024 10:4 8 PM LICENSED PESTICIDE APPLICATOR 05/28/2024 11:07 PM LICENSED PESTICIDE APPLICATOR Daniel Rosa MD LAB BLOOD ORDERABLES Final Res ult Performing Organization Address City/[facility] Co de Phone Number [facility] [place] [address] * (ABNORMAL) Basic metabolic panel (05/28/2024 10:48 PM LICENSED PESTICIDE APPLICATOR) Pathologist [facility] Sodium 141 135 - 145 mmol/L Potassium, pl 4.0 3.3 - 4.9 mmol/L [facility] Comment:Repeated and Verifie d Chloride 104 97 - 110 mmol/L [facility] CO2 31 22 - 32 mmol/L [facility] Anion gap 6 2 - 15 mmol/L [facility] BUN 19 6 - 25 mg/dL [facility] Creatinine 1.33(H) 0.60 - 1.10 mg/dL [facility] Glucose 105 70 - 199 mg/dL [facility] Comment: Interpretive Data Fasting glucose >/= 126 [...] 2022. Calcium 9.4 8.5 - 10.3 mg/dL [facility] Blood 05/28/2024 10:4 8 PM LICENSED PESTICIDE APPLICATOR 05/28/2024 11:07 PM LICENSED PESTICIDE APPLICATOR us Daniel Rosa MD LAB BLOOD ORDERABLES Final Res ult [facility] Department [place] [address] * (ABNORMAL) Differential, auto (05/28/2024 1:59 PM LICENSED PESTICIDE APPLICATOR) [facility] Neutrophil abs 10.7(H) 1.5 - 6.5 K/cumm Imm gran abs 0.0 0.0 - 0.1 K/cumm [facility] Lymphocyte abs 0.8 0.8 - 3.3 K/cumm [facility] Monocyte abs 1.0(H) 0.2 - 0.8 K/cumm [facility] Eosinophil abs 0.0 0.0 - 0.5 K/cumm [facility] Basophil abs 0.0 0.0 - 0.1 K/cumm [facility] Neutrophil pct 85.0 % [facility] Comment: Interpretive Data Percent cell count reference ranges are not reported, since discordance with absolute values may lead to misinterpretation of CBC data. Current Interpretive Data was last revised on 2017. Imm gran pct 0.3 % [facility] Comment: Interpretive Data Percent cell count reference ranges are not reported, since discordance with absolute values may lead to misinterpretation of CBC data. Current Interpretive Data was last revised on 2017. Lymphocyte pct 6.2 % [facility] Comment: Interpretive Data Percent cell count reference ranges are not reported, since discordance with absolute values may lead to misinterpretation of CBC data. Current Interpretive Data was last revised on 2017. Monocyte pct 8.0 % [facility] Comment: Interpretive Data Percent cell count reference ranges are not reported, since discordance with absolute values may lead to misinterpretation of CBC data. Current Interpretive Data was last revised on 2017. Eosinophil pct 0.2 % [facility] Comment: Interpretive Data Percent cell count reference ranges are not reported, since discordance with absolute values may lead to misinterpretation of CBC data. Current Interpretive Data was last revised on 2017. Basophil pct 0.3 % [facility] Comment: Interpretive Data Percent cell count reference ranges are not reported, since discordance with absolute values may lead to misinterpretation of CBC data. Current Interpretive Data was last revised on 2017. Blood 05/28/2024 1:59 PM LICENSED PESTICIDE APPLICATOR 05/28/2024 2:12 PM LICENSED PESTICIDE APPLICATOR us Daniel Rosa MD LAB BLOOD ORDERABLES Final Res ult [facility] Department [place] [address] * (ABNORMAL) CBC with auto differential (05/28/2024 1:59 PM LICENSED PESTICIDE APPLICATOR) WBC 12.6(H) 3.8 - 9.9 K/cumm Hgb 13.0 11.9 - 15.5 g/dL [facility] Hct 38.5 35.6 - 45.5 % [facility] Plt 212 150 - 400 K/cumm [facility] MPV 10.6 9.1 - 12.3 fL [facility] RBC 4.07 3.90 - 5.20 M/cumm [facility] MCV 94.6 81.3 - 96.4 fL [facility] MCH 31.9 27.1 - 33.3 pg [facility] MCHC 33.8 32.3 - 35.7 g/dL [facility] RDW CV 13.4 11.1 - 14.9 % [facility] RDW SD 46.6 35.7 - 48.1 fL [facility] NRBC abs 0.00 0.00 - 0.01 K/cumm [facility] Blood 05/28/2024 1:59 PM LICENSED PESTICIDE APPLICATOR 05/28/2024 2:12 PM LICENSED PESTICIDE APPLICATOR us Daniel Rosa MD LAB BLOOD ORDERABLES Final Res ult [facility] Department [place] [address] * XR Abdomen Ap 1 Vw (05/28/2024 12:55 PM LICENSED PESTICIDE APPLICATOR) Anatomical Region Laterality Modality Body, Abdomen N/A Computed Radiogr aphy 05/28/2024 1:03 PM LICENSED PESTICIDE APPLICATOR Impressions 05/28/2024 1:03 PM LICENSED PESTICIDE APPLICATOR Side port of the gastric tube projects over the stomach. Electronically signed by: Nigel Nichols M.D. Narrative 05/28/2024 1:03 PM LICENSED PESTICIDE APPLICATOR EXAMINATION: Abdomen, one view. HISTORY: Gastric tube COMPARISON: Same-day CT Procedure Note Nigel Nichols MD - 05/28/2024 EXAMINATION: Abdomen, one view. HISTORY: Gastric tube COMPARISON: Same-day CT IMPRESSION: Side port of the gastric tube projects over the stomach. Electronically signed by: Nigel Nichols M.D. Daphney Lao MD [facility] XR PROCEDURES Final Result * XR Chest 1 Vw Portable (05/28/2024 12:51 PM LICENSED PESTICIDE APPLICATOR) Anatomical Region Laterality Modality Body, Chest N/A Computed Radiogr aphy 05/28/2024 12:5 5 PM LICENSED PESTICIDE APPLICATOR Impressions 05/28/2024 12:55 PM LICENSED PESTICIDE APPLICATOR Comparison to 10/21/2017. Tortuous descending thoracic aorta is again seen. Heart size is within normal limits. There are some mild linear opacities in the left lung base, likely partial atelectasis. No pneumothorax or pleural effusion. Electronically signed by: Nigel Nichols M.D. Narrative 05/28/2024 12:55 PM LICENSED PESTICIDE APPLICATOR EXAMINATION: 1 view chest radiograph Procedure Note Nigel Nichols MD - 05/28/2024 EXAMINATION: 1 view chest radiograph IMPRESSION: Comparison to 10/21/2017. Tortuous descending thoracic aorta is again seen. Heart size is within normal limits. There are some mild linear opacities in the left lung base, likely partial atelectasis. No pneumothorax or pleural effusion. Electronically signed by: Nigel Nichols M.D. Daphney Lao MD [facility] XR PROCEDURES Final Result * (ABNORMAL) Urinalysis reflex to microscopic (05/28/2024 11:53 AM LICENSED PESTICIDE APPLICATOR) Color, ur Straw Yellow Clarity, ur Clear Clear [facility] Specific gravity, ur 1.029 1.003 - 1.030 [facility] pH, urine 7.5 [facility] Comment: Interpretive Data U rine pH is affected by diet, medications, systemic acid-base disturbances, and renal tubular function. pH may affect urinary stone formation. For example, urine pH below 6.0 may help reduce the tendency for calcium phosphate stones and pH greater than 6.0 may reduce the tendency for uric acid stone formation. Source: Compufirst Current Interpretive Data was last revised on 2017 Protein, ur ql Trace Negative [facility] Glucose, ur ql Negative Negative [facility] Ketones, ur Negative Negative [facility] Bilirubin, ur Negative Negative [facility] Blood, ur Negative Negative [facility] Urobilinogen, ur <2.0 <2.0 mg/dL [facility] Nitrite, ur Negative Negative [facility] Leukocyte esterase, ur 3+(A) Negative [facility] UA reflex comment Reflex to microscopic UA will be performed. [facility] Urine 05/28/2024 11:5 3 AM LICENSED PESTICIDE APPLICATOR 05/28/2024 1:39 PM LICENSED PESTICIDE APPLICATOR Rody Hooks MD LAB URINE ORDERABLES Final Result Performing Organization Address [facility] Co de Phone Number [facility] Department [place] [address] * (ABNORMAL) Urinalysis, microscopic only (05/28/2024 11:53 AM LICENSED PESTICIDE APPLICATOR) WBC, ur 21-50(A) 0 - 5 /HPF RBC, ur 6-10(A) 0 - 2 /HPF [facility] Epithelial cells, squamous, ur 1-5 0 - 5 /HPF [facility] Bacteria, ur Trace(A) [facility] Mucous, ur Present(A) [facility] Urine 05/28/2024 11:5 3 AM LICENSED PESTICIDE APPLICATOR 05/28/2024 1:39 PM LICENSED PESTICIDE APPLICATOR us Rody Hooks MD LAB URINE ORDERABLES Final Result Performing Organization Address [facility] Co de Phone Number [facility] [place] [address] * CT Abdomen Pelvis W Contrast (05/28/2024 10:01 AM LICENSED PESTICIDE APPLICATOR) Anatomical Region Laterality Modality Body N/A Computed Tomogra phy 05/28/2024 11:0 0 AM LICENSED PESTICIDE APPLICATOR Impressions 05/28/2024 11:07 AM LICENSED PESTICIDE APPLICATOR Multiple mildly dilated fluid-filled small bowel with [...] Nigel Nichols M.D. Narrative 05/28/2024 11:07 AM LICENSED PESTICIDE APPLICATOR EXAMINATION: Computed tomography of the abdomen and [...] by: Nigel Nichols M.D. Daphney Lao MD [facility] CT PROCEDURES Final Result * ECG 12-LEAD (05/28/2024 9:35 AM LICENSED PESTICIDE APPLICATOR) Narrative [facility] - 05/28/2024 9:35 AM LICENSED PESTICIDE APPLICATOR Rody Hooks MD 05/28/2024 9:37 AM ECG [...] Daphney Lao MD ECG ORDERABLES Final Result [facility] * CBC with auto differential (05/28/2024 9:02 AM LICENSED PESTICIDE APPLICATOR) WBC See Comment 3.8 - 9.9 Comment: Credited, specimen clotted. Telephone report made to: Nabila Stokes RN on 05/28/2024 10:10:30 LICENSED PESTICIDE APPLICATOR by [place]. UMAIR Hgb See Comment 11.9 - 15.5 [facility] Comment: Credited, specimen clotted. Telephone report made to: Nabila Stokes RN on 05/28/2024 10:10:30 LICENSED PESTICIDE APPLICATOR by MT. UMAIR Hct See Comment 35.6 - 45.5 [facility] Comment: Credited, specimen clotted. Telephone report made to: Nabila Stokes RN on 05/28/2024 10:10:30 LICENSED PESTICIDE APPLICATOR by MT. UMAIR Plt See Comment 150 - 400 [facility] Comment: Credited, specimen clotted. Telephone report made to: Nabila Stokes RN on 05/28/2024 10:10:30 LICENSED PESTICIDE APPLICATOR by MT. UMAIR RBC See Comment 3.90 - 5.20 [facility] Comment: Credited, specimen clotted. Telephone report made to: Nabila Stokes RN on 05/28/2024 10:10:30 LICENSED PESTICIDE APPLICATOR by MT. UMAIR MCV See Comment 81.3 - 96.4 [facility] Comment: Credited, specimen clotted. Telephone report made to: Nabila Stokes RN on 05/28/2024 10:10:30 LICENSED PESTICIDE APPLICATOR by MT. UMAIR MCH See Comment 27.1 - 33.3 [facility] Comment: Credited, specimen clotted. Telephone report made to: Nabila Stokes RN on 05/28/2024 10:10:30 LICENSED PESTICIDE APPLICATOR by MT. UMAIR MCHC See Comment 32.3 - 35.7 [facility] Comment: Credited, specimen clotted. Telephone report made to: Nabila Stokes RN on 05/28/2024 10:10:30 LICENSED PESTICIDE APPLICATOR by MT. MARA BLOCK CV See Comment 11.1 - 14.9 [facility] Comment: Credited, specimen clotted. Telephone report made to: Nabila Stokes RN on 05/28/2024 10:10:30 LICENSED PESTICIDE APPLICATOR by MT. MARA BLOCK SD See Comment 35.7 - 48.1 [facility] Comment: Credited, specimen clotted. Telephone report made to: Nabila Stokes RN on 05/28/2024 10:10:30 LICENSED PESTICIDE APPLICATOR by MT. UMAIR Blood 05/28/2024 9:02 AM LICENSED PESTICIDE APPLICATOR 05/28/2024 9:10 AM LICENSED PESTICIDE APPLICATOR us Rody Hooks MD LAB BLOOD ORDERABLES Edite d Result - Final [facility] Department [place] [address] * Sepsis Lactate w/ Reflex (05/28/2024 8:30 AM LICENSED PESTICIDE APPLICATOR) [facility] Signature Sepsis Lactate 1.6 0.7 - 2.0 mmol/L Blood 05/28/2024 8:30 AM LICENSED PESTICIDE APPLICATOR 05/28/2024 9:07 AM LICENSED PESTICIDE APPLICATOR Daphney Lao MD LAB BLOOD ORDERABLES Final Res ult [facility] Department [place] [address] * Type and screen (05/28/2024 8:30 AM LICENSED PESTICIDE APPLICATOR) Pathologist [facility] Lucía, indirect Negative ABO Rh O Positive [facility] Blood 05/28/2024 8:30 AM LICENSED PESTICIDE APPLICATOR 05/28/2024 9:10 AM LICENSED PESTICIDE APPLICATOR Narrative [facility] - 05/28/2024 9:58 AM LICENSED PESTICIDE APPLICATOR Has the patient had Daratumumab or Isatuximab in the past 6 months?->Unknown Daphney Lao MD LAB BLOOD BANK TEST ORDERABLES Final Result [facility] [place] [address] * (ABNORMAL) eGFR (05/28/2024 7:51 AM LICENSED PESTICIDE APPLICATOR) [facility] eGFR 34(L) >=60 mL/min/1. 73 m2 [...] last reviewed 2021. Blood 05/28/2024 7:51 AM LICENSED PESTICIDE APPLICATOR 05/28/2024 7:59 AM LICENSED PESTICIDE APPLICATOR us Tomasz Harrison MD PhD LAB BLOOD ORDERABLE S Final Result [facility] Department [place] [address] * (ABNORMAL) Comprehensive metabolic panel (05/28/2024 7:51 AM LICENSED PESTICIDE APPLICATOR) Sodium 136 135 - 145 mmol/L Potassium, pl See Comment 3.3 - 4.9 mmol/L [facility] Comment:Credited; Hemolyzed Specimen Chloride 98 97 - 110 mmol/L [facility] CO2 28 22 - 32 mmol/L [facility] Comment:Hemolyzed; result ma y be falsely decreased Anion gap 10 2 - 15 mmol/L [facility] BUN 22 6 - 25 mg/dL [facility] Creatinine 1.49(H) 0.60 - 1.10 mg/dL [facility] Glucose 116 70 - 199 mg/dL [facility] Comment: Interpretive Data Fasting glucose >/= 126 [...] 2022. Calcium 9.9 8.5 - 10.3 mg/dL [facility] Bilirubin, total 0.5 0.1 - 1.2 mg/dL [facility] Protein, pl 8.3 6.5 - 8.5 g/dL [facility] Comment:Hemolyzed; result ma y be falsely elevated Albumin 4.0 3.5 - 5.0 g/dL [facility] Alk phos See Comment 40 - 130 Units/L [facility] Comment:Credited; Hemolyzed Specimen ALT See Comment 7 - 45 Units/L [facility] Comment:Credited; Hemolyzed Specimen AST See Comment 10 - 45 Units/L [facility] Comment:Credited; Hemolyzed Specimen Blood Venous blood specimen / Unknown 05/28/2024 7:51 AM LICENSED PESTICIDE APPLICATOR 05/28/2024 7:59 AM LICENSED PESTICIDE APPLICATOR us Rody Hooks MD LAB BLOOD ORDERABLES Final Result [facility] [place] [address] from Last 3 Months Insurance [facility] MEDICARE ADVANTAGE [facility] Address: [place] [id number] [place] [id number] [facility] MDCR HMO REF [facility] Address: [address] [address] [place] [address] [facility] Advance Directives For more information, please contact: [phone] * Full Code (Latest Code Status on [...] 2:46 PM 11/22/2017 8:31 PM Care Teams Winch Runner Relationship Specialty Start Date End Date Vernace, Melina Heather, DO PCP - General Family Medicine 05/13/19 Reece Weeks MD Medical Oncologist/Drum Loader And Unloader Hematology and Oncology 05/01/18 Daniel Rosa MD [id number] [place] [address] Surgeon Colon and Rectal Surgery 01/25/21
--- OUTSIDE RECORDS SUMMARY | 2024-07-15 01:58 | XMS_ITS | Clinical Summary ---
Author Organization [facility] [employer] Address [address] [place] [address] Care Team Providers Care Page Makeup System Operator Name Role Phone Tal Arechiga MD Primary Care Provider [phone] Source Comments [facility] [employer],non-owned Affiliates and Associated Physician Practices is amultiple site organization consisting of ambulatory clinics and hospital sitesin [place], [place], [place]. This disclosure is being madepursuant to the Care Everywhere program and may not contain all information available regarding this patient. Last updated 17.[facility] [employer] Social History Tobacco Use Types Packs/Day Years [...] VACCINE ( - 2023-2 5 season) 2023 DEPRESSION SCREENING 04/07/2024 MEDICARE AWV CALENDAR YEAR 2024 INFLUENZA VACCINE (Season Ended) 2024 HEPATITIS B VACCINE Aged Out No longe r eligible based on patient's age to complete this topic HIB VACCINE Aged Out No longer eligi ble based on patient's age to complete this topic HPV VACCINE Aged Out No longer eligi ble based on patient's age to complete this topic MENINGOCOCCAL (Group B) VACC INE SHARED DECISION-MAKING Aged Out No longer eligibl e based on patient's age to complete this topic MENINGOCOCCAL GROUPS A/C/Y/W VACCINE Aged Out No longer eligible b ased on patient's age to complete this topic Care Teams Page Makeup System Operator Relationship Specialty Start Date End Date Tal Arechiga MD [address] [place] [id number] PCP - General 12/02/18
--- OUTSIDE RECORDS SUMMARY | 2024-07-15 01:58 | XMS_ITS ---
Author Organization [facility] al Address [address] [place] [address] Care Team Providers Care Assistant Child Care Teacher Name Role Phone Reece Weeks MD Unavailable [phone] Melina Diaz DO Primary Care Provider [phone] Daniel Rosa MD Unavailable [phone] Active Problems Problem Noted Date Diagnosed Date Abdominal aortic aneurysm (AAA) without rupture 02/23/2024 Assessment & Plan (02/23/2024 3:08 PM VERIFY REP): 3.3 cm infrarenal abdominal aortic aneurysms. Discussed management of AAA with the patient with recommendation for ongoing surveillance and repair if evidence of rapid growth or approaching 5 cm. We will repeat the aortoiliac duplex in 1 year. Mixed hyperlipidemia 02/23/2024 Assessment & Plan (02/23/2024 3:08 PM VERIFY REP): Stable continue simvastatin Abdominal pain 06/20/2022 SBO (small bowel obstruction) 08/20/2021 Colostomy care 02/12/2018 Vaginal bleeding 01/21/2018 Overview (01/21/2018): Added automatically from request for surgery [id number] Partial small bowel obstruction 10/15/2017 Overview (10/15/2017): Added automatically from request for surgery [id number] Parastomal hernia with obstruction and without g angrene 10/15/2017 Overview (10/15/2017): Added automatically from request for surgery [id number] Intestinal obstruction 09/05/2017 Essential hypertension 09/04/2017 Assessment & Plan (02/23/2024 3:08 PM VERIFY REP): Stable continue lisinopril hydrochlorothiazide Coronary artery disease invo lving [place] coronary artery of [place] heart 10/29/2016 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 [...]
[2024-07-15 10:27] VITALS: BP 133/82; PULSE 86; RESP 20; TEMP 36.6; O2SAT 95
--- NOTE | 2024-07-15 10:45 | P.HP_ITS ---
H&P: HPI History of Present Illness Date/Time: 07/15/24 10:45 Chief Complaint: history of rectal cancer Narrative: the patient had an end colostomy more than 13 years ago due to the presence of a rectal cancer. She has had several episodes of small-bowel obstruction secondary to adhesions requiring hospitalization at [facility]. She is here for surveillance colonoscopy. Review of Systems Review of Systems: All systems reviewed & are unremarkable except as noted in HPI and below PMFSH Past Medical History Medical History Recurrent urinary tract infection Osteoporosis Constipation High cholesterol Wears glasses History of mumps History of measles History of chicken pox Rectal cancer Status post chemo radiation. Fractures Fracture right arm x2 at age 7 Arthritis Osteopenia Atherosclerosis of aorta Chronic kidney disease, stage 3 (moderate) Chronic obstructive pulmonary disease, unspecified Essential (primary) hypertension Gastro-esophageal reflux disease without esophagitis Post-menopausal Surgical History Surgical History History of bunionectomy of left great toe History of inguinal hernia repair History of cataract extraction with lens replacement History of section, classical (1967) History of intestinal surgery (2013) Perineal resection with colostomy for rectal cancer. Exploratory laparotomy for bowel obstructions and adhesiolysis on separate occasions. Family History Family History Sibling Hypertension Aneurysm Gout Heart disease Mother Diabetes mellitus Hypertension Family history of coronary artery disease bypass age 72 Father Hypertension Daughter Hypertension Son Hypertension Daughter Lymphedema Carpal tunnel syndrome Heart problem Other Family history of heart disease in male family member before age 55 Social History Social History Social History: Surrogate medical decision maker: Scott Thakur, alex. Code status: Full code. Caffeine:none Smoking packs per day: 1 Smoking cigarettes per day: 20.0 Years smoked: 35 Smoking pack-years: 35.00 Smoking status: Former smoker Smoking end date: 04/07/99 Alcohol intake: never Substance use: never Substance use type: does not use Do You Feel Safe in your Home?: Yes Lack of Transportation: No Lack of Food: Never True Current Housing: I Have Housing Concerned About Future Housing: No Difficulty Paying Gas/Electric Bills: No Difficulty Paying for Meds: No Currently Unemployed: No Education: Associate Degree Difficulty w/ Childcare or Family Care: No Living arrangements: with family Additional living arrangements comments: The patient lives in [place], son and [id number] live with her. Additional occupation/education comments: Retired. Spiritual care concerns: No Meds Home Medications and Allergies Home Medications ?Medication ?Instructions ?Recorded ?Confirmed ?Type Calcium 500 + D (D3) 1 tablet PO DAILY 04/02/19 07/15/24 History biotin 5,000 mcg sublingual tablet 7,500 mcg sublingual DAILY 05/20/19 07/15/24 History cat's claw (Albertoaria tomentosa) 500 500 mg PO DAILY 07/24/20 07/15/24 History mg capsule polyethylene glycol 3350 17 17 g PO DAILY 12/18/23 07/15/24 History gram/dose oral powder (Miralax) simvastatin 20 mg tablet 20 mg PO DAILY #90 tabs 01/28/24 07/15/24 Rx amitriptyline 10 mg tablet 10 mg PO QHS #90 tabs 04/09/24 07/15/24 Rx lisinopril 20 See Rx Instructions .Route 04/22/24 07/15/24 Rx mg-hydrochlorothiazide 12.5 mg .COMPLEX #90 tabs tablet fluticasone fur. 100 mcg-umeclid See Rx Instructions .Route 04/28/24 07/15/24 Rx 62.5 mcg-vilant 25 mcg .COMPLEX #180 ea inhalat.powder (Trelegy Ellipta) lactase 9,000 unit tablet 9,000 unit PO ONCE 05/20/24 07/15/24 History multivitamin 1 tablet PO DAILY 05/20/24 07/15/24 History estradiol 0.01% (0.1 mg/gram) 1 appful vaginal DAILY PRN dryness 06/29/24 07/06/24 History vaginal cream Allergies Allergy/AdvReac Type Severity Reaction Status Date / Time amlodipine Allergy Mild Other Verified 07/15/24 10:24 amoxicillin (From Augmentin) Allergy Mild Itching, Verified 07/15/24 10:24 rash mold Allergy Mild Itching Verified 07/15/24 10:24 Vital Signs Vital Signs - 24 hr 07/15/24 10:27 Temperature 97.8 F Pulse Rate 86 Respiratory Rate 20 Blood Pressure 133/82 Pulse Oximetry 95 Oxygen Delivery Room Air Exam Const: General: cooperative and healthy appearing Resp: Effort & Inspection: normal respiratory effort and able to speak in complete sentences Auscultation: clear to auscultation bilaterally Cardio: Rate: regular rate Rhythm: regular rhythm GI: Inspection: normal to inspection GI Palp: No No hepatosplenomegaly present Auscultation: normal bowel sounds Rectal Exam: deferred Skin: General skin exam: normal color Psych: Appearance: grossly normal Mental Status: mental status grossly normal Assessment and Plan Assessment and plan (1) Personal history of rectal cancer: Code(s): Z85.048 - Personal history of other malignant neoplasm of rectum, rectosigmoid junction, and anus Status: Chronic Assessment and Plan: The patient is deemed a good candidate for the procedure. Consent signed. Will proceed. (2) Colostomy status: Code(s): Z93.3 - Colostomy status Status: Chronic
[2024-07-15] MEDS: LACTATED RINGERS 1,000 ML 150 ML IV CONT (10:50)
--- NOTE | 2024-07-15 10:55 | WPDANESEPPF ---
Anes - Initial Pre Proc Eval Procedure: Operation Date: 07/15/24 11:30 Proposed Procedures p Colonoscopy - Karl Padron MD Date/Time: 07/15/24 10:55 Surgeon: Karl Padron MD Pre Op Diagnosis: Personal history of other malignant neoplasm of la Patient Data Age: 84 Gender: F Height: 1.63 m Weight: 70.3 kg Last Vital Signs Temp 97.8 F 07/15/24 10:27 Pulse 86 07/15/24 10:27 Resp 20 07/15/24 10:27 BP 133/82 07/15/24 10:27 Pulse Ox 95 07/15/24 10:27 O2 Del Method Room Air 07/15/24 10:27 Allergies Allergy/AdvReac Type Severity Reaction Status Date / Time amlodipine Allergy Mild Other Verified 07/15/24 10:24 amoxicillin (From Augmentin) Allergy Mild Itching, Verified 07/15/24 10:24 rash mold Allergy Mild Itching Verified 07/15/24 10:24 Home Medications ?Medication ?Instructions ?Recorded ?Confirmed ?Type Calcium 500 + D (D3) 1 tablet PO DAILY 04/02/19 07/15/24 History biotin 5,000 mcg sublingual tablet 7,500 mcg sublingual DAILY 05/20/19 07/15/24 History cat's claw (Uncaria tomentosa) 500 500 mg PO DAILY 07/24/20 07/15/24 History mg capsule polyethylene glycol 3350 17 17 g PO DAILY 12/18/23 07/15/24 History gram/dose oral powder (Miralax) simvastatin 20 mg tablet 20 mg PO DAILY #90 tabs 01/28/24 07/15/24 Rx amitriptyline 10 mg tablet 10 mg PO QHS #90 tabs 04/09/24 07/15/24 Rx lisinopril 20 See Rx Instructions .Route 04/22/24 07/15/24 Rx mg-hydrochlorothiazide 12.5 mg .COMPLEX #90 tabs tablet fluticasone fur. 100 mcg-umeclid See Rx Instructions .Route 04/28/24 07/15/24 Rx 62.5 mcg-vilant 25 mcg .COMPLEX #180 ea inhalat.powder (Trelegy Ellipta) lactase 9,000 unit tablet 9,000 unit PO ONCE 05/20/24 07/15/24 History multivitamin 1 tablet PO DAILY 05/20/24 07/15/24 History estradiol 0.01% (0.1 mg/gram) 1 appful vaginal DAILY PRN dryness 06/29/24 07/06/24 History vaginal cream Patient hx anesthesia problems: none Family hx anesthesia problems: none Results Review: All pre-operative results and documents have been reviewed as part of the pre-operative evaluation. [facility] Past Medical History Medical History Recurrent urinary tract infection Osteoporosis Constipation High cholesterol Wears glasses History of mumps History of measles History of chicken pox Rectal cancer Status post chemo radiation. Fractures Fracture right arm x2 at age 7 Arthritis Osteopenia Atherosclerosis of aorta Chronic kidney disease, stage 3 (moderate) Chronic obstructive pulmonary disease, unspecified Essential (primary) hypertension Gastro-esophageal reflux disease without esophagitis Post-menopausal Surgical History Surgical History History of bunionectomy of left great toe History of inguinal hernia repair History of cataract extraction with lens replacement History of section, classical (1967) History of intestinal surgery (2013) Perineal resection with colostomy for rectal cancer. Exploratory laparotomy for bowel obstructions and adhesiolysis on separate occasions. Family History Family History Sibling Hypertension Aneurysm Gout Heart disease Mother Diabetes mellitus Hypertension Family history of coronary artery disease bypass age 72 Father Hypertension Daughter Hypertension Son Hypertension Daughter Lymphedema Carpal tunnel syndrome Heart problem Other Family history of heart disease in male family member before age 55 Social History Social History Social History: Surrogate medical decision maker: Scott Thakur, alex. Code status: Full code. Caffeine:none Smoking packs per day: 1 Smoking cigarettes per day: 20.0 Years smoked: 35 Smoking pack-years: 35.00 Smoking status: Former smoker Smoking end date: 04/07/99 Alcohol intake: never Substance use: never Substance use type: does not use Do You Feel Safe in your Home?: Yes Lack of Transportation: No Lack of Food: Never True Current Housing: I Have Housing Concerned About Future Housing: No Difficulty Paying Gas/Electric Bills: No Difficulty Paying for Meds: No Currently Unemployed: No Education: Associate Degree Difficulty w/ Childcare or Family Care: No Living arrangements: with family Additional living arrangements comments: The patient lives in [place], son and [id number] live with her. Additional occupation/education comments: Retired. Spiritual care concerns: No Anes - Eval Final PreProcedure Day of Procedure 07/15/24 10:55 Patient weight: normal Heart: regular rate and rhythm Lungs: clear to auscultation Airway: Mallampati scale class II Neurological: alert and oriented Last oral intake: >/= 8 hours ASA classification: III Emergent: no Anesthetic plan: proceed Anesthesia type and monitoring: general GIVS and standard monitoring Results Review: All pre-operative results and documents have been reviewed as part of the pre-operative evaluation. Informed Consent: The patient's anesthetic plan and its attendant risks and benefits were discussed with the patient/family/POA. Questions were solicited and answers provided to the satisfaction of the patient/family/POA.
[2024-07-15] MEDS: SIMETHICONE ORAL SUSPENSION 20 MG/0.3 ML 30 ML BOTTLE 0.6 ML IRRIGATION (11:18)
[2024-07-15 11:26] VITALS: BP 107/56; PULSE 67; RESP 15; O2SAT 97
[2024-07-15 11:36] VITALS: BP 113/59; PULSE 72; RESP 23; O2SAT 96
[2024-07-15 11:46] VITALS: BP 140/71; PULSE 65; RESP 20; O2SAT 100
== END 2024-07-15 12:14 | disposition home or self-care (01) ==
PROVIDERS: PCP Family Medicine; Referring Provider Nurse Practitioner; Visit Provider Internal Medicine Gastroenterology
PROC: 0DJD8ZZ Inspection of Lower Intestinal Tract, Via Natural or Artificial Opening Endoscopic (ICD-10-PCS; CPT 45378; principal; 2024-07-15 11:30)
DX: Z08 Encounter for follow-up examination after completed treatment for malignant neoplasm (principal); D12.3 Benign neoplasm of transverse colon; D12.2 Benign neoplasm of ascending colon; I12.9 Hypertensive chronic kidney disease with stage 1 through stage 4 chronic kidney disease, or unspecified chronic kidney disease; N18.30 Chronic kidney disease, stage 3 unspecified; J44.9 Chronic obstructive pulmonary disease, unspecified; K21.9 Gastro-esophageal reflux disease without esophagitis; M85.88 Other specified disorders of bone density and structure, other site; M81.0 Age-related osteoporosis without current pathological fracture; E78.00 Pure hypercholesterolemia, unspecified; I70.0 Atherosclerosis of aorta; M19.90 Unspecified osteoarthritis, unspecified site; Z79.51 Long term (current) use of inhaled steroids; Z98.890 Other specified postprocedural states; Z93.3 Colostomy status; Z87.891 Personal history of nicotine dependence; Z85.048 Personal history of other malignant neoplasm of rectum, rectosigmoid junction, and anus; Z92.3 Personal history of irradiation; Z92.21 Personal history of antineoplastic chemotherapy; Z87.19 Personal history of other diseases of the digestive system; Z82.49 Family history of ischemic heart disease and other diseases of the circulatory system
CPT/HCPCS: 45385; 88305; J2003; J2704; J7120

== ENCOUNTER 2024-09-17 09:18 | Outpatient (CLI) | payer MEDICARE, SELFPAY ==
--- OUTSIDE RECORDS SUMMARY | 2024-09-17 09:23 | XMS_ITS ---
Author Organization [facility] al Address [address] [place] [address] Care Team Providers Care Bed And Breakfast Operator Name Role Phone Reece Weeks MD Unavailable [phone] Melina Diaz DO Primary Care Provider [phone] Daniel Rosa MD Unavailable [phone] Active Problems Problem Noted Date Diagnosed Date Abdominal aortic aneurysm (AAA) without rupture 02/23/2024 Assessment & Plan (02/23/2024 3:08 PM UNDRAPED ARTIST MODEL): 3.3 cm infrarenal abdominal aortic aneurysms. Discussed management of AAA with the patient with recommendation for ongoing surveillance and repair if evidence of rapid growth or approaching 5 cm. We will repeat the aortoiliac duplex in 1 year. Mixed hyperlipidemia 02/23/2024 Assessment & Plan (02/23/2024 3:08 PM UNDRAPED ARTIST MODEL): Stable continue simvastatin Abdominal pain 06/20/2022 SBO (small bowel obstruction) 08/20/2021 Colostomy care 02/12/2018 Vaginal bleeding 01/21/2018 Overview (01/21/2018): Added automatically from request for surgery [id number] Partial small bowel obstruction 10/15/2017 Overview (10/15/2017): Added automatically from request for surgery [id number] Parastomal hernia with obstruction and without g angrene 10/15/2017 Overview (10/15/2017): Added automatically from request for surgery [id number] Intestinal obstruction 09/05/2017 Essential hypertension 09/04/2017 Assessment & Plan (02/23/2024 3:08 PM UNDRAPED ARTIST MODEL): Stable continue lisinopril hydrochlorothiazide Coronary artery disease invo lving [place] coronary artery of [place] heart 10/29/2016 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 [...]
--- OUTSIDE RECORDS SUMMARY | 2024-09-17 09:23 | XMS_ITS | Referral Summary ---
Author Organization [facility] al Address [address] [place] [address] Care Team Providers Care Lumber Checker Name Role Phone Reece Weeks MD Unavailable [phone] Melina Diaz DO Primary Care Provider [phone] Daniel Rosa MD Unavailable [phone] Allergies Active Allergy Reactions Criticality Noted [...] 02/23/2024 Assessment & Plan (02/23/2024 3:08 PM ORE PUNCHER): 3.3 cm infrarenal abdominal aortic aneurysms. Discussed management of AAA with the patient with recommendation for ongoing surveillance and repair if evidence of rapid growth or approaching 5 cm. We will repeat the aortoiliac duplex in 1 year. Mixed hyperlipidemia 02/23/2024 Assessment & Plan (02/23/2024 3:08 PM ORE PUNCHER): Stable continue simvastatin Abdominal pain 06/20/2022 SBO (small bowel obstruction) 08/20/2021 Colostomy care 02/12/2018 Vaginal bleeding 01/21/2018 Overview (01/21/2018): Added automatically from request for surgery [id number] Partial small bowel obstruction 10/15/2017 Overview (10/15/2017): Added automatically from request for surgery [id number] Parastomal hernia with obstruction and without g angrene 10/15/2017 Overview (10/15/2017): Added automatically from request for surgery [id number] Intestinal obstruction 09/05/2017 Essential hypertension 09/04/2017 Assessment & Plan (02/23/2024 3:08 PM ORE PUNCHER): Stable continue lisinopril hydrochlorothiazide Coronary artery disease invo lving [place] coronary artery of [place] heart 10/29/2016 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 [...] than three times a week 01/11/2020 Attends Holiness Services Not on file 01/10 Active Member [...] on file Legal Sex Female 3:02 AM ORE PUNCHER Gender Identity Not on file Sexual Orientation Not on file Last Filed Vital Signs Vital Sign Reading Time Taken Comments Blood Pressure 146/71 05/31/2024 8:40 AM ORE PUNCHER Pulse 71 05/31/2024 8:40 AM ORE PUNCHER Temperature 36.6 C (97.9 F) 05/31/2024 8:40 AM ORE PUNCHER Respiratory Rate 18 05/31/2024 8:40 AM ORE PUNCHER Oxygen Saturation 97% 05/31/2024 8:40 AM ORE PUNCHER Inhaled Oxygen Concentration - - Weight 69.9 kg (154 lb) 05/28/2024 5:45 PM ORE PUNCHER Height 160 cm (5' 3) 05/28/2024 5:45 PM ORE PUNCHER Body Mass Index 27.28 05/28/2024 5:45 PM ORE PUNCHER Plan of Treatment Not on file Medical Devices Implanted Type Area Gun Examiner Device Identifier Shelf Expiration Date Model / Serial / Lot [employer]ol Inc/C R Bard [id number] Ventralight St Sepra 9x7in Uncoated Monofilament Lightweight - Sn/A - [id number] Implanted:Qty: 1 on 11/19/2017 by Daniel Rosa MD at [facility] Mesh N/A: Abdomen [employer]/C R Bard [id number] 03/04/2018 [id number] / N/A / [id number] Insurance [facility] MEDICARE ADVANTAGE [facility] MEDIC[facility] Address: [address] [address] [facility] MDCR HMO REF [facility] MED[facility] Address: [address] [address] [place] [address] [facility] [place]IC[place] [address] [facility] MEDICARE Advance Directives For more information, please contact: [phone] * Full Code (Latest Code Status on [...] 2:46 PM 11/22/2017 8:31 PM Care Teams Lumber Checker Relationship Specialty Start Date End Date RubensvanessagiseleMelinaeDO PCP - General Family Medicine 05/13/19 Reece Weeks MD Medical Oncologist/Squad Leader Hematology and Oncology 05/01/18 Daniel Rosa MD [id number] [place] [address] Surgeon Colon and Rectal Surgery 01/25/21
--- OUTSIDE RECORDS SUMMARY | 2024-09-17 09:23 | XMS_ITS | Clinical Summary ---
Author Organization [facility] Address [address] [place] [address] Care Team Providers Care Lecturer In Computer Science Name Role Phone Tal Arechiga MD Primary Care Provider [phone] Source Comments [facility],non-owned Affiliates and Associated Physician Practices is amultiple site organization consisting of ambulatory clinics and hospital sitesin [place], [place], [place] and [place]. This disclosure is being madepursuant to the Care Everywhere program and may not contain all information available regarding this patient. Last updated 17.[facility] Blink Messenger Social History Tobacco Use Types Packs/Day Years Used Date Smoking Tobacco: Never Assessed Comments Unknown Sex and Gender Information Value Date Recorded Sex Assigned at Not on file Legal Sex Female 1:53 PM CDT Gender Identity Not on file Sexual Orientation [...] on patient's age to complete this topic Insurance [facility] [place] [address] [place] [address] [facility] SELF PAY NO INSURANCE Member Subscriber Plan / Payer (Ef fective for All Dates) Name:Elvie Holloway Member ID:Not on file Relation to Subscriber:Not on file Name:ELVIE HOLLOWAY Subscriber ID:Not on file (Home) Address: [facility] [place] [address] Payer ID:Not on file Group ID:Not on file Type:Self Pay Address: [place], [place] Care Teams Lecturer In Computer Science Relationship Specialty Start Date End Date Tal Arechiga MD [address] [place] [address] [facility] - General 12/02/18
--- OUTSIDE RECORDS SUMMARY | 2024-09-17 09:23 | XMS_ITS | Clinical Summary ---
Author Organization [facility] al Address [address] [place] [address] Care Team Providers Care Oracle Drm Consultant Name Role Phone Reece Weeks MD Unavailable [phone] Melina Diaz DO Primary Care Provider [phone] Daniel Rosa MD Unavailable [phone] Allergies Active Allergy Reactions Criticality Noted [...] 02/23/2024 Assessment & Plan (02/23/2024 3:08 PM STUFFER): 3.3 cm infrarenal abdominal aortic aneurysms. Discussed management of AAA with the patient with recommendation for ongoing surveillance and repair if evidence of rapid growth or approaching 5 cm. We will repeat the aortoiliac duplex in 1 year. 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 Vaginal bleeding 01/21/2018 Overview (01/21/2018): Added automatically from request for surgery [id number] Partial small bowel obstruction 10/15/2017 Overview (10/15/2017): Added automatically from request for surgery [id number] Parastomal hernia with obstruction and without g angrene 10/15/2017 Overview (10/15/2017): Added automatically from request for surgery [id number] Intestinal obstruction 09/05/2017 Essential hypertension 09/04/2017 Assessment & Plan (02/23/2024 3:08 PM STUFFER): Stable continue lisinopril hydrochlorothiazide Coronary artery disease invo lving [place] coronary artery of [place] heart 10/29/2016 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 [...] than three times a week 01/11/2020 Attends [employer] Services Not on file 01/10 Active Member [...] on file Legal Sex Female 3:02 AM STUFFER Gender Identity Not on file Sexual Orientation Not on file Obstetrics History Last Filed Vital Signs Vital Sign Reading Time Taken Comments Blood Pressure 146/71 05/31/2024 8:40 AM STUFFER Pulse 71 05/31/2024 8:40 AM STUFFER Temperature 36.6 C (97.9 F) 05/31/2024 8:40 AM STUFFER Respiratory Rate 18 05/31/2024 8:40 AM STUFFER Oxygen Saturation 97% 05/31/2024 8:40 AM STUFFER Inhaled Oxygen Concentration - - Weight 69.9 kg (154 lb) 05/28/2024 5:45 PM STUFFER Height 160 cm (5' 3) 05/28/2024 5:45 PM STUFFER Body Mass Index 27.28 05/28/2024 5:45 PM STUFFER Plan of Treatment Health Maintenance Due Date Last Done Comments Depression Screening 1940 Osteoporosis Screening-Bone Density Scan 1939 DTaP/Tdap/Td Vaccine (1 - Tdap) 1950 Hepatitis B Screening 1957 Pneumococcal vaccine 65+ (1 of 1 - PCV) 1989 Well Visit 65+ 2004 Zoster Vaccine (2 of 3) 09/14/2018 07/20/2018, 05/11 Influenza Vaccine (Season Ended) 2024 01/05/2020, 12/28/2018, 12/18/2017, Additional history exists Fall Risk Assessment 05/31/2025 05/31/2024 Medical Devices Implanted Type Area Choker Setter Device Identifier Shelf Expiration Date Model / Serial / Lot [employer]ol Inc/C R Bard [id number] Ventralight St Sepra 9x7in Uncoated Monofilament Lightweight - Sn/A - [id number] Implanted:Qty: 1 on 11/19/2017 by Daniel Rosa MD at [facility] Mesh N/A: Abdomen [employer]/C R Bard [id number] 03/04/2018 [id number] / N/A / [id number] Insurance [facility] MEDICARE ADVANTAGE [facility] MDCR [facility]MO [facility] Advance Directives For more information, please contact: [phone] * Full Code (Latest Code Status on [...] 2:46 PM 11/22/2017 8:31 PM Care Teams Oracle Drm Consultant Relationship Specialty Start Date End Date Melina Diaz DO PCP - General Family Medicine 05/13/19 Reece Weeks MD Medical Oncologist/Control Director Hematology and Oncology 05/01/18 Daniel Rosa MD [phone] [place] [address] Surgeon Colon and Rectal Surgery 01/25/21
--- OUTSIDE RECORDS SUMMARY | 2024-09-17 09:23 | XMS_ITS | Encounter Summary ---
Author Organization [facility] Address [address] [place] [address] Care Team Providers Care Military Personnel Specialist Name Role Phone Tal Arechiga MD Primary Care Provider [phone] Encounter Details Date Type Department Care Team (Late st Contact Info) Description 12/02/2018 Lab Requisition [facility] [address] [place], [place] [id number] Rose Mary Araujo MD [address] [place], [place] [id number] Illness Social History Tobacco Use Types Packs/Day [...] CDT) Case Report Surgical Pathology Report Case: [id number] Authorizing Provider: Rose Mary Araujo MD Collected: 12/01/2018 03:45 PM Ordering Location: [facility] Received: 12/02/2018 03:45 PM Pathologist: Rashad Billingsley MD Specimen: Slide Consultation, [id number] 12/03/2018 10:27 AM CDT [facility] Final Diagnosis Urine, voided, thin prep, cytology: -Negative for high-grade urothelial neoplasia -Acute and chronic inflammation 12/03/2018 10:27 AM CDT [facility] at 1026 CDT Microscopic Description and Comment Performed. 12/03/2018 10:27 AM [facility] Clinical History Hematuria, cystoscopy negative. 12/03/2018 10:27 AM [facility] Gross Description Prepared slides received from [facility] labeled [id number]. All material will be returned. 12/03/2018 10:27 AM T [facility] Disclaimer The performance characteristics of all immunohistochemical and indirect immunofluorescence stains (if any) cited in this report were determined by the Histopathology Laboratory of [facility]. Some of these tests were [...] the attending (teaching) pathologist. 12/03/2018 10:27 AM [facility] Embedded Images 12/03/2018 10:27 AM [facility] Pathology/Cytolo gy SURGICAL PATHOLOGY CONSULTATION AND REPORT ON REFERRED SLIDES PREPARED ELSEWHERE / Unknown 12/01/2018 3:45 PM CDT 12/02/2018 3:45 PM CDT us Rose Mary Araujo MD LAB - PATHOLOGY/CYTOLOGY ORDERAB LES Final Result Performing Organization Address City/State/[place] Co de Phone Number [facility] [address] [phone] documented in this encounter Visit Diagnoses Diagnosis Illness Other unknown and unspecified cause of morbidity or mortality documented in this encounter Care Teams Military Personnel Specialist Relationship Specialty Start Date End Date Tal Arechiga MD [address] [place] [address] PCP - General 12/02/18 documented as of this encounter
[2024-09-17 12:40] LABS: Albumin Level 4.1 g/dL (3.5-5.1); Anion Gap 6 mmol/L (4-12); Blood Urea Nitrogen 27 mg/dL (7-17); Calcium 9.8 mg/dL (8.4-10.2); Carbon Dioxide 31 mmol/L (22-30); Chloride 102 mmol/L (98-107); Estimated Glomerular Filt Rate 33; Glucose 89 mg/dL (65-110); Phosphorus 3.6 mg/dL (2.5-4.5); Potassium 4.4 mmol/L (3.4-5.0); Sodium 139 mmol/L (137-145)
[2024-09-17 12:47] LABS: Parathyroid Intact 62.4 pg/mL (14.5-75.2)
[2024-09-17 13:37] LABS: Total Protein Urine Random 22 mg/dL; Ur Ttl Prot Creatinine Ratio 0.59 mg/mg (0-0.20)
== END 2024-09-17 09:19 | disposition home or self-care (01) ==
LOC: ANHGOSHLAB 09:20
PROVIDERS: PCP Family Medicine; Visit Provider Internal Medicine Nephrology
DX: I12.9 Hypertensive chronic kidney disease with stage 1 through stage 4 chronic kidney disease, or unspecified chronic kidney disease (principal); N18.32 Chronic kidney disease, stage 3b; N25.81 Secondary hyperparathyroidism of renal origin
CPT/HCPCS: 36415; 80069; 82570; 83970; 84156

== ENCOUNTER 2025-01-17 08:35 | Outpatient (CLI) | payer MEDICARE, SELFPAY ==
--- OUTSIDE RECORDS SUMMARY | 2025-01-17 08:48 | XMS_ITS | Clinical Summary ---
Author Organization [facility] Address [address] [place] [address] Care Team Providers Care Landscaper Helper Name Role Phone Tal Arechiga MD Primary Care Provider [phone] Source Comments [facility],non-owned Affiliates and Associated Physician Practices is amultiple site organization consisting of ambulatory clinics and hospital sitesin [place], [place] and [place]. This disclosure is being madepursuant to the Care Everywhere program and may not contain all information available regarding this patient. Last updated 17.[facility] Evalve Social History Tobacco Use Types Packs/Day Years [...] yrs (1 - 1-dose 75+ series) 2014 DEPRESSION SCREENING 04/07/2024 MEDICARE AWV CALENDAR YEAR 2024 COVID-19 VACCINE ( - 2023-2 5 season) 2024 INFLUENZA VACCINE (#1) 2024 HEPATITIS B VACCINE Aged Out No [...] age to complete this topic Insurance [facility] MANA[place]ED [place] [address] [facility] MED[facility] AD[facility] SELF PAY NO INSURANCE Member Subscriber Plan / Payer (Ef fective for All Dates) Name:Elvie Holloway Member ID:Not on file Relation to Subscriber:Not on file Name:ELVIE HOLLOWAY Subscriber ID:Not on file (Home) Address: [facility] [place] [address] Payer ID:Not on file Group ID:Not on file Type:Self Pay Address: [place], [place] Care Teams Landscaper Helper Relationship Specialty Start Date End Date Tal Arechiga MD [address] [place] [address] [facility] - General 12/02/18
--- OUTSIDE RECORDS SUMMARY | 2025-01-17 08:48 | XMS_ITS | Encounter Summary ---
Author Organization [facility] Address [address] [place] [address] Care Team Providers Care Track Layer Head Name Role Phone Tal Arechiga MD Primary Care Provider [phone] Encounter Details Date Type Department Care Team (Late st Contact Info) Description 12/02/2018 Lab Requisition [facility] [address] [place], [place] [id number] Rose Mary Araujo MD [address] [place], [place] [id number] Illness Social History Tobacco Use Types Packs/Day [...] CDT) Case Report Surgical Pathology Report Case: [id number] Authorizing Provider: Rose Mary Araujo MD Collected: 12/01/2018 03:45 PM Ordering [facility]: [facility] Received: 12/02/2018 03:45 PM Pathologist: Rashad Billingsley MD Specimen: Slide Consultation, [id number] 12/03/2018 10:27 AM CDT [facility] Final Diagnosis Urine, voided, thin prep, cytology: -Negative for high-grade urothelial neoplasia -Acute and chronic inflammation 12/03/2018 10:27 AM CDT [facility] at 1026 CDT Microscopic Description and Comment Performed. 12/03/2018 10:27 AM [facility] Clinical History Hematuria, cystoscopy negative. 12/03/2018 10:27 AM [facility] Gross Description Prepared slides received from [facility] labeled [id number]. All material will be returned. 12/03/2018 10:27 AM T [facility] Disclaimer The performance characteristics of all immunohistochemical and indirect immunofluorescence stains (if any) cited in this report were determined by the Histopathology Laboratory of [facility]. Some of these tests were [...] the attending (teaching) pathologist. 12/03/2018 10:27 AM [facility] Embedded Images 12/03/2018 10:27 AM [facility] Pathology/Cytolo gy SURGICAL PATHOLOGY CONSULTATION AND REPORT ON REFERRED SLIDES PREPARED ELSEWHERE / Unknown 12/01/2018 3:45 PM CDT 12/02/2018 3:45 PM CDT us Rose Mary Araujo MD LAB - PATHOLOGY/CYTOLOGY ORDERAB LES Final Result Performing Organization Address City/State/[facility] Co de Phone Number [facility] [address] [phone] documented in this encounter Visit Diagnoses Diagnosis Illness Other unknown and unspecified cause of morbidity or mortality documented in this encounter Care Teams Track Layer Head Relationship Specialty Start Date End Date Tal Arechiga MD [address] [place] [address] PCP - General 12/02/18 documented as of this encounter
[2025-01-17 13:21] LABS: Albumin Level 4.2 g/dL (3.5-5.1); Anion Gap 8 mmol/L (4-12); Blood Urea Nitrogen 25 mg/dL (7-17); Calcium 9.7 mg/dL (8.4-10.2); Carbon Dioxide 30 mmol/L (22-30); Chloride 99 mmol/L (98-107); Estimated Glomerular Filt Rate 37; Glucose 88 mg/dL (65-110); Potassium 3.6 mmol/L (3.4-5.0); Sodium 137 mmol/L (137-145)
[2025-01-17 13:31] LABS: Free T4 Free Thyroxine 1.11 ng/dL (0.78-2.19)
[2025-01-17 13:38] LABS: Thyroid Stimulating Hormone 0.931 uIU/mL (0.465-4.680); Total Triiodothyronine (T3) 0.94 NG/ML (0.82-1.58)
[2025-01-17 13:44] LABS: Total Protein Urine Random 12 mg/dL; Ur Ttl Prot Creatinine Ratio 0.30 mg/mg (0-0.20)
== END 2025-01-17 08:36 | disposition home or self-care (01) ==
LOC: ANHGOSHLAB 08:36
PROVIDERS: Internal Medicine Nephrology; PCP Family Medicine; Visit Provider Internal Medicine
DX: E05.90 Thyrotoxicosis, unspecified without thyrotoxic crisis or storm (principal); R79.89 Other specified abnormal findings of blood chemistry; R73.03 Prediabetes; J12.9 Viral pneumonia, unspecified; I12.9 Hypertensive chronic kidney disease with stage 1 through stage 4 chronic kidney disease, or unspecified chronic kidney disease; E78.00 Pure hypercholesterolemia, unspecified; M85.80 Other specified disorders of bone density and structure, unspecified site; E87.8 Other disorders of electrolyte and fluid balance, not elsewhere classified; R73.09 Other abnormal glucose
CPT/HCPCS: 36415; 80069; 82570; 83520; 84156; 84439; 84443; 84445; 84480; 86376; 86800

== ENCOUNTER 2025-01-19 14:59 | Outpatient (CLI) | payer MEDICARE, SELFPAY ==
--- NOTE | ~2025-01-19 | DEXA_ITS ---
Bone Density Report Name: YON HOLLOWAY Age: 84 Sex: Female Ethnicity: White Date of : 1940 Indication: postmenopausal; screening for osteoporosis; height loss; cancer; Referring Provider: IONA JAMES Study: Bone densitometry was performed. Exam Date: January 19, 2025 Accession number: [id number] Bone Density: Region BMD T-score Z-score Classification AP Spine(L1-L4) 1.067 0.2 3.1 Normal Femoral Neck (Left) 0.673 -1.6 0.9 Osteopenia Total Hip (Left) 0.821 -1.0 1.3 Normal Femoral Neck (Right) 0.714 -1.2 1.3 Osteopenia Total Hip (Right) 0.821 -1.0 1.3 Normal Total Hip Mean 0.821 -1.0 1.3 Normal World Health Organization criteria for BMD impression classify patients as: Normal (T-score at or above -1.0), Osteopenia (T-score between -1.0 and -2.5), or Osteoporosis (T-score at or below -2.5). 10-year Fracture Risk(1): Major Osteoporotic Fracture 13% Hip Fracture 3.5% Reported Risk Factors: [place] (), Neck BMD=0.673, BMI=29.9 (1) FRAX(R) Version 3.08. Fracture probability calculated for an untreated patient. Fracture probability may be lower if the patient has received treatment. Clinical Information Provided by Patient: Has used the following medications: Fosamax (i.e. alendronate), Vitamin D Has the following medical conditions: Cancer Patient maximum height was 67 Menopause Age: 38 No regular weight bearing exercise Does not regularly consume dairy products Onset of menses at age 11 Number of children 3 Impression: The patient has low bone mass, based on the Left Femoral Neck T-score. The patient has an estimated ten-year risk of hip fracture of 3.5% and an estimated ten-year risk of major fracture of 13%, based on the WHO FRAX algorithm. Discussion: BONE DENSITY IS LOW AT ONE OR MORE SKELETAL SITES. THE PATIENT'S BMD AND CLINICAL RISK FACTORS CONTRIBUTE TO THIS PATIENT'S INCREASED RISK OF FRACTURE. This patient's lowest T-score is low at one or more skeletal sites. It meets the World Health Organization's (WHO) criteria for ?low bone mass? (T-score between -1.0 and -2.5). The patient's 10-year risk of hip fracture as calculated by FRAX exceeds the threshold where pharmacological therapy is recommended by the National Osteoporosis Foundation (NOF). However, all treatment decisions require clinical judgment and consideration of individual patient factors, including patient preferences, comorbidities, previous drug use, risk factors not captured in the FRAX model (e.g., frailty, falls, vitamin D deficiency, increased bone turnover, interval significant decline in bone density) and possible under or overestimation of fracture risk by FRAX. The patient should follow a healthful lifestyle (good nutrition with adequate calcium and vitamin D, and appropriate weight-bearing exercise). Follow-Up: Consider a repeat BMD and Vertebral Fracture Assessment (VFA) exam in 2 years or sooner if medically necessary, to reassess this patient's status. Reported by: NOEMI on 01/19/2025 3:40:00 PM. Reviewed, dictated and finalized at location A.
--- OUTSIDE RECORDS SUMMARY | 2025-01-19 17:10 | XMS_ITS | Clinical Summary ---
Author Organization [facility] al Address [address] [place] [address] Care Team Providers Care Color Specialist Name Role Phone Reece Weeks MD Unavailable [phone] Melina Diaz DO Primary Care Provider [phone] Daniel Rosa MD Unavailable Allergies Active Allergy Reactions Criticality Noted Date [...] 02/23/2024 Assessment & Plan (02/23/2024 3:08 PM HEALTH CARE LIAISON): 3.3 cm infrarenal abdominal aortic aneurysms. Discussed management of AAA with the patient with recommendation for ongoing surveillance and repair if evidence of rapid growth or approaching 5 cm. We will repeat the aortoiliac duplex in 1 year. 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/2018 Vaginal bleeding 01/21/2018 Overview (01/21/2018): Added automatically from request for surgery [id number] Partial small bowel obstruction 10/15/2017 Overview (10/15/2017): Added automatically from request for surgery [id number] Parastomal hernia with obstruction and without g angrene 10/15/2017 Overview (10/15/2017): Added automatically from request for surgery [id number] Intestinal obstruction 09/05/2017 Essential hypertension 09/04/2017 Assessment & Plan (02/23/2024 3:08 PM HEALTH CARE LIAISON): Stable continue lisinopril hydrochlorothiazide Coronary artery disease invo lving [place] coronary artery of [place] heart 10/29/2016 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 [...] Arthritis Rectal cancer (HCC) Anemia Emphysema lung PONV (postoperative nausea a nd vomiting) Hyperlipidemia [...] oz pur e alcohol) Social Connection and Isolation Panel Answer Date Recorded In a typical week, how many times do you talk on the phone with family, friends, or neighbors? More than three times a week 01/11/2020 How often do you get togethe r with friends or relatives? More than three times a week 01/11/2020 Attends Yarsani Services Not on file 01/10 Active Member [...] on file Legal Sex Female 3:02 AM HEALTH CARE LIAISON Gender Identity Not on file Sexual Orientation Not on file Obstetrics History Last Filed Vital Signs Vital Sign Reading Time Taken Comments Blood Pressure 146/71 05/31/2024 8:40 AM HEALTH CARE LIAISON Pulse 71 05/31/2024 8:40 AM HEALTH CARE LIAISON Temperature 36.6 C (97.9 F) 05/31/2024 8:40 AM HEALTH CARE LIAISON Respiratory Rate 18 05/31/2024 8:40 AM HEALTH CARE LIAISON Oxygen Saturation 97% 05/31/2024 8:40 AM HEALTH CARE LIAISON Inhaled Oxygen Concentration - - Weight 69.9 kg (154 lb) 05/28/2024 5:45 PM HEALTH CARE LIAISON Height 160 cm (5' 3) 05/28/2024 5:45 PM HEALTH CARE LIAISON Body Mass Index 27.28 05/28/2024 5:45 PM HEALTH CARE LIAISON Plan of Treatment Health Maintenance Due Date Last Done Comments Depression Screening 1940 Osteoporosis Screening-Bone Density Scan 1939 DTaP/Tdap/Td Vaccine (1 - Tdap) 1950 Hepatitis B Screening 1957 Pneumococcal vaccine 65+ (1 of 1 - PCV) 1989 Well Visit 65+ 2004 Zoster Vaccine (2 of 3) 09/14/2018 07/20/2018, 05/11 Influenza Vaccine (#1) 2024 0, 12/28/2018, 12/18/2017, Additional history exists Fall Risk Assessment 05/31/2025 05/31/2024 Medical Devices Implanted Type Area Chinese Herbalist Device Identifier Shelf Expiration Date Model / Serial / Lot [employer] Inc/C R Bard [id number] Ventralight St Sepra 9x7in Uncoated Monofilament Lightweight - Sn/A - [id number] Implanted:Qty: 1 on 11/19/2017 by Daniel Rosa MD at [facility] Mesh N/A: Abdomen [employer] R Bard [id number] 03/04/2018 [id number] / N/A / [id number] Insurance [facility] MEDICARE ADVANTAGE [facility] MEDIC[facility] Address: [address] [address] [place] [address] [facility] MDCR HMO REF [facility] MEDIC[facility] Address: [address] [address] [place] [address] [facility] MEDICARE [facility] MEDICARE Advance Directives For more information, please contact: [phone] * Full Code (Latest Code Status on [...] 2:46 PM 11/22/2017 8:31 PM Care Teams Color Specialist Relationship Specialty Start Date End Date Melina Diaz DO PCP - General Family Medicine 05/13/19 Reece Weeks MD Medical Oncologist/Center Manager Hematology and Oncology 05/01/18 Daniel Rosa MD [address] [facility] [phone] [place] [address] Surgeon Colon and Rectal Surgery 01/25/21
--- OUTSIDE RECORDS SUMMARY | 2025-01-19 17:10 | XMS_ITS ---
Author Organization [facility] al Address [address] [place] [address] Care Team Providers Care Radar Signal Processing Engineer Name Role Phone Reece Weeks MD Unavailable [phone] Melina Diaz DO Primary Care Provider [phone] Daniel Rosa MD Unavailable [phone] Active Problems Problem Noted Date Diagnosed Date Abdominal aortic aneurysm (AAA) without rupture 02/23/2024 Assessment & Plan (02/23/2024 3:08 PM TIGHTENING MACHINE OPERATOR): 3.3 cm infrarenal abdominal aortic aneurysms. Discussed management of AAA with the patient with recommendation for ongoing surveillance and repair if evidence of rapid growth or approaching 5 cm. We will repeat the aortoiliac duplex in 1 year. 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/2018 Vaginal bleeding 01/21/2018 Overview (01/21/2018): Added automatically from request for surgery [id number] Partial small bowel obstruction 10/15/2017 Overview (10/15/2017): Added automatically from request for surgery [id number] Parastomal hernia with obstruction and without g angrene 10/15/2017 Overview (10/15/2017): Added automatically from request for surgery [id number] Intestinal obstruction 09/05/2017 Essential hypertension 09/04/2017 Assessment & Plan (02/23/2024 3:08 PM TIGHTENING MACHINE OPERATOR): Stable continue lisinopril hydrochlorothiazide Coronary artery disease invo lving [place] coronary artery of [place] heart 10/29/2016 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 [...]
--- OUTSIDE RECORDS SUMMARY | 2025-01-19 17:10 | XMS_ITS | Encounter Summary ---
Author Organization [facility] Address [address] [place] [address] Care Team Providers Care Photogrammetric Engineer Name Role Phone Tal Arechiga MD Primary Care Provider [phone] Encounter Details Date Type Department Care Team (Late st Contact Info) Description 12/02/2018 Lab Requisition [facility] [address] [place], [place] [id number] Rose Mary Araujo MD [address] [place], [place] [id number] Illness Social History Tobacco Use Types Packs/Day [...] CDT) Case Report Surgical Pathology Report Case: [id number] Authorizing Provider: Rose Mary Araujo MD Collected: 12/01/2018 03:45 PM Ordering Location: [facility] Received: 12/02/2018 03:45 PM Pathologist: Rashad Billingsley MD Specimen: Slide Consultation, [id number] 12/03/2018 10:27 AM CDT [facility] Final Diagnosis Urine, voided, thin prep, cytology: -Negative for high-grade urothelial neoplasia -Acute and chronic inflammation 12/03/2018 10:27 AM CDT [facility] at 1026 CDT Microscopic Description and Comment Performed. 12/03/2018 10:27 AM [facility] Clinical History Hematuria, cystoscopy negative. 12/03/2018 10:27 AM [facility] Gross Description Prepared slides received from [facility] labeled [id number]. All material will be returned. 12/03/2018 10:27 AM T [facility] Disclaimer The performance characteristics of all immunohistochemical and indirect immunofluorescence stains (if any) cited in this report were determined by the Histopathology Laboratory of [facility]. Some of these tests were developed [...] the attending (teaching) pathologist. 12/03/2018 10:27 AM [facility] Embedded Images 12/03/2018 10:27 AM [facility] Pathology/Cytolo gy SURGICAL PATHOLOGY CONSULTATION AND REPORT ON REFERRED SLIDES PREPARED ELSEWHERE / Unknown 12/01/2018 3:45 PM CDT 12/02/2018 3:45 PM CDT us Rose Mary Araujo MD LAB - PATHOLOGY/CYTOLOGY ORDERAB LES Final Result Performing Organization Address City/State/[facility] Co de Phone Number [facility] [address] [phone] documented in this encounter Visit Diagnoses Diagnosis Illness Other unknown and unspecified cause of morbidity or mortality documented in this encounter Care Teams Photogrammetric Engineer Relationship Specialty Start Date End Date Tal Arechiga MD [address] [place] [address] PCP - General 12/02/18 documented as of this encounter
--- OUTSIDE RECORDS SUMMARY | 2025-01-19 17:10 | XMS_ITS | Clinical Summary ---
Author Organization [facility] Address [address] [place] [address] Care Team Providers Care Audit Manager Name Role Phone Tal Arechiga MD Primary Care Provider [phone] Source Comments [facility],non-owned Affiliates and Associated Physician Practices is amultiple site organization consisting of ambulatory clinics and hospital sitesin [place], [place], [place] and [place]. This disclosure is being madepursuant to the Care Everywhere program and may not contain all information available regarding this patient. Last updated 17.[facility] Social History Tobacco Use Types Packs/Day Years [...] patient's age to complete this topic Insurance [facility] MANA[place] [address] [facility] S[facility]F PAY NO INSURANCE Member Subscriber Plan / Payer (Ef fective for All Dates) Name:Elvie Holloway Member ID:Not on file Relation to Subscriber:Not on file Name:ELVIE HOLLOWAY Subscriber ID:Not on file (Home) Address: [facility] [place] [address] Payer ID:Not on file Group ID:Not on file Type:Self Pay Address: [place], [place] Care Teams Audit Manager Relationship Specialty Start Date End Date Tal Arechiga MD [address] [place] [address] [facility] - General 12/02/18
== END 2025-01-19 15:00 | disposition home or self-care (01) ==
LOC: ANHFOHIMG 15:00
PROVIDERS: PCP Family Medicine; Visit Provider Family Medicine
DX: M85.88 Other specified disorders of bone density and structure, other site (principal); M85.852 Other specified disorders of bone density and structure, left thigh; M85.851 Other specified disorders of bone density and structure, right thigh
CPT/HCPCS: 77080

== ENCOUNTER 2025-01-25 08:19 | Outpatient (CLI) | payer MEDICARE, SELFPAY ==
--- OUTSIDE RECORDS SUMMARY | 2025-01-25 08:30 | XMS_ITS | Clinical Summary ---
Author Organization [facility] al Address [address] [place] [address] Care Team Providers Care Canvas Baster Name Role Phone Reece Weeks MD Unavailable [phone] Melina Diaz DO Primary Care Provider [phone] Daniel Rosa MD Unavailable [phone] Allergies Active Allergy Reactions Criticality Noted [...] 02/23/2024 Assessment & Plan (02/23/2024 3:08 PM PIERCER): 3.3 cm infrarenal abdominal aortic aneurysms. Discussed management of AAA with the patient with recommendation for ongoing surveillance and repair if evidence of rapid growth or approaching 5 cm. We will repeat the aortoiliac duplex in 1 year. Mixed hyperlipidemia 02/23/2024 Assessment & Plan (02/23/2024 3:08 PM PIERCER): Stable continue simvastatin Abdominal pain 06/20/2022 SBO (small bowel obstruction) 08/20/2021 Colostomy care 02/12/2018 Vaginal bleeding 01/21/2018 Overview (01/21/2018): Added automatically from request for surgery [id number] Partial small bowel obstruction 10/15/2017 Overview (10/15/2017): Added automatically from request for surgery [id number] Parastomal hernia with obstruction and without g angrene 10/15/2017 Overview (10/15/2017): Added automatically from request for surgery [id number] Intestinal obstruction 09/05/2017 Essential hypertension 09/04/2017 Assessment & Plan (02/23/2024 3:08 PM PIERCER): Stable continue lisinopril hydrochlorothiazide Coronary artery disease invo lving [place] coronary artery of [place] heart 10/29/2016 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 [...] on file Legal Sex Female 3:02 AM PIERCER Gender Identity Not on file Sexual Orientation Not on file Obstetrics History Last Filed Vital Signs Vital Sign Reading Time Taken Comments Blood Pressure 146/71 05/31/2024 8:40 AM PIERCER Pulse 71 05/31/2024 8:40 AM PIERCER Temperature 36.6 C (97.9 F) 05/31/2024 8:40 AM PIERCER Respiratory Rate 18 05/31/2024 8:40 AM PIERCER Oxygen Saturation 97% 05/31/2024 8:40 AM PIERCER Inhaled Oxygen Concentration - - Weight 69.9 kg (154 lb) 05/28/2024 5:45 PM PIERCER Height 160 cm (5' 3) 05/28/2024 5:45 PM PIERCER Body Mass Index 27.28 05/28/2024 5:45 PM PIERCER Plan of Treatment Health Maintenance Due Date [...] 05/31/2025 05/31/2024 Medical Devices Implanted Type Area Applied Psychology Chair Device Identifier Shelf Expiration Date Model / Serial / Lot [employer] [id number] Ventralight St Sepra 9x7in Uncoated Monofilament Lightweight - Sn/A - [id number] Implanted:Qty: 1 on 11/19/2017 by Daniel Rosa MD at [facility] Mesh N/A: Abdomen [employer] [id number] 03/04/2018 [id number] / N/A / [id number] Insurance [facility] MEDICARE ADVANTAGE [facility] Address: [address] [address] [place] [address] [facility] MDCR HMO REF [facility] Address: [address] [address] [place] [address] [facility] Advance Directives For more information, please contact: [phone] * Full Code (Latest Code Status on [...] 2:46 PM 11/22/2017 8:31 PM Care Teams Canvas Baster Relationship Specialty Start Date End Date Melina Diaz DO PCP - General Family Medicine 05/13/19 Reece Weeks MD Medical Oncologist/And Rescue Fire Fighter [employer] Hematology and Oncology 05/01/18 Daniel Rosa MD [address] [facility] [place] [place] [phone] [place] [address] Surgeon Colon and Rectal Surgery 01/25/21
--- OUTSIDE RECORDS SUMMARY | 2025-01-25 08:30 | XMS_ITS ---
Author Organization [facility] al Address [address] [place] [address] Care Team Providers Care Club Waiter/Waitress Name Role Phone Reece Weeks MD Unavailable [phone] Melina Diaz DO Primary Care Provider [phone] Daniel Rosa MD Unavailable [phone] Active Problems Problem Noted Date Diagnosed Date Abdominal aortic aneurysm (AAA) without rupture 02/23/2024 Assessment & Plan (02/23/2024 3:08 PM CHANGEOVER OPERATOR): 3.3 cm infrarenal abdominal aortic aneurysms. Discussed management of AAA with the patient with recommendation for ongoing surveillance and repair if evidence of rapid growth or approaching 5 cm. We will repeat the aortoiliac duplex in 1 year. Mixed hyperlipidemia 02/23/2024 Assessment & Plan (02/23/2024 3:08 PM CHANGEOVER OPERATOR): Stable continue simvastatin Abdominal pain 06/20/2022 SBO (small bowel obstruction) 08/20/2021 Colostomy care 02/12/2018 Vaginal bleeding 01/21/2018 Overview (01/21/2018): Added automatically from request for surgery [id number] Partial small bowel obstruction 10/15/2017 Overview (10/15/2017): Added automatically from request for surgery [id number] Parastomal hernia with obstruction and without g angrene 10/15/2017 Overview (10/15/2017): Added automatically from request for surgery [id number] Intestinal obstruction 09/05/2017 Essential hypertension 09/04/2017 Assessment & Plan (02/23/2024 3:08 PM CHANGEOVER OPERATOR): Stable continue lisinopril hydrochlorothiazide Coronary artery disease invo lving [place] coronary artery of [place] heart 10/29/2016 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 [...]
[2025-01-25 19:28] LABS: Albumin Level 4.0 g/dL (3.5-5.1); Anion Gap 8 mmol/L (4-12); Blood Urea Nitrogen 24 mg/dL (7-17); Calcium 9.4 mg/dL (8.4-10.2); Carbon Dioxide 32 mmol/L (22-30); Chloride 98 mmol/L (98-107); Estimated Glomerular Filt Rate 35; Glucose 81 mg/dL (65-110); Potassium 3.8 mmol/L (3.4-5.0); Sodium 138 mmol/L (137-145)
[2025-01-25 20:04] LABS: Total Protein Urine Random 17 mg/dL; Ur Ttl Prot Creatinine Ratio 0.31 mg/mg (0-0.20)
== END 2025-01-25 08:20 | disposition home or self-care (01) ==
PROVIDERS: PCP Family Medicine; Visit Provider Internal Medicine Nephrology
DX: I12.9 Hypertensive chronic kidney disease with stage 1 through stage 4 chronic kidney disease, or unspecified chronic kidney disease (principal); N18.32 Chronic kidney disease, stage 3b
CPT/HCPCS: 36415; 80069; 82570; 84156

== ENCOUNTER 2025-02-28 15:21 | Emergency (ER) | payer MEDICARE, SELFPAY ==
[2025-02-28 15:24] VITALS: BP 150/82; PULSE 74; RESP 20; TEMP 36.7; O2SAT 98
--- NOTE | 2025-02-28 15:24 | ED.URI ---
HPI - URI/Sore Throat General Chief Complaint: Upper Respiratory Infection Stated Complaint: Congestion Time Seen by Provider: 02/28/25 15:25 Source: patient Mode of arrival: ambulatory Limitations: no limitations History of Present Illness HPI Narrative: Patient is a 84-year-old female who presents with congestion, Dry cough and mild shortness of breath with exertion for over week. Patient has history of COPD and states her chest feels heavy ear at times and normally does. Denies any fever, chills, nausea, vomiting, diarrhea Related Data Home Medications ?Medication ?Instructions ?Recorded ?Confirmed ?Last Taken ?Type Calcium 500 + D (D3) 1 tablet PO DAILY 04/02/19 02/01/25 07/14/24 History biotin 5,000 mcg sublingual tablet 7,500 mcg sublingual DAILY 05/20/19 02/01/25 07/14/24 History cat's claw (Uncaria tomentosa) 500 500 mg PO DAILY 07/24/20 02/01/25 07/14/24 History mg capsule polyethylene glycol 3350 17 17 g PO DAILY 12/18/23 02/01/25 07/14/24 History gram/dose oral powder (Miralax) lactase 9,000 unit tablet 9,000 unit PO ONCE 05/20/24 02/01/25 07/14/24 History multivitamin 1 tablet PO DAILY 05/20/24 02/01/25 07/14/24 History estradiol 0.01% (0.1 mg/gram) 1 appful vaginal DAILY PRN dryness 06/29/24 02/01/25 Unknown History vaginal cream Allergies Allergy/AdvReac Type Severity Reaction Status Date / Time amlodipine Allergy Mild Other Verified 02/28/25 15:32 amoxicillin (From Augmentin) Allergy Mild Itching, Verified 02/28/25 15:32 rash mold Allergy Mild Itching Verified 02/28/25 15:32 ciprofloxacin AdvReac Intermediate Heartburn Verified 02/28/25 15:33 Review of Systems Review of Systems: All systems reviewed & are unremarkable except as noted in HPI and below Constitutional: Constitutional: Denies chills, Denies fatigue, Denies fever(s), Denies headache(s), Denies malaise and Denies weakness Eyes: Eyes: Denies blurry vision, Denies itchy eyes and Denies loss of vision ENT: Denies otalgia, Denies headache(s), Reports nasal congestion, Denies sinus pain and Denies sore throat Cardiovascular: Cardiovascular: Denies chest pain, Denies irregular heart rhythm and Denies dyspnea Respiratory: Respiratory: Reports cough and Reports dyspnea on exertion Gastrointestinal: Gastrointestinal: Denies abdominal pain, Denies diarrhea, Denies nausea and Denies vomiting Musculoskeletal: Musculoskeletal: Denies back pain, Denies myalgias and Denies arthralgias Integumentary/Breasts: Skin/Breast: Denies pruritus and Denies rash Neurologic: Denies headache(s), Denies loss of vision and Denies weakness Psychiatric: Psychiatric: Reports no additional psychiatric complaints Endocrine: Endocrine: Denies fatigue Allergic/Immunologic: Allergic/Immunologic: Denies itchy eyes PMFSH Past Medical History Medical History Recurrent urinary tract infection Osteoporosis Constipation High cholesterol Wears glasses History of mumps History of measles History of chicken pox Rectal cancer Status post chemo radiation. Fractures Fracture right arm x2 at age 7 Arthritis Osteopenia Atherosclerosis of aorta Chronic kidney disease, stage 3 (moderate) Chronic obstructive pulmonary disease, unspecified Essential (primary) hypertension Gastro-esophageal reflux disease without esophagitis Post-menopausal Surgical History Surgical History History of bunionectomy of left great toe History of inguinal hernia repair History of cataract extraction with lens replacement History of section, classical (1967) History of intestinal surgery (2013) Perineal resection with colostomy for rectal cancer. Exploratory laparotomy for bowel obstructions and adhesiolysis on separate occasions. Family History Family History Sibling Hypertension Aneurysm Gout Heart disease Mother Diabetes mellitus Hypertension Family history of coronary artery disease bypass age 72 Father Hypertension Daughter Hypertension Son Hypertension Daughter Lymphedema Carpal tunnel syndrome Heart problem Other Family history of heart disease in male family member before age 55 Social History Social History Social History: Surrogate medical decision maker: Scott Thakur, alex. Code status: Full code. Caffeine:none Smoking packs per day: 1 Smoking cigarettes per day: 20.0 Years smoked: 35 Smoking pack-years: 35.00 Smoking status: Former smoker Smoking end date: 04/07/99 Alcohol intake: never Substance use: never Substance use type: does not use Do You Feel Safe in your Home?: Yes Lack of Transportation: No Lack of Food: Never True Current Housing: I Have Housing Concerned About Future Housing: No Difficulty Paying Gas/Electric Bills: No Difficulty Paying for Meds: No Currently Unemployed: No Education: Associate Degree Difficulty w/ Childcare or Family Care: No Living arrangements: with family Additional living arrangements comments: The patient lives in [place], son and [id number]-oor live with her. Additional occupation/education comments: Retired. Spiritual care concerns: No Comments At time of signature, agree with nursing past medical, surgical, social and family history. There is no relevant family history pertinent to the presenting complaint. Exam Const: General: cooperative, healthy appearing, comfortable, no acute distress and well nourished Nutritional Appearance: well nourished Orientation/consciousness: patient oriented x3 Limitations: no limitations HENMT: Head: normal to inspection, normocephalic and atraumatic Ears: hearing grossly normal bilaterally, external ears normal, TM's normal bilaterally, EAC's normal and no periauricular adenopathy Face/Nose/Sinus: Normal external nose present, Abnormal mucous membranes and turbinates present erythematous bilateral and diffuse, normal facial exam, sinuses nontender and face symmetric Face and sinus: normal facial exam, sinuses nontender and face symmetric Mouth: Yes Normal oral and palatal mucosa present, Yes lip normal, Yes tongue normal, Yes Normal salivary glands and ducts present, Yes oropharynx normal and Yes moist mucous membranes Teeth and gingiva: dentition normal Throat: posterior oropharynx normal, tonsils normal and uvula midline Eyes: General: appearance normal, both eyes and all related structures Alignment and Position: alignment normal and position normal Periorbital: periorbital findings normal Eyelids: eyelids normal Pupils: Equal, round and reactive pupils present Neck: Neck: normal visual inspection, full ROM, no lymphadenopathy and supple Chest: Chest palpation & inspection: normal inspection of the chest and normal palpation of entire chest wall Resp: Effort & Inspection: normal respiratory effort and able to speak in complete sentences Auscultation: clear to auscultation bilaterally, no crackles, no rales, no rhonchi and no wheezes Cardio: Rate: regular rate Rhythm: regular rhythm Heart sounds: S1 normal heart sound present and S2 normal heart sound present GI: Inspection: normal to inspection Skin: General skin exam: normal color and no rashes or lesions noted Neuro: General: patient oriented x3 and moves all extremities Cranial nerves: Yes Equal, round and reactive pupils present Speech: normal speech Gait exam (Neuro): Normal gait present Extrem: General: normal to inspection, full ROM and no edema Psych: Appearance: grossly normal and well kempt Mental Status: mental status grossly normal Speech and movement: Normal speech and movement present Affect: normal affect Attitude: cooperative Thought process: Normal thought process present Course Course Emergency Course: Discharge instructions reviewed with patient, as well as provided in writing per nursing staff. The instructions also include specific and strict return/GO TO THE ER as well as f/u information. All questions have been answered, and the patient deny any further questions with discharge and discharge plan. Portions of this record may have been created with voice recognition software Level of Care: Express Care Visit Vital Signs Vital signs: Reviewed MDM - URI/Sore Throat MDM Narrative Medical decision making narrative: based on history and length of illness will treat with antibiotic and albuterol inhaler. Pt well hydrated appearing, in no respiratory distress, hemodynamically stable. Recommend supportive care. The patient is stable at time of discharge the clinical impression was discussed and the patient was given the opportunity to ask questions, which were addressed as completely as possible given the information available at present. Anticipatory guidance and return to care precautions were discussed and the importance of primary care follow-up was stressed and encouraged. The patient voiced understanding of the plan, indications to return, and the need for follow-up. Exam findings show no acute concerns or changes Patient is appropriate for outpatient treatment and follow-up. Differential diagnosis considered: Lopez virus, strep pharyngitis, allergic rhinitis, upper respiratory tract infection, sinusitis, rhinosinusitis, nasopharyngitis. viral pharyngitis, otitis media, otitis externa, otitis effusion, foreign body, cerumen impaction, viral syndrome, and influenza.? Medical Records Attestation: I reviewed the patient's medical records. Discharge Plan Discharge Clinical Impression: Acute exacerbation of chronic obstructive pulmonary disease Patient Disposition: Home Condition: Stable Instructions: COPD (Chronic Obstructive Pulmonary Disease) (ED) Additional Instructions: Take antibiotic as prescribed. Use inhaler with spacer as needed. Other symptomatic treatments include: -Alternate Tylenol and Motrin per package directions for fever or pain: Tylenol 650-1000mg by mouth every 4-6 hours. Do not exceed 4000mg in 24 hours. Advil (Ibuprofen) 600 mg by mouth every 6 hours. Do not exceed 2400mg in 24 hours. 8 AM: Tylenol 11 AM: Ibuprofen 2 PM: Tylenol 5 PM: Ibuprofen 8 PM: Tylenol 11 PM: Ibuprofen 2 AM: Tylenol 5 AM: Ibuprofen -Antihistamine medication such as Benadryl at night and Zyrtec/Claritin/Charity during the day can help improve symptoms. -Use Flonase twice a day for 5 days then daily to help reduce the inflammation and dry up your sinuses. -Eat and drink things that are easy to swallow, like tea or soup, or popsicles. -Oral rinses such as: Salt water gargles and/or may use topical anesthetic (eg. Chloraseptic spray) or lozenges to relieve dryness or throat pain). -Frequent hand washing or hand chemical dependency attendant is one of the best ways to prevent spread of infection. -Using a vaporizer or humidifier at night will also help thin secretions and help with coughing up phlegm. Call your Primary Care Doctor and make a follow-up appointment in 3 days. If your cough worsens, you develop a fever greater than 103, you develop shaking chills, a fast heartbeat, trouble breathing and/or feel you are are breathing much faster than usual, call your Primary Care Doctor or go to the ER. Patient Language: Chadian Prescriptions: New azithromycin 250 mg tablet See Rx Instructions .ROUTE .COMPLEX Qty: 6 0RF Rx Instructions: For 250 mg dose pack: take 500 mg today (day 1), then 250 mg for 4 days (days 2-5) albuterol sulfate 90 mcg/actuation HFA aerosol inhaler 2 puff inhalation QID PRN (Reason: shortness of breath or wheezing) Qty: 6.7 0RF (DME) Aerochamber MV Spacer See Rx Instructions .Route Qty: 1 0RF Rx Instructions: As directed No Action Calcium 500 + D (D3) 1 tablet PO DAILY biotin 5,000 mcg tablet, sublingual 7,500 mcg SUBLINGUAL DAILY polyethylene glycol 3350 [Miralax] 17 gram/dose powder 17 g PO DAILY multivitamin Tablet 1 tablet PO DAILY lactase 9,000 unit tablet 9,000 unit PO ONCE Rx Instructions: administer with meals and/or snacks cat's claw (Uncaria tomentosa) 500 mg capsule 500 mg PO DAILY clotrimazole-betamethasone 1-0.05 % cream 1 applic topical BID 28 Days Qty: 45 4RF estradiol 0.01 % (0.1 mg/gram) cream 1 appful vaginal DAILY PRN (Reason: dryness) Rx Instructions: for 14 days amitriptyline 10 mg tablet 10 mg PO QHS Qty: 90 1RF lisinopril-hydrochlorothiazide 20-12.5 mg tablet See Rx Instructions .ROUTE .COMPLEX Qty: 90 1RF Dose Instruction: TAKE 1 TABLET BY MOUTH DAILY Rx Instructions: TAKE 1 TABLET BY MOUTH DAILY Trelegy Ellipta 100-62.5-25 mcg blister with device See Rx Instructions .ROUTE .COMPLEX Qty: 180 4RF Dose Instruction: INHALE 1 PUFF BY MOUTH DAILY Rx Instructions: INHALE 1 PUFF BY MOUTH DAILY simvastatin 20 mg tablet 20 mg PO DAILY Qty: 90 1RF Follow-up/Referrals: Melina Diaz DO [Primary Care Provider, Family Practice] - 3 Days Time of Disposition: 15:55
== END 2025-02-28 15:59 | disposition home or self-care (01) ==
PROVIDERS: Emergency Provider Nurse Practitioner Family; PCP Family Medicine
DX: J44.1 Chronic obstructive pulmonary disease with (acute) exacerbation (principal); I12.9 Hypertensive chronic kidney disease with stage 1 through stage 4 chronic kidney disease, or unspecified chronic kidney disease; N18.30 Chronic kidney disease, stage 3 unspecified
CPT/HCPCS: 99213; G0463